=== PATIENT | male | born 1970 | race Caucasian/White ===

== ENCOUNTER 2023-04-22 08:27 | Observation (INO) | payer OTHER, SELFPAY ==
[2023-04-22] VITALS (27 sets, daily range): BP systolic 124–164; BP diastolic 82–115; PULSE 92–126; RESP 15–34; TEMP 36.6–37; O2SAT 90–118; BMI 27.4; BMI 28.0
--- NOTE | 2023-04-22 08:41 | XR_ITS ---
The [address] [address] Patient Name: ROBERTA DYSON MRN: [id number] date: 1970 Sex: M Assigned Patient Location: ER Current Patient Location: ED.MAIN Accession/Order Number: [id number] Exam Date: 04/22/2023 08:47 Report Date: 04/22/2023 09:13 At the request of: SHAHANA VITALE Procedure: XR chest 1V EXAMINATION: XR chest 1V HISTORY: shortness of breath , vomiting COMPARISON: No relevant comparison available. FINDINGS: LUNGS: No significant pulmonary parenchymal abnormalities. VASCULATURE: No increased pulmonary vasculature. PLEURA: No pneumothorax, effusion, or pleural thickening. CARDIAC: No cardiomegaly or cardiac silhouette abnormality. MEDIASTINUM: No visible mass or adenopathy. BONES: No fracture or visible bone lesion. OTHER: Negative. IMPRESSION: 1. Clear lungs. No acute cardiopulmonary process. Electronically authenticated by: KAMILAH RAO Date: 04/22/2023 09:13
--- NOTE | 2023-04-22 08:41 | ECG_ITS ---
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
[2023-04-22 08:45] LABS: Glucometer 208 mg/dL (74-106)
--- NOTE | 2023-04-22 08:59 | ED.GENADUL1 ---
HPI - General Adult General Chief complaint: Shortness of Breath/Dyspnea Stated complaint: SHORTNESS OF BREATH/VOMITTING Time Seen by Provider: 04/22/23 08:34 Source: patient Source information: pt up n/v all night, chills, sob. Mode of arrival: Wheelchair Limitations: no limitations History of Present Illness HPI narrative: 52-year-old male presents for shortness of breath and nausea and vomiting. He states he was fine up until about midnight when he started feeling anxious and became nauseous and vomited and now his shortness of breath as well. No chest pain or fever or hematemesis. He is not coughing up any phlegm. Symptoms have been continuous. He took his blood pressure medication this morning but vomited it back up and the water that he drank he also vomited as well. He is not complaining of abdominal pain or chest pain. Related Data Home Medications Medication Instructions Recorded Confirmed amlodipine 5 mg tablet mg 04/22/23 atenolol 100 mg tablet mg 04/22/23 gabapentin 300 mg capsule mg 04/22/23 insulin NPH-regular 70-30 U-100 subcut 04/22/23 insulin 100 unit/mL subcutaneous pen (Humulin 70/30 U-100 KwikPen) pen needle, diabetic 32 gauge x 04/22/23 04/22/23 5/32 (BD Ultra-Fine Marlyn Pen Needle) potassium chloride 20 mEq meq PO 04/22/23 tablet,extended release(part/cryst) (Klor-Con M) Allergies Allergy/AdvReac Type Severity Reaction Status Date / Time morphine Allergy Severe Hives Verified 04/22/23 08:53 nitroglycerin AdvReac Intermediate Vomiting Verified 04/22/23 08:53 ibuprofen AdvReac Unknown Verified 04/22/23 08:53 Review of Systems ROS Narrative A ten point review of systems is negative except as noted above. [facility] Medical History (Updated 04/22/23 @ 11:18 by Aleksandr Issa MD) Surgical History (Updated 04/22/23 @ 08:57 by Lamont Felder) Social History Smoking status: Never smoker Exam Narrative Exam Narrative: Nurses note and vital signs reviewed and patient is not hypoxic. General: The patient appears In no apparent respiratory distress.. Patient is Quite tremorous. Skin: Warm, dry, no pallor noted. There is no rash noted. Head: Normocephalic, atraumatic Eye: Normal conjunctiva, no drainage Ears, Nose, Mouth, and Throat: oral mucosa is Slightly dry. Nares patent. Mouth without vesicles. Cardiovascular: Regular Rate and Rhythm, Tachycardic Respiratory: Patient is in no distress, no accessory muscle use, lungs are clear to auscultation, no wheezing, rales or rhonchi Back: non-tender, no CVA tenderness bilaterally to percussion. GI: no tenderness to palpation, no masses appreciated. No rebound, guarding, or rigidity noted. Musculoskeletal: The patient has no evidence of calf tenderness, no pitting edema, symmetrical pulses noted bilaterally Neurological: A&O x4, normal speech; Quite tremorous Psychiatric: Cooperative Constitutional Vital Signs - 24 hr 04/22/23 08:30 04/22/23 08:53 04/22/23 08:38 Temperature 98.6 F Pulse Rate 119 H Pulse Rate [Monitor] 126 H Respiratory Rate 24 24 Blood Pressure 162/115 H Blood Pressure [Right Arm] 162/115 H Pulse Oximetry 100 100 99 Oxygen Delivery Method Room Air Room Air 04/22/23 08:38 04/22/23 09:14 04/22/23 09:14 Temperature Pulse Rate 122 H 113 H 119 H Pulse Rate [Monitor] Respiratory Rate 21 16 16 Blood Pressure 154/105 H 154/105 H Blood Pressure [Right Arm] Pulse Oximetry 97 98 Oxygen Delivery Method 04/22/23 09:30 04/22/23 09:44 04/22/23 09:45 Temperature Pulse Rate 116 H 109 H 104 H Pulse Rate [Monitor] Respiratory Rate 18 19 34 H Blood Pressure 164/110 H 138/90 H 124/92 H Blood Pressure [Right Arm] Pulse Oximetry 98 97 93 L Oxygen Delivery Method 04/22/23 10:00 04/22/23 10:00 04/22/23 10:15 Temperature Pulse Rate 106 H 107 H 108 H Pulse Rate [Monitor] Respiratory Rate 15 18 16 Blood Pressure 129/92 H 129/92 H 133/101 H Blood Pressure [Right Arm] Pulse Oximetry 95 94 L 94 L Oxygen Delivery Method 04/22/23 10:30 04/22/23 10:45 Temperature Pulse Rate 111 H 110 H Pulse Rate [Monitor] Respiratory Rate 16 18 Blood Pressure 137/104 H 133/108 H Blood Pressure [Right Arm] Pulse Oximetry 93 L 96 Oxygen Delivery Method Course Vital Signs Vital signs: Vital Signs Temperature 98.6 F 04/22/23 08:30 Pulse Rate 126 H 04/22/23 08:30 Respiratory Rate 24 04/22/23 08:30 Blood Pressure 162/115 H 04/22/23 08:30 Pulse Oximetry 100 04/22/23 08:30 Oxygen Delivery Method Room Air 04/22/23 08:30 Temperature 98.6 F 04/22/23 08:30 Pulse Rate 110 H 04/22/23 10:45 Respiratory Rate 18 04/22/23 10:45 Blood Pressure 133/108 H 04/22/23 10:45 Pulse Oximetry 96 04/22/23 10:45 Oxygen Delivery Method Room Air 04/22/23 08:53 Medical Decision Making MDM Narrative Medical decision making narrative: The patient presented with tremorous and nausea and vomiting. He was hypertensive and tachycardic. He was given IV labetalol and two doses of IV Ativan. She is feeling improved and his blood pressure and heart rate are coming down. He is being admitted for continued care. Findings are discussed thoroughly with the patient and his sister. Differential Diagnosis Differential Diagnosis: Anxiety, alcohol withdrawal, dehydration, much like imbalance Lab Data Lab results reviewed: Yes I reviewed the patient's lab results Labs: Lab Results 04/22/23 04/22/23 Range/Units 08:30 08:33 WBC 7.7 (4.0-11.0) 10^3/uL RBC 5.47 (4.70-6.10) 10^6/uL Hgb 17.3 (14.0-18.0) g/dL Hct 49.3 (42.0-54.0) % MCV 90.1 (80.0-94.0) fL MCH 31.6 (25.9-34.0) pg MCHC 35.1 (29.9-35.2) g/dL RDW 11.9 (11.0-15.0) % Plt Count 120 L (150-450) 10^3/uL MPV 11.2 (9.5-13.5) fL Neut % (Auto) 67.8 (43.0-75.0) % Lymph % (Auto) 22.0 (20.5-60.0) % [place] % (Auto) 9.3 (1.7-12.0) % Eos % (Auto) 0.1 L (0.9-7.0) % Baso % (Auto) 0.5 (0.2-2.0) % Neut # (Auto) 5.2 (1.4-6.5) 10^3/uL Lymph # (Auto) 1.7 (1.2-3.8) 10^3/uL [place] # (Auto) 0.7 (0.3-0.8) 10^3/uL Eos # (Auto) 0.0 (0.0-0.7) 10^3/uL Baso # (Auto) 0.0 (0.0-0.1) 10^3/uL Abs Immat Gran (auto) 0.02 (0.00-0.03) 10^3/uL Imm/Tot Granulo (auto) 0.3 (0.0-0.5) % Sodium 137 (136-145) mmol/L Potassium 3.2 L (3.5-5.1) mmol/L Chloride 94 L (98-107) mmol/L Carbon Dioxide 22.0 (21.0-32.0) mmol/L Anion Gap 24.2 BUN 9.0 (7.0-18.0) mg/dL Creatinine 1.06 (0.70-1.30) mg/dL Est GFR ( Amer) >60 (>=60) Est GFR (Non-Af Amer) >60 (>=60) BUN/Creatinine Ratio 8.5 Glucose 214 H (74-106) mg/dL Calcium 9.7 (8.5-10.1) mg/dL Total Bilirubin 1.0 (0.2-1.0) mg/dL AST 40 H (15-37) U/L ALT 43 (16-63) U/L Alkaline Phosphatase 106 (46-116) U/L Troponin I High Sens 15.6 (4.0-76.1) pg/mL Total Protein 8.5 H (6.4-8.2) g/dL Albumin 4.2 (3.4-5.0) g/dL Globulin 4.3 g/dL Albumin/Globulin Ratio 1.0 POC Glucose 208 H (74-106) mg/dL ECG Data Attestation: I personally reviewed and interpreted this ECG as follows: (EKG on my interpretation shows sinus tachycardia with no acute change) Critical Care Time Critical Care Time Critical Care Time: Yes Total Critical Care Time: 35 Attestation: IV labetalol was administered for tachycardia and hypertension. Discharge Plan Discharge Chief Complaint: Shortness of Breath/Dyspnea Clinical Impression: Nausea & vomiting, Hypertension Patient Disposition: Admitted As Inpatient Time of Disposition Decision: 11:18 Condition: Fair
[2023-04-22 09:01] LABS: Basophils Percent Auto 0.5 % (0.2-2.0); Eosinophils Percent Auto 0.1 % (0.9-7.0); Hematocrit 49.3 % (42.0-54.0); Hemoglobin 17.3 g/dL (14.0-18.0); Immature Granulocytes Abs Auto 0.02 10^3/uL (0.00-0.03); Immature Granulocytes Pct Auto 0.3 % (0.0-0.5); Lymphocytes Absolute Auto 1.7 10^3/uL (1.2-3.8); Mean Corpuscular HGB Conc 35.1 g/dL (29.9-35.2); Mean Corpuscular Hemoglobin 31.6 pg (25.9-34.0); Mean Corpuscular Volume 90.1 fL (80.0-94.0); Mean Platelet Volume 11.2 fL (9.5-13.5); Monocytes Absolute Auto 0.7 10^3/uL (0.3-0.8); Monocytes Percent Auto 9.3 % (1.7-12.0); Neutrophils Absolute Auto 5.2 10^3/uL (1.4-6.5); Neutrophils Percent Auto 67.8 % (43.0-75.0); Platelet Count 120 10^3/uL (150-450); Red Blood Count 5.47 10^6/uL (4.70-6.10); Red Cell Distribution Width 11.9 % (11.0-15.0); White Blood Count 7.7 10^3/uL (4.0-11.0)
[2023-04-22] MEDS: LORAZEPAM 2 MG/ML 1 ML VIAL 0.5 MG IV ×2 (09:13→09:41)
[2023-04-22 09:31] LABS: Alanine Aminotransferase 43 U/L (16-63); Albumin Level 4.2 g/dL (3.4-5.0); Alkaline Phosphatase 106 U/L (46-116); Anion Gap 24.2; Aspartate Amino Transferase 40 U/L (15-37); BUN Creatinine Ratio 8.5; Calcium 9.7 mg/dL (8.5-10.1); Chloride 94 mmol/L (98-107); Estimated GFR (African America >60 (>=60); Estimated GFR (Non-African Ame >60 (>=60); Globulin 4.3 g/dL; Glucose 214 mg/dL (74-106); Potassium 3.2 mmol/L (3.5-5.1); Sodium 137 mmol/L (136-145); Total Protein 8.5 g/dL (6.4-8.2); Troponin I High Sensitivity 15.6 pg/mL (4.0-76.1)
[2023-04-22] MEDS: LABETALOL HCL 20 MG/4 ML SYRINGE 10 MG IVP (09:41)
[2023-04-22 11:44] LABS: Ethanol <3 mg/dL
[2023-04-22] MEDS: PANTOPRAZOLE SODIUM 40 MG VIAL IV (13:31)
[2023-04-22] MEDS: POTASSIUM CHLORIDE 10 MEQ ER TABLET 20 MEQ PO ×2 (13:32→21:26)
[2023-04-22] MEDS: ENOXAPARIN SODIUM 40 MG/0.4 ML SYRINGE SUBQ (13:36)
--- NOTE | 2023-04-22 13:42 | P.HP_ITS ---
H&P: HPI History of Present Illness Chief complaint: SHORTNESS OF BREATH/VOMITTING Narrative: patient is a 52-year-old male with past medical history of insulin- dependent type 2 diabetes with noncompliance, hypertension, hyperlipidemia, diabetic neuropathy. he reports that last night he drank about three beers and woke up in the middle of the night with a dry cough, some shortness of breath, sweats and an episode of vomiting. He denies any sick contacts denies any fevers or recent illnesses. patient usually consumes about 5-6 beers a day but never had any issues with delirium tremens or seizures in the past. He has been compliant with his medications this time and has been taking his blood pressure and insulin. He denies any chest pain does admit to some shortness of breath specifically with a cough but no current nausea vomiting or diarrhea. Review of Systems ROS Narrative ROS: a complete review of systems were reviewed with patient and are positive as below or listed in History of Chief Complaint. General: no fever, chills, night sweats Head: no headache, trauma, visual changes, nausea or vomiting Skin: no reported rashes, itching or sores Eyes: no blurriness of vision Ears: no reported hearing loss, vertigo, earache, or tinnitus Throat: no sore throat, hoarseness, swelling of neck, or tongue pain Heart: no chest pain Lungs: no shortness of breath or cough GI: no diarrhea or vomiting/nausea Urinary: no urinary urgency, frequency or pain Neuro: no numbness or tingling HEM: no bleeding issues or bruising ENDO: no thyroid problems Psych: no anxiety or depression PFSH PFS Medical History (Updated 04/22/23 @ 13:50 by Annie Madden DO) Surgical History Social History Smoking status: Never smoker Gender Identity: male Meds Home Medications and Allergies Home Medications Medication Instructions Recorded Confirmed Type amlodipine 5 mg tablet 5 mg PO DAILY 04/22/23 04/22/23 History atenolol 100 mg tablet 100 mg PO DAILY 04/22/23 04/22/23 History gabapentin 300 mg capsule See Rx Instructions .Route .COMPLEX 04/22/23 04/22/23 History insulin NPH-regular 70-30 U-100 See Rx Instructions subcut .COMPLEX 04/22/23 04/22/23 History insulin 100 unit/mL subcutaneous pen (Humulin 70/30 U-100 KwikPen) pen needle, diabetic 32 gauge x 04/22/23 04/22/23 History /32 (BD Ultra-Fine Marlyn Pen Needle) potassium chloride 20 mEq 20 meq PO TID 04/22/23 04/22/23 History tablet,extended release(part/cryst) (Klor-Con M) Allergies Allergy/AdvReac Type Severity Reaction Status Date / Time morphine Allergy Severe Hives Verified 04/22/23 08:53 nitroglycerin AdvReac Intermediate Vomiting Verified 04/22/23 08:53 ibuprofen AdvReac Unknown Verified 04/22/23 08:53 Exam Narrative Exam Narrative: General: Patient is alert, and oriented to person, place and time with normal affect, proper hygiene, resting tremors bilaterally Skin: no visible rashes, or ulcers Head: atraumatic, acephalic Eyes: PERRLA, no nystagmus present, conjunctiva clear, no scleral icterus Ears: normal gross auditory acuity Nose: symmetric, no discharge, no maxillary or frontal sinus tenderness Mouth/Throat: no erythema, exudate, or tonsillar enlargement, normal dentition Neck: no masses palpated, normal thyroid, no JVD or audible carotid bruits Heart: Normal rate and rhythm, no murmurs/rubs/gallops Lungs: no audible wheezes, crackles and normal breath sounds all lung gonzalez Abdomen: Normal audible bowel sounds, no distension, No palpable masses, no organomegaly, no rebound/guarding/ or rigidity Musculoskeletal: no swelling bilateral lower extremities Vascular: Normal carotid, radial, femoral, posterior tibial, and dorsalis pedis pulses Lymph: no supraclavicular, axillary, or anterior/posterior cervical adenopathy Neuro: CN II-X grossly intact Constitutional Vital Signs - 24 hr 04/22/23 08:30 04/22/23 08:53 04/22/23 08:38 Temperature 98.6 F Pulse Rate 119 H Pulse Rate [Monitor] 126 H Respiratory Rate 24 24 Blood Pressure 162/115 H Blood Pressure [Right Arm] 162/115 H Pulse Oximetry 100 100 99 Oxygen Delivery Method Room Air Room Air 04/22/23 08:38 04/22/23 09:14 04/22/23 09:14 Temperature Pulse Rate 122 H 113 H 119 H Pulse Rate [Monitor] Respiratory Rate 21 16 16 Blood Pressure 154/105 H 154/105 H Blood Pressure [Right Arm] Pulse Oximetry 97 98 Oxygen Delivery Method 04/22/23 09:30 04/22/23 09:44 04/22/23 09:45 Temperature Pulse Rate 116 H 109 H 104 H Pulse Rate [Monitor] Respiratory Rate 18 19 34 H Blood Pressure 164/110 H 138/90 H 124/92 H Blood Pressure [Right Arm] Pulse Oximetry 98 97 93 L Oxygen Delivery Method 04/22/23 10:00 04/22/23 10:00 04/22/23 10:15 Temperature Pulse Rate 106 H 107 H 108 H Pulse Rate [Monitor] Respiratory Rate 15 18 16 Blood Pressure 129/92 H 129/92 H 133/101 H Blood Pressure [Right Arm] Pulse Oximetry 95 94 L 94 L Oxygen Delivery Method 04/22/23 10:30 04/22/23 10:45 04/22/23 11:00 Temperature Pulse Rate 111 H 110 H 119 H Pulse Rate [Monitor] Respiratory Rate 16 18 30 H Blood Pressure 137/104 H 133/108 H 139/103 H Blood Pressure [Right Arm] Pulse Oximetry 93 L 96 Oxygen Delivery Method 04/22/23 11:20 04/22/23 11:23 04/22/23 11:25 Temperature Pulse Rate 111 H 109 H 118 H Pulse Rate [Monitor] Respiratory Rate 17 15 19 Blood Pressure 137/95 H Blood Pressure [Right Arm] Pulse Oximetry 98 Oxygen Delivery Method 04/22/23 11:25 04/22/23 11:40 Temperature 98.0 F Pulse Rate 126 H 116 H Pulse Rate [Monitor] Respiratory Rate 23 18 Blood Pressure 137/95 H Blood Pressure [Right Arm] 160/95 H Pulse Oximetry 94 L 91 L Oxygen Delivery Method Room Air Results Labs Labs: Short CBC 04/22/23 Range/Units 08:30 WBC 7.7 (4.0-11.0) 10^3/uL Hgb 17.3 (14.0-18.0) g/dL Hct 49.3 (42.0-54.0) % Plt Count 120 L (150-450) 10^3/uL BMP 04/22/23 08:30 Sodium 137 Potassium 3.2 L Chloride 94 L Carbon Dioxide 22.0 BUN 9.0 Creatinine 1.06 Glucose 214 H Calcium 9.7 Liver Function 04/22/23 Range/Units 08:30 Total Bilirubin 1.0 (0.2-1.0) mg/dL AST 40 H (15-37) U/L ALT 43 (16-63) U/L Alkaline Phosphatase 106 (46-116) U/L Albumin 4.2 (3.4-5.0) g/dL Assessment and Plan Assessment and Plan (1) Hypertensive urgency: Assessment and Plan: patient was given a dose of labetalol 10 mg once in the emergency department which seemed to improve patient's elevated blood pressure. Will place back on home amlodipine and Toprol and will provide when necessary hydralazine if needed. He denies having a headache at this time (2) Nausea & vomiting: Assessment and Plan: no active issues slight wheeze low potassium but was 3.2 continue antiemetics as needed (3) Uncontrolled type 2 diabetes mellitus: Assessment and Plan: hemoglobin A1c at the end of last month was greater than ten, will continue home dose of 70/30 (4) Dry cough: Assessment and Plan: normal chest x-ray will check viral culture (5) Shaking: Assessment and Plan: Ativan seemed to improve symptoms, withdrawal scores per nursing staff (6) Hyperlipidemia: Assessment and Plan: not currently taking statin (7) Diabetic neuropathy: Assessment and Plan: resume gabapentin Plan full code lovenox for DVT prophylaxis patient is admitted under observation status and is not expected to stay more than 2 midnights
[2023-04-22 15:24] LABS: Adenovirus NOT DETECTED (NOT DETECTE); Bordetella parapertussis NOT DETECTED (NOT DETECTE); Coronavirus 229E NOT DETECTED (NOT DETECTE); Coronavirus HKU1 NOT DETECTED (NOT DETECTE); Coronavirus NL63 NOT DETECTED (NOT DETECTE); Coronavirus OC43 NOT DETECTED (NOT DETECTE); Human Metapneumovirus NOT DETECTED (NOT DETECTE); Human Rhinovirus/Enterovirus NOT DETECTED (NOT DETECTE); Influenza A NOT DETECTED (NOT DETECTE); Influenza B NOT DETECTED (NOT DETECTE); Mycoplasma pneumoniae NOT DETECTED (NOT DETECTE); Parainfluenza Virus 1 NOT DETECTED (NOT DETECTE); Parainfluenza Virus 2 NOT DETECTED (NOT DETECTE); Parainfluenza Virus 3 NOT DETECTED (NOT DETECTE); Parainfluenza Virus 4 NOT DETECTED (NOT DETECTE); Respiratory Syncytial Virus NOT DETECTED (NOT DETECTE); SARS-CoV-2 NOT DETECTED (NOT DETECTE)
[2023-04-22] MEDS: LORAZEPAM 2 MG/ML 1 ML VIAL 1 MG IV (15:29)
[2023-04-22 16:07] LABS: Glucometer 143 mg/dL (74-106)
[2023-04-22 19:46] LABS: Glucometer 155 mg/dL (74-106)
[2023-04-22] MEDS: GABAPENTIN 300 MG CAPSULE PO (21:26)
[2023-04-23] VITALS (10 sets, daily range): BP systolic 138; BP diastolic 91; PULSE 81–103; RESP 18; TEMP 36.6; O2SAT 95–97; BMI 28.0
[2023-04-23 04:58] LABS: Basophils Absolute Auto 0.1 10^3/uL (0.0-0.1); Basophils Percent Auto 0.9 % (0.2-2.0); Eosinophils Absolute Auto 0.1 10^3/uL (0.0-0.7); Eosinophils Percent Auto 1.6 % (0.9-7.0); Hematocrit 46.4 % (42.0-54.0); Hemoglobin 15.8 g/dL (14.0-18.0); Immature Granulocytes Abs Auto 0.01 10^3/uL (0.00-0.03); Immature Granulocytes Pct Auto 0.2 % (0.0-0.5); Lymphocytes Absolute Auto 2.1 10^3/uL (1.2-3.8); Lymphocytes Percent Auto 38.2 % (20.5-60.0); Mean Corpuscular HGB Conc 34.1 g/dL (29.9-35.2); Mean Corpuscular Hemoglobin 31.7 pg (25.9-34.0); Mean Corpuscular Volume 93.2 fL (80.0-94.0); Monocytes Absolute Auto 0.7 10^3/uL (0.3-0.8); Monocytes Percent Auto 12.9 % (1.7-12.0); Neutrophils Absolute Auto 2.5 10^3/uL (1.4-6.5); Neutrophils Percent Auto 46.2 % (43.0-75.0); Platelet Count 97 10^3/uL (150-450); Red Blood Count 4.98 10^6/uL (4.70-6.10); Red Cell Distribution Width 12.2 % (11.0-15.0); White Blood Count 5.5 10^3/uL (4.0-11.0)
[2023-04-23] MEDS: POTASSIUM CHLORIDE 10 MEQ ER TABLET 20 MEQ PO (05:05)
[2023-04-23 05:13] LABS: Estimated Average Glucose 260 mg/dL; Glycohemoglobin A1C 10.7 % (4.5-6.2)
[2023-04-23 05:35] LABS: Alanine Aminotransferase 33 U/L (16-63); Albumin Globulin Ratio 0.9; Albumin Level 3.1 g/dL (3.4-5.0); Alkaline Phosphatase 76 U/L (46-116); Anion Gap 14.9; Aspartate Amino Transferase 30 U/L (15-37); BUN Creatinine Ratio 11.5; Bilirubin Total 0.9 mg/dL (0.2-1.0); Calcium 8.6 mg/dL (8.5-10.1); Carbon Dioxide 26.4 mmol/L (21.0-32.0); Chloride 98 mmol/L (98-107); Estimated GFR (African America >60 (>=60); Estimated GFR (Non-African Ame >60 (>=60); Globulin 3.6 g/dL; Glucose 177 mg/dL (74-106); Magnesium 1.3 mg/dL (1.8-2.4); Potassium 3.3 mmol/L (3.5-5.1); Sodium 136 mmol/L (136-145); Total Protein 6.7 g/dL (6.4-8.2)
[2023-04-23] MEDS: PANTOPRAZOLE SODIUM 40 MG VIAL IV (09:18)
[2023-04-23] MEDS: GABAPENTIN 300 MG CAPSULE 600 MG PO (09:18)
[2023-04-23] MEDS: ATENOLOL 50 MG TABLET 100 MG PO (09:18)
[2023-04-23] MEDS: ENOXAPARIN SODIUM 40 MG/0.4 ML SYRINGE SUBQ (09:18)
[2023-04-23] MEDS: AMLODIPINE BESYLATE 5 MG TABLET PO (09:18)
[2023-04-23] MEDS: INSULIN ASPART PROT/INSULN ASP 70/30 300 UNIT/3 ML INSULN.PEN 25 UNIT SUBQ (09:19)
--- NOTE | 2023-04-23 10:47 | SWNOTE1 ---
SW met with pt to discuss any dc needs. Pt lives at home and he is independent at home. 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 Pt has not been to any AA meetings or any kind of alcohol rehab (inpt or outpt). At this time pt refuses resources for AA and inpt/outpt rehab. SW to follow as needed.
--- NOTE | 2023-04-23 11:12 | ECG_ITS ---
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
[2023-04-23 11:25] LABS: Glucometer 187 mg/dL (74-106)
--- NOTE | 2023-04-23 11:49 | CM.NOTE ---
Rounds made with chato Gutierres for discharge to home today.
--- NOTE | 2023-04-23 12:02 | PM.DS1 ---
DS: Providers Provider Date of admission: 04/22/23 11:34 Primary care physician: Elvin Lei DO Admitting clinician: Annie Madden Consults: 04/22/23 Consult to Chief Power Dispatcher Routine Attending physician on discharge: Annie Madden DS: Diagnosis Discharge Diagnosis (1) Hypertensive urgency: Assessment and plan: patient was given a dose of labetalol 10 mg once in the emergency department which seemed to improve patient's elevated blood pressure. Will place back on home amlodipine and Toprol and will provide when necessary hydralazine if needed. He denies having a headache at this time. Pressures have remained stable, EKG obtained due to tachycardia on telemetry, unchanged from prior EKGS and looked up in older system and compared several to 2021, and 2020 admissions. No changes. He is having some resting tremors which is affecting the leads on tele, no chest pain and trop was negative, also mag was slightly low today which can explain PVC's seen. Not symptomatic but also replaced his mag with 2 grams IV x 1. resume home bp medications. (2) Nausea & vomiting: Assessment and plan: resolved (3) Uncontrolled type 2 diabetes mellitus: Assessment and plan: recheck ha1c was 10.7, resume Novolin 70/30 dosages from home (4) Dry cough: Assessment and plan: negative viral work up, normal chest x-ray, most likely viral cause. (5) Shaking: Assessment and plan: alcohol withdrawal, ativan helped while inpatient, patient has no desire to quit so the risks of poor outcome with benzo prescription and drinking are high, respiratory depression or ; provided patient with PRN Vistaril. Most likely he will go home and drink. (6) Hyperlipidemia: Assessment and plan: continue statin at discharge (7) Diabetic neuropathy: Assessment and plan: continue gabapentin DS: Summary Time Spent with Patient Time attestation: Total time spent providing and/or coordinating discharge services: Exam Narrative Exam Narrative: General: Patient is alert, and oriented to person, place and time with normal affect, proper hygiene, resting tremors bilaterally Skin: no visible rashes, or ulcers Head: atraumatic, acephalic Eyes: PERRLA, no nystagmus present, conjunctiva clear, no scleral icterus Neck: no masses palpated, normal thyroid, no JVD or audible carotid bruits Heart: Normal rate and rhythm, no murmurs/rubs/gallops Lungs: no audible wheezes, crackles and normal breath sounds all lung gonzalez Abdomen: Normal audible bowel sounds, no distension, No palpable masses, no organomegaly, no rebound/guarding/ or rigidity Musculoskeletal:? no swelling bilateral lower extremities Vascular: Normal carotid, radial, femoral, posterior tibial, and dorsalis pedis pulses Lymph: no supraclavicular, axillary, or anterior/posterior cervical adenopathy Neuro: CN II-X grossly intact Constitutional Vital Signs - 24 hr 04/22/23 14:04 04/22/23 14:04 04/22/23 14:22 Temperature 98.1 F Pulse Rate 118 H 111 H Respiratory Rate 20 Blood Pressure 146/93 H Blood Pressure [Right Arm] 146/93 H Pulse Oximetry 90 L Oxygen Delivery Method Room Air 04/22/23 16:30 04/22/23 17:14 04/22/23 19:25 Temperature Pulse Rate 105 H Respiratory Rate 20 Blood Pressure Blood Pressure [Right Arm] Pulse Oximetry 95 Oxygen Delivery Method Room Air 04/22/23 19:51 04/22/23 19:48 04/22/23 21:29 Temperature 97.9 F Pulse Rate 101 H 112 H Respiratory Rate 18 Blood Pressure Blood Pressure [Right Arm] 124/82 H Pulse Oximetry 95 95 Oxygen Delivery Method Room Air Room Air 04/22/23 21:47 04/22/23 23:48 04/23/23 01:00 Temperature Pulse Rate 107 H 92 H 96 H Respiratory Rate Blood Pressure Blood Pressure [Right Arm] Pulse Oximetry Oxygen Delivery Method 04/23/23 04:00 04/23/23 04:30 04/23/23 05:06 Temperature 97.8 F Pulse Rate 103 H 100 H Respiratory Rate 18 Blood Pressure Blood Pressure [Right Arm] 138/91 H Pulse Oximetry 97 95 Oxygen Delivery Method Room Air Room Air 04/23/23 06:00 04/23/23 08:29 04/23/23 10:35 Temperature Pulse Rate 91 H 86 89 Respiratory Rate Blood Pressure Blood Pressure [Right Arm] Pulse Oximetry Oxygen Delivery Method 04/23/23 10:41 04/23/23 11:20 Temperature Pulse Rate 83 Respiratory Rate Blood Pressure Blood Pressure [Right Arm] Pulse Oximetry 96 Oxygen Delivery Method Room Air DS: Data Data Completed and Pending Labs on day of discharge: Labs from last 24 hours 04/23/23 04/23/23 04/22/23 11:24 04:30 19:45 WBC 5.5 RBC 4.98 Hgb 15.8 Hct 46.4 MCV 93.2 MCH 31.7 MCHC 34.1 RDW 12.2 Plt Count 97 L MPV 11.0 Neut % (Auto) 46.2 Lymph % (Auto) 38.2 [place] % (Auto) 12.9 H Eos % (Auto) 1.6 Baso % (Auto) 0.9 Neut # (Auto) 2.5 Lymph # (Auto) 2.1 [place] # (Auto) 0.7 Eos # (Auto) 0.1 Baso # (Auto) 0.1 Abs Immat Gran (auto) 0.01 Imm/Tot Granulo (auto) 0.2 Sodium 136 Potassium 3.3 L Chloride 98 Carbon Dioxide 26.4 Anion Gap 14.9 BUN 11.0 Creatinine 0.96 Est GFR ( Amer) >60 Est GFR (Non-Af Amer) >60 BUN/Creatinine Ratio 11.5 Glucose 177 H Estimat Average Glucose 260 Hemoglobin A1c 10.7 H Calcium 8.6 Magnesium 1.3 L Total Bilirubin 0.9 AST 30 ALT 33 Alkaline Phosphatase 76 Total Protein 6.7 Albumin 3.1 L Globulin 3.6 Albumin/Globulin Ratio 0.9 TSH 1.260 Adenovirus (PCR) C. pneumoniae DNA (PCR) Coronavirus Type OC43 Coronavirus Type HKU1 Coronavirus Type 229E Coronavirus Type NL63 Human Metapneumovir PCR M. pneumoniae (PCR) Parainfluenza PCR Parainfluenza 2 (PCR) Parainfluenza 3 (PCR) Parainfluenza 4 (PCR) RSV (RT-PCR) Entero/Rhino (PCR) SARS-CoV-2 (PCR) Bordetella pertussis (PCR) B parapertussis DNA PCR Influenza Type A (PCR) Influenza Type B (PCR) POC Glucose 187 H 155 H 04/22/23 04/22/23 16:03 15:20 WBC RBC Hgb Hct MCV MCH MCHC RDW Plt Count MPV Neut % (Auto) Lymph % (Auto) [place] % (Auto) Eos % (Auto) Baso % (Auto) Neut # (Auto) Lymph # (Auto) [place] # (Auto) Eos # (Auto) Baso # (Auto) Abs Immat Gran (auto) Imm/Tot Granulo (auto) Sodium Potassium Chloride Carbon Dioxide Anion Gap BUN Creatinine Est GFR ( Amer) Est GFR (Non-Af Amer) BUN/Creatinine Ratio Glucose Estimat Average Glucose Hemoglobin A1c Calcium Magnesium Total Bilirubin AST ALT Alkaline Phosphatase Total Protein Albumin Globulin Albumin/Globulin Ratio TSH Adenovirus (PCR) Not detected C. pneumoniae DNA (PCR) Not detected Coronavirus Type OC43 Not detected Coronavirus Type HKU1 Not detected Coronavirus Type 229E Not detected Coronavirus Type NL63 Not detected Human Metapneumovir PCR Not detected M. pneumoniae (PCR) Not detected Parainfluenza PCR Not detected Parainfluenza 2 (PCR) Not detected Parainfluenza 3 (PCR) Not detected Parainfluenza 4 (PCR) Not detected RSV (RT-PCR) Not detected Entero/Rhino (PCR) Not detected SARS-CoV-2 (PCR) Not detected Bordetella pertussis (PCR) Not detected B parapertussis DNA PCR Not detected Influenza Type A (PCR) Not detected Influenza Type B (PCR) Not detected POC Glucose 143 H Discharge Plan Discharge Disposition: Home, Self-Care Condition: Fair Discharge Medications: New hydroxyzine pamoate [Vistaril] 25 mg capsule 25 mg PO Q8H PRN (Reason: anxiety) Qty: 21 0RF Continued atenolol 100 mg tablet 100 mg PO DAILY amlodipine 5 mg tablet 5 mg PO DAILY potassium chloride [Klor-Con M20] 20 mEq tablet,ER particles/crystals 20 meq PO TID gabapentin 300 mg capsule See Rx Instructions .ROUTE .COMPLEX Rx Instructions: TAKE [id number] BY MOUTH EVERY MORNING AND 1 CAPSULE IN THE EVENING; Humulin 70/30 U-100 KwikPen 100 unit/mL (70-30) insulin pen See Rx Instructions SUBCUT .COMPLEX Rx Instructions: INJECT 50 UNITS SUB-Q BEFORE BREAKFAST AND 25 UNITS SUB-Q PRIOR TO THE EVENING MEAL subcutaneously; (DME) pen needle, diabetic [BD Ultra-Fine Marlyn Pen Needle] 32 gauge x 5/32 needle MISCELLANEOUS Activity: increase activity as tolerated and resume usual activities as tolerated Diet: advance to your usual diet Patient Instructions: Acute Nausea and Vomiting (DC), Chronic Hypertension (DC) Forms: Portal Instructions Follow Up Appointments: Follow up with Dr. Lei Saturday 04/28 at 9:45
--- NOTE | 2023-04-26 15:17 | CM.DCFOLLOWU ---
Person spoke with: Ruben How are you feeling? Much better How is your pain? No pain Did you understand your discharge instructions? yes Do you have any questions about your discharge instructions? No Were you given any prescriptions at discharge? Yes, plan on picking up today after work Were you able to get your prescriptions filled? picking up today Do you understand how to take your medications as ordered? yes Do you have any questions about your follow up appointment and do you plan to keep your follow up appointment? yes its on Wed Is there anything else that you would like to discuss? No Questions/Comments/Concerns/Other:
== END 2023-04-23 13:17 | disposition home or self-care (01) ==
LOC: ER 11:18 → MS 17:06
PROVIDERS: Admitting Provider Family Medicine; Emergency Provider Emergency Medicine; PCP Internal Medicine; Visit Provider Family Medicine
DX: I16.0 Hypertensive urgency (principal); R11.2 Nausea with vomiting, unspecified; E11.65 Type 2 diabetes mellitus with hyperglycemia; R05.8 Other specified cough; E11.40 Type 2 diabetes mellitus with diabetic neuropathy, unspecified; F10.239 Alcohol dependence with withdrawal, unspecified; Z79.899 Other long term (current) drug therapy; E78.5 Hyperlipidemia, unspecified; Z79.4 Long term (current) use of insulin; Z91.199 Patient's noncompliance with other medical treatment and regimen due to unspecified reason; Z20.822 Contact with and (suspected) exposure to COVID-19
CPT/HCPCS: 0202U; 36415; 71045; 80053; 80320; 83036; 83735; 84443; 84484; 85025; 93005; 94761; 96372; 96374; 96375; 96376; 99285; G0378

== ENCOUNTER 2023-07-09 10:40 | Emergency (ER) | payer OTHER, SELFPAY ==
[2023-07-09] VITALS (32 sets, daily range): BP systolic 119–200; BP diastolic 82–132; PULSE 91–143; RESP 13–48; TEMP 37.1; O2SAT 92–98; BMI 27.4
--- NOTE | 2023-07-09 10:46 | ECG_ITS ---
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
--- NOTE | 2023-07-09 10:52 | ECG_ITS ---
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
[2023-07-09 10:55] LABS: Glucometer 235 mg/dL (74-106)
--- NOTE | 2023-07-09 10:57 | XR_ITS ---
The [address] [address] Patient Name: ROBERTA DYSON MRN: [id number] date: 1970 Sex: M Assigned Patient Location: ER Current Patient Location: ED.MAIN Accession/Order Number: [id number] Exam Date: 07/09/2023 11:10 Report Date: 07/09/2023 11:39 At the request of: OLGA BRIAN Procedure: XR chest 1V EXAMINATION: XR chest 1V HISTORY: chest pain , shortness breath COMPARISON: XR chest 04/22/2023 FINDINGS: LUNGS: No acute infiltrates, mass, or suspicious findings. VASCULATURE: No increased pulmonary vasculature. PLEURA: No pneumothorax, effusion, or pleural thickening. CARDIAC: No cardiomegaly or cardiac silhouette abnormality. MEDIASTINUM: No visible mass or adenopathy. BONES: No fracture or visible bone lesion. OTHER: Negative. XR/XR chest 1V IMPRESSION: 1. No acute cardiopulmonary process. Stable chest. Electronically authenticated by: KAMILAH RAO Date: 07/09/2023 11:39
--- NOTE | 2023-07-09 11:02 | ED_ITS ---
HPI - Chest Pain General Chief Complaint: Chest Pain Stated Complaint: Chest Pain Time Seen by Provider: 07/09/23 11:02 Mode of arrival: Wheelchair History of Present Illness HPI narrative: Patient presents to emergency department complaining of chest pain and pal pitations. Patient states he had been vomiting the entire night. He states anytime he tried to drink any water he continuously started to vomit. From the vomiting he has developed chest pain. He denies any hematemesis. He states he has not had a bowel movement today. He denies any abdominal pain. Patient is shaky. Patient has a history of alcohol dependency. He tells me that he only drinks 6 beers every night after work. He has not had anything to drink this morning. The patient states he took his medications but he vomited itself is not sure that this started in his system. He denies any fevers she states she has chills. He denies any trauma. Related Data Home Medications Medication Instructions Recorded Confirmed amlodipine 5 mg tablet 5 mg PO DAILY 04/22/23 04/22/23 atenolol 100 mg tablet 100 mg PO DAILY 04/22/23 04/22/23 gabapentin 300 mg capsule See Rx Instructions .Route .COMPLEX 04/22/23 04/22/23 insulin NPH-regular 70-30 U-100 See Rx Instructions subcut .COMPLEX 04/22/23 04/22/23 insulin 100 unit/mL subcutaneous pen (Humulin 70/30 U-100 KwikPen) pen needle, diabetic 32 gauge x 04/22/23 04/22/23 5/32 (BD Ultra-Fine Marlyn Pen Needle) potassium chloride 20 mEq 20 meq PO TID 04/22/23 04/22/23 tablet,extended release(part/cryst) (Klor-Con M) Previous Rx's Medication Instructions Recorded hydroxyzine pamoate 25 mg capsule 25 mg PO Q8H PRN anxiety #21 caps 04/23/23 (Vistaril) Allergies Allergy/AdvReac Type Severity Reaction Status Date / Time morphine Allergy Severe Hives Verified 07/09/23 10:48 nitroglycerin AdvReac Intermediate Vomiting Verified 07/09/23 10:48 ibuprofen AdvReac Unknown Verified 07/09/23 10:48 Review of Systems ROS Status of ROS 10 or more systems reviewed and unremarkable except as noted in history and below [facility] Medical History (Updated 07/09/23 @ 14:31 by Niecy Anaya MD) Surgical History Social History Smoking status: Never smoker Gender Identity: male Exam Narrative Exam Narrative: Nurses notes and vital signs reviewed and patient is not hypoxic. General: Nontoxic, Anxious, tremors and in no apparent distress. Skin: Warm, dry, no pallor noted. No Rash Head: Normocephalic, atraumatic. Neck: Supple, non-tender. Eye: Pupils are equal, round and EOMI. No scleral icterus. Ears, Nose, Mouth, and Throat: TM clear, no posterior oropharynx erythema or nasal mucosal hypertrophy, uvula is mid-line Oral mucosa is dry Cardiovascular: Tachycardic, without murmur, gallop or rub. Respiratory: No accessory muscle use or respiratory distress. Lungs are clear to auscultation, no wheezing, rales or rhonchi Chest Wall: no tenderness Back: No midline thoracic or lumbar vertebral tenderness. No CVA tenderness Musculoskeletal: normal ROM, no calf or popliteal tenderness, no lower extremity edema/swelling GI: Abdomen is soft, non-distended. Normal bowel sounds. No masses appreciated. No tenderness to palpation. No rebound, guarding, or rigidity noted. Neurological: A&O x4. No cranial nerve dysfunction observed. No truncal ataxia. Moves all extremities. Bilateral arm tremors, Psychiatric: Cooperative and interactive. Normal mood and affect. Constitutional Vital Signs, click to edit/add: Last Vital Signs Temp 98.7 F 07/09/23 10:42 Pulse 103 H 07/09/23 11:40 Resp 23 07/09/23 11:30 BP 145/105 H 07/09/23 11:39 Pulse Ox 95 07/09/23 11:40 O2 Del Method Room Air 07/09/23 10:42 Course Vital Signs Vital signs: Vital Signs Temperature 98.7 F 07/09/23 10:42 Pulse Rate 136 H 07/09/23 10:42 Respiratory Rate 24 07/09/23 10:42 Blood Pressure 200/115 H 07/09/23 10:42 Pulse Oximetry 97 07/09/23 10:42 Oxygen Delivery Method Room Air 07/09/23 10:42 Temperature 98.7 F 07/09/23 10:42 Pulse Rate 103 H 07/09/23 11:40 Respiratory Rate 23 07/09/23 11:30 Blood Pressure 145/105 H 07/09/23 11:39 Pulse Oximetry 95 07/09/23 11:40 Oxygen Delivery Method Room Air 07/09/23 10:42 MDM - Chest Pain MDM Narrative Medical decision making narrative: EKG shows sinus tachycardia without any acute ischemic changes. Patient was given 4 mg of Zofran and an IV fluids. Patient was given 2 mg of Ativan IV which brought the patient's tremors to minimal his heart rate is 96 and his blood pressure is 142/94. Patient was given 5 mg of Lopressor. Labs studies are unremarkable. 2nd troponin is . If. Patient states he has not had anything to drink because he has been working a lot. He states he is feeling much better however he is starting to have a slight tremor again. I discussed with the patient will withdraw all. I advised patient to continue a prescription for Ativan if he wants to stop drinking. Patient was given phenobarbital 130 mg IV. Patient states he just wants to go home and he does not want to stop drinking and therefore I will not continue to give him Ativan at this time. We will give a prescription or Zofran in case he has nausea. Patient does not have any pain at this time. He is stable for outpatient follow-up and treatment. At this time the patient is without objective evidence of an acute process requiring hospitalization or inpatient management. The patient has remained hemodynamically stable. No additional indication for emergent studies at this time. I answered all questions. Discussed discharge instructions including standard anticipatory guidance and what should prompt a return to the emergency department, including if they get worse are not getting better or develops any new or concerning symptoms. I've given them specific time frame in which to follow-up, and who to follow-up with. The patient demonstrates understanding. Patient is nontoxic and stable for discharge with outpatient follow-up. This note was created with the assistance of a speech recognition program. Although the intention is to generate documents that actually reflects the content of the visit, no guarantees can be provided that every mistake has been identified and corrected by editing. Differential Diagnosis Differential diagnosis: Likely chest pain Medical Records Data Attestation: I reviewed the patient's medical records. Lab Data Attestation: I reviewed the patient's lab results. Labs: Lab Results 07/09/23 07/09/23 07/09/23 Range/Units 10:45 10:52 10:53 WBC 7.6 (4.0-11.0) 10^3/uL RBC 5.38 (4.70-6.10) 10^6/uL Hgb 17.7 (14.0-18.0) g/dL Hct 51.1 (42.0-54.0) % MCV 95.0 H (80.0-94.0) fL MCH 32.9 (25.9-34.0) pg MCHC 34.6 (29.9-35.2) g/dL RDW 12.7 (11.0-15.0) % Plt Count 78 L (150-450) 10^3/uL MPV 12.6 (9.5-13.5) fL Neut % (Auto) 67.3 (43.0-75.0) % Lymph % (Auto) 24.0 (20.5-60.0) % [place] % (Auto) 7.5 (1.7-12.0) % Eos % (Auto) 0.1 L (0.9-7.0) % Baso % (Auto) 0.8 (0.2-2.0) % Neut # (Auto) 5.1 (1.4-6.5) 10^3/uL Lymph # (Auto) 1.8 (1.2-3.8) 10^3/uL [place] # (Auto) 0.6 (0.3-0.8) 10^3/uL Eos # (Auto) 0.0 (0.0-0.7) 10^3/uL Baso # (Auto) 0.1 (0.0-0.1) 10^3/uL Abs Immat Gran (auto) 0.02 (0.00-0.03) 10^3/uL Imm/Tot Granulo (auto) 0.3 (0.0-0.5) % Sodium 133 L (136-145) mmol/L Potassium 4.3 (3.5-5.1) mmol/L Chloride 92 L (98-107) mmol/L Carbon Dioxide 12.0 L (21.0-32.0) mmol/L Anion Gap 33.3 BUN 17.0 (7.0-18.0) mg/dL Creatinine 1.30 (0.70-1.30) mg/dL Est GFR ( Amer) >60 (>=60) Est GFR (Non-Af Amer) 58 L (>=60) BUN/Creatinine Ratio 13.1 Glucose 271 H (74-106) mg/dL Calcium 9.5 (8.5-10.1) mg/dL Total Bilirubin 2.6 H (0.2-1.0) mg/dL AST 55 H (15-37) U/L ALT 53 (16-63) U/L Alkaline Phosphatase 83 (46-116) U/L Troponin I High Sens 20.2 (4.0-76.1) pg/mL Total Protein 8.6 H (6.4-8.2) g/dL Albumin 4.3 (3.4-5.0) g/dL Globulin 4.3 g/dL Albumin/Globulin Ratio 1.0 Urine Color (YELLOW) Urine Clarity (CLEAR) Urine pH (5.0-9.0) Ur Specific [place] (1.005-1.025) Urine Protein (NEG/TRACE) mg/dL Urine Glucose (UA) (NEGATIVE) mg/dL Urine Ketones (NEGATIVE) mg/dL Urine Occult Blood (NEGATIVE) Urine Nitrite (NEGATIVE) Urine Bilirubin (NEGATIVE) Urine Urobilinogen (0.2-1.0) EU/dL Ur Leukocyte Esterase (NEGATIVE) Urine RBC (0-2) #/HPF Urine WBC (NONE SEEN) #/HPF Ur Squamous Epith Cells (NONE/RARE) #/LPF Urine Crystals (None Seen) #/HPF Urine Bacteria (NONE SEEN) #/HPF Urine Casts (NONE SEEN) #/LPF Urine Mucus (NONE SEEN) Ur Culture Indicated? Urine Opiates Screen (NEGATIVE) Ur Buprenorphine Scrn (NEGATIVE) Ur Oxycodone Screen (NEGATIVE) Urine Methadone Screen (NEGATIVE) Ur Propoxyphene Screen (NEGATIVE) Ur Barbiturates Screen (NEGATIVE) U Tricyclic Antidepress (NEGATIVE) Ur Phencyclidine Scrn (NEGATIVE) Ur Amphetamines Screen (NEGATIVE) U Methamphetamines Scrn (NEGATIVE) U Benzodiazepines Scrn (NEGATIVE) Urine Cocaine Screen (NEGATIVE) U Cannabinoids Screen (NEGATIVE) Ethanol Quant <3 mg/dL POC Glucose 235 H (74-106) mg/dL 07/09/23 07/09/23 Range/Units 12:40 13:33 WBC (4.0-11.0) 10^3/uL RBC (4.70-6.10) 10^6/uL Hgb (14.0-18.0) g/dL Hct (42.0-54.0) % MCV (80.0-94.0) fL MCH (25.9-34.0) pg MCHC (29.9-35.2) g/dL RDW (11.0-15.0) % Plt Count (150-450) 10^3/uL MPV (9.5-13.5) fL Neut % (Auto) (43.0-75.0) % Lymph % (Auto) (20.5-60.0) % [place] % (Auto) (1.7-12.0) % Eos % (Auto) (0.9-7.0) % Baso % (Auto) (0.2-2.0) % Neut # (Auto) (1.4-6.5) 10^3/uL Lymph # (Auto) (1.2-3.8) 10^3/uL [place] # (Auto) (0.3-0.8) 10^3/uL Eos # (Auto) (0.0-0.7) 10^3/uL Baso # (Auto) (0.0-0.1) 10^3/uL Abs Immat Gran (auto) (0.00-0.03) 10^3/uL Imm/Tot Granulo (auto) (0.0-0.5) % Sodium (136-145) mmol/L Potassium (3.5-5.1) mmol/L Chloride (98-107) mmol/L Carbon Dioxide (21.0-32.0) mmol/L Anion Gap BUN (7.0-18.0) mg/dL Creatinine (0.70-1.30) mg/dL Est GFR ( Amer) (>=60) Est GFR (Non-Af Amer) (>=60) BUN/Creatinine Ratio Glucose (74-106) mg/dL Calcium (8.5-10.1) mg/dL Total Bilirubin (0.2-1.0) mg/dL AST (15-37) U/L ALT (16-63) U/L Alkaline Phosphatase (46-116) U/L Troponin I High Sens 19.0 (4.0-76.1) pg/mL Total Protein (6.4-8.2) g/dL Albumin (3.4-5.0) g/dL Globulin g/dL Albumin/Globulin Ratio Urine Color Lt. yellow (YELLOW) Urine Clarity Clear (CLEAR) Urine pH 6.0 (5.0-9.0) Ur Specific [place] >=1.030 A (1.005-1.025) Urine Protein 30 A (NEG/TRACE) mg/dL Urine Glucose (UA) Negative (NEGATIVE) mg/dL Urine Ketones >=80 A (NEGATIVE) mg/dL Urine Occult Blood Trace-i (NEGATIVE) Urine Nitrite Negative (NEGATIVE) Urine Bilirubin Small A (NEGATIVE) Urine Urobilinogen 1.0 (0.2-1.0) EU/dL Ur Leukocyte Esterase Negative (NEGATIVE) Urine RBC 0-2 (0-2) #/HPF Urine WBC None seen (NONE SEEN) #/HPF Ur Squamous Epith Cells None seen (NONE/RARE) #/LPF Urine Crystals None seen (None Seen) #/HPF Urine Bacteria None seen (NONE SEEN) #/HPF Urine Casts None seen (NONE SEEN) #/LPF Urine Mucus None seen (NONE SEEN) Ur Culture Indicated? No Urine Opiates Screen Negative (NEGATIVE) Ur Buprenorphine Scrn Negative (NEGATIVE) Ur Oxycodone Screen Negative (NEGATIVE) Urine Methadone Screen Negative (NEGATIVE) Ur Propoxyphene Screen Negative (NEGATIVE) Ur Barbiturates Screen Negative (NEGATIVE) U Tricyclic Antidepress Negative (NEGATIVE) Ur Phencyclidine Scrn Negative (NEGATIVE) Ur Amphetamines Screen Negative (NEGATIVE) U Methamphetamines Scrn Negative (NEGATIVE) U Benzodiazepines Scrn Negative (NEGATIVE) Urine Cocaine Screen Negative (NEGATIVE) U Cannabinoids Screen Negative (NEGATIVE) Ethanol Quant mg/dL POC Glucose (74-106) mg/dL ECG Data Attestation: I personally reviewed and interpreted this ECG as follows: Heart Score History: Slightly/Non-Suspicious ECG: Normal Age: <45 years Risk Factors: 1 or 2 Risk Factors Troponin: <Normal Limit Total Heart Score Recommendations & Risks:: 1 Discharge Plan Discharge Chief Complaint: Chest Pain Clinical Impression: Nausea and vomiting, Chest pain, Alcohol withdrawal Patient Disposition: Home, Self-Care Time of Disposition Decision: 14:31 Condition: Good Mode of Transportation: Private Vehicle Prescriptions / Home Meds: No Action atenolol 100 mg tablet 100 mg PO DAILY amlodipine 5 mg tablet 5 mg PO DAILY potassium chloride [Klor-Con M20] 20 mEq tablet,ER particles/crystals 20 meq PO TID gabapentin 300 mg capsule See Rx Instructions .ROUTE .COMPLEX Rx Instructions: TAKE [id number] BY MOUTH EVERY MORNING AND 1 CAPSULE IN THE EVENING; Humulin 70/30 U-100 KwikPen 100 unit/mL (70-30) insulin pen See Rx Instructions SUBCUT .COMPLEX Rx Instructions: INJECT 50 UNITS SUB-Q BEFORE BREAKFAST AND 25 UNITS SUB-Q PRIOR TO THE EVENING MEAL subcutaneously; (DME) pen needle, diabetic [BD Ultra-Fine Marlyn Pen Needle] 32 gauge x 5/32 needle MISCELLANEOUS hydroxyzine pamoate [Vistaril] 25 mg capsule 25 mg PO Q8H PRN (Reason: anxiety) Qty: 21 0RF Instructions: Chest Pain (ED), Acute Nausea and Vomiting (ED), Alcohol Withdrawal (ED) Stand Alone Forms: Portal Instructions Referrals: Elvin Lei DO [Primary Care Provider] - 1 week
[2023-07-09 11:12] LABS: Basophils Absolute Auto 0.1 10^3/uL (0.0-0.1); Basophils Percent Auto 0.8 % (0.2-2.0); Eosinophils Percent Auto 0.1 % (0.9-7.0); Hematocrit 51.1 % (42.0-54.0); Hemoglobin 17.7 g/dL (14.0-18.0); Immature Granulocytes Abs Auto 0.02 10^3/uL (0.00-0.03); Immature Granulocytes Pct Auto 0.3 % (0.0-0.5); Lymphocytes Absolute Auto 1.8 10^3/uL (1.2-3.8); Mean Corpuscular HGB Conc 34.6 g/dL (29.9-35.2); Mean Corpuscular Hemoglobin 32.9 pg (25.9-34.0); Mean Platelet Volume 12.6 fL (9.5-13.5); Monocytes Absolute Auto 0.6 10^3/uL (0.3-0.8); Monocytes Percent Auto 7.5 % (1.7-12.0); Neutrophils Absolute Auto 5.1 10^3/uL (1.4-6.5); Neutrophils Percent Auto 67.3 % (43.0-75.0); Platelet Count 78 10^3/uL (150-450); Red Blood Count 5.38 10^6/uL (4.70-6.10); Red Cell Distribution Width 12.7 % (11.0-15.0); White Blood Count 7.6 10^3/uL (4.0-11.0)
[2023-07-09] MEDS: ONDANSETRON PF 4 MG/2 ML VIAL IV (11:30)
[2023-07-09] MEDS: METOPROLOL TARTRATE 5 MG/5 ML VIAL IVP (11:30)
[2023-07-09] MEDS: ASPIRIN 325 MG TABLET PO (11:30)
[2023-07-09] MEDS: LORAZEPAM 2 MG/ML 1 ML VIAL IV (11:30)
[2023-07-09] MEDS: 0.9 % SODIUM CHLORIDE 1,000 ML 1000 ML IV (11:30)
[2023-07-09 11:32] LABS: Alanine Aminotransferase 53 U/L (16-63); Albumin Level 4.3 g/dL (3.4-5.0); Alkaline Phosphatase 83 U/L (46-116); Anion Gap 33.3; Aspartate Amino Transferase 55 U/L (15-37); BUN Creatinine Ratio 13.1; Bilirubin Total 2.6 mg/dL (0.2-1.0); Calcium 9.5 mg/dL (8.5-10.1); Chloride 92 mmol/L (98-107); Estimated GFR (African America >60 (>=60); Estimated GFR (Non-African Ame 58 (>=60); Globulin 4.3 g/dL; Glucose 271 mg/dL (74-106); Potassium 4.3 mmol/L (3.5-5.1); Sodium 133 mmol/L (136-145); Total Protein 8.6 g/dL (6.4-8.2); Troponin I High Sensitivity 20.2 pg/mL (4.0-76.1)
[2023-07-09 11:51] LABS: Ethanol <3 mg/dL
[2023-07-09 12:50] LABS: Bilirubin Urine SMALL (NEGATIVE); Blood Urine TRACE-I (NEGATIVE); Clarity Urine CLEAR (CLEAR); Color Urine LT. YELLOW (YELLOW); Glucose Urine UA NEGATIVE (NEGATIVE); Ketones Urine >=80 mg/dL (NEGATIVE); Leukocyte Esterase Urine NEGATIVE (NEGATIVE); Nitrite Urine NEGATIVE (NEGATIVE); Protein Urine 30 mg/dL (NEG/TRACE); Specific Gravity Urine >=1.030 (1.005-1.025)
[2023-07-09 12:51] LABS: Urine Microscopic Indicated YES
[2023-07-09 13:10] LABS: Amphetamine Screen Urine NEGATIVE (NEGATIVE); Barbiturates Screen Urine NEGATIVE (NEGATIVE); Benzodiazepines Screen Urine NEGATIVE (NEGATIVE); Buprenorphine Screen Urine NEGATIVE (NEGATIVE); Cannabinoid Screen Urine NEGATIVE (NEGATIVE); Cocaine Screen Urine NEGATIVE (NEGATIVE); Methadone Screen Urine NEGATIVE (NEGATIVE); Methamphetamines Screen Urine NEGATIVE (NEGATIVE); Opiate Screen Urine NEGATIVE (NEGATIVE); Oxycodone Screen Urine NEGATIVE (NEGATIVE); Phencyclidine Screen Urine NEGATIVE (NEGATIVE); Tricyclic Antidepressant Urine NEGATIVE (NEGATIVE)
[2023-07-09 13:27] LABS: Bacteria Urine NONE SEEN #/HPF (NONE SEEN); Cast Seen? NONE SEEN #/LPF (NONE SEEN); Crystals Seen? None Seen #/HPF (None Seen); Mucus Urine NONE SEEN (NONE SEEN); RBC Urine 0-2 #/HPF (0-2); Squamous Epithelial Cell Urine NONE SEEN #/LPF (NONE/RARE); WBC Urine NONE SEEN #/HPF (NONE SEEN)
[2023-07-09 13:28] LABS: Urine Culture Indicated NO
[2023-07-09] MEDS: PHENOBARBITAL SODIUM 130 MG/ML VIAL IVP (14:26)
[2023-07-09] MEDS: PHENOBARBITAL SODIUM 130 MG/ML VIAL 150 MG IVP (15:02)
== END 2023-07-09 15:40 | disposition home or self-care (01) ==
PROVIDERS: Emergency Provider Emergency Medicine; PCP Internal Medicine
DX: R07.9 Chest pain, unspecified (principal); F10.239 Alcohol dependence with withdrawal, unspecified; R11.2 Nausea with vomiting, unspecified; Z79.899 Other long term (current) drug therapy; Z79.4 Long term (current) use of insulin
CPT/HCPCS: 36415; 71045; 80053; 80307; 80320; 81001; 84484; 85025; 93005; 96361; 96374; 96375; 96376; 99285

== ENCOUNTER 2024-03-06 09:31 | Outpatient (OUT) | payer OTHER, SELFPAY ==
[2024-03-06 10:41] LABS: Basophils Percent Auto 0.5 % (0.2-2.0); Eosinophils Absolute Auto 0.1 10^3/uL (0.0-0.7); Eosinophils Percent Auto 1.6 % (0.9-7.0); Hematocrit 49.1 % (42.0-54.0); Hemoglobin 16.5 g/dL (14.0-18.0); Immature Granulocytes Abs Auto 0.02 10^3/uL (0.00-0.03); Immature Granulocytes Pct Auto 0.3 % (0.0-0.5); Lymphocytes Absolute Auto 2.3 10^3/uL (1.2-3.8); Lymphocytes Percent Auto 31.2 % (20.5-60.0); Mean Corpuscular HGB Conc 33.6 g/dL (29.9-35.2); Mean Corpuscular Volume 95.2 fL (80.0-94.0); Mean Platelet Volume 11.6 fL (9.5-13.5); Monocytes Absolute Auto 0.9 10^3/uL (0.3-0.8); Neutrophils Percent Auto 54.4 % (43.0-75.0); Platelet Count 104 10^3/uL (150-450); Red Blood Count 5.16 10^6/uL (4.70-6.10); Red Cell Distribution Width 11.8 % (11.0-15.0); White Blood Count 7.3 10^3/uL (4.0-11.0)
[2024-03-06 11:08] LABS: Estimated Average Glucose 249 mg/dL; Glycohemoglobin A1C 10.3 % (4.5-6.2)
[2024-03-06 11:20] LABS: Microalbumin Urine Random 21.5 mg/dL (<=30.0)
[2024-03-06 11:27] LABS: Prostate Specific Antigen Scrn 0.79 ng/mL (<=4.00)
[2024-03-06 11:43] LABS: Alanine Aminotransferase 50 U/L (16-63); Albumin Globulin Ratio 0.9; Albumin Level 3.3 g/dL (3.4-5.0); Alkaline Phosphatase 139 U/L (46-116); Anion Gap 12.8; Aspartate Amino Transferase 32 U/L (15-37); BUN Creatinine Ratio 12.8; Bilirubin Total 0.6 mg/dL (0.2-1.0); Calcium 9.2 mg/dL (8.5-10.1); Chloride 101 mmol/L (98-107); Chol HDL Ratio 3.7; Cholesterol 222 mg/dL (<=200); Estimated GFR (African America >60 (>=60); Estimated GFR (Non-African Ame >60 (>=60); Globulin 3.8 g/dL; Glucose 244 mg/dL (74-106); HDL Cholesterol 60 mg/dL (40-60); Potassium 3.8 mmol/L (3.5-5.1); Sodium 138 mmol/L (136-145); Total Protein 7.1 g/dL (6.4-8.2); Triglycerides 100 mg/dL (<=150)
== END 2024-03-06 09:32 | disposition home or self-care (01) ==
LOC: LAB 09:33
PROVIDERS: PCP Internal Medicine; Visit Provider Internal Medicine
DX: Z00.00 Encounter for general adult medical examination without abnormal findings (principal)
CPT/HCPCS: 36415; 80053; 80061; 82043; 83036; 85025; G0103

== ENCOUNTER 2024-07-01 08:48 | Outpatient (OUT) | payer OTHER, SELFPAY ==
--- OUTSIDE RECORDS SUMMARY | 2024-07-01 08:53 | XMS_ITS | CCD ---
Author Organization [facility] Care Team Providers Care [employer] Light[employer] Lecturer Name Role Phone Elvin Dang DO Primary Care Provider [phone] RADHA VESELIN Referring Unavailable ALTON, ELVIN Lira Primary Care Unavailable LOUKACHERYLILIA Attending Unavailable LOUKAILIA Admitting Unavailable HUSEINI, HANEY Consulting Unavailable SALLY YASSINE Admitting Unavailable SALLY YASSINE Attending Unavailable BALL, ELVIN Lira Primary Care Unavailable BALL, ELVIN Lira Referring Unavailable BALL, ELVIN Lira Primary Care Unavailable BALL, ELVIN Lira Referring Unavailable BALL, ELVIN Lira Primary Care Unavailable RADHA, FERNANDO Attending Unavailable ALTON, ELVIN Lira Primary Care Unavailable CAROLE GERMAN Admitting Unavailable Alton, Elvin Unavailable CHIDI ., DR MARIA Attending Unavailable HOY ., DR MARIA Consulting Unavailable HOY ., DR MARIA Admitting Unavailable BALL, DR BLAKELY Primary Care Unavailable ZIEBER, DR KAMILAH Montenegro Consulting Unavailable NADERER, DR MICHELLE Pak Consulting Unavailable GRECHNY ., DAVID FRANCIS Consulting UnavailCAROLE Turcios Consulting Unavailable LAGOS, KALLI Consulting Unavailable PAY ., DR SAN Consulting Unavailable BALL, DR BLAKELY Primary Care Unavailable BALDO ., BOAZ Attending Unavailable BALDO ., BOAZ Admitting Unavailable CHOI ., MR DYSON Consulting Unavailable AHDOOT, RIP Consulting Unavailable LAGOS, ELIE Consulting Unavailable LAGOS, KALLI Consulting Unavailable BALDO ., BOAZ Consulting Unavailable BALL, DR BLAKELY Primary Care Unavailable BALL, DR BLAKELY Admitting Unavailable BALL, DR BLAKELY Attending Unavailable BALL, DR BLAKELY Consulting Unavailable BALL, DR BLAKELY Primary Care Unavailable BALL, DR BLAKELY Admitting Unavailable BALL, DR BLAKELY Referring Unavailable BALL, DR BLAKELY Attending Unavailable BALL, DR BLAKELY Consulting Unavailable BALL, DR BLAKELY Primary Care Unavailable BALL, DR BLAKELY Admitting Unavailable BALL, DR BLAKELY Attending Unavailable BALL, DR BLAKELY Consulting Unavailable Allergies Allergy Classification Reported Allergen(s) Allergy Type Date of Onset Reaction(s) Facility (4 sources) Ibuprofen Drug Allergy 12-01-19 22 Nausea And Vomiting, Other (See Comments) [facility] (5 sources) Nitroglycerin Drug Allergy 12-01-19 22 Nausea And Vomiting [facility] Work Phone: (9 sources) Lisinopril Drug Allergy 03-03-20 24 COUGH [facility] (10 sources) metFORMIN Drug Allergy 03-03-20 24 diarrhea, Unknown, Unknown Reaction [facility] (1 source) Aminolevulinic Acid Drug Allergy 12-27-19 18 [facility] (1 source) Ibuprofen Drug Allergy 11-10-19 22 [facility] (1 source) Morphine Drug Allergy 12-27-19 18 [facility] (1 source) patient allergy list reviewed by nurse or physicia Propensity to adverse reactions 05-16-20 19 Comment:Done Trulia Other Medications Current Medications Medication Drug Class(es) Dates Sig (Normalized) Sig (Original) acetaminophen 325 mg oral tablet (1 source) Start: 12-02-2021 acetaminophen (TYLENOL) tablet 650 mg amLODIPine 5 mg oral tablet (13 sources) Dihydropyridine Calcium Channel Mg Start: 02-29-2024 take 5 mg by mouth once daily Amlodipine Active 5 MG PO Daily February 29, 2024 12:00am Start: 12-02-2021 take 5 mg by mouth once daily 5 mg, Oral, DAILY, First dose on Wed12/02/21 at 1200 amoxicillin 875 mg oral tablet (6 sources) Penicillin-class Antibacterial Start: 11-13-2022 take 1 tablet by mouth every twelve hours Amoxicillin 875 MG 1 tablet Orally Twice a day for 5 day(s) Nov, Active atenolol 100 mg oral tablet (16 sources) beta-Adrenergic Mg Start: 02-29-2024 take 100 mg by mouth once daily Atenolol Active 100 MG PO Daily February 29, 2024 12:00am Start: 12-02-2021 take 100 mg by mouth once mj y 100 mg, Oral, DAILY, First dose on Wed12/02/21 at 1200 Start: 12-27-2019 End: 02-29-2024 take 50 mg by mouth once daily Atenolol Discontinued 5 0 MG PO Daily December 27, 2019 1:00am February 29, 2024 12:30pm take 1 tablet by lonnie th once daily Atenolol 100 MG TAKE 1 TABLET BY MOUTH EVERY DAY Active atorvastatin 40 mg oral tablet (9 sources) HMG-CoA Reductase Inhibitor Start: 02-29-2024 take 40 mg by mouth once daily Atorvastatin Active 40 MG PO Daily February 29, 2024 12:00am take 1 tablet by lonnie th every twenty-four hours Atorvastatin Calcium 40 MG 1 tablet Oral ly Once a day Active BD Ultra-Fine Micro Pen Needle (8 sources) BD Ultra-Fine Mi crown pouncer Pen Needle Active 0.4 ml enoxaparin sodium 100 mg/ml prefilled syringe (1 source) Low Molecular Weight Heparin Start: 12-01-2021 enoxaparin (LOVENOX) injection 40 mg gabapentin 300 mg oral capsule (11 sources) Anti-epileptic Agent Start: 02-22-2024 End: 02-29-2024 take 2 capsules by mouth twice daily in the morning, then take 1 capsule by mouth twice daily in the evening Gabapentin Active 0 PO Twice daily February 29, 2024 12:31pm 2 capsules in AM and 1 capsule in PM orally twice daily Gabapentin 300 M G 2 capsules each morning and 1 capsule in the evening Orally twice daily for 30 days Active glucagon (rdna) 1 mg injection (1 source) Antihypoglycemic Agent Start: 12-02-2021 glucago n (rDNA) injection 1 mg 150 ml glucose 50 mg/ml injection (5 sources) Start: 12-02-2021 glucose (GLUTO SE) 40 % oral gel 15 g Start: 12-02-2021 dextrose 5 % s olution Start: 12-01-2021 dextrose 50 % IV solution 250 ml glucose 50 mg/ml / sodium chloride 4.5 mg/ml injection (2 sources) Start: 12-01-2021 dextrose 5 % a nd 0.45 % sodium chloride infusion 3 ml insulin detemir 100 unt/ml pen injector (2 sources) Insulin Analog Start: 12-03-2021 End: 01-02-2022 insulin detemir (LEVEMIR FLEXTOUCH) 100 UNIT/ML injection pen Inject 20 Units into the skin nightly 5 pen 1 12/03/2021 01/02/2022 Active insulin glargine 100 unt/ml injectable solution (1 source) Insulin Analog Start: 12-02-2021 insulin glargi ne (LANTUS) injection vial 20 Units Insulin Nph And Regular Human (11 sources) Insulin Start: 03-03-2024 Insulin Nph An d Regular Human (Humulin 70/30 U-100 Kwikpen) 100 unit/mL (70-30) insulin pen Active 0 SUBCUT Twice daily March 03, 2024 2:49pm INJECT 50 UNITS SUBCUTANEOUSLY BEFORE BREAKFAST AND 25 UNITS PRIOR TO EVENING MEAL Start: 02-22-2024 End: 03-03-2024 Insulin Nph And Regular Brie n (Humulin 70/30 U-100 Kwikpen) 100 unit/mL (70-30) insulin pen Discontinued 0 SUBCUT Twice daily February 22, 2024 12:33pm March 03, 2024 2:49pm INJECT 50 UNITS SUBCUTANEOUSLY BEFORE BREAKFAST AND 25 UNITS PRIOR TO EVENING MEAL Start: 02-22-2024 End: 02-22-2024 Insulin Nph And Regular Brie n (Humulin 70/30 U-100 Kwikpen) 100 unit/mL (70-30) insulin pen Discontinued 50 UNIT SUBCUT February 22, 2024 12:00am February 22, 2024 12:37pm INJECT 50 UNITS SUBCUTANEOUSLY BEFORE BREAKFAST AND 25 UNITS PRIOR TO EVENING MEAL Subcutaneous twice daily before eating inject 50 [IU] by ivan bcutaneous injection before breakfast, then inject 25 [IU] by subcutaneous injection twice daily HumuLIN 70/30 KwikPen (70-30) 100 UNIT/ML INJECT 50 UNITS SUBCUTANEOUSLY BEFORE BREAKFAST AND 25 UNITS PRIOR TO EVENING MEAL Subcutaneous twice daily before eating Active insulin lispro 100 unt/ml injectable solution (1 source) Insulin Analog Start: 12-02-2021 insulin lispro (HUMALOG) injection vial 0-12 Units 24 hr metFORMIN hydrochloride 1000 mg / SITagliptin 100 mg extended release oral tablet (2 sources) Biguanide, Dipeptidyl Peptidase 4 Inhibitor Start: 12-03-2021 take 1 tablet by mouth once daily SITagliptin-metFO RMIN HCl ER (JANUMET XR) 100-1000 MG TB24 Take 1 tablet by mouth daily 30 tablet 5 12/03/2021 Active olmesartan medoxomil 20 mg oral tablet (4 sources) Angiotensin 2 Receptor Mg Start: 02-29-2024 End: 03-03-2024 take 20 mg by mouth once daily Olmesartan Active 20 MG PO Daily 90 90 March 03, 2024 2:52pm Start: 05-19-2023 take 1 tablet by lonnie th every twenty-four hours Olmesartan Medoxomil 20 MG 1 tablet Orally Once a day for 30 days May, Active pantoprazole 40 mg delayed release oral tablet (2 sources) Proton Pump Inhibitor Start: 12-03-2021 take 40 mg by mouth once daily before breakfast 40 mg, Oral, DAILY BEFORE BREAKFAST, First dose on Wed12/03/21 at 0700 Do not crush or break. Substituted for Omeprazole (PRILOSEC). Start: 05-01-2021 End: 05-02-2021 take 40 mg by mouth once daily Pantoprazole Discontinu ed 40 MG PO Daily May 01, 2021 12:00am May 02, 2021 3:50pm polyethylene glycol 3350 76327 mg powder for oral solution (1 source) Osmotic Laxative Start: 12-01-2021 polyethylene glycol (GLYCOLAX) packet 17 g microencapsulated potassium chloride 20 meq extended release oral tablet (5 sources) Start: 12-03-2021 End: 12-06-2021 potassium chloride (KLOR-CON M) extended release tablet 40 mEq Start: 12-02-2021 End: 12-02-2021 potassium chloride (KLOR-CON M) extended release tablet 40 mEq Start: 12-01-2021 End: 12-02-2021 potassium chloride 10 mEq/10 0 mL IVPB (Peripheral Line) 1000 ml potassium chloride 0 .02 meq/ml / sodium chloride 9 mg/ml injection (2 sources) Start: 11-30-2021 0.9% NaCl with KCl 20 mEq infusion 5 ml sodium chloride 9 mg/ml injection (5 sources) Start: 12-02-2021 sodium chlorid e flush 0.9 % injection 13 mL Start: 11-30-2021 0.9 % sodium c hloride infusion Start: 11-30-2021 End: 11-30-2021 0.9 % sodium chloride bolus True Metrix Blood Glucose Te st - (8 sources) True Metrix Bloo d Glucose Test - as directed In Vitro Active Completed/Discontinued Medications Medication Drug Class(es) Dates Sig (Normalized) Sig (Original) docusate sodium 100 mg oral capsule (1 source) Start: 05-02-2021 End: 02-29-2024 take 1 capsule by mouth once daily as needed for constipation Docusate Sodium (Colace) 100 mg capsule Discontinued 100 MG PO Daily May 02, 2021 12:00am February 29, 2024 12:33pm take for constipation as needed escitalopram 10 mg oral tablet (9 sources) Serotonin Reuptake Inhibitor Start: 02-29-2024 End: 03-03-2024 take 10 mg by mouth once daily in the evening Escitalopram Oxalate Discontinued 10 MG PO Every evening February 29, 2024 12:00am March 03, 2024 2:51pm take 1 tablet by lonnie th once daily in the evening Escitalopram Oxalate 10 MG TAKE 1 TABLET BY MOUTH EVERY DAY IN THE EVENING for 90 Active ferrous sulfate 325 mg oral tablet (1 source) Start: 05-02-2021 End: 02-29-2024 take 325 mg by mouth every other day at mealtime Ferrous Sulfate Discontinued 325 MG PO Q2D May 02, 2021 3:30pm February 29, 2024 12:33pm take every other day with food gadoteridol (PROHANCE) injection 13 mL (1 source) Start: 12-02-2021 End: 12-02-2021 gadoteridol (PROHANCE) injection 13 mL glimepiride 4 mg oral tablet (1 source) Sulfonylurea Start: 05-01-2021 End: 02-29-2024 take 4 mg by mouth once daily Glimepiride Discontinued 4 MG PO Daily May 01, 2021 12:00am February 29, 2024 12:33pm insulin regular (HUMULIN R;NOVOLIN R) 100 Units in sodium chloride 0.9 % 100 mL infusion (4 sources) Start: 12-01-2021 End: 12-02-2021 insulin regular (HUMULIN R;NOVOLIN R) 100 Units in sodium chloride 0.9 % 100 mL infusion Start: 12-01-2021 insulin regula r (HUMULIN R;NOVOLIN R) 100 Units in sodium chloride 0.9 % 100 mL infusion Start: 12-01-2021 insulin regula r (HUMULIN R;NOVOLIN R) 100 Units in sodium chloride 0.9 % 100 mL infusion Start: 11-30-2021 End: 11-30-2021 insulin regular (HUMULIN R;N OVOLIN R) 100 Units in sodium chloride 0.9 % 100 mL infusion insulin, regular, human 100 unt/ml injectable solution (7 sources) Insulin Start: 12-01-2021 End: 12-01-2021 insulin regular (HUMULIN R;NOVOLIN R) injection 7 Units Start: 12-01-2021 End: 12-01-2021 insulin regular (HUMULIN R;N OVOLIN R) injection 7 Units Start: 11-30-2021 End: 11-30-2021 insulin regular (HUMULIN R;N OVOLIN R) injection 5 Units Start: 11-30-2021 End: 11-30-2021 insulin regular (HUMULIN R;N OVOLIN R) injection 10 Units insulin regular (HUMULIN R;NOVOLIN R) 100 UNIT/ML injection Inject 15 Units into the skin 2 times daily (before meals) 0 Active insulin regular (HUMULIN R;NOVOLIN R) 100 UNIT/ML injection Inject 15 Units into the skin See Admin Instructions 0 Active iopamidol (ISOVUE-370) 76 % injection 100 mL (1 source) Start: 12-01-2021 End: 12-01-2021 iopamidol (ISOVUE-370) 76 % injection 100 mL lisinopril 40 mg oral tablet (1 source) Angiotensin Converting Enzyme Inhibitor Start: 12-27-2019 End: 05-01-2021 take 40 mg by mouth once daily Lisinopril Discontinued 40 MG PO Daily December 27, 2019 1:00am May 01, 2021 7:09am losartan potassium 25 mg oral tablet (1 source) Angiotensin 2 Receptor Mg Start: 05-01-2021 End: 02-29-2024 take 25 mg by mouth once daily Losartan Discontinued 25 MG PO Daily May 01, 2021 12:00am February 29, 2024 12:33pm 50 ml magnesium sulfate 40 mg/ml injection (2 sources) Start: 12-02-2021 End: 12-02-2021 magnesium sulfate 2000 mg in 50 mL IVPB premix Start: 12-01-2021 magnesium sulf ate 1000 mg in dextrose 5% 100 mL IVPB 24 hr metFORMIN hydrochloride 500 mg extended release oral tablet (1 source) Biguanide Start: 12-03-2021 End: 12-03-2021 take 1 tablet by mouth once daily at breakfast metFORMIN (GLUCOPHAGE-XR) 500 MG extended release tablet Take 1 tablet by mouth daily (with breakfast) 30 tablet 0 12/03/2021 12/03/2021 Discontinued (Stop Taking at Discharge) omeprazole 40 mg delayed release oral capsule (12 sources) Proton Pump Inhibitor Start: 05-02-2021 End: 03-03-2024 Omeprazole Discontinued 40 MG PO Twice daily 168 84 May 02, 2021 12:00am March 03, 2024 2:51pm take one capsule 30 minutes before each meal twice a day for 12 weeks take 1 capsule by mo [facility] once daily at breakfast Omeprazole 40 MG TAKE 1 CAPSULE BY MOUTH ONCE DAILY ON AN EMPTY STOMACH FOLLOWED BY BREAKFAST IN 30 MIN Active take 2 capsules by mouth once da amelia omeprazole (PRILOSEC) 20 MG delayed release capsule Take 40 mg by mouth daily 0 Active 2 ml ondansetron 2 mg/ml injection (2 sources) Serotonin-3 Receptor Antagonist Start: 12-01-2021 End: 12-01-2021 ondansetron (ZOFRAN) injection 4 mg Start: 12-01-2021 End: 12-01-2021 ondansetron (ZOFRAN) 4 MG/2M L injection pioglitazone 45 mg oral tablet (2 sources) Peroxisome Proliferator Receptor alpha Agonist, Peroxisome Proliferator Receptor gamma Agonist, Thiazolidinedione End: 12-02-2021 take 1 tablet by mouth once daily pioglitazone (ACTOS) 45 MG tablet Take 45 mg by mouth daily 0 12/02/2021 Discontinued (LIST CLEANUP) 10 ml sodium bicarbonate 84 mg/ml injection (1 source) Start: 12-01-2021 End: 12-01-2021 sodium bicarbonate 8.4 % injection 50 mEq Start: 12-01-2021 End: 12-01-2021 sodium bicarbonate 8.4 % inj ection 50 mEq sodium phosphate 10 mmol in dextrose 5 % 250 mL IVPB (2 sources) Start: 12-03-2021 End: 12-03-2021 sodium phosphate 10 mmol in dextrose 5 % 250 mL IVPB Start: 12-01-2021 sodium phospha te 10 mmol in dextrose 5 % 250 mL IVPB sucralfate 1000 mg oral tablet (1 source) Aluminum Complex Start: 05-01-2021 End: 05-02-2021 take 1 g by mouth four times daily Sucralfate Discontinued 1 GM PO Four times daily May 01, 2021 12:00am May 02, 2021 3:50pm Problems Active Problems Problem Classification Problem Date Documented Da te Episodic/Chronic Acute and unspecified renal failure (1 source) Acute kidney failure, unspecified; 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: [ACUTE KIDNEY FAILURE UNSPECIFIED] Onset: 3 Episodic Acute bronchitis (1 source) Acute bronchitis due to other specified organisms Episodic Alcohol-related disorders (12 sources) History of alcohol abuse; 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: [Alcohol abuse, in remission] Onset: 3 Resolved: 0 Chronic Anxiety disorders (14 sources) Generalized anxiety disorder; 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: [Generalized anxiety disorder] Onset: 5 Chronic Coagulation and hemorrhagic disorders (10 sources) Thrombocytopenic disorder; 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: [Thrombocytopenia, unspecified] Chronic Deficiency and other anemia (4 sources) Anemia due to chronic blood loss; 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: [Iron deficiency anemia secondary to blood loss (chronic)] Chronic Deficiency and other anemia (1 source) Anemia; 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: [Anemia, unspecified] 10-13-2023 Episodic Diabetes mellitus with complications (20 sources) Diabetic ketoacidosis without coma; 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: [Diabetes mellitus due to underlying condition with ketoacidosis without coma] Onset: 2 Chronic Diabetes mellitus without complication (1 source) Diabetes mellitus; 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: [Type 2 diabetes mellitus without complications] 03-02-2024 Chronic Disorders of lipid metabolism (20 sources) Pure hypercholesterolemia; 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: [Pure hypercholesterolemia, unspecified] Onset: 8 Chronic Esophageal disorders (2 sources) Esophageal reflux finding; 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: [Esophageal reflux] Onset: 5 03-02-2024 Chronic Esophageal disorders (12 sources) Esophageal disorders; 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: [Gastroesophageal reflux disease with esophagitis without hemorrhage] Essential hypertension (16 sources) Essential hypertension; 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: [Essential (primary) hypertension] Onset: 5 Chronic Gastrointestinal hemorrhage (3 sources) Gastrointestinal hemorrhage; 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: [Gastrointestinal hemorrhage, unspecified] 10-13-2023 Episodic Gout and other crystal arthropathies (4 sources) Primary gout; 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: [Idiopathic gout, left ankle and foot] Chronic Hemorrhoids (2 sources) Hemorrhoids; 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: [Unspecified hemorrhoids] 10-13-2023 Episodic Malaise and fatigue (6 sources) Asthenia; 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: [Weakness] Onset: 2 Episodic Nutritional deficiencies (5 sources) Nutritional marasmus; 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: [Unspecified severe protein-calorie malnutrition] Onset: 2 Chronic Nutritional deficiencies (1 source) Iron deficiency; 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: [Iron deficiency] 10-13-2023 Episodic Other aftercare (16 sources) Long-term current use of insulin; 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: [alf (current) use of insulin] Episodic Other aftercare (4 sources) 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; 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: [PENITENTIARY CURRENT USE OF INSULIN] Onset: 3 Episodic Other aftercare (1 source) Other alf (current) drug therapy; 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: [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] Onset: 3 Episodic Other circulatory disease (1 source) Low blood pressure; 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: [Hypotension, unspecified] 10-13-2023 Episodic Other connective tissue disease (1 source) Rhabdomyolysis; 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: [RHABDOMYOLYSIS] Onset: 3 Episodic Other gastrointestinal disorders (8 sources) History of pancreatitis; 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: [Personal history of other diseases of the digestive system] Episodic Other gastrointestinal disorders (1 source) H/O: gastrointestinal disease; 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: [Personal history of other diseases of the digestive system] Episodic Other gastrointestinal disorders (1 source) Occult blood in stools; 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: [Other fecal abnormalities] 10-13-2023 Episodic Other liver diseases (8 sources) Portal hypertension; 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: [Portal hypertension] Chronic Other liver diseases (5 sources) Enzyme level - finding; 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: [Transaminitis] Episodic Other lower respiratory disease (9 sources) Solitary nodule of lung; 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: [Solitary pulmonary nodule] Onset: 2 Episodic Other lower respiratory disease (3 sources) Solitary pulmonary nodule Episodic Other nutritional; endocrine; and metabolic disorders (8 sources) Hypophosphatemia; 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: [Other disorders of phosphorus metabolism] Chronic Other nutritional; endocrine; and metabolic disorders (3 sources) Hypomagnesemia; 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: [Hypomagnesemia] Chronic Other nutritional; endocrine; and metabolic disorders (1 source) Disorder of phosphorus metabolism; 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: [Other disorders of phosphorus metabolism] Chronic Other nutritional; endocrine; and metabolic disorders (1 source) Obesity; 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: [Obesity, unspecified] Onset: 5 Chronic Other nutritional; endocrine; and metabolic disorders (9 sources) Overweight; 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: [Overweight] Onset: 1 Episodic Other nutritional; endocrine; and metabolic disorders (2 sources) Overweight Episodic Other screening for suspected conditions (not mental disorders or infectious disease) (4 sources) Other abnormal findings in specimens from other organs, systems and tissues; 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: [Encounter for screening for malignant neoplasm of prostate] Onset: 2 03-02-2024 Episodic Pancreatic disorders (not diabetes) (20 sources) Acute pancreatitis; 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: [Acute pancreatitis without necrosis or infection, unspecified] Onset: 2 Resolved: 2 Episodic Substance-related disorders (1 source) Nicotine dependence, chewing tobacco, uncomplicated; 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: [NICOTINE DEPEND CHEW TOBACCO UNCOMP] Onset: 2 Chronic Thyroid disorders (1 source) Thyrotoxicosis; 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: [Thyrotoxicosis, unspecified without thyrotoxic crisis or storm] Onset: 5 Chronic Unclassified (1 source) CONTACT W/AND (SUSP) EXPOS COVID-19; 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: [CONTACT W/AND (SUSP) EXPOS COVID-19] Onset: 2 Viral infection (1 source) Disease caused by 2019-nCoV; 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: [COVID-19] Past or Other Problems Problem Classification Problem Date Documented Date Episodic/Chronic Cardiac dysrhythmias (1 source) Tachycardia; 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: [Tachycardia, unspecified] Onset: 12-10-2017 Episodic Fluid and electrolyte disorders (8 sources) Hypokalemia; 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: [Hypokalemia] Onset: 07-31-2022 Episodic Intestinal infection (1 source) Viral enteritis; 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: [Intestinal infection due to other organism, NEC] Onset: 08-06-2016 Episodic Nausea and vomiting (1 source) Nausea with vomiting, unspecified; 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: [NAUSEA WITH VOMITING UNSPECIFIED] Onset: 07-31-2022 Episodic Noninfectious gastroenteritis (1 source) Non-infective enteritis and colitis; 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: [Noninfective gastroenteritis and colitis, unspecified] Onset: 02-24-2016 Episodic Nonspecific chest pain (3 sources) Chest pain, unspecified; 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: [Chest pain] Onset: 12-04-2015 Episodic Other nervous system disorders (1 source) Tremor; 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: [Tremor, unspecified] Onset: 08-30-2015 Episodic Other nutritional; endocrine; and metabolic disorders (5 sources) Hyperbilirubinemia; 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: [Other disorders of bilirubin metabolism] Resolved: 12-03-2021 Chronic Other nutritional; endocrine; and metabolic disorders (1 source) Abnormal weight loss; 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: [Abnormal weight loss] Onset: 09-11-2015 Episodic Other nutritional; endocrine; and metabolic disorders (3 sources) Body mass index 25-29 - overweight; 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: [Body mass index 28.0-28.9, adult] Onset: 01-30-2016 Episodic Other upper respiratory infections (1 source) Acute pharyngitis; 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: [Acute pharyngitis, unspecified] Onset: 05-28-2015 Episodic Pneumonia (except that caused by tuberculosis or sexually transmitted disease) (1 source) Infective pneumonia; 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: [Pneumonia due to other specified infectious organisms] Onset: 05-14-2017 Episodic Residual codes; unclassified (1 source) C/O - a back symptom; 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: [Other symptoms referable to back] Onset: 01-30-2016 Episodic Spondylosis; intervertebral disc disorders; other back problems (1 source) Pain in thoracic spine; 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: [Pain in thoracic spine] Onset: 01-30-2016 Episodic Superficial injury; contusion (1 source) Contusion of right thigh; 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: [Contusion of right thigh, initial encounter] Resolved: 12-13-2021 Episodic Results Test Name Value Interpretation Reference Range Facility CBC AUTO DIFFon 03-31-2023 BASO # 0.0 103/ul Normal 0.0-0.1 [facility] Comment on above: Performed By: #### B MP #### [facility] [address] [address] [address] Rayray Stewart Basophils/100 WBC (Bld) 0.3 % Normal 0.2-2.0 [facility] Comment on above: Performed By: #### B MP #### [facility] [address] [place] [address] Dr. Rayray Stewart EO # 0.0 103/ul Normal 0.0-0.7 [facility] Comment on above: Performed By: #### B MP #### [facility] [address] [place] [address] Dr. Rayray Stewart Eosinophils/100 WBC (Bld) 0.4 % Critically low 0.9-7.0 [facility] Comment on above: Performed By: #### B MP #### [facility] [address] [place] [address] Dr. Rayray Stewart Erythrocyte distribution width (RBC) [Ratio] 11.2 % Normal 11.0-15.0 [facility] Comment on above: Performed By: #### B MP #### [facility] [address] [place] [address] Dr. Rayray Stewart Hematocrit (Bld) [Volume fraction] 45.0 % Normal 42.0-54.0 [facility] Comment on above: Performed By: #### B MP #### [facility] [address] [place] [address] Dr. Rayray Stewart Hemoglobin (Bld) [Mass/Vol] 15.8 g/dL Normal 14.0-18.0 [facility] Comment on above: Performed By: #### B MP #### [facility] [address] [place] [address] Dr. Rayray Stewart IG # 0.02 10e3/ul Normal 0.00-0.03 [facility] Comment on above: Performed By: #### B MP #### [facility] [address] [place] [address] Dr. Rayray Stewart IG % 0.3 % Normal 0.0-0.5 [facility] Comment on above: Performed By: #### B MP #### [facility] [address] [place] [address] Dr. Rayray Stewart LYMPH # 2.6 103/ul Normal 1.2-3.8 [facility] Comment on above: Performed By: #### B MP #### [facility] [address] [place] [address] Dr. Rayray Stewart Lymphocytes/100 WBC (Bld) 36.6 % Normal 20.5-60.0 [facility] Comment on above: Performed By: #### B MP #### [facility] [address] [place] [address] Dr. Rayray Stewart MANUAL DIFF REQ NO Normal [facility] Comment on above: Performed By: #### B MP #### [facility] [address] [place] [address] Dr. Rayray Stewart MCH (RBC) [Entitic mass] 32.4 pg Normal 25.9-34.0 [facility] Comment on above: Performed By: #### B MP #### [facility] [address] [place] [address] Dr. Rayray Stewart MCHC (RBC) [Mass/Vol] 35.1 g/dL Normal 29.9-35.2 [facility] Comment on above: Performed By: #### B MP #### [facility] [address] [place] [address] Dr. Rayray Stewart MCV (RBC) [Entitic vol] 92.2 fL Normal 80.0-94.0 [facility] Comment on above: Performed By: #### B MP #### [facility] [address] [place] [address] Dr. Rayray Stewatr MONO # 0.7 103/ul Normal 0.3-0.8 [facility] Comment on above: Performed By: #### B MP #### [facility] [address] [place] [address] Dr. Rayray Stewart Monocytes/100 WBC (Bld) 10.0 % Normal 1.7-12.0 [facility] Comment on above: Performed By: #### B MP #### [facility] [address] [place] [address] Dr. Rayray Stewart NEUT # 3.7 103/ul Normal 1.4-6.5 [facility] Comment on above: Performed By: #### B MP #### [facility] [address] [place] [address] Dr. Rayray Stewart Neutrophils/100 WBC (Bld) 52.4 % Normal 43.0-75.0 [facility] Comment on above: Performed By: #### B MP #### [facility] [address] [place], [place] [id number] Dr. Rayray Stewart Platelet mean volume (Bld) [Entitic vol] 13.0 fL Normal 9.5-13.5 [facility] Comment on above: Performed By: #### B MP #### [facility] [address] [place] [address] Dr. Rayray Stewart PLT 42 103/ul Critically low 150-450 [facility] Comment on above: Performed By: #### B MP #### [facility] [address] [place] [address] Dr. Rayray Stewart RBC 4.88 106/ul Normal 4.70-6.10 [facility] Comment on above: Performed By: #### B MP #### [facility] [address] [place] [address] Dr. Rayray Stewart WBC 7.1 103/ul Normal 4.0-11.0 [facility] Comment on above: Performed By: #### B MP #### [facility] [address] [place] [address] Dr. Rayray Stewart CPKon 03-31-2023 CK [Catalytic activity/Vol] 189 U/L Normal 39-308 [facility] Comment on above: Performed By: #### B MP, MG, CK #### [facility] [address] [place] [address] Dr. Rayray Stewart MAGNESIUMon 03-31-2023 Magnesium [Mass/Vol] 1.8 mg/dL Normal 1.8-2.4 [facility] Comment on above: Performed By: #### B MP, MG, CK #### [facility] [address] [place] [address] Dr. Rayray Stewart POINT OF CARE GLUCOSEon 03-03 Glucose [Mass/Vol] 142 mg/dL Critically high 74-106 [facility] Comment on above: Performed By: #### B MP, MG, CK #### [facility] [address] [place] [address] Dr. Rayray Stewart Glucose [Mass/Vol] 176 mg/dL Critically high 74-106 [facility] Comment on above: Performed By: #### M G #### [facility] [address] [place] [address] Dr. Rayray Stewart PROF CHEM 8 (BAS METB)on Anion gap [Moles/Vol] 12.5 mmol/L Normal [facility] Comment on above: Performed By: #### B MP, MG, CK #### [facility] [address] [place] [address] Dr. Rayray Stewart Calcium [Mass/Vol] 8.6 mg/dL Normal 8.5-10.1 [facility] Comment on above: Performed By: #### B MP, MG, CK #### [facility] [address] [place] [address] Dr. Rayray Stewart Chloride [Moles/Vol] 101 mmol/L Normal 98-107 [facility] Comment on above: Performed By: #### B MP, MG, CK #### [facility] [address] [place] [address] Dr. Rayray Stewart CO2 [Moles/Vol] 30.5 mmol/L Normal 21.0-32.0 [facility] Comment on above: Performed By: #### B MP, MG, CK #### [facility] [address] [place] [address] Dr. Rayray Stewart Creatinine [Mass/Vol] 0.76 mg/dL Normal 0.70-1.30 [facility] Comment on above: Performed By: #### B MP, MG, CK #### [facility] [address] [place] [address] Dr. Rayray Stewart EGFR-AF AUSTRALIAN >60 Normal >=60 [facility] Comment on above: Performed By: #### B MP, MG, CK #### [facility] [address] [place] [address] Dr. Rayray Stewart EGFR-NON AF AUSTRALIAN >60 Normal >=60 [facility] Comment on above: Performed By: #### B MP, MG, CK #### [facility] [address] [place] [address] Dr. Rayray Stewart Glucose [Mass/Vol] 155 mg/dL Critically high 74-106 [facility] Comment on above: Performed By: #### B MP, MG, CK #### [facility] [address] [place] [address] Dr. Rayray Stewart Potassium [Moles/Vol] 2.9 mmol/L Critically low 3.5-5.1 [facility] Comment on above: Performed By: #### B MP, MG, CK #### [facility] [address] [place] [address] Dr. Rayray Stewart Sodium [Moles/Vol] 140 mmol/L Normal 136-145 [facility] Comment on above: Performed By: #### B MP, MG, CK #### [facility] [address] [place] [address] Dr. Rayray Stewart Urea nitrogen [Mass/Vol] 11.0 mg/dL Normal 7.0-18.0 [facility] Comment on above: Performed By: #### B MP, MG, CK #### [facility] [address] [place] [address] Dr. Rayray Stewart Urea nitrogen/Creatinine [Mass ratio] 14.5 mg/mg Normal [facility] Comment on above: Performed By: #### B MP, MG, CK #### [facility] [address] [place] [address] Dr. Rayray Stewart CBC AUTO DIFFon 03-30-2023 BASO # 0.0 103/ul Normal 0.0-0.1 [facility] Comment on above: Performed By: #### B MP, MG, CK #### [facility] [address] [place] [address] Dr. Rayray Stewart Basophils/100 WBC (Bld) 0.2 % Normal 0.2-2.0 [facility] Comment on above: Performed By: #### B MP, MG, CK #### [facility] [address] [place] [address] Dr. Rayray Stewart EO # 0.0 103/ul Normal 0.0-0.7 [facility] Comment on above: Performed By: #### B MP, MG, CK #### [facility] [address] [place] [address] Dr. Rayray Stewart Eosinophils/100 WBC (Bld) 0.1 % Critically low 0.9-7.0 [facility] Comment on above: Performed By: #### B MP, MG, CK #### [facility] [address] [place] [address] Dr. Rayray Stewart Erythrocyte distribution width (RBC) [Ratio] 11.2 % Normal 11.0-15.0 [facility] Comment on above: Performed By: #### B MP, MG, CK #### [facility] [address] [place] [address] Dr. Rayray Stewart Hematocrit (Bld) [Volume fraction] 42.9 % Normal 42.0-54.0 [facility] Comment on above: Performed By: #### B MP, MG, CK #### [facility] [address] [place] [address] Dr. Rayray Stewart Hemoglobin (Bld) [Mass/Vol] 15.2 g/dL Normal 14.0-18.0 [facility] Comment on above: Performed By: #### B MP, MG, CK #### [facility] [address] [place] [address] Dr. Rayray Stewart IG # 0.02 10e3/ul Normal 0.00-0.03 [facility] Comment on above: Performed By: #### B MP, MG, CK #### [facility] [address] [place] [address] Dr. Rayray Stewart IG % 0.2 % Normal 0.0-0.5 [facility] Comment on above: Performed By: #### B MP, MG, CK #### [facility] [address] [place] [address] Dr. Rayray Stewart LYMPH # 2.4 103/ul Normal 1.2-3.8 [facility] Comment on above: Performed By: #### B MP, MG, CK #### [facility] [address] [place] [address] Dr. Rayray Stewart Lymphocytes/100 WBC (Bld) 27.4 % Normal 20.5-60.0 [facility] Comment on above: Performed By: #### B MP, MG, CK #### [facility] [address] [place] [address] Dr. Rayray Stewart MANUAL DIFF REQ NO Normal [facility] Comment on above: Performed By: #### B MP, MG, CK #### [facility] [address] [place] [address] Dr. Rayray Stewart MCH (RBC) [Entitic mass] 32.4 pg Normal 25.9-34.0 [facility] Comment on above: Performed By: #### B MP, MG, CK #### [facility] [address] [place] [address] Dr. Rayray Stewart MCHC (RBC) [Mass/Vol] 35.4 g/dL Critically high 29.9-35.2 [facility] Comment on above: Performed By: #### B MP, MG, CK #### [facility] [address] [place] [address] Dr. Rayray Stewart MCV (RBC) [Entitic vol] 91.5 fL Normal 80.0-94.0 [facility] Comment on above: Performed By: #### B MP, MG, CK #### [facility] [address] [place] [address] Dr. Rayray Stewart MONO # 0.8 103/ul Normal 0.3-0.8 [facility] Comment on above: Performed By: #### B MP, MG, CK #### [facility] [address] [place] [address] Dr. Rayray Stewart Monocytes/100 WBC (Bld) 9.7 % Normal 1.7-12.0 [facility] Comment on above: Performed By: #### B MP, MG, CK #### [facility] [address] [place] [address] Dr. Rayray Stewart NEUT # 5.4 103/ul Normal 1.4-6.5 [facility] Comment on above: Performed By: #### B MP, MG, CK #### [facility] [address] [place] [address] Dr. Rayray Stewart Neutrophils/100 WBC (Bld) 62.4 % Normal 43.0-75.0 [facility] Comment on above: Performed By: #### B MP, MG, CK #### [facility] [address] [place] [address] Dr. Rayray Stewart Platelet mean volume (Bld) [Entitic vol] 10.5 fL Normal 9.5-13.5 [facility] Comment on above: Performed By: #### B MP, MG, CK #### [facility] [address] [place] [address] Dr. Rayray Stewart PLT 76 103/ul Critically low 150-450 [facility] Comment on above: Performed By: #### B MP, MG, CK #### [facility] [address] [place] [address] Dr. Rayray Stewart RBC 4.69 106/ul Critically low 4.70-6.10 [facility] Comment on above: Performed By: #### B MP, MG, CK #### [facility] [address] [place] [address] Dr. Rayray Stewart WBC 8.6 103/ul Normal 4.0-11.0 [facility] Comment on above: Performed By: #### B MP, MG, CK #### [facility] [address] [place] [address] Dr. Rayray Stewart MAGNESIUMon 03-30-2023 Magnesium [Mass/Vol] 1.7 mg/dL Critically low 1.8-2.4 [facility] Comment on above: Performed By: #### M G #### [facility] [address] [place] [address] Dr. Rayray Stewart POINT OF CARE GLUCOSEon 03-03 Glucose [Mass/Vol] 259 mg/dL Critically high 74-106 [facility] Comment on above: Performed By: #### P HOS, BMP #### [facility] [address] [place] [address] Dr. Rayray Stewart Glucose [Mass/Vol] 229 mg/dL Critically high 74-106 [facility] Comment on above: Performed By: #### P HOS, BMP #### [facility] [address] [address] [address] Rayray Stewart Glucose [Mass/Vol] 110 mg/dL Critically high 74-106 [facility] Comment on above: Performed By: #### P HOS, BMP #### [facility] [address] [address] [address] Rayray Stewart Glucose [Mass/Vol] 82 mg/dL Normal 74-106 [facility] Comment on above: Performed By: #### B MP, MG, CK #### [facility] [address] [address] [address] Rayray Stewart PROF 14(COMP METB)on 023 Albumin [Mass/Vol] 3.0 g/dL Critically low 3.4-5.0 [facility] Comment on above: Performed By: #### P HOS, BMP #### [facility] [address] [place] [address] Dr. Rayray Stewart Albumin/Globulin [Mass ratio] 0.9 {ratio} [facility] Comment on above: Performed By: #### P HOS, BMP #### [facility] [address] [address] [address] Rayray Stewart ALP [Catalytic activity/Vol] 68 U/L Normal 46-116 [facility] Comment on above: Performed By: #### P HOS, BMP #### [facility] [address] [address] [address] Rayray Stewart ALT [Catalytic activity/Vol] 45 U/L Normal 16-63 [facility] Comment on above: Performed By: #### P HOS, BMP #### [facility] [address] [place] [address] Dr. Rayray Stewart Anion gap [Moles/Vol] 11.3 mmol/L Normal [facility] Comment on above: Performed By: #### P HOS, BMP #### [facility] [address] [address] [address] Rayray Stewart AST [Catalytic activity/Vol] 40 U/L Critically high 15-37 [facility] Comment on above: Performed By: #### P HOS, BMP #### [facility] [address] [place] [address] Dr. Rayray Stewart Bilirubin [Mass/Vol] 0.9 mg/dL Normal 0.2-1.0 [facility] Comment on above: Performed By: #### P HOS, BMP #### [facility] [address] [place] [address] Dr. Rayray Stewart Calcium [Mass/Vol] 7.8 mg/dL Critically low 8.5-10.1 [facility] Comment on above: Performed By: #### P HOS, BMP #### [facility] [address] [place] [address] Dr. Rayray Stewart Chloride [Moles/Vol] 101 mmol/L Normal 98-107 [facility] Comment on above: Performed By: #### P HOS, BMP #### [facility] [address] [place] [address] Dr. Rayray Stewart CO2 [Moles/Vol] 28.6 mmol/L Normal 21.0-32.0 [facility] Comment on above: Performed By: #### P HOS, BMP #### [facility] [address] [place] [address] Dr. Rayray Stewart Creatinine [Mass/Vol] 0.91 mg/dL Normal 0.70-1.30 [facility] Comment on above: Performed By: #### P HOS, BMP #### [facility] [address] [place] [address] Dr. Rayray Stewart EGFR-AF AUSTRALIAN >60 Normal >=60 [facility] Comment on above: Performed By: #### P HOS, BMP #### [facility] [address] [place] [address] Dr. Rayray Stewart EGFR-NON AF AUSTRALIAN >60 Normal >=60 [facility] Comment on above: Performed By: #### P HOS, BMP #### [facility] [address] [place] [address] Dr. Rayray Stewart Globulin (S) [Mass/Vol] 3.3 g/dL Normal [facility] Comment on above: Performed By: #### P HOS, BMP #### [facility] [address] [address] [address] Rayray Stewart Glucose [Mass/Vol] 92 mg/dL Normal 74-106 [facility] Comment on above: Performed By: #### P HOS, BMP #### [facility] [address] [address] [address] Rayray Stewart Potassium [Moles/Vol] 2.8 mmol/L Critically low 3.5-5.1 [facility] Comment on above: Performed By: #### P HOS, BMP #### [facility] [address] [address] [address] Rayray Stewart Protein [Mass/Vol] 6.3 g/dL Critically low 6.4-8.2 [facility] Comment on above: Performed By: #### P HOS, BMP #### [facility] [address] [place] [address] Dr. Rayray Stewart Sodium [Moles/Vol] 137 mmol/L Normal 136-145 [facility] Comment on above: Performed By: #### P HOS, BMP #### [facility] [address] [place] [address] Dr. Rayray Stewart Urea nitrogen [Mass/Vol] 9.0 mg/dL Normal 7.0-18.0 [facility] Comment on above: Performed By: #### P HOS, BMP #### [facility] [address] [place] [address] Dr. Rayray Stewart Urea nitrogen/Creatinine [Mass ratio] 9.9 mg/mg Normal [facility] Comment on above: Performed By: #### P HOS, BMP #### [facility] [address] [place] [address] Dr. Rayray Stewart Albumin [Mass/Vol] 2.9 g/dL Critically low 3.4-5.0 [facility] Comment on above: Performed By: #### B MP, MG, CK #### [facility] [address] [place] [address] Dr. Rayray Stewart Albumin/Globulin [Mass ratio] 0.9 {ratio} Normal [facility] Comment on above: Performed By: #### B MP, MG, CK #### [facility] [address] [address] [address] Rayray Stewart ALP [Catalytic activity/Vol] 66 U/L Normal 46-116 [facility] Comment on above: Performed By: #### B MP, MG, CK #### [facility] [address] [address] [address] Rayray Stewart ALT [Catalytic activity/Vol] 40 U/L Normal 16-63 [facility] Comment on above: Performed By: #### B MP, MG, CK #### [facility] [address] [address] [address] Rayray Stewart Anion gap [Moles/Vol] 11.6 mmol/L Normal [facility] Comment on above: Performed By: #### B MP, MG, CK #### [facility] [address] [address] [address] Rayray Stewart AST [Catalytic activity/Vol] 33 U/L Normal 15-37 [facility] Comment on above: Performed By: #### B MP, MG, CK #### [facility] [address] [address] [address] Rayray Stewart Bilirubin [Mass/Vol] 0.9 mg/dL Normal 0.2-1.0 [facility] Comment on above: Performed By: #### B MP, MG, CK #### [facility] [address] [address] [address] Rayray Stewart Calcium [Mass/Vol] 7.6 mg/dL Critically low 8.5-10.1 [facility] Comment on above: Performed By: #### B MP, MG, CK #### [facility] [address] [address] [address] Rayray Stewart Chloride [Moles/Vol] 101 mmol/L Normal 98-107 [facility] Comment on above: Performed By: #### B MP, MG, CK #### [facility] [address] [address] [address] Rayray Stewart CO2 [Moles/Vol] 26.3 mmol/L Normal 21.0-32.0 [facility] Comment on above: Performed By: #### B MP, MG, CK #### [facility] [address] [address] [address] Rayray Stewart Creatinine [Mass/Vol] 1.05 mg/dL Normal 0.70-1.30 [facility] Comment on above: Performed By: #### B MP, MG, CK #### [facility] [address] [address] [address] Rayray Stewart EGFR-AF AUSTRALIAN >60 Normal >=60 [facility] Comment on above: Performed By: #### B MP, MG, CK #### [facility] [address] [address] [address] Rayray Stewart EGFR-NON AF AUSTRALIAN >60 Normal >=60 [facility] Comment on above: Performed By: #### B MP, MG, CK #### [facility] [address] [place] [address] Dr. Rayray Stewart Globulin (S) [Mass/Vol] 3.1 g/dL Normal [facility] Comment on above: Performed By: #### B MP, MG, CK #### [facility] [address] [address] [address] Rayray Stewart Glucose [Mass/Vol] 141 mg/dL Critically high 74-106 [facility] Comment on above: Performed By: #### B MP, MG, CK #### [facility] [address] [address] [address] Rayray Stewart Potassium [Moles/Vol] 2.8 mmol/L Critically low 3.5-5.1 [facility] Comment on above: Performed By: #### B MP, MG, CK #### [facility] [address] [address] [address] Rayray Stewart Protein [Mass/Vol] 6.0 g/dL Critically low 6.4-8.2 [facility] Comment on above: Performed By: #### B MP, MG, CK #### [facility] [address] [place] [address] Dr. Rayray Stewart Sodium [Moles/Vol] 135 mmol/L Critically low 136-145 [facility] Comment on above: Performed By: #### B MP, MG, CK #### [facility] [address] [place] [address] Dr. Rayray Stewart Urea nitrogen [Mass/Vol] 10.0 mg/dL Normal 7.0-18.0 [facility] Comment on above: Performed By: #### B MP, MG, CK #### [facility] [address] [place] [address] Dr. Rayray Stewart Urea nitrogen/Creatinine [Mass ratio] 9.5 mg/mg Normal [facility] Comment on above: Performed By: #### B MP, MG, CK #### [facility] [address] [place] [address] Dr. Rayray Stewart CBC AUTO DIFFon 03-29-2023 BASO # 0.0 103/ul Normal 0.0-0.1 [facility] Comment on above: Performed By: #### B MP #### [facility] [address] [place] [address] Dr. Rayray Stewart Basophils/100 WBC (Bld) 0.3 % Normal 0.2-2.0 [facility] Comment on above: Performed By: #### B MP #### [facility] [address] [place] [address] Dr. Rayray Stewart EO # 0.0 103/ul Normal 0.0-0.7 [facility] Comment on above: Performed By: #### B MP #### [facility] [address] [place] [address] Dr. Rayray Stewart Eosinophils/100 WBC (Bld) 0.0 % Critically low 0.9-7.0 [facility] Comment on above: Performed By: #### B MP #### [facility] [address] [place] [address] Dr. Rayray Stewart Erythrocyte distribution width (RBC) [Ratio] 11.5 % Normal 11.0-15.0 [facility] Comment on above: Performed By: #### B MP #### [facility] [address] [place], [place] [id number] Dr. Rayray Stewart Hematocrit (Bld) [Volume fraction] 43.7 % Normal 42.0-54.0 [facility] Comment on above: Performed By: #### B MP #### [facility] [address] [place] [address] Dr. Rayray Stewart Hemoglobin (Bld) [Mass/Vol] 15.0 g/dL Normal 14.0-18.0 [facility] Comment on above: Performed By: #### B MP #### [facility] [address] [place] [address] Dr. Rayray Stewart IG # 0.03 10e3/ul Normal 0.00-0.03 [facility] Comment on above: Performed By: #### B MP #### [facility] [address] [place] [address] Dr. Rayray Stewart IG % 0.3 % Normal 0.0-0.5 [facility] Comment on above: Performed By: #### B MP #### [facility] [address] [place] [address] Dr. Rayray Stewart LYMPH # 1.4 103/ul Normal 1.2-3.8 [facility] Comment on above: Performed By: #### B MP #### [facility] [address] [place] [address] Dr. Rayray Stewart Lymphocytes/100 WBC (Bld) 14.5 % Critically low 20.5-60.0 [facility] Comment on above: Performed By: #### B MP #### [facility] [address] [place] [address] Dr. Rayray Stewart MANUAL DIFF REQ NO Normal [facility] Comment on above: Performed By: #### B MP #### [facility] [address] [place] [address] Dr. Rayray Stewart MCH (RBC) [Entitic mass] 32.5 pg Normal 25.9-34.0 [facility] Comment on above: Performed By: #### B MP #### [facility] [address] [place] [address] Dr. Rayray Stewart MCHC (RBC) [Mass/Vol] 34.3 g/dL Normal 29.9-35.2 [facility] Comment on above: Performed By: #### B MP #### [facility] [address] [address] [address] Rayray Stewart MCV (RBC) [Entitic vol] 94.8 fL Critically high 80.0-94.0 [facility] Comment on above: Performed By: #### B MP #### [facility] [address] [address] [address] Rayray Stewart MONO # 0.8 103/ul Normal 0.3-0.8 [facility] Comment on above: Performed By: #### B MP #### [facility] [address] [address] [address] Rayray Stewart Monocytes/100 WBC (Bld) 8.6 % Normal 1.7-12.0 [facility] Comment on above: Performed By: #### B MP #### [facility] [address] [address] [address] Rayray Stewart NEUT # 7.1 103/ul Critically high 1.4-6.5 [facility] Comment on above: Performed By: #### B MP #### [facility] [address] [address] [address] Rayray Stewart Neutrophils/100 WBC (Bld) 76.3 % Critically high 43.0-75.0 [facility] Comment on above: Performed By: #### B MP #### [facility] [address] [address] [address] Rayray Stewart Platelet mean volume (Bld) [Entitic vol] 12.2 fL Normal 9.5-13.5 [facility] Comment on above: Performed By: #### B MP #### [facility] [address] [address] [address] Rayray Stewart PLT 71 103/ul Critically low 150-450 [facility] Comment on above: Result Comment: plat elet clumps present Performed By: #### B MP #### [facility] [address] [place] [address] Dr. Rayray Stewart RBC 4.61 106/ul Critically low 4.70-6.10 [facility] Comment on above: Performed By: #### B MP #### [facility] [address] [place] [address] Dr. Rayray Stewart WBC 9.3 103/ul Normal 4.0-11.0 [facility] Comment on above: Performed By: #### B MP #### [facility] [address] [place] [address] Dr. Rayray Stewart CPKon 03-29-2023 CK [Catalytic activity/Vol] 710 U/L Critically high 39-308 [facility] Comment on above: Performed By: #### M G #### [facility] [address] [place] [address] Dr. Rayray Stewart PHOSPHORUSon 03-29-2023 Phosphate [Mass/Vol] 1.3 mg/dL Critically low 2.6-4.7 [facility] Comment on above: Performed By: #### B MP, MG, CK #### [facility] [address] [place] [address] Dr. Rayray Stewart Phosphate [Mass/Vol] 1.2 mg/dL Critically low 2.6-4.7 [facility] Comment on above: Performed By: #### P HOS, BMP #### [facility] [address] [place] [address] Dr. Rayray Stewart Phosphate [Mass/Vol] 1.4 mg/dL Critically low 2.6-4.7 [facility] Comment on above: Performed By: #### P HOS, BMP #### [facility] [address] [place] [address] Dr. Rayray Stewart Phosphate [Mass/Vol] 1.6 mg/dL Critically low 2.6-4.7 [facility] Comment on above: Performed By: #### P HOS, BMP #### [facility] [address] [place] [address] Dr. Rayray Stewart Phosphate [Mass/Vol] 1.8 mg/dL Critically low 2.6-4.7 [facility] Comment on above: Performed By: #### B MP, MG, CK #### [facility] [address] [place] [address] Dr. Rayray Stewart Phosphate [Mass/Vol] 2.1 mg/dL Critically low 2.6-4.7 [facility] Comment on above: Performed By: #### P HOS, BMP #### [facility] [address] [place] [address] Dr. Rayray Stewart Phosphate [Mass/Vol] 1.9 mg/dL Critically low 2.6-4.7 [facility] Comment on above: Performed By: #### P HOS, BMP #### [facility] [address] [place] [address] Dr. Rayray Stewart POINT OF CARE GLUCOSEon 03-02 Glucose [Mass/Vol] 261 mg/dL Critically high 74-106 [facility] Comment on above: Performed By: #### P HOS, BMP #### [facility] [address] [place] [address] Dr. Rayray Stewart PROF 14(COMP METB)on 023 Albumin [Mass/Vol] 3.0 g/dL Critically low 3.4-5.0 [facility] Comment on above: Performed By: #### B MP #### [facility] [address] [place] [address] Dr. Rayray Stewart Albumin/Globulin [Mass ratio] 0.9 {ratio} Normal [facility] Comment on above: Performed By: #### B MP #### [facility] [address] [place] [address] Dr. Rayray Stewart ALP [Catalytic activity/Vol] 72 U/L Normal 46-116 [facility] Comment on above: Performed By: #### B MP #### [facility] [address] [place] [address] Dr. Rayray Stewart ALT [Catalytic activity/Vol] 43 U/L Normal 16-63 [facility] Comment on above: Performed By: #### B MP #### [facility] [address] [place] [address] Dr. Rayray Stewart Anion gap [Moles/Vol] 14.9 mmol/L Normal [facility] Comment on above: Performed By: #### B MP #### [facility] [address] [address] [address] Rayray Stewart AST [Catalytic activity/Vol] 36 U/L Normal 15-37 [facility] Comment on above: Performed By: #### B MP #### [facility] [address] [address] [address] Rayray Stewart Bilirubin [Mass/Vol] 1.0 mg/dL Normal 0.2-1.0 [facility] Comment on above: Performed By: #### B MP #### [facility] [address] [address] [address] Rayray Stewart Calcium [Mass/Vol] 7.3 mg/dL Critically low 8.5-10.1 [facility] Comment on above: Performed By: #### B MP #### [facility] [address] [address] [address] Rayray Stewart Chloride [Moles/Vol] 99 mmol/L Normal 98-107 [facility] Comment on above: Performed By: #### B MP #### [facility] [address] [address] [address] Rayray Stewart CO2 [Moles/Vol] 21.5 mmol/L Normal 21.0-32.0 [facility] Comment on above: Performed By: #### B MP #### [facility] [address] [address] [address] Rayray Stewart Creatinine [Mass/Vol] 1.08 mg/dL Normal 0.70-1.30 [facility] Comment on above: Performed By: #### B MP #### [facility] [address] [address] [address] Rayray Stewart Globulin (S) [Mass/Vol] 3.2 g/dL Normal [facility] Comment on above: Performed By: #### B MP #### [facility] [address] [address] [address] Rayray Stewart Glucose [Mass/Vol] 279 mg/dL Critically high 74-106 [facility] Comment on above: Performed By: #### B MP #### [facility] [address] [address] [address] Rayray Stewart Protein [Mass/Vol] 6.2 g/dL Critically low 6.4-8.2 [facility] Comment on above: Performed By: #### B MP #### [facility] [address] [address] [address] Rayray Stewart Urea nitrogen [Mass/Vol] 13.0 mg/dL Normal 7.0-18.0 [facility] Comment on above: Performed By: #### B MP #### [facility] [address] [address] [address] Rayray Stewart Urea nitrogen/Creatinine [Mass ratio] 12.0 mg/mg Normal [facility] Comment on above: Performed By: #### B MP #### [facility] [address] [place] [address] Dr. Rayray Stewart EGFR-AF AUSTRALIAN >60 Normal >=60 [facility] Comment on above: Performed By: #### B MP #### [facility] [address] [address] [address] Rayray Stewart Performed By: #### B MP, MG, CK #### [facility] [address] [place] [address] Dr. Rayray Stewart Performed By: #### P HOS, BMP #### [facility] [address] [place] [address] Dr. Rayray Stewart EGFR-NON AF AUSTRALIAN >60 Normal >=60 [facility] Comment on above: Performed By: #### B MP #### [facility] [address] [address] [address] Rayray Stewart Performed By: #### B MP, MG, CK #### [facility] [address] [place] [address] Dr. Rayray Stewart Performed By: #### P HOS, BMP #### [facility] [address] [place] [address] Dr. Rayray Stewart Potassium [Moles/Vol] 3.4 mmol/L Critically low 3.5-5.1 [facility] Comment on above: Performed By: #### B MP #### [facility] [address] [place] [address] Dr. Rayray Stewart Performed By: #### P HOS, BMP #### [facility] [address] [place] [address] Dr. Rayray Stewart Sodium [Moles/Vol] 132 mmol/L Critically low 136-145 [facility] Comment on above: Performed By: #### B MP #### [facility] [address] [place] [address] Dr. Rayray Stewart Performed By: #### P HOS, BMP #### [facility] [address] [place] [address] Dr. Rayray Stewart PROF CHEM 8 (BAS METB)on Anion gap [Moles/Vol] 13.3 mmol/L Normal [facility] Comment on above: Performed By: #### B MP, MG, CK #### [facility] [address] [place] [address] Dr. Rayray Stewart Calcium [Mass/Vol] 6.9 mg/dL Critically low 8.5-10.1 [facility] Comment on above: Performed By: #### B MP, MG, CK #### [facility] [address] [place] [address] Dr. Rayray Stewart Chloride [Moles/Vol] 103 mmol/L Normal 98-107 [facility] Comment on above: Performed By: #### B MP, MG, CK #### [facility] [address] [place] [address] Dr. Rayray Stewart CO2 [Moles/Vol] 22.0 mmol/L Normal 21.0-32.0 [facility] Comment on above: Performed By: #### B MP, MG, CK #### [facility] [address] [place] [address] Dr. Rayray Stewart Creatinine [Mass/Vol] 1.06 mg/dL Normal 0.70-1.30 [facility] Comment on above: Performed By: #### B MP, MG, CK #### [facility] [address] [address] [address] Rayray Stewart Glucose [Mass/Vol] 238 mg/dL Critically high 74-106 [facility] Comment on above: Performed By: #### B MP, MG, CK #### [facility] [address] [address] [address] Rayray Stewart Potassium [Moles/Vol] 3.3 mmol/L Critically low 3.5-5.1 [facility] Comment on above: Performed By: #### B MP, MG, CK #### [facility] [address] [address] [address] Rayray Stewart Sodium [Moles/Vol] 135 mmol/L Critically low 136-145 [facility] Comment on above: Performed By: #### B MP, MG, CK #### [facility] [address] [place] [address] Dr. Rayray Stewart Urea nitrogen [Mass/Vol] 14.0 mg/dL Normal 7.0-18.0 [facility] Comment on above: Performed By: #### B MP, MG, CK #### [facility] [address] [place] [address] Dr. Rayray Stewart Urea nitrogen/Creatinine [Mass ratio] 13.2 mg/mg Normal [facility] Comment on above: Performed By: #### B MP, MG, CK #### [facility] [address] [address] [address] Rayray Stewart Anion gap [Moles/Vol] 15.2 mmol/L Normal [facility] Comment on above: Performed By: #### P HOS, BMP #### [facility] [address] [place] [address] Dr. Rayray Stewart Calcium [Mass/Vol] 7.0 mg/dL Critically low 8.5-10.1 [facility] Comment on above: Performed By: #### P HOS, BMP #### [facility] [address] [address] [address] Rayray Stewart Chloride [Moles/Vol] 105 mmol/L Normal 98-107 [facility] Comment on above: Performed By: #### P HOS, BMP #### [facility] [address] [address] [address] Rayray Stewart CO2 [Moles/Vol] 20.2 mmol/L Critically low 21.0-32.0 [facility] Comment on above: Performed By: #### P HOS, BMP #### [facility] [address] [address] [address] Rayray Stewart Creatinine [Mass/Vol] 1.12 mg/dL Normal 0.70-1.30 [facility] Comment on above: Performed By: #### P HOS, BMP #### [facility] [address] [address] [address] Rayray Stewart Glucose [Mass/Vol] 202 mg/dL Critically high 74-106 [facility] Comment on above: Performed By: #### P HOS, BMP #### [facility] [address] [place] [address] Dr. Rayray Stewart Sodium [Moles/Vol] 137 mmol/L Normal 136-145 [facility] Comment on above: Performed By: #### P HOS, BMP #### [facility] [address] [address] [address] Rayray Stewart Urea nitrogen [Mass/Vol] 16.0 mg/dL Normal 7.0-18.0 [facility] Comment on above: Performed By: #### P HOS, BMP #### [facility] [address] [address] [address] Rayray Stewart Urea nitrogen/Creatinine [Mass ratio] 14.3 mg/mg Normal [facility] Comment on above: Performed By: #### P HOS, BMP #### [facility] [address] [address] [address] Rayray Stewart Anion gap [Moles/Vol] 15.5 mmol/L Normal [facility] Comment on above: Performed By: #### P HOS, BMP #### [facility] [address] [address] [address] Rayray Stewart Calcium [Mass/Vol] 7.0 mg/dL Critically low 8.5-10.1 [facility] Comment on above: Performed By: #### P HOS, BMP #### [facility] [address] [address] [address] Rayray Stewart Chloride [Moles/Vol] 105 mmol/L Normal 98-107 [facility] Comment on above: Performed By: #### P HOS, BMP #### [facility] [address] [address] [address] Rayray Stewart CO2 [Moles/Vol] 19.0 mmol/L Critically low 21.0-32.0 [facility] Comment on above: Performed By: #### P HOS, BMP #### [facility] [address] [address] [address] Rayray Stewart Creatinine [Mass/Vol] 1.15 mg/dL Normal 0.70-1.30 [facility] Comment on above: Performed By: #### P HOS, BMP #### [facility] [address] [address] [address] Rayray Stewart Glucose [Mass/Vol] 163 mg/dL Critically high 74-106 [facility] Comment on above: Performed By: #### P HOS, BMP #### [facility] [address] [address] [address] Rayray Stewart Potassium [Moles/Vol] 3.5 mmol/L Normal 3.5-5.1 [facility] Comment on above: Performed By: #### P HOS, BMP #### [facility] [address] [address] [address] Rayray Stewart Sodium [Moles/Vol] 136 mmol/L Normal 136-145 [facility] Comment on above: Performed By: #### P HOS, BMP #### [facility] [address] [address] [address] Rayray Stewart Urea nitrogen [Mass/Vol] 17.0 mg/dL Normal 7.0-18.0 [facility] Comment on above: Performed By: #### P HOS, BMP #### [facility] [address] [address] [address] Rayray Stewart Urea nitrogen/Creatinine [Mass ratio] 14.8 mg/mg Normal [facility] Comment on above: Performed By: #### P HOS, BMP #### [facility] [address] [address] [address] Rayray Stewart Anion gap [Moles/Vol] 18.1 mmol/L Normal [facility] Comment on above: Performed By: #### P HOS, BMP #### [facility] [address] [place] [address] Dr. Rayray Stewart Calcium [Mass/Vol] 7.1 mg/dL Critically low 8.5-10.1 [facility] Comment on above: Performed By: #### P HOS, BMP #### [facility] [address] [place] [address] Dr. Rayray Stewart Chloride [Moles/Vol] 104 mmol/L Normal 98-107 [facility] Comment on above: Performed By: #### P HOS, BMP #### [facility] [address] [place] [address] Dr. Rayray Stewart CO2 [Moles/Vol] 17.4 mmol/L Critically low 21.0-32.0 [facility] Comment on above: Performed By: #### P HOS, BMP #### [facility] [address] [place] [address] Dr. Rayray Stewart Creatinine [Mass/Vol] 1.21 mg/dL Normal 0.70-1.30 [facility] Comment on above: Performed By: #### P HOS, BMP #### [facility] [address] [place] [address] Dr. Rayray Stewart Glucose [Mass/Vol] 212 mg/dL Critically high 74-106 [facility] Comment on above: Performed By: #### P HOS, BMP #### [facility] [address] [place] [address] Dr. Rayray Stewart Potassium [Moles/Vol] 3.5 mmol/L Normal 3.5-5.1 [facility] Comment on above: Performed By: #### P HOS, BMP #### [facility] [address] [place] [address] Dr. Rayray Stewart Sodium [Moles/Vol] 136 mmol/L Normal 136-145 [facility] Comment on above: Performed By: #### P HOS, BMP #### [facility] [address] [place] [address] Dr. Rayray Stewart Urea nitrogen [Mass/Vol] 19.0 mg/dL Critically high 7.0-18.0 [facility] Comment on above: Performed By: #### P HOS, BMP #### [facility] [address] [place] [address] Dr. Rayray Stewart Urea nitrogen/Creatinine [Mass ratio] 15.7 mg/mg Normal [facility] Comment on above: Performed By: #### P HOS, BMP #### [facility] [address] [place] [address] Dr. Rayray Stewart Anion gap [Moles/Vol] 18.6 mmol/L Normal [facility] Comment on above: Performed By: #### B MP, MG, CK #### [facility] [address] [place] [address] Dr. Rayray Stewart Calcium [Mass/Vol] 7.2 mg/dL Critically low 8.5-10.1 [facility] Comment on above: Performed By: #### B MP, MG, CK #### [facility] [address] [place] [address] Dr. Rayray Stewart Chloride [Moles/Vol] 102 mmol/L Normal 98-107 [facility] Comment on above: Performed By: #### B MP, MG, CK #### [facility] [address] [place] [address] Dr. Rayray Stewart CO2 [Moles/Vol] 17.3 mmol/L Critically low 21.0-32.0 [facility] Comment on above: Performed By: #### B MP, MG, CK #### [facility] [address] [place] [address] Dr. Rayray Stewart Creatinine [Mass/Vol] 1.18 mg/dL Normal 0.70-1.30 [facility] Comment on above: Performed By: #### B MP, MG, CK #### [facility] [address] [place] [address] Dr. Rayray Stewart Glucose [Mass/Vol] 251 mg/dL Critically high 74-106 [facility] Comment on above: Performed By: #### B MP, MG, CK #### [facility] [address] [address] [address] Rayray Stewart Potassium [Moles/Vol] 3.9 mmol/L Normal 3.5-5.1 [facility] Comment on above: Performed By: #### B MP, MG, CK #### [facility] [address] [place] [address] Dr. Rayray Stewart Sodium [Moles/Vol] 134 mmol/L Critically low 136-145 [facility] Comment on above: Performed By: #### B MP, MG, CK #### [facility] [address] [place] [address] Dr. Rayray Stewart Urea nitrogen [Mass/Vol] 21.0 mg/dL Critically high 7.0-18.0 [facility] Comment on above: Performed By: #### B MP, MG, CK #### [facility] [address] [place] [address] Dr. Rayray Stewart Urea nitrogen/Creatinine [Mass ratio] 17.8 mg/mg Normal [facility] Comment on above: Performed By: #### B MP, MG, CK #### [facility] [address] [place] [address] Dr. Rayray Stewart Anion gap [Moles/Vol] 20.0 mmol/L Normal [facility] Comment on above: Performed By: #### P HOS, BMP #### [facility] [address] [place] [address] Dr. Rayray Stewart Calcium [Mass/Vol] 7.1 mg/dL Critically low 8.5-10.1 [facility] Comment on above: Performed By: #### P HOS, BMP #### [facility] [address] [place] [address] Dr. Rayray Stewart Chloride [Moles/Vol] 101 mmol/L Normal 98-107 [facility] Comment on above: Performed By: #### P HOS, BMP #### [facility] [address] [address] [address] Rayray Stewart CO2 [Moles/Vol] 15.1 mmol/L Critically low 21.0-32.0 [facility] Comment on above: Performed By: #### P HOS, BMP #### [facility] [address] [address] [address] Rayray Stewart Creatinine [Mass/Vol] 1.28 mg/dL Normal 0.70-1.30 [facility] Comment on above: Performed By: #### P HOS, BMP #### [facility] [address] [address] [address] Rayray Stewart EGFR-NON AF AUSTRALIAN 59 mL/min/1.73m2 Critically low >=60 [facility] Comment on above: Performed By: #### P HOS, BMP #### [facility] [address] [place] [address] Dr. Rayray Stewart Glucose [Mass/Vol] 217 mg/dL Critically high 74-106 [facility] Comment on above: Performed By: #### P HOS, BMP #### [facility] [address] [address] [address] Rayray Stewart Potassium [Moles/Vol] 4.1 mmol/L Normal 3.5-5.1 [facility] Comment on above: Performed By: #### P HOS, BMP #### [facility] [address] [place] [address] Dr. Rayray Stewart Urea nitrogen [Mass/Vol] 24.0 mg/dL Critically high 7.0-18.0 [facility] Comment on above: Performed By: #### P HOS, BMP #### [facility] [address] [place] [address] Dr. Rayray Stewart Urea nitrogen/Creatinine [Mass ratio] 18.8 mg/mg Normal [facility] Comment on above: Performed By: #### P HOS, BMP #### [facility] [address] [place] [address] Dr. Rayray Stewart Anion gap [Moles/Vol] 21.3 mmol/L Normal [facility] Comment on above: Performed By: #### P HOS, BMP #### [facility] [address] [address] [address] Rayray Stewart Calcium [Mass/Vol] 7.2 mg/dL Critically low 8.5-10.1 [facility] Comment on above: Performed By: #### P HOS, BMP #### [facility] [address] [address] [address] Rayray Stewart Chloride [Moles/Vol] 101 mmol/L Normal 98-107 [facility] Comment on above: Performed By: #### P HOS, BMP #### [facility] [address] [address] [address] Rayray Stewart CO2 [Moles/Vol] 13.8 mmol/L Critically low 21.0-32.0 [facility] Comment on above: Performed By: #### P HOS, BMP #### [facility] [address] [place] [address] Dr. Rayray Stewart Creatinine [Mass/Vol] 1.33 mg/dL Critically high 0.70-1.30 [facility] Comment on above: Performed By: #### P HOS, BMP #### [facility] [address] [place] [address] Dr. Rayray Stewart EGFR-AF AUSTRALIAN >60 Normal >=60 [facility] Comment on above: Performed By: #### P HOS, BMP #### [facility] [address] [place] [address] Dr. Rayray Stewart EGFR-NON AF AUSTRALIAN 56 mL/min/1.73m2 Critically low >=60 [facility] Comment on above: Performed By: #### P HOS, BMP #### [facility] [address] [place] [address] Dr. Rayray Stewart Glucose [Mass/Vol] 202 mg/dL Critically high 74-106 [facility] Comment on above: Performed By: #### P HOS, BMP #### [facility] [address] [place] [address] Dr. Rayray Stewart Potassium [Moles/Vol] 4.1 mmol/L Normal 3.5-5.1 [facility] Comment on above: Performed By: #### P HOS, BMP #### [facility] [address] [address] [address] Rayray Stewart Sodium [Moles/Vol] 132 mmol/L Critically low 136-145 [facility] Comment on above: Performed By: #### P HOS, BMP #### [facility] [address] [address] [address] Rayray Stewart Urea nitrogen [Mass/Vol] 26.0 mg/dL Critically high 7.0-18.0 [facility] Comment on above: Performed By: #### P HOS, BMP #### [facility] [address] [address] [address] Rayray Stewart Urea nitrogen/Creatinine [Mass ratio] 19.5 mg/mg Normal [facility] Comment on above: Performed By: #### P HOS, BMP #### [facility] [address] [address] [address] Rayray Stewart ACETONE SERUMon 03-28-2023 ACETONE MODERATE Abnormal NEGATIVE [facility] Comment on above: Performed By: #### A CETON #### [facility] [address] [address] [address] Rayray Stewart CARDIAC DIVYA ADMITon 023 CK [Catalytic activity/Vol] 1099 U/L Critically high 39-308 [facility] Comment on above: Performed By: #### P HOS, BMP #### [facility] [address] [address] [address] Rayray Stewart CK.MB [Mass/Vol] 5.92 ng/mL Critically high <=3.60 [facility] Comment on above: Performed By: #### P HOS, BMP #### [facility] [address] [address] [address] Rayray Stewart HSTROP 29.6 pg/mL Normal 4.0-76.1 [facility] Comment on above: Result Comment: CUT- OFF POINTS HAVE BEEN ESTABLISHED BASED ON THE FOURTH UNIVERSAL DEFINITIONS OF MYOCARDIAL INFARCTION. THE UPPER REFERENCE LIMIT (URL) OF TROPONIN, DEFINED THE 99TH PERCENTILE OF cTnI DISTRIBUTION IN A REFERENCE POPULATION, HAS BEEN CONFIRMED THE DECISION THRESHOLD FOR ID DIAGNOSIS. Performed By: #### P HOS, BMP #### [facility] [address] [address] [address] Rayray Stewart OSMAN 233 ng/mL Critically high 16-96 [facility] Comment on above: Performed By: #### P HOS, BMP #### [facility] [address] [address] [address] Rayray Stewart CBC AUTO DIFFon 03-28-2023 BASO # 0.0 103/ul Normal 0.0-0.1 [facility] Comment on above: Performed By: #### P HOS, BMP #### [facility] [address] [address] [address] Rayray Stewart Basophils/100 WBC (Bld) 0.2 % Normal 0.2-2.0 [facility] Comment on above: Performed By: #### P HOS, BMP #### [facility] [address] [place] [address] Dr. Rayray Stewart EO # 0.0 103/ul Normal 0.0-0.7 [facility] Comment on above: Performed By: #### P HOS, BMP #### [facility] [address] [place] [address] Dr. Rayray Stewart Eosinophils/100 WBC (Bld) 0.1 % Critically low 0.9-7.0 [facility] Comment on above: Performed By: #### P HOS, BMP #### [facility] [address] [place] [address] Dr. Rayray Stewart Erythrocyte distribution width (RBC) [Ratio] 11.5 % Normal 11.0-15.0 [facility] Comment on above: Performed By: #### P HOS, BMP #### [facility] [address] [place] [address] Dr. Rayray Stewart Hematocrit (Bld) [Volume fraction] 51.7 % Normal 42.0-54.0 [facility] Comment on above: Performed By: #### P HOS, BMP #### [facility] [address] [place] [address] Dr. Rayray Stewart Hemoglobin (Bld) [Mass/Vol] 17.4 g/dL Normal 14.0-18.0 [facility] Comment on above: Performed By: #### P HOS, BMP #### [facility] [address] [place] [address] Dr. Rayray Stewart IG # 0.03 10e3/ul Normal 0.00-0.03 [facility] Comment on above: Performed By: #### P HOS, BMP #### [facility] [address] [place] [address] Dr. Rayray Stewart IG % 0.3 % Normal 0.0-0.5 [facility] Comment on above: Performed By: #### P HOS, BMP #### [facility] [address] [place] [address] Dr. Rayray Stewart LYMPH # 0.5 103/ul Critically low 1.2-3.8 [facility] Comment on above: Performed By: #### P HOS, BMP #### [facility] [address] [place] [address] Dr. Rayray Stewart Lymphocytes/100 WBC (Bld) 5.2 % Critically low 20.5-60.0 [facility] Comment on above: Performed By: #### P HOS, BMP #### [facility] [address] [place] [address] Dr. Rayray Stewart MANUAL DIFF REQ NO Normal [facility] Comment on above: Performed By: #### P HOS, BMP #### [facility] [address] [place] [address] Dr. Rayray Stewart MCH (RBC) [Entitic mass] 32.5 pg Normal 25.9-34.0 [facility] Comment on above: Performed By: #### P HOS, BMP #### [facility] [address] [place] [address] Dr. Rayray Stewart MCHC (RBC) [Mass/Vol] 33.7 g/dL Normal 29.9-35.2 [facility] Comment on above: Performed By: #### P HOS, BMP #### [facility] [address] [place] [address] Dr. Rayray Stewart MCV (RBC) [Entitic vol] 96.5 fL Critically high 80.0-94.0 [facility] Comment on above: Performed By: #### P HOS, BMP #### [facility] [address] [place] [address] Dr. Rayray Stewart MONO # 0.8 103/ul Normal 0.3-0.8 [facility] Comment on above: Performed By: #### P HOS, BMP #### [facility] [address] [place] [address] Dr. Rayray Stewart Monocytes/100 WBC (Bld) 7.5 % Normal 1.7-12.0 [facility] Comment on above: Performed By: #### P HOS, BMP #### [facility] [address] [place] [address] Dr. Rayray Stewart NEUT # 8.7 103/ul Critically high 1.4-6.5 [facility] Comment on above: Performed By: #### P HOS, BMP #### [facility] [address] [place] [address] Dr. Rayray Stewart Neutrophils/100 WBC (Bld) 86.7 % Critically high 43.0-75.0 [facility] Comment on above: Performed By: #### P HOS, BMP #### [facility] [address] [place] [address] Dr. Rayray Stewart Platelet mean volume (Bld) [Entitic vol] 12.1 fL Normal 9.5-13.5 [facility] Comment on above: Performed By: #### P HOS, BMP #### [facility] [address] [place] [address] Dr. Rayray Stewart PLT 107 103/ul Critically low 150-450 [facility] Comment on above: Performed By: #### P HOS, BMP #### [facility] [address] [place] [address] Dr. Rayray Stewart RBC 5.36 106/ul Normal 4.70-6.10 [facility] Comment on above: Performed By: #### P HOS, BMP #### [facility] [address] [place] [address] Dr. Rayray Stewart WBC 10.0 103/ul Normal 4.0-11.0 [facility] Comment on above: Performed By: #### P HOS, BMP #### [facility] [address] [place] [address] Dr. Rayray Stewart ER URINE PROFILEon 3 Bilirubin Ql (U) Negative Normal NEGATIVE [facility] Comment on above: Performed By: #### M G #### [facility] [address] [place] [address] Dr. Rayray Stewart Clarity (U) CLEAR Normal CLEAR [facility] Comment on above: Performed By: #### M G #### [facility] [address] [place] [address] Dr. Rayray Stewart Color (U) LT. YELLOW Normal YELLOW [facility] Comment on above: Performed By: #### M G #### [facility] [address] [place] [address] Dr. Rayray SILVA A micrscopic examination will be performed if indicated. Normal [facility] Comment on above: Performed By: #### M G #### [facility] [address] [place] [address] Dr. Rayray Stewart Glucose Ql (U) >1000 Abnormal NEGATIVE [facility] Comment on above: Performed By: #### M G #### [facility] [address] [place] [address] Dr. Rayray Stewart Hemoglobin Ql (U) MODERATE Abnormal NEGATIVE [facility] Comment on above: Performed By: #### M G #### [facility] [address] [place] [address] Dr. Rayray Stewart Ketones Ql (U) >=80 Abnormal NEGATIVE [facility] Comment on above: Performed By: #### M G #### [facility] [address] [place] [address] Dr. Rayray Stewart LEUKOCYTES Negative Normal NEGATIVE [facility] Comment on above: Performed By: #### M G #### [facility] [address] [place] [address] Dr. Rayray Stewart Nitrite Ql (U) Negative Normal NEGATIVE [facility] Comment on above: Performed By: #### M G #### [facility] [address] [address] [address] Rayray Stewart pH (U) 5.5 [pH] Normal 5-9 [facility] Comment on above: Performed By: #### M G #### [facility] [address] [place] [address] Dr. Rayray Stewart SPEC GRAVITY 1.020 Normal 1.005-<=1.025 [facility] Comment on above: Performed By: #### M G #### [facility] [address] [place] [address] Dr. Rayray Stewart UA PROTEIN TRACE Normal NEGATIVE/ TRACE [facility] Comment on above: Performed By: #### M G #### [facility] [address] [place] [address] Dr. Rayray Stewart UR MICRO IND INDICATED Normal [facility] Comment on above: Performed By: #### M G #### [facility] [address] [place] [address] Dr. Rayray Stewart Urobilinogen Qn (U) 0.2 {Shanell'U}/dL Normal 0.2 - 1. 0 [facility] Comment on above: Performed By: #### M G #### [facility] [address] [place] [address] Dr. Rayray Stewart ETHANOL (BLD ALC)on 03-28-20 23 ALC NOTE NOTE: 80 mg/dl is the legal limit for a blood alcohol level Normal [facility] Comment on above: Performed By: #### P HOS, BMP #### [facility] [address] [place] [address] Dr. Rayray Stewart Ethanol [Mass/Vol] mg/dL Normal [facility] Comment on above: Performed By: #### P HOS, BMP #### [facility] [address] [place] [address] Dr. Rayray Stewart GLYCOHEMOGLOBIN A1Con 2022 ADA RECOMMENDATION SEE BELOW Normal [facility] Comment on above: Result Comment: ADA RECOMMENDED LIMIT 4.0 - 6.0 ADA THERAPEUTIC TARGET < 7.0 ACTION SUGGESTED > 7.0 Performed By: #### B MP, MG, CK #### [facility] [address] [place] [address] Dr. Rayray Stewart Glucose [Mass/Vol] 246 mg/dL Normal [facility] Comment on above: Performed By: #### B MP, MG, CK #### [facility] [address] [place] [address] Dr. Rayray Stewart HbA1c (Bld) [Mass fraction] 10.2 % Critically high 4.5-6.2 [facility] Comment on above: Performed By: #### B MP, MG, CK #### [facility] [address] [place] [address] Dr. Rayray Stewart LACTATE/LACTIC ACIDon 2022 Lactate [Moles/Vol] 1.5 mmol/L Normal 0.4-2.0 [facility] Comment on above: Performed By: #### P HOS, BMP #### [facility] [address] [place] [address] Dr. Rayray Stewart Lactate [Moles/Vol] 3.0 mmol/L Critically high 0.4-2.0 [facility] Comment on above: Performed By: #### A CETON #### [facility] [address] [place] [address] Dr. Rayray Stewart LIPASEon 03-28-2023 Lipase [Catalytic activity/Vol] 96.0 U/L Normal 73.0-393.0 [facility] Comment on above: Performed By: #### P HOS, BMP #### [facility] [address] [place] [address] Dr. Rayray Stewart PH VENOUS BLOODon 03-28-2023 PCO2 VENOUS 19.1 mmHg Critically low 40.0-52.0 [facility] Comment on above: Performed By: #### B MP #### [facility] [address] [place] [address] Dr. Rayray Stewart pH VENOUS 7.206 Critically low 7.330-7.430 [facility] Comment on above: Performed By: #### B MP #### [facility] [address] [place] [address] Dr. Rayray Stewart PHOSPHORUSon 03-28-2023 Phosphate [Mass/Vol] 3.2 mg/dL Normal 2.6-4.7 [facility] Comment on above: Performed By: #### P HOS, BMP #### [facility] [address] [place] [address] Dr. Rayray Stewart POINT OF CARE GLUCOSEon 03-02 Glucose [Mass/Vol] 498 mg/dL Critically high 74-106 [facility] Comment on above: Performed By: #### B MP, MG, CK #### [facility] [address] [place] [address] Dr. Rayray Stewart Glucose [Mass/Vol] 559 mg/dL Critically high -106 [facility] Comment on above: Result Comment: Lab Draw Ordered Performed By: #### B MP, MG, CK #### [facility] [address] [place] [address] Dr. Rayray Stewart PROF 14(COMP METB)on 023 Albumin [Mass/Vol] 4.2 g/dL Normal 3.4-5.0 [facility] Comment on above: Performed By: #### P HOS, BMP #### [facility] [address] [place] [address] Dr. Rayray Stewart Albumin/Globulin [Mass ratio] 0.9 {ratio} Normal [facility] Comment on above: Performed By: #### P HOS, BMP #### [facility] [address] [place] [address] Dr. Rayray Stewart ALP [Catalytic activity/Vol] 110 U/L Normal 46-116 [facility] Comment on above: Performed By: #### P HOS, BMP #### [facility] [address] [place] [address] Dr. Rayray Stewart ALT [Catalytic activity/Vol] 54 U/L Normal 16-63 [facility] Comment on above: Performed By: #### P HOS, BMP #### [facility] [address] [place] [address] Dr. Rayray Stewart Anion gap [Moles/Vol] 36.2 mmol/L Normal [facility] Comment on above: Performed By: #### P HOS, BMP #### [facility] [address] [place] [address] Dr. Rayray Stewart AST [Catalytic activity/Vol] 48 U/L Critically high 15-37 [facility] Comment on above: Performed By: #### P HOS, BMP #### [facility] [address] [place] [address] Dr. Rayray Stewart Bilirubin [Mass/Vol] 1.4 mg/dL Critically high 0.2-1.0 [facility] Comment on above: Performed By: #### P HOS, BMP #### [facility] [address] [place] [address] Dr. Rayray Stewart Calcium [Mass/Vol] 8.8 mg/dL Normal 8.5-10.1 [facility] Comment on above: Performed By: #### P HOS, BMP #### [facility] [address] [place] [address] Dr. Rayray Stewart Chloride [Moles/Vol] 83 mmol/L Critically low 98-107 [facility] Comment on above: Performed By: #### P HOS, BMP #### [facility] [address] [place] [address] Dr. Rayray Stewart CO2 [Moles/Vol] 10.1 mmol/L Critically low 21.0-32.0 [facility] Comment on above: Performed By: #### P HOS, BMP #### [facility] [address] [place] [address] Dr. Rayray Stewart Creatinine [Mass/Vol] 1.93 mg/dL Critically high 0.70-1.30 [facility] Comment on above: Performed By: #### P HOS, BMP #### [facility] [address] [place] [address] Dr. Rayray Stewart EGFR-AF AUSTRALIAN 45 mL/min/1.73m2 Critically low >=60 [facility] Comment on above: Performed By: #### P HOS, BMP #### [facility] [address] [address] [address] Rayray Stewart EGFR-NON AF AUSTRALIAN 37 mL/min/1.73m2 Critically low >=60 [facility] Comment on above: Performed By: #### P HOS, BMP #### [facility] [address] [place] [address] Dr. Rayray Stewart Globulin (S) [Mass/Vol] 4.6 g/dL Normal [facility] Comment on above: Performed By: #### P HOS, BMP #### [facility] [address] [place] [address] Dr. Rayray Stewart Glucose [Mass/Vol] 560 mg/dL Critically high 74-106 [facility] Comment on above: Performed By: #### P HOS, BMP #### [facility] [address] [place] [address] Dr. Rayray Stewart Potassium [Moles/Vol] 5.3 mmol/L Critically high 3.5-5.1 [facility] Comment on above: Performed By: #### P HOS, BMP #### [facility] [address] [place] [address] Dr. Rayray Stewart Protein [Mass/Vol] 8.8 g/dL Critically high 6.4-8.2 [facility] Comment on above: Performed By: #### P HOS, BMP #### [facility] [address] [place] [address] Dr. Rayray Stewart Sodium [Moles/Vol] 124 mmol/L Critically low 136-145 [facility] Comment on above: Performed By: #### P HOS, BMP #### [facility] [address] [place] [address] Dr. Rayray Stewart Urea nitrogen [Mass/Vol] 38.0 mg/dL Critically high 7.0-18.0 [facility] Comment on above: Performed By: #### P HOS, BMP #### [facility] [address] [place] [address] Dr. Rayray Stewart Urea nitrogen/Creatinine [Mass ratio] 19.7 mg/mg Normal [facility] Comment on above: Performed By: #### P HOS, BMP #### [facility] [address] [address] [address] Rayray Stewart PROF CHEM 8 (BAS METB)on Anion gap [Moles/Vol] 29.5 mmol/L Normal [facility] Comment on above: Performed By: #### P HOS, BMP #### [facility] [address] [place] [address] Dr. Rayray Stewart Chloride [Moles/Vol] 95 mmol/L Critically low 98-107 [facility] Comment on above: Performed By: #### P HOS, BMP #### [facility] [address] [place] [address] Dr. Rayray Stewart CO2 [Moles/Vol] 9.2 mmol/L Critically low 21.0-32.0 [facility] Comment on above: Performed By: #### P HOS, BMP #### [facility] [address] [place] [address] Dr. Rayray Stewart Creatinine [Mass/Vol] 1.53 mg/dL Critically high 0.70-1.30 [facility] Comment on above: Performed By: #### P HOS, BMP #### [facility] [address] [place] [address] Dr. Rayray Stewart EGFR-AF AUSTRALIAN 58 mL/min/1.73m2 Critically low >=60 [facility] Comment on above: Performed By: #### P HOS, BMP #### [facility] [address] [place] [address] Dr. Rayray Stewart EGFR-NON AF AUSTRALIAN 48 mL/min/1.73m2 Critically low >=60 [facility] Comment on above: Performed By: #### P HOS, BMP #### [facility] [address] [address] [address] Rayray Stewart Glucose [Mass/Vol] 384 mg/dL Critically high 74-106 [facility] Comment on above: Performed By: #### P HOS, BMP #### [facility] [address] [place] [address] Dr. Rayray Stewart Potassium [Moles/Vol] 4.7 mmol/L Normal 3.5-5.1 [facility] Comment on above: Performed By: #### P HOS, BMP #### [facility] [address] [place] [address] Dr. Rayray Stewart Sodium [Moles/Vol] 129 mmol/L Critically low 136-145 [facility] Comment on above: Performed By: #### P HOS, BMP #### [facility] [address] [place] [address] Dr. Rayray Stewart Urea nitrogen [Mass/Vol] 33.0 mg/dL Critically high 7.0-18.0 [facility] Comment on above: Performed By: #### P HOS, BMP #### [facility] [address] [place] [address] Dr. Rayray Stewart Urea nitrogen/Creatinine [Mass ratio] 21.6 mg/mg Normal [facility] Comment on above: Performed By: #### P HOS, BMP #### [facility] [address] [place] [address] Dr. Rayray Stewart URINE MICROSCOPIC ONLYon BACTERIA NONE SEEN Normal NONE SEEN [facility] Comment on above: Performed By: #### M G #### [facility] [address] [place] [address] Dr. Rayray Stewart Bacteria identified Cx Nom (U) NOT INDICATED Normal [facility] Comment on above: Performed By: #### M G #### [facility] [address] [place] [address] Dr. Rayray Stewart CAST NONE SEEN Normal NONE SEEN [facility] Comment on above: Performed By: #### M G #### [facility] [address] [place] [address] Dr. Rayray Stewart Crystals LM Nom (Urine sed) NONE SEEN Normal NONE SEEN [facility] Comment on above: Performed By: #### M G #### [facility] [address] [place] [address] Dr. Rayray Stewart Epithelial cells LM Ql (Urine sed) RARE Normal NONE SEEN /RARE [facility] Comment on above: Performed By: #### M G #### [facility] [address] [place] [address] Dr. Rayray Stewart MUCOUS NONE SEEN Normal NONE SEEN [facility] Comment on above: Performed By: #### M G #### [facility] [address] [place] [address] Dr. Rayray Stewart RBC 2-5 Abnormal 0-2 [facility] Comment on above: Performed By: #### M G #### [facility] [address] [place] [address] Dr. Rayray Stewart WBC NONE SEEN Normal NONE SEEN [facility] Comment on above: Performed By: #### M G #### [facility] [address] [place] [address] Dr. Rayray Stewart XR CHEST 1 Von 03-28-2023 XR CHEST 1 V EXAMINATION: XR CHEST 1 V, , 03/28/2023 4:56 PM EDT INDICATION: SHORTNESS OF BREATH HISTORY: Ordering Provider Reason for Exam: Technologist Note: Additional: COMPARISON: Chest x-ray dated 07/09/2022. TECHNIQUE: Chest x-ray: One view. FINDINGS: No pneumothorax, pleural effusion or focal airspace consolidation. Heart is normal in size. Bony thorax is unremarkable. IMPRESSION: No acute cardiopulmonary process. Electronically authenticated by: RIP SAMANO Date: 2023-03-28 17:21 Normal [facility] GLYCOHEMOGLOBIN A1Con 2022 ADA RECOMMENDATION SEE BELOW Normal [facility] Comment on above: Result Comment: ADA RECOMMENDED LIMIT 4.0 - 6.0 ADA THERAPEUTIC TARGET < 7.0 ACTION SUGGESTED > 7.0 Performed By: #### M G #### [facility] [address] [place] [address] Dr. Rayray Stewart Glucose [Mass/Vol] 278 mg/dL Normal [facility] Comment on above: Performed By: #### M G #### [facility] [address] [place] [address] Dr. Rayray Stewart HbA1c (Bld) [Mass fraction] 11.3 % Critically high 4.5-6.2 [facility] Comment on above: Performed By: #### M G #### [facility] [address] [place] [address] Dr. Rayray Stewart DIRECT LDLon 09-27-2022 Cholesterol in LDL [Mass/Vol] 71 mg/dL Normal [facility] Comment on above: Performed By: #### M G #### [facility] [address] [place] [address] Dr. Rayray Stewart DLDL NORMAL SEE BELOW Normal [facility] Comment on above: Result Comment: <100 mg/dl OPTIMAL 100 - 129 mg/dl NEAR OR ABOVE OPTIMAL 130 - 159 mg/dl BORDERLINE HIGH 160 - 189 mg/dl HIGH >190 mg/dl VERY HIGH Performed By: #### M G #### [facility] [address] [place] [address] Dr. Rayray Stewart GLYCOHEMOGLOBIN A1Con 2021 ADA RECOMMENDATION SEE BELOW Normal [facility] Comment on above: Result Comment: ADA RECOMMENDED LIMIT 4.0 - 6.0 ADA THERAPEUTIC TARGET < 7.0 ACTION SUGGESTED > 7.0 Performed By: #### B MP, MG, CK #### [facility] [address] [place] [address] Dr. Rayray Stewart Glucose [Mass/Vol] 255 mg/dL Normal [facility] Comment on above: Performed By: #### B MP, MG, CK #### [facility] [address] [place] [address] Dr. Rayray Stewart HbA1c (Bld) [Mass fraction] 10.5 % Critically high 4.5-6.2 [facility] Comment on above: Performed By: #### B MP, MG, CK #### [facility] [address] [place] [address] Dr. Rayray Stewart AMYLASEon 07-12-2022 Amylase [Catalytic activity/Vol] 58 U/L Normal 25-115 [facility] Comment on above: Performed By: #### P HOS, BMP #### [facility] [address] [place] [address] Dr. Rayray Stewart CBC AUTO DIFFon 07-12-2022 BASO # 0.0 103/ul Normal 0.0-0.1 [facility] Comment on above: Performed By: #### P HOS, BMP #### [facility] [address] [place] [address] Dr. Rayray Stewart Basophils/100 WBC (Bld) 0.3 % Normal 0.2-2.0 [facility] Comment on above: Performed By: #### P HOS, BMP #### [facility] [address] [place] [address] Dr. Rayray Stewart EO # 0.0 103/ul Normal 0.0-0.7 [facility] Comment on above: Performed By: #### P HOS, BMP #### [facility] [address] [place] [address] Dr. Rayray Stewart Eosinophils/100 WBC (Bld) 0.6 % Critically low 0.9-7.0 [facility] Comment on above: Performed By: #### P HOS, BMP #### [facility] [address] [place] [address] Dr. Rayray Stewart Erythrocyte distribution width (RBC) [Ratio] 11.6 % Normal 11.0-15.0 [facility] Comment on above: Performed By: #### P HOS, BMP #### [facility] [address] [place] [address] Dr. Rayray Stewart Hematocrit (Bld) [Volume fraction] 41.1 % Critically low 42.0-54.0 [facility] Comment on above: Performed By: #### P HOS, BMP #### [facility] [address] [place] [address] Dr. Rayray Stewart Hemoglobin (Bld) [Mass/Vol] 14.3 g/dL Normal 14.0-18.0 [facility] Comment on above: Performed By: #### P HOS, BMP #### [facility] [address] [place] [address] Dr. Rayray Stewart IG # 0.02 10e3/ul Normal 0.00-0.03 [facility] Comment on above: Performed By: #### P HOS, BMP #### [facility] [address] [place] [address] Dr. Rayray Stewart IG % 0.3 % Normal 0.0-0.5 [facility] Comment on above: Performed By: #### P HOS, BMP #### [facility] [address] [address] [address] Rayray Stewart LYMPH # 1.9 103/ul Normal 1.2-3.8 [facility] Comment on above: Performed By: #### P HOS, BMP #### [facility] [address] [address] [address] Rayray Stewart Lymphocytes/100 WBC (Bld) 29.8 % Normal 20.5-60.0 [facility] Comment on above: Performed By: #### P HOS, BMP #### [facility] [address] [place] [address] Dr. Rayray Stewart MANUAL DIFF REQ NO Normal [facility] Comment on above: Performed By: #### P HOS, BMP #### [facility] [address] [place] [address] Dr. Rayray Stewart MCH (RBC) [Entitic mass] 32.1 pg Normal 25.9-34.0 [facility] Comment on above: Performed By: #### P HOS, BMP #### [facility] [address] [place] [address] Dr. Rayray Stewart MCHC (RBC) [Mass/Vol] 34.8 g/dL Normal 29.9-35.2 [facility] Comment on above: Performed By: #### P HOS, BMP #### [facility] [address] [place] [address] Dr. Rayray Stewart MCV (RBC) [Entitic vol] 92.4 fL Normal 80.0-94.0 [facility] Comment on above: Performed By: #### P HOS, BMP #### [facility] [address] [place] [address] Dr. Rayray Stewart MONO # 0.7 103/ul Normal 0.3-0.8 [facility] Comment on above: Performed By: #### P HOS, BMP #### [facility] [address] [place] [address] Dr. Rayray Stewart Monocytes/100 WBC (Bld) 10.7 % Normal 1.7-12.0 [facility] Comment on above: Performed By: #### P HOS, BMP #### [facility] [address] [address] [address] Rayray Stewart NEUT # 3.7 103/ul Normal 1.4-6.5 [facility] Comment on above: Performed By: #### P HOS, BMP #### [facility] [address] [address] [address] Rayray Stewart Neutrophils/100 WBC (Bld) 58.3 % Normal 43.0-75.0 [facility] Comment on above: Performed By: #### P HOS, BMP #### [facility] [address] [address] [address] Rayray Stewart Platelet mean volume (Bld) [Entitic vol] 11.2 fL Normal 9.5-13.5 [facility] Comment on above: Performed By: #### P HOS, BMP #### [facility] [address] [place] [address] Dr. Rayray Stewart PLT 57 103/ul Critically low 150-450 [facility] Comment on above: Performed By: #### P HOS, BMP #### [facility] [address] [place] [address] Dr. Rayray Stewart RBC 4.45 106/ul Critically low 4.70-6.10 [facility] Comment on above: Performed By: #### P HOS, BMP #### [facility] [address] [place] [address] Dr. Rayray Stewart WBC 6.4 103/ul Normal 4.0-11.0 [facility] Comment on above: Performed By: #### P HOS, BMP #### [facility] [address] [place] [address] Dr. Rayray Stewart LIPASEon 07-12-2022 Lipase [Catalytic activity/Vol] 496.0 U/L Critically high 73.0-393.0 [facility] Comment on above: Performed By: #### B MP, MG, CK #### [facility] [address] [place] [address] Dr. Rayray Stewart MAGNESIUMon 07-12-2022 Magnesium [Mass/Vol] 1.6 mg/dL Critically low 1.8-2.4 [facility] Comment on above: Performed By: #### P HOS, BMP #### [facility] [address] [place] [address] Dr. Rayray Stewart PHOSPHORUSon 07-12-2022 Phosphate [Mass/Vol] 2.2 mg/dL Critically low 2.6-4.7 [facility] Comment on above: Performed By: #### P HOS, BMP #### [facility] [address] [place] [address] Dr. Rayray Stewart POINT OF CARE GLUCOSEon 07-02 Glucose [Mass/Vol] 301 mg/dL Critically high 74-106 [facility] Comment on above: Performed By: #### B MP #### [facility] [address] [place] [address] Dr. Raryay Stewart PROF 14(COMP METB)on 022 Albumin [Mass/Vol] 2.9 g/dL Critically low 3.4-5.0 [facility] Comment on above: Performed By: #### P HOS, BMP #### [facility] [address] [place] [address] Dr. Rayray Stewart Albumin/Globulin [Mass ratio] 1.0 {ratio} [facility] Comment on above: Performed By: #### P HOS, BMP #### [facility] [address] [place] [address] Dr. Rayray Stewart ALP [Catalytic activity/Vol] 71 U/L Normal 46-116 [facility] Comment on above: Performed By: #### P HOS, BMP #### [facility] [address] [place] [address] Dr. Rayray Stewart ALT [Catalytic activity/Vol] 38 U/L Normal 16-63 [facility] Comment on above: Performed By: #### P HOS, BMP #### [facility] [address] [place] [address] Dr. Rayray Stewart Anion gap [Moles/Vol] 18.2 mmol/L Normal [facility] Comment on above: Performed By: #### P HOS, BMP #### [facility] [address] [address] [address] Rayray Stewart AST [Catalytic activity/Vol] 36 U/L Normal 15-37 [facility] Comment on above: Performed By: #### P HOS, BMP #### [facility] [address] [address] [address] Rayray Stewart Bilirubin [Mass/Vol] 1.0 mg/dL Normal 0.2-1.0 [facility] Comment on above: Performed By: #### P HOS, BMP #### [facility] [address] [address] [address] Rayray Stewart Calcium [Mass/Vol] 7.9 mg/dL Critically low 8.5-10.1 [facility] Comment on above: Performed By: #### P HOS, BMP #### [facility] [address] [place] [address] Dr. Rayray Stewart Chloride [Moles/Vol] 102 mmol/L Normal 98-107 [facility] Comment on above: Performed By: #### P HOS, BMP #### [facility] [address] [place] [address] Dr. Rayray Stewart CO2 [Moles/Vol] 22.8 mmol/L Normal 21.0-32.0 [facility] Comment on above: Performed By: #### P HOS, BMP #### [facility] [address] [place] [address] Dr. Rayray Stewart Creatinine [Mass/Vol] 0.84 mg/dL Normal 0.70-1.30 [facility] Comment on above: Performed By: #### P HOS, BMP #### [facility] [address] [place] [address] Dr. Rayray Stewart EGFR-AF AUSTRALIAN >60 Normal >=60 [facility] Comment on above: Performed By: #### P HOS, BMP #### [facility] [address] [place] [address] Dr. Rayray Stewart EGFR-NON AF AUSTRALIAN >60 Normal >=60 [facility] Comment on above: Performed By: #### P HOS, BMP #### [facility] [address] [address] [address] Rayray Stewart Globulin (S) [Mass/Vol] 3.0 g/dL Normal [facility] Comment on above: Performed By: #### P HOS, BMP #### [facility] [address] [place] [address] Dr. Rayray Stewart Glucose [Mass/Vol] 230 mg/dL Critically high 74-106 [facility] Comment on above: Performed By: #### P HOS, BMP #### [facility] [address] [place] [address] Dr. Rayray Stewart Potassium [Moles/Vol] 3.0 mmol/L Critically low 3.5-5.1 [facility] Comment on above: Performed By: #### P HOS, BMP #### [facility] [address] [place] [address] Dr. Rayray Stewart Protein [Mass/Vol] 5.9 g/dL Critically low 6.4-8.2 [facility] Comment on above: Performed By: #### P HOS, BMP #### [facility] [address] [place] [address] Dr. Rayray Steawrt Sodium [Moles/Vol] 140 mmol/L Normal 136-145 [facility] Comment on above: Performed By: #### P HOS, BMP #### [facility] [address] [place] [address] Dr. Rayray Stewart Urea nitrogen [Mass/Vol] 7.0 mg/dL Normal 7.0-18.0 [facility] Comment on above: Performed By: #### P HOS, BMP #### [facility] [address] [place] [address] Dr. Rayray Stewart Urea nitrogen/Creatinine [Mass ratio] 8.3 mg/mg Normal [facility] Comment on above: Performed By: #### P HOS, BMP #### [facility] [address] [place] [address] Dr. Rayray Stewart CBC AUTO DIFFon 07-11-2022 BASO # 0.0 103/ul Normal 0.0-0.1 [facility] Comment on above: Performed By: #### P HOS, BMP #### [facility] [address] [place] [address] Dr. Rayray Stewart Basophils/100 WBC (Bld) 0.3 % Normal 0.2-2.0 [facility] Comment on above: Performed By: #### P HOS, BMP #### [facility] [address] [place] [address] Dr. Rayray Stewart EO # 0.0 103/ul Normal 0.0-0.7 [facility] Comment on above: Performed By: #### P HOS, BMP #### [facility] [address] [place] [address] Dr. Rayray Stewart Eosinophils/100 WBC (Bld) 0.1 % Critically low 0.9-7.0 [facility] Comment on above: Performed By: #### P HOS, BMP #### [facility] [address] [place] [address] Dr. Rayray Stewart Erythrocyte distribution width (RBC) [Ratio] 11.7 % Normal 11.0-15.0 [facility] Comment on above: Performed By: #### P HOS, BMP #### [facility] [address] [place] [address] Dr. Rayray Stewart Hematocrit (Bld) [Volume fraction] 42.0 % Normal 42.0-54.0 [facility] Comment on above: Performed By: #### P HOS, BMP #### [facility] [address] [place] [address] Dr. Rayray Stewart Hemoglobin (Bld) [Mass/Vol] 14.5 g/dL Normal 14.0-18.0 [facility] Comment on above: Performed By: #### P HOS, BMP #### [facility] [address] [place] [address] Dr. Rayray Stewart IG # 0.03 10e3/ul Normal 0.00-0.03 [facility] Comment on above: Performed By: #### P HOS, BMP #### [facility] [address] [place] [address] Dr. Rayray Stewart IG % 0.4 % Normal 0.0-0.5 [facility] Comment on above: Performed By: #### P HOS, BMP #### [facility] [address] [address] [address] Rayray Stewart LYMPH # 1.5 103/ul Normal 1.2-3.8 [facility] Comment on above: Performed By: #### P HOS, BMP #### [facility] [address] [address] [address] Rayray Stewart Lymphocytes/100 WBC (Bld) 18.9 % Critically low 20.5-60.0 [facility] Comment on above: Performed By: #### P HOS, BMP #### [facility] [address] [address] [address] Rayray Stewart MANUAL DIFF REQ NO Normal [facility] Comment on above: Performed By: #### P HOS, BMP #### [facility] [address] [address] [address] Rayray Stewart MCH (RBC) [Entitic mass] 32.1 pg Normal 25.9-34.0 [facility] Comment on above: Performed By: #### P HOS, BMP #### [facility] [address] [address] [address] Rayray Stewart MCHC (RBC) [Mass/Vol] 34.5 g/dL Normal 29.9-35.2 [facility] Comment on above: Performed By: #### P HOS, BMP #### [facility] [address] [address] [address] Rayray Stewart MCV (RBC) [Entitic vol] 92.9 fL Normal 80.0-94.0 [facility] Comment on above: Performed By: #### P HOS, BMP #### [facility] [address] [address] [address] Rayray Stewart MONO # 0.7 103/ul Normal 0.3-0.8 [facility] Comment on above: Performed By: #### P HOS, BMP #### [facility] [address] [address] [address] Rayray Stewart Monocytes/100 WBC (Bld) 8.4 % Normal 1.7-12.0 [facility] Comment on above: Performed By: #### P HOS, BMP #### [facility] [address] [place] [address] Dr. Rayray Stewart NEUT # 5.8 103/ul Normal 1.4-6.5 [facility] Comment on above: Performed By: #### P HOS, BMP #### [facility] [address] [place] [address] Dr. Rayray Stewart Neutrophils/100 WBC (Bld) 71.9 % Normal 43.0-75.0 [facility] Comment on above: Performed By: #### P HOS, BMP #### [facility] [address] [place] [address] Dr. Rayray Stewart Platelet mean volume (Bld) [Entitic vol] 12.0 fL Normal 9.5-13.5 [facility] Comment on above: Performed By: #### P HOS, BMP #### [facility] [address] [place] [address] Dr. Rayray Stewart PLT 60 103/ul Critically low 150-450 [facility] Comment on above: Performed By: #### P HOS, BMP #### [facility] [address] [place] [address] Dr. Rayray Stewart RBC 4.52 106/ul Critically low 4.70-6.10 [facility] Comment on above: Performed By: #### P HOS, BMP #### [facility] [address] [place] [address] Dr. Rayray Stewart WBC 8.0 103/ul Normal 4.0-11.0 [facility] Comment on above: Performed By: #### P HOS, BMP #### [facility] [address] [place] [address] Dr. Rayray Stewart LIPASEon 07-11-2022 Lipase [Catalytic activity/Vol] 1321.0 U/L Critically high 73.0-393.0 [facility] Comment on above: Performed By: #### B MP, MG, CK #### [facility] [address] [place] [address] Dr. Rayray Stewart MAGNESIUMon 07-11-2022 Magnesium [Mass/Vol] 1.7 mg/dL Critically low 1.8-2.4 [facility] Comment on above: Performed By: #### B MP, MG, CK #### [facility] [address] [address] [address] Rayray Stewart PHOSPHORUSon 07-11-2022 Phosphate [Mass/Vol] 2.0 mg/dL Critically low 2.6-4.7 [facility] Comment on above: Performed By: #### B MP, MG, CK #### [facility] [address] [place] [address] Dr. Rayray Stewart POINT OF CARE GLUCOSEon 07-02 Glucose [Mass/Vol] 168 mg/dL Critically high -106 [facility] Comment on above: Performed By: #### B MP #### [facility] [address] [place] [address] Dr. Rayray Stewart Glucose [Mass/Vol] 145 mg/dL Critically high -106 [facility] Comment on above: Performed By: #### P HOS, BMP #### [facility] [address] [place] [address] Dr. Rayray Stewart Glucose [Mass/Vol] 153 mg/dL Critically high [facility]106 [facility] Comment on above: Performed By: #### P HOS, BMP #### [facility] [address] [place] [address] Dr. Rayray Stewart PROF 14(COMP METB)on 022 Albumin [Mass/Vol] 3.1 g/dL Critically low 3.4-5.0 [facility] Comment on above: Performed By: #### B MP, MG, CK #### [facility] [address] [place] [address] Dr. Rayray Stewart Albumin/Globulin [Mass ratio] 1.0 {ratio} Normal [facility] Comment on above: Performed By: #### B MP, MG, CK #### [facility] [address] [place] [address] Dr. Rayray Stewart ALP [Catalytic activity/Vol] 81 U/L Normal 46-116 [facility] Comment on above: Performed By: #### B MP, MG, CK #### [facility] [address] [place] [address] Dr. Rayray Stewart ALT [Catalytic activity/Vol] 38 U/L Normal 16-63 [facility] Comment on above: Performed By: #### B MP, MG, CK #### [facility] [address] [place] [address] Dr. Rayray Stewart Anion gap [Moles/Vol] 16.3 mmol/L Normal [facility] Comment on above: Performed By: #### B MP, MG, CK #### [facility] [address] [place] [address] Dr. Rayray Stewart AST [Catalytic activity/Vol] 42 U/L Critically high 15-37 [facility] Comment on above: Performed By: #### B MP, MG, CK #### [facility] [address] [place] [address] Dr. Rayray Stewart Bilirubin [Mass/Vol] 1.1 mg/dL Critically high 0.2-1.0 [facility] Comment on above: Performed By: #### B MP, MG, CK #### [facility] [address] [place] [address] Dr. Rayray Stewart Calcium [Mass/Vol] 7.6 mg/dL Critically low 8.5-10.1 [facility] Comment on above: Performed By: #### B MP, MG, CK #### [facility] [address] [place] [address] Dr. Rayray Stewart Chloride [Moles/Vol] 100 mmol/L Normal 98-107 [facility] Comment on above: Performed By: #### B MP, MG, CK #### [facility] [address] [place] [address] Dr. Rayray Stewart CO2 [Moles/Vol] 21.0 mmol/L Normal 21.0-32.0 [facility] Comment on above: Performed By: #### B MP, MG, CK #### [facility] [address] [place] [address] Dr. Rayray Stewart Creatinine [Mass/Vol] 1.05 mg/dL Normal 0.70-1.30 [facility] Comment on above: Performed By: #### B MP, MG, CK #### [facility] [address] [address] [address] Rayray Stewart EGFR-AF AUSTRALIAN >60 Normal >=60 [facility] Comment on above: Performed By: #### B MP, MG, CK #### [facility] [address] [address] [address] Rayray Stewart EGFR-NON AF AUSTRALIAN >60 Normal >=60 [facility] Comment on above: Performed By: #### B MP, MG, CK #### [facility] [address] [address] [address] Rayray Stewart Globulin (S) [Mass/Vol] 3.0 g/dL Normal [facility] Comment on above: Performed By: #### B MP, MG, CK #### [facility] [address] [address] [address] Rayray Stewart Glucose [Mass/Vol] 298 mg/dL Critically high 74-106 [facility] Comment on above: Performed By: #### B MP, MG, CK #### [facility] [address] [address] [address] Rayray Stewart Potassium [Moles/Vol] 3.3 mmol/L Critically low 3.5-5.1 [facility] Comment on above: Performed By: #### B MP, MG, CK #### [facility] [address] [place] [address] Dr. Rayray Stewart Protein [Mass/Vol] 6.1 g/dL Critically low 6.4-8.2 [facility] Comment on above: Performed By: #### B MP, MG, CK #### [facility] [address] [place] [address] Dr. Rayray Stewart Sodium [Moles/Vol] 134 mmol/L Critically low 136-145 [facility] Comment on above: Performed By: #### B MP, MG, CK #### [facility] [id number] Rayray Stewart Urea nitrogen [Mass/Vol] 8.0 mg/dL Normal 7.0-18.0 [facility] Comment on above: Performed By: #### B MP, MG, CK #### [facility] [address] [place], [place] [address] Dr. Rayray Stewart Urea nitrogen/Creatinine [Mass ratio] 7.6 mg/mg Normal [facility] Comment on above: Performed By: #### B MP, MG, CK #### [facility] [id number] Rayray Stewart US SINGLE QUAD RT UPPERon US SINGLE QUAD RT UPPER EXAMINATION: US SINGLE QUAD RT UPPER HISTORY: Acute pancreatitis COMPARISON: Ultrasound right upper quadrant 11/21/2021 TECHNIQUE: Transabdominal evaluation of the right upper quadrant. FINDINGS: LIVER: Fatty infiltration. Color Doppler demonstrates patent hepatic veins. PORTAL VEIN: Duplex Doppler demonstrates normal hepatopetal flow pattern with flow velocity averaging 22 cm/s. GALLBLADDER: No stones, wall thickening, or free fluid. Negative sonographic Guthrie's sign. BILIARY: Minimally dilated common bile duct, 7 mm. PANCREASE: No visible mass, abnormal atrophy, or duct dilation. KIDNEY: No hydronephrosis. No visible mass or stones. Size: 13.0 x 5.5 x 5.6 cm IMPRESSION: 1. Slightly limited evaluation of the pancreas due to overlying bowel gas. No appreciable abnormality. 2. Fatty infiltration of liver. 3. Minimally dilated common bile duct without visible stones or mass. Consider follow-up CT abdomen and pelvis with IV contrast for further evaluation if clinically indicated. Electronically authenticated by: KAMILAH RAO Date: 2022-07-11 11:10 Normal [facility] CBC AUTO DIFFon 07-10-2022 BASO # 0.0 103/ul Normal 0.0-0.1 [facility] Comment on above: Performed By: #### B MP #### [facility] [id number] Rayray Stewart Basophils/100 WBC (Bld) 0.3 % Normal 0.2-2.0 [facility] Comment on above: Performed By: #### B MP #### [facility] [address] [place] [address] Dr. Rayray Stewart EO # 0.0 103/ul Normal 0.0-0.7 [facility] Comment on above: Performed By: #### B MP #### [facility] [address] [place] [address] Dr. Rayray Stewart Eosinophils/100 WBC (Bld) 0.0 % Critically low 0.9-7.0 [facility] Comment on above: Performed By: #### B MP #### [facility] [address] [place] [address] Dr. Rayray Stewart Erythrocyte distribution width (RBC) [Ratio] 11.8 % Normal 11.0-15.0 [facility] Comment on above: Performed By: #### B MP #### [facility] [address] [place] [address] Dr. Rayray Stewart Hematocrit (Bld) [Volume fraction] 45.5 % Normal 42.0-54.0 [facility] Comment on above: Performed By: #### B MP #### [facility] [address] [place] [address] Dr. Rayray Stewart Hemoglobin (Bld) [Mass/Vol] 15.3 g/dL Normal 14.0-18.0 [facility] Comment on above: Performed By: #### B MP #### [facility] [address] [place] [address] Dr. Rayray Stewart IG # 0.03 10e3/ul Normal 0.00-0.03 [facility] Comment on above: Performed By: #### B MP #### [facility] [address] [place] [address] Dr. Rayray Stewart IG % 0.3 % Normal 0.0-0.5 [facility] Comment on above: Performed By: #### B MP #### [facility] [address] [place] [address] Dr. Rayray Stewart LYMPH # 1.9 103/ul Normal 1.2-3.8 [facility] Comment on above: Performed By: #### B MP #### [facility] [address] [address] [address] Rayray Stewart Lymphocytes/100 WBC (Bld) 21.5 % Normal 20.5-60.0 [facility] Comment on above: Performed By: #### B MP #### [facility] [address] [address] [address] Rayray Stewart MANUAL DIFF REQ NO Normal [facility] Comment on above: Performed By: #### B MP #### [facility] [address] [address] [address] Rayray Stewart MCH (RBC) [Entitic mass] 31.7 pg Normal 25.9-34.0 [facility] Comment on above: Performed By: #### B MP #### [facility] [address] [place] [address] Dr. Rayray Stewart MCHC (RBC) [Mass/Vol] 33.6 g/dL Normal 29.9-35.2 [facility] Comment on above: Performed By: #### B MP #### [facility] [address] [place] [address] Dr. Rayray Stewart MCV (RBC) [Entitic vol] 94.2 fL Critically high 80.0-94.0 [facility] Comment on above: Performed By: #### B MP #### [facility] [address] [place] [address] Dr. Rayray Stewart MONO # 1.3 103/ul Critically high 0.3-0.8 [facility] Comment on above: Performed By: #### B MP #### [facility] [address] [place] [address] Dr. Rayray Stewart Monocytes/100 WBC (Bld) 13.9 % Critically high 1.7-12.0 [facility] Comment on above: Performed By: #### B MP #### [facility] [address] [place] [address] Dr. Rayray Stewart NEUT # 5.7 103/ul Normal 1.4-6.5 [facility] Comment on above: Performed By: #### B MP #### [facility] [address] [address] [address] Rayray Stewart Neutrophils/100 WBC (Bld) 64.0 % Normal 43.0-75.0 [facility] Comment on above: Performed By: #### B MP #### [facility] [address] [place] [address] Dr. Rayray Stewart Platelet mean volume (Bld) [Entitic vol] 11.4 fL Normal 9.5-13.5 [facility] Comment on above: Performed By: #### B MP #### [facility] [address] [place] [address] Dr. Rayray Stewart PLT 82 103/ul Critically low 150-450 [facility] Comment on above: Performed By: #### B MP #### [facility] [address] [place] [address] Dr. Rayray Stewart RBC 4.83 106/ul Normal 4.70-6.10 [facility] Comment on above: Performed By: #### B MP #### [facility] [address] [place] [address] Dr. Rayray Stewart WBC 9.0 103/ul Normal 4.0-11.0 [facility] Comment on above: Performed By: #### B MP #### [facility] [address] [place] [address] Dr. Rayray Stewart LACTATE/LACTIC ACIDon 2021 Lactate [Moles/Vol] 2.1 mmol/L Critically high 0.4-1.9 [facility] Comment on above: Performed By: #### B MP, MG, CK #### [facility] [address] [place] [address] Dr. Rayray Stewart MAGNESIUMon 07-10-2022 Magnesium [Mass/Vol] 2.2 mg/dL Normal 1.8-2.4 [facility] Comment on above: Performed By: #### P HOS, BMP #### [facility] [address] [place] [address] Dr. Rayray Stewart PHOSPHORUSon 07-10-2022 Phosphate [Mass/Vol] 2.3 mg/dL Critically low 2.6-4.7 [facility] Comment on above: Performed By: #### P HOS, BMP #### [facility] [address] [address] [address] Rayray Stewart POINT OF CARE GLUCOSEon Glucose [Mass/Vol] 115 mg/dL Critically high [address] [place] [address] Comment on above: Performed By: #### P HOS, BMP #### [facility] [address] [place] [address] Dr. Rayray Stewart Glucose [Mass/Vol] 219 mg/dL Critically high [address] [place] [address] Comment on above: Performed By: #### B MP, MG, CK #### [facility] [address] [place] [address] Dr. Rayray Stewart Glucose [Mass/Vol] 214 mg/dL Critically high [address] [place] [address] Comment on above: Performed By: #### B MP #### [facility] [address] [place] [address] Dr. Rayray Stewart Glucose [Mass/Vol] 180 mg/dL Critically high [address] [place] [address] Comment on above: Performed By: #### B MP, MG, CK #### [facility] [address] [place] [address] Dr. Rayray Stewart Glucose [Mass/Vol] 199 mg/dL Critically high [address] [place] [address] Comment on above: Performed By: #### P HOS, BMP #### [facility] [address] [address] [address] Rayray Stewart Glucose [Mass/Vol] 220 mg/dL Critically high [address] [place] [address] Comment on above: Performed By: #### M G #### [facility] [address] [place] [address] Dr. Rayray Stewart Glucose [Mass/Vol] 206 mg/dL Critically high [address] [place] [address] Comment on above: Performed By: #### A CETON #### [facility] [address] [place] [address] Dr. Rayray Stewart Glucose [Mass/Vol] 167 mg/dL Critically high [address] [place] [address] Comment on above: Performed By: #### P HOS, BMP #### [facility] [address] [address] [address] Rayray Stewart Glucose [Mass/Vol] 152 mg/dL Critically high [address] [place] [address] Comment on above: Performed By: #### B MP, MG, CK #### [facility] [address] [address] [address] Rayray Stewart Glucose [Mass/Vol] 232 mg/dL Critically high [address] [place] [address] Comment on above: Performed By: #### P HOS, BMP #### [facility] [address] [address] [address] Rayray Stewart Glucose [Mass/Vol] 272 mg/dL Critically high [address] [place] [address] Comment on above: Performed By: #### B MP, MG, CK #### [facility] [address] [address] [address] Rayray Stewart Glucose [Mass/Vol] 298 mg/dL Critically high [address] [place] [address] Comment on above: Performed By: #### P HOS, BMP #### [facility] [address] [address] [address] Rayray Stewart Glucose [Mass/Vol] 360 mg/dL Critically high [address] [place] [address] Comment on above: Performed By: #### B MP, MG, CK #### [facility] [address] [address] [address] Rayray Stewart PROF 14(COMP METB)on 022 Albumin [Mass/Vol] 3.8 g/dL Normal 3.4-5.0 [facility] Comment on above: Performed By: #### P HOS, BMP #### [facility] [address] [place] [address] Dr. Rayray Stewart Albumin/Globulin [Mass ratio] 1.1 {ratio} Normal [facility] Comment on above: Performed By: #### P HOS, BMP #### [facility] [address] [address] [address] Rayray Stewart ALP [Catalytic activity/Vol] 91 U/L Normal 46-116 [facility] Comment on above: Performed By: #### P HOS, BMP #### [facility] [address] [address] [address] Rayray Stewart ALT [Catalytic activity/Vol] 42 U/L Normal 16-63 [facility] Comment on above: Performed By: #### P HOS, BMP #### [facility] [address] [address] [address] Rayray Stewart Anion gap [Moles/Vol] 20.1 mmol/L Normal [facility] Comment on above: Performed By: #### P HOS, BMP #### [facility] [address] [address] [address] Rayray Stewart AST [Catalytic activity/Vol] 29 U/L Normal 15-37 [facility] Comment on above: Performed By: #### P HOS, BMP #### [facility] [address] [address] [address] Rayray Stewart Bilirubin [Mass/Vol] 1.3 mg/dL Critically high 0.2-1.0 [facility] Comment on above: Performed By: #### P HOS, BMP #### [facility] [address] [address] [address] Rayray Stewart Calcium [Mass/Vol] 7.7 mg/dL Critically low 8.5-10.1 [facility] Comment on above: Performed By: #### P HOS, BMP #### [facility] [address] [address] [address] Rayray Stewart Chloride [Moles/Vol] 99 mmol/L Normal 98-107 [facility] Comment on above: Performed By: #### P HOS, BMP #### [facility] [address] [address] [address] Rayray Stewart CO2 [Moles/Vol] 18.3 mmol/L Critically low 21.0-32.0 [facility] Comment on above: Performed By: #### P HOS, BMP #### [facility] [address] [address] [address] Rayray Stewart Creatinine [Mass/Vol] 1.47 mg/dL Critically high 0.70-1.30 [facility] Comment on above: Performed By: #### P HOS, BMP #### [facility] [address] [place] [address] Dr. Rayray Stewart EGFR-AF AUSTRALIAN >60 Normal >=60 [facility] Comment on above: Performed By: #### P HOS, BMP #### [facility] [address] [address] [address] Rayray Stewart EGFR-NON AF AUSTRALIAN 51 mL/min/1.73m2 Critically low >=60 [facility] Comment on above: Performed By: #### P HOS, BMP #### [facility] [address] [place] [address] Dr. Rayray Stewart Globulin (S) [Mass/Vol] 3.4 g/dL Normal [facility] Comment on above: Performed By: #### P HOS, BMP #### [facility] [address] [place] [address] Dr. Rayray Stewart Glucose [Mass/Vol] 219 mg/dL Critically high 74-106 [facility] Comment on above: Performed By: #### P HOS, BMP #### [facility] [address] [place] [address] Dr. Rayray Stewart Potassium [Moles/Vol] 3.4 mmol/L Critically low 3.5-5.1 [facility] Comment on above: Performed By: #### P HOS, BMP #### [facility] [address] [place] [address] Dr. Rayray Stewart Protein [Mass/Vol] 7.2 g/dL Normal 6.4-8.2 [facility] Comment on above: Performed By: #### P HOS, BMP #### [facility] [address] [place] [address] Dr. Rayray Stewart Sodium [Moles/Vol] 134 mmol/L Critically low 136-145 [facility] Comment on above: Performed By: #### P HOS, BMP #### [facility] [address] [place] [address] Dr. Rayray Stewart Urea nitrogen [Mass/Vol] 25.0 mg/dL Critically high 7.0-18.0 [facility] Comment on above: Performed By: #### P HOS, BMP #### [facility] [address] [place] [address] Dr. Rayray Stewart Urea nitrogen/Creatinine [Mass ratio] 17.0 mg/mg Normal [facility] Comment on above: Performed By: #### P HOS, BMP #### [facility] [address] [place] [address] Dr. Rayray Stewart PROF CHEM 8 (BAS METB)on Anion gap [Moles/Vol] 14.3 mmol/L Normal [facility] Comment on above: Performed By: #### M G #### [facility] [address] [place] [address] Dr. Rayray Stewart Calcium [Mass/Vol] 7.4 mg/dL Critically low 8.5-10.1 [facility] Comment on above: Performed By: #### M G #### [facility] [address] [place] [address] Dr. Rayray Stewart Chloride [Moles/Vol] 102 mmol/L Normal 98-107 [facility] Comment on above: Performed By: #### M G #### [facility] [address] [place] [address] Dr. Rayray Stewart CO2 [Moles/Vol] 21.2 mmol/L Normal 21.0-32.0 [facility] Comment on above: Performed By: #### M G #### [facility] [address] [place] [address] Dr. Rayray Stewart Creatinine [Mass/Vol] 1.30 mg/dL Normal 0.70-1.30 [facility] Comment on above: Performed By: #### M G #### [facility] [address] [place] [address] Dr. Rayray Setwart EGFR-AF AUSTRALIAN >60 Normal >=60 [facility] Comment on above: Performed By: #### M G #### [facility] [address] [place] [address] Dr. Rayray Stewart EGFR-NON AF AUSTRALIAN 58 mL/min/1.73m2 Critically low >=60 [facility] Comment on above: Performed By: #### M G #### [facility] [address] [address] [address] Rayray Stewart Glucose [Mass/Vol] 249 mg/dL Critically high 74-106 [facility] Comment on above: Performed By: #### M G #### [facility] [address] [address] [address] Rayray Stewart Potassium [Moles/Vol] 3.5 mmol/L Normal 3.5-5.1 [facility] Comment on above: Performed By: #### M G #### [facility] [address] [place] [address] Dr. Rayray Stewart Sodium [Moles/Vol] 134 mmol/L Critically low 136-145 [facility] Comment on above: Performed By: #### M G #### [facility] [address] [place] [address] Dr. Rayray Stewart Urea nitrogen [Mass/Vol] 16.0 mg/dL Normal 7.0-18.0 [facility] Comment on above: Performed By: #### M G #### [facility] [address] [place] [address] Dr. Rayray Stewart Urea nitrogen/Creatinine [Mass ratio] 12.3 mg/mg Normal [facility] Comment on above: Performed By: #### M G #### [facility] [address] [place] [address] Dr. Rayray Stewart Anion gap [Moles/Vol] 21.0 mmol/L Normal [facility] Comment on above: Performed By: #### B MP #### [facility] [address] [address] [address] Rayray Stewart Calcium [Mass/Vol] 7.7 mg/dL Critically low 8.5-10.1 [facility] Comment on above: Performed By: #### B MP #### [facility] [address] [address] [address] Rayray Stewart Chloride [Moles/Vol] 99 mmol/L Normal 98-107 [facility] Comment on above: Performed By: #### B MP #### [facility] [address] [address] [address] Rayray Stewart CO2 [Moles/Vol] 19.8 mmol/L Critically low 21.0-32.0 [facility] Comment on above: Performed By: #### B MP #### [facility] [address] [address] [address] Rayray Stewart Creatinine [Mass/Vol] 1.40 mg/dL Critically high 0.70-1.30 [facility] Comment on above: Performed By: #### B MP #### [facility] [address] [address] [address] Rayray Stewart EGFR-AF AUSTRALIAN >60 Normal >=60 [facility] Comment on above: Performed By: #### B MP #### [facility] [address] [address] [address] Rayray Stewart EGFR-NON AF AUSTRALIAN 53 mL/min/1.73m2 Critically low >=60 [facility] Comment on above: Performed By: #### B MP #### [facility] [address] [address] [address] Rayray Stewart Glucose [Mass/Vol] 214 mg/dL Critically high 74-106 [facility] Comment on above: Performed By: #### B MP #### [facility] [address] [address] [address] Rayray Stewart Potassium [Moles/Vol] 3.8 mmol/L Normal 3.5-5.1 [facility] Comment on above: Performed By: #### B MP #### [facility] [address] [address] [address] Rayray Stewart Sodium [Moles/Vol] 136 mmol/L Normal 136-145 [facility] Comment on above: Performed By: #### B MP #### [facility] [address] [address] [address] Rayray Stewart Urea nitrogen [Mass/Vol] 23.0 mg/dL Critically high 7.0-18.0 [facility] Comment on above: Performed By: #### B MP #### [facility] [address] [address] [address] Rayray Stewart Urea nitrogen/Creatinine [Mass ratio] 16.4 mg/mg Normal [facility] Comment on above: Performed By: #### B MP #### [facility] [address] [address] [address] Rayray Stewart Anion gap [Moles/Vol] 21.9 mmol/L Normal [facility] Comment on above: Performed By: #### P HOS, BMP #### [facility] [address] [address] [address] Rayray Stewart Calcium [Mass/Vol] 7.5 mg/dL Critically low 8.5-10.1 [facility] Comment on above: Performed By: #### P HOS, BMP #### [facility] [address] [place] [address] Dr. Rayray Stewart Chloride [Moles/Vol] 99 mmol/L Normal 98-107 [facility] Comment on above: Performed By: #### P HOS, BMP #### [facility] [address] [address] [address] Rayray Stewart CO2 [Moles/Vol] 14.7 mmol/L Critically low 21.0-32.0 [facility] Comment on above: Performed By: #### P HOS, BMP #### [facility] [address] [place] [address] Dr. Rayray Stewart Creatinine [Mass/Vol] 1.42 mg/dL Critically high 0.70-1.30 [facility] Comment on above: Performed By: #### P HOS, BMP #### [facility] [address] [address] [address] Rayray Stewart EGFR-AF AUSTRALIAN >60 Normal >=60 [facility] Comment on above: Performed By: #### P HOS, BMP #### [facility] [address] [address] [address] Rayray Stewart EGFR-NON AF AUSTRALIAN 53 mL/min/1.73m2 Critically low >=60 [facility] Comment on above: Performed By: #### P HOS, BMP #### [facility] [address] [address] [address] Rayray Stewart Glucose [Mass/Vol] 165 mg/dL Critically high 74-106 [facility] Comment on above: Performed By: #### P HOS, BMP #### [facility] [address] [address] [address] Rayray Stewart Potassium [Moles/Vol] 3.6 mmol/L Normal 3.5-5.1 [facility] Comment on above: Performed By: #### P HOS, BMP #### [facility] [address] [address] [address] Rayray Stewart Sodium [Moles/Vol] 132 mmol/L Critically low 136-145 [facility] Comment on above: Performed By: #### P HOS, BMP #### [facility] [address] [place] [address] Dr. Rayray Stewart Urea nitrogen [Mass/Vol] 26.0 mg/dL Critically high 7.0-18.0 [facility] Comment on above: Performed By: #### P HOS, BMP #### [facility] [address] [place] [address] Dr. Rayray Stewart Urea nitrogen/Creatinine [Mass ratio] 18.3 mg/mg Normal [facility] Comment on above: Performed By: #### P HOS, BMP #### [facility] [address] [place] [address] Dr. Rayray Stewart Anion gap [Moles/Vol] 24.7 mmol/L Normal [facility] Comment on above: Performed By: #### P HOS, BMP #### [facility] [address] [place] [address] Dr. Rayray Stewart Calcium [Mass/Vol] 7.6 mg/dL Critically low 8.5-10.1 [facility] Comment on above: Performed By: #### P HOS, BMP #### [facility] [address] [place] [address] Dr. Rayray Stewart Chloride [Moles/Vol] 96 mmol/L Critically low 98-107 [facility] Comment on above: Performed By: #### P HOS, BMP #### [facility] [address] [address] [address] Rayray Stewart CO2 [Moles/Vol] 13.6 mmol/L Critically low 21.0-32.0 [facility] Comment on above: Performed By: #### P HOS, BMP #### [facility] [address] [address] [address] Rayray Stewart Creatinine [Mass/Vol] 1.55 mg/dL Critically high 0.70-1.30 [facility] Comment on above: Performed By: #### P HOS, BMP #### [facility] [address] [address] [address] Rayray Stewart EGFR-AF AUSTRALIAN 58 mL/min/1.73m2 Critically low >=60 [facility] Comment on above: Performed By: #### P HOS, BMP #### [facility] [address] [address] [address] Rayray Stewart EGFR-NON AF AUSTRALIAN 48 mL/min/1.73m2 Critically low >=60 [facility] Comment on above: Performed By: #### P HOS, BMP #### [facility] [address] [address] [address] Rayray Stewart Glucose [Mass/Vol] 229 mg/dL Critically high 74-106 [facility] Comment on above: Performed By: #### P HOS, BMP #### [facility] [address] [address] [address] Rayray Stewart Potassium [Moles/Vol] 4.3 mmol/L Normal 3.5-5.1 [facility] Comment on above: Performed By: #### P HOS, BMP #### [facility] [address] [address] [address] Rayray Stewart Sodium [Moles/Vol] 130 mmol/L Critically low 136-145 [facility] Comment on above: Performed By: #### P HOS, BMP #### [facility] [address] [address] [address] Rayray Stewart Urea nitrogen [Mass/Vol] 30.0 mg/dL Critically high 7.0-18.0 [facility] Comment on above: Performed By: #### P HOS, BMP #### [facility] [address] [place] [address] Dr. Rayray Stewart Urea nitrogen/Creatinine [Mass ratio] 19.4 mg/mg Normal [facility] Comment on above: Performed By: #### P HOS, BMP #### [facility] [address] [place] [address] Dr. Rayray Stewart ACETONE SERUMon 07-09-2022 ACETONE MODERATE Abnormal NEGATIVE [facility] Comment on above: Performed By: #### P HOS, BMP #### [facility] [address] [place] [address] Dr. Rayray Stewart BNPon 07-09-2022 Natriuretic peptide B (Bld) [Mass/Vol] 69.0 pg/mL Normal <=900.0 [facility] Comment on above: Performed By: #### A CETON #### [facility] [address] [place] [address] Dr. Rayray Stewart CBC AUTO DIFFon 07-09-2022 BASO # 0.0 103/ul Normal 0.0-0.1 [facility] Comment on above: Performed By: #### P HOS, BMP #### [facility] [address] [place] [address] Dr. Rayray Stewart Basophils/100 WBC (Bld) 0.2 % Normal 0.2-2.0 [facility] Comment on above: Performed By: #### P HOS, BMP #### [facility] [address] [place] [address] Dr. Rayray Stewart EO # 0.0 103/ul Normal 0.0-0.7 [facility] Comment on above: Performed By: #### P HOS, BMP #### [facility] [address] [place] [address] Dr. Rayray Stewart Eosinophils/100 WBC (Bld) 0.0 % Critically low 0.9-7.0 [facility] Comment on above: Performed By: #### P HOS, BMP #### [facility] [address] [place] [address] Dr. Rayray Stewart Erythrocyte distribution width (RBC) [Ratio] 11.8 % Normal 11.0-15.0 [facility] Comment on above: Performed By: #### P HOS, BMP #### [facility] [address] [place] [address] Dr. Rayray Stewart Hematocrit (Bld) [Volume fraction] 50.5 % Normal 42.0-54.0 [facility] Comment on above: Performed By: #### P HOS, BMP #### [facility] [address] [place] [address] Dr. Rayray Stewart Hemoglobin (Bld) [Mass/Vol] 17.1 g/dL Normal 14.0-18.0 [facility] Comment on above: Performed By: #### P HOS, BMP #### [facility] [address] [place] [address] Dr. Rayray Stewart IG # 0.03 10e3/ul Normal 0.00-0.03 [facility] Comment on above: Performed By: #### P HOS, BMP #### [facility] [address] [place] [address] Dr. Rayray Stewart IG % 0.3 % Normal 0.0-0.5 [facility] Comment on above: Performed By: #### P HOS, BMP #### [facility] [address] [place] [address] Dr. Rayray Stewart LYMPH # 0.7 103/ul Critically low 1.2-3.8 [facility] Comment on above: Performed By: #### P HOS, BMP #### [facility] [address] [place] [address] Dr. Rayray Stewart Lymphocytes/100 WBC (Bld) 7.0 % Critically low 20.5-60.0 [facility] Comment on above: Performed By: #### P HOS, BMP #### [facility] [address] [place] [address] Dr. Rayray Stewart MANUAL DIFF REQ NO Normal [facility] Comment on above: Performed By: #### P HOS, BMP #### [facility] [address] [address] [address] Rayray Stewart MCH (RBC) [Entitic mass] 32.0 pg Normal 25.9-34.0 [facility] Comment on above: Performed By: #### P HOS, BMP #### [facility] [address] [place] [address] Dr. Rayray Stewart MCHC (RBC) [Mass/Vol] 33.9 g/dL Normal 29.9-35.2 [facility] Comment on above: Performed By: #### P HOS, BMP #### [facility] [address] [place] [address] Dr. Rayray Stewart MCV (RBC) [Entitic vol] 94.4 fL Critically high 80.0-94.0 [facility] Comment on above: Performed By: #### P HOS, BMP #### [facility] [address] [place] [address] Dr. Rayray Stewart MONO # 0.8 103/ul Normal 0.3-0.8 [facility] Comment on above: Performed By: #### P HOS, BMP #### [facility] [address] [place] [address] Dr. Rayray Stewart Monocytes/100 WBC (Bld) 8.0 % Normal 1.7-12.0 [facility] Comment on above: Performed By: #### P HOS, BMP #### [facility] [address] [place] [address] Dr. Rayray Stewart NEUT # 8.2 103/ul Critically high 1.4-6.5 [facility] Comment on above: Performed By: #### P HOS, BMP #### [facility] [address] [place] [address] Dr. Rayray Stewart Neutrophils/100 WBC (Bld) 84.5 % Critically high 43.0-75.0 [facility] Comment on above: Performed By: #### P HOS, BMP #### [facility] [address] [place] [address] Dr. Rayray Stewart Platelet mean volume (Bld) [Entitic vol] 11.2 fL Normal 9.5-13.5 [facility] Comment on above: Performed By: #### P HOS, BMP #### [facility] [address] [address] [address] Rayray Stewart PLT 131 103/ul Critically low 150-450 [facility] Comment on above: Performed By: #### P HOS, BMP #### [facility] [address] [address] [address] Rayray Stewart RBC 5.35 106/ul Normal 4.70-6.10 [facility] Comment on above: Performed By: #### P HOS, BMP #### [facility] [address] [address] [address] Rayray Stewart WBC 9.7 103/ul Normal 4.0-11.0 [facility] Comment on above: Performed By: #### P HOS, BMP #### [facility] [address] [place] [address] Dr. Rayray Stewart [facility]on SARS-CoV-2 (COVID-19) RNA DORON+probe Ql (Unsp spec) Not detected Normal NOT DETECTED [facility] Comment on above: Result Comment: When diagnostic testing is negative, the possibility of a false negative should be considered in the context of a patient's recent exposures and the presence of clinical signs and symptoms consistent with SARS-CoV-2. This test is not yet approved or cleared by the [place] FDA. When there are no FDA-approved or cleared tests available, and other criteria are met, FDA can make tests available under an emergency access mechanism called an Emergency Use Authorization (EUA). The EUA for this test is supported by the [employer] of Health and Human Service's declaration that circumstances exist to justify the emergency use of in vitro diagnostics for the detection and/or diagnosis of the virus that causes COVID-19. This EUA will remain in effect for the duration of the COVID-19 declaration justifying emergency of IVDs, unless it is terminated or revoked by the FDA (after which the test may no longer be used). Performed By: #### B MP #### [facility] [address] [place] [address] Dr. Rayray Wise-DIMERon 07-09-2022 D-DIMER 1.98 mg/L FEU Critically high <=0.59 [facility] Comment on above: Performed By: #### B MP, MG, CK #### [facility] [address] [place] [address] Dr. Rayray Stewart D-DIMER COMMENTS SEE BELOW Normal [facility] Comment on above: Result Comment: Incr eases in D-Dimer concentration observed with thromboembolic events can be variable due to localization, size, and age of the thrombus. Therefore, a thromboembolic event cannot be diagnosed with certainty on the basis of the reference range. D-Dimers may also be elevated for a variety of disorders including: advanced age, , coronary disease, cancer, liver disease, infection, inflammation, hematoma, DIC, trauma, post-surgery, diabetes, thrombolytic or anticoagulant therapy, stress, and generalized hospitalization. Performed By: #### B MP, MG, CK #### [facility] [address] [place] [address] Dr. Rayray Stewart ER URINE PROFILEon 2 Bilirubin Ql (U) SMALL Abnormal NEGATIVE [facility] Comment on above: Performed By: #### P HOS, BMP #### [facility] [address] [place] [address] Dr. Rayray Stewart Clarity (U) CLEAR Normal CLEAR [facility] Comment on above: Performed By: #### P HOS, BMP #### [facility] [address] [place] [address] Dr. Rayray Stewart Color (U) LT. YELLOW Normal YELLOW [facility] Comment on above: Performed By: #### P HOS, BMP #### [facility] [address] [place] [address] Dr. Rayray Stewart ERUAHD A micrscopic examination will be performed if indicated. Normal [facility] Comment on above: Performed By: #### P HOS, BMP #### [facility] [address] [place] [address] Dr. Rayray Stewart Glucose Ql (U) >1000 Abnormal NEGATIVE [facility] Comment on above: Performed By: #### P HOS, BMP #### [facility] [address] [address] [address] Rayray Stewart Hemoglobin Ql (U) SMALL Abnormal NEGATIVE [facility] Comment on above: Performed By: #### P HOS, BMP #### [facility] [address] [place] [address] Dr. Rayray Stewart Ketones Ql (U) >=80 Abnormal NEGATIVE [facility] Comment on above: Performed By: #### P HOS, BMP #### [facility] [address] [place] [address] Dr. Rayray Stewart LEUKOCYTES Negative Normal NEGATIVE [facility] Comment on above: Performed By: #### P HOS, BMP #### [facility] [address] [place] [address] Dr. Rayray Stewart Nitrite Ql (U) Negative Normal NEGATIVE [facility] Comment on above: Performed By: #### P HOS, BMP #### [facility] [address] [place] [address] Dr. Rayray Stewart pH (U) 5.5 [pH] Normal 5-9 [facility] Comment on above: Performed By: #### P HOS, BMP #### [facility] [address] [place] [address] Dr. Rayray Stewart Protein (U) [Mass/Vol] 30 mg/dL Abnormal NEGATIVE/ TRACE [facility] Comment on above: Performed By: #### P HOS, BMP #### [facility] [address] [place] [address] Dr. Rayray Stewart SPEC GRAVITY 1.020 Normal 1.005-<=1.025 [facility] Comment on above: Performed By: #### P HOS, BMP #### [facility] [address] [place] [address] Dr. Rayray Stewart UR MICRO IND INDICATED Normal [facility] Comment on above: Performed By: #### P HOS, BMP #### [facility] [address] [place] [address] Dr. Rayray Stewart Urobilinogen Qn (U) 0.2 {Shanell'U}/dL Normal 0.2 - 1. 0 [facility] Comment on above: Performed By: #### P HOS, BMP #### [facility] [address] [place] [address] Dr. Rayray Stewart ETHANOL (BLD ALC)on 07-09-20 ALC NOTE NOTE: 80 mg/dl is the legal limit for a blood alcohol level Normal [facility] Comment on above: Performed By: #### P HOS, BMP #### [facility] [address] [place] [address] Dr. Rayray Stewart Ethanol [Mass/Vol] mg/dL Normal [facility] Comment on above: Performed By: #### P HOS, BMP #### [facility] [address] [place] [address] Dr. Rayray Stewart GLYCOHEMOGLOBIN A1Con 2021 ADA RECOMMENDATION SEE BELOW Normal [facility] Comment on above: Result Comment: ADA RECOMMENDED LIMIT 4.0 - 6.0 ADA THERAPEUTIC TARGET < 7.0 ACTION SUGGESTED > 7.0 Performed By: #### M G #### [facility] [address] [place] [address] Dr. Rayray Stewart Glucose [Mass/Vol] 246 mg/dL Normal [facility] Comment on above: Performed By: #### M G #### [facility] [address] [place] [address] Dr. Rayray Stewart HbA1c (Bld) [Mass fraction] 10.2 % Critically high 4.5-6.2 [facility] Comment on above: Performed By: #### M G #### [facility] [address] [place] [address] Dr. Rayray Stewart LACTATE/LACTIC ACIDon 2021 Lactate [Moles/Vol] 2.2 mmol/L Critically high 0.4-1.9 [facility] Comment on above: Performed By: #### P HOS, BMP #### [facility] [address] [place] [address] Dr. Rayray Stewart LIPASEon 07-09-2022 Lipase [Catalytic activity/Vol] 484.0 U/L Critically high 73.0-393.0 [facility] Comment on above: Performed By: #### A CETON #### [facility] [address] [place] [address] Dr. Rayray Stewart PH VENOUS BLOODon 07-09-2022 PCO2 VENOUS 21.3 mmHg Critically low 40.0-52.0 [facility] Comment on above: Performed By: #### B MP, MG, CK #### [facility] [address] [place] [address] Dr. Rayray Stewart pH VENOUS 7.138 Critically low 7.330-7.430 [facility] Comment on above: Performed By: #### B MP, MG, CK #### [facility] [address] [place] [address] Dr. Rayray Stewart POINT OF CARE GLUCOSEon Glucose [Mass/Vol] 378 mg/dL Critically high 74-106 [facility] Comment on above: Performed By: #### P HOS, BMP #### [facility] [address] [place] [address] Dr. Rayray Stewart Glucose [Mass/Vol] 493 mg/dL Critically high 74-106 [facility] Comment on above: Performed By: #### P HOS, BMP #### [facility] [address] [place] [address] Dr. Rayray Stewart PROF 14(COMP METB)on 022 Albumin [Mass/Vol] 4.6 g/dL Normal 3.4-5.0 [facility] Comment on above: Performed By: #### A CETON #### [facility] [address] [place] [address] Dr. Rayray Stewart Albumin/Globulin [Mass ratio] 1.1 {ratio} Normal [facility] Comment on above: Performed By: #### A CETON #### [facility] [address] [place] [address] Dr. Rayray Stewart ALP [Catalytic activity/Vol] 125 U/L Critically high 46-116 [facility] Comment on above: Performed By: #### A CETON #### [facility] [address] [place] [address] Dr. Rayray Stewart ALT [Catalytic activity/Vol] 54 U/L Normal 16-63 [facility] Comment on above: Performed By: #### A CETON #### [facility] [address] [address] [address] Rayray Stewart Anion gap [Moles/Vol] 37.5 mmol/L Normal [facility] Comment on above: Performed By: #### A CETON #### [facility] [address] [address] [address] Rayray Stewart AST [Catalytic activity/Vol] 37 U/L Normal 15-37 [facility] Comment on above: Performed By: #### A CETON #### [facility] [address] [address] [address] Rayray Stewart Bilirubin [Mass/Vol] 1.8 mg/dL Critically high 0.2-1.0 [facility] Comment on above: Performed By: #### A CETON #### [facility] [address] [address] [address] Rayray Stewart Calcium [Mass/Vol] 8.5 mg/dL Normal 8.5-10.1 [facility] Comment on above: Performed By: #### A CETON #### [facility] [address] [address] [address] Rayray Stewart Chloride [Moles/Vol] 81 mmol/L Critically low 98-107 [facility] Comment on above: Performed By: #### A CETON #### [facility] [address] [address] [address] Rayray Stewart CO2 [Moles/Vol] 9.2 mmol/L Critically low 21.0-32.0 [facility] Comment on above: Performed By: #### A CETON #### [facility] [address] [address] [address] Rayray Stewart Creatinine [Mass/Vol] 2.08 mg/dL Critically high 0.70-1.30 [facility] Comment on above: Performed By: #### A CETON #### [facility] [address] [address] [address] Rayray Stewart EGFR-AF AUSTRALIAN 41 mL/min/1.73m2 Critically low >=60 [facility] Comment on above: Performed By: #### A CETON #### [facility] [address] [address] [address] Rayray Stewart EGFR-NON AF AUSTRALIAN 34 mL/min/1.73m2 Critically low >=60 [facility] Comment on above: Performed By: #### A CETON #### [facility] [address] [address] [address] Rayray Stewart Globulin (S) [Mass/Vol] 4.2 g/dL Normal [facility] Comment on above: Performed By: #### A CETON #### [facility] [address] [address] [address] Rayray Stewart Glucose [Mass/Vol] 616 mg/dL Critically high 74-106 [facility] Comment on above: Performed By: #### A CETON #### [facility] [address] [address] [address] Rayray Stewart Potassium [Moles/Vol] 4.7 mmol/L Normal 3.5-5.1 [facility] Comment on above: Performed By: #### A CETON #### [facility] [address] [place] [address] Dr. Rayray Stewart Protein [Mass/Vol] 8.8 g/dL Critically high 6.4-8.2 [facility] Comment on above: Performed By: #### A CETON #### [facility] [address] [address] [address] Rayray Stewart Sodium [Moles/Vol] 123 mmol/L Critically low 136-145 [facility] Comment on above: Performed By: #### A CETON #### [facility] [address] [address] [address] Rayray Stewart Urea nitrogen [Mass/Vol] 36.0 mg/dL Critically high 7.0-18.0 [facility] Comment on above: Performed By: #### A CETON #### [facility] [address] [address] [address] Rayray Stewart Urea nitrogen/Creatinine [Mass ratio] 17.3 mg/mg Normal [facility] Comment on above: Performed By: #### A CETON #### [facility] [address] [place] [address] Dr. Rayray Stewart PROTIMEon 07-09-2022 INR Coag (PPP) [Relative time] 1.00 {INR} Normal [facility] Comment on above: Performed By: #### B MP, MG, CK #### [facility] [address] [place] [address] Dr. Rayray Stewart INR GUIDELINES SEE BELOW Normal [facility] Comment on above: Result Comment: YUN RED INR: 2.0 - 3.0 CONDITIONS NOT LISTED BELOW 2.5 - 3.5 FOR PROSTHETIC HEART VALVE REPLACEMENT 2.5 - 3.5 RECURRENT THROMBOSIS Performed By: #### B MP, MG, CK #### [facility] [address] [place] [address] Dr. Rayray Stewart PT Coag (PPP) [Time] 10.8 s Normal 9.0-11.6 [facility] Comment on above: Performed By: #### B MP, MG, CK #### [facility] [address] [place] [address] Dr. Rayray Stewart PTTon 07-09-2022 aPTT Coag (Bld) [Time] 28.5 s Normal 22.3-36.2 [facility] Comment on above: Performed By: #### B MP, MG, CK #### [facility] [address] [place] [address] Dr. Rayray Stewart TROPONIN, HIGH SENSITIVITYon 07-09-2022 HSTROP 17.5 pg/mL Normal 4.0-76.1 [facility] Comment on above: Result Comment: CUT- OFF POINTS HAVE BEEN ESTABLISHED BASED ON THE FOURTH UNIVERSAL DEFINITIONS OF MYOCARDIAL INFARCTION. THE UPPER REFERENCE LIMIT (URL) OF TROPONIN, DEFINED THE 99TH PERCENTILE OF cTnI DISTRIBUTION IN A REFERENCE POPULATION, HAS BEEN CONFIRMED THE DECISION THRESHOLD FOR ID DIAGNOSIS. Performed By: #### B MP, MG, CK #### [facility] [address] [place] [address] Dr. Rayray Stewart HSTROP 16.1 pg/mL Normal 4.0-76.1 [facility] Comment on above: Result Comment: CUT- OFF POINTS HAVE BEEN ESTABLISHED BASED ON THE FOURTH UNIVERSAL DEFINITIONS OF MYOCARDIAL INFARCTION. THE UPPER REFERENCE LIMIT (URL) OF TROPONIN, DEFINED THE 99TH PERCENTILE OF cTnI DISTRIBUTION IN A REFERENCE POPULATION, HAS BEEN CONFIRMED THE DECISION THRESHOLD FOR ID DIAGNOSIS. Performed By: #### A CETON #### [facility] [address] [place] [address] Dr. Rayray Stewart URINE MICROSCOPIC ONLYon BACTERIA TRACE Abnormal NONE SEEN [facility] Comment on above: Performed By: #### P HOS, BMP #### [facility] [address] [place] [address] Dr. Rayray Stewart Bacteria identified Cx Nom (U) NOT INDICATED Normal [facility] Comment on above: Performed By: #### P HOS, BMP #### [facility] [address] [place] [address] Dr. Rayray Stewart CAST NONE SEEN Normal NONE SEEN [facility] Comment on above: Performed By: #### P HOS, BMP #### [facility] [address] [place] [address] Dr. Rayray Stewart Crystals LM Nom (Urine sed) NONE SEEN Normal NONE SEEN [facility] Comment on above: Performed By: #### P HOS, BMP #### [facility] [address] [place] [address] Dr. Rayray Stewart Epithelial cells LM Ql (Urine sed) NONE SEEN Normal NONE SEEN /RARE [facility] Comment on above: Performed By: #### P HOS, BMP #### [facility] [address] [place] [address] Dr. Rayray Stewart MUCOUS NONE SEEN Normal NONE SEEN [facility] Comment on above: Performed By: #### P HOS, BMP #### [facility] [address] [place] [address] Dr. Rayray Stewart RBC 0-2 Normal 0-2 [facility] Comment on above: Performed By: #### P HOS, BMP #### [facility] [address] [place] [address] Dr. Rayray Stewart WBC NONE SEEN Normal NONE SEEN [facility] Comment on above: Performed By: #### P HOS, BMP #### [facility] [address] [place] [address] Dr. Rayray Stewart XR CHEST 1 Von 07-09-2022 XR CHEST 1 V EXAMINATION: XR CHEST 1 V HISTORY: Chest pain and shortness of breath COMPARISON: Chest x-ray 11/10/2021. Chest CT 02/27/2022 TECHNIQUE: Portable chest FINDINGS: The lung parenchyma is free of consolidation or infiltrate. No pneumothorax or pleural effusion. The cardiac, mediastinal and hilar contours are normal. The visualized osseous structures exhibit no gross abnormality. IMPRESSION: No acute cardiopulmonary abnormality. Electronically authenticated by: CAROLE MORA Date: 2022-07-09 19:07 Normal [facility] METHYLMALONIC ACID (MMA)on 0 04-25-2022 Methylmalonic Acid, Serum 233 nmol/L Normal 0-378 [facility] Comment on above: Performed By: #### B MP, MG, CK #### [facility] [address] [place] [address] Dr. Rayray Stewart CBC AUTO DIFFon 04-21-2022 BASO # 0.1 103/ul Normal 0.0-0.1 [facility] Comment on above: Performed By: #### M G #### [facility] [address] [place] [address] Dr. Rayray Stewart Basophils/100 WBC (Bld) 1.0 % Normal 0.2-2.0 [facility] Comment on above: Performed By: #### M G #### [facility] [address] [place] [address] Dr. Rayray Stewart EO # 0.1 103/ul Normal 0.0-0.7 [facility] Comment on above: Performed By: #### M G #### [facility] [address] [place] [address] Dr. Rayray Stewart Eosinophils/100 WBC (Bld) 1.5 % Normal 0.9-7.0 [facility] Comment on above: Performed By: #### M G #### [facility] [address] [place] [address] Dr. Rayray Stewart Erythrocyte distribution width (RBC) [Ratio] 12.6 % Normal 11.0-15.0 [facility] Comment on above: Performed By: #### M G #### [facility] [address] [place] [address] Dr. Rayray Stewart Hematocrit (Bld) [Volume fraction] 47.4 % Normal 42.0-54.0 [facility] Comment on above: Performed By: #### M G #### [facility] [address] [place] [address] Dr. Rayray Stewart Hemoglobin (Bld) [Mass/Vol] 16.3 g/dL Normal 14.0-18.0 [facility] Comment on above: Performed By: #### M G #### [facility] [address] [place] [address] Dr. Rayray Stewart IG # 0.02 10e3/ul Normal 0.00-0.03 [facility] Comment on above: Performed By: #### M G #### [facility] [address] [place] [address] Dr. Rayray Stewart IG % 0.3 % Normal 0.0-0.5 [facility] Comment on above: Performed By: #### M G #### [facility] [address] [place] [address] Dr. Rayray Stewart LYMPH # 2.4 103/ul Normal 1.2-3.8 [facility] Comment on above: Performed By: #### M G #### [facility] [address] [place] [address] Dr. Rayray Stewart Lymphocytes/100 WBC (Bld) 35.8 % Normal 20.5-60.0 [facility] Comment on above: Performed By: #### M G #### [facility] [address] [place] [address] Dr. Rayray Stewart MANUAL DIFF REQ NO Normal [facility] Comment on above: Performed By: #### M G #### [facility] [address] [place] [address] Dr. Rayray Stewart MCH (RBC) [Entitic mass] 31.4 pg Normal 25.9-34.0 [facility] Comment on above: Performed By: #### M G #### [facility] [address] [place] [address] Dr. Rayray Stewart MCHC (RBC) [Mass/Vol] 34.4 g/dL Normal 29.9-35.2 [facility] Comment on above: Performed By: #### M G #### [facility] [address] [place] [address] Dr. Rayray Stewart MCV (RBC) [Entitic vol] 91.3 fL Normal 80.0-94.0 [facility] Comment on above: Performed By: #### M G #### [facility] [address] [place] [address] Dr. Rayray Stewart MONO # 0.8 103/ul Normal 0.3-0.8 [facility] Comment on above: Performed By: #### M G #### [facility] [address] [place] [address] Dr. Rayray Stewart Monocytes/100 WBC (Bld) 11.4 % Normal 1.7-12.0 [facility] Comment on above: Performed By: #### M G #### [facility] [address] [place] [address] Dr. Rayray Stewart NEUT # 3.4 103/ul Normal 1.4-6.5 [facility] Comment on above: Performed By: #### M G #### [facility] [address] [place] [address] Dr. Rayray Stewart Neutrophils/100 WBC (Bld) 50.0 % Normal 43.0-75.0 [facility] Comment on above: Performed By: #### M G #### [facility] [address] [place] [address] Dr. Rayray Stewart Platelet mean volume (Bld) [Entitic vol] 10.5 fL Normal 9.5-13.5 [facility] Comment on above: Performed By: #### M G #### [facility] [address] [place] [address] Dr. Rayray Stewart PLT 176 103/ul Normal 150-450 [facility] Comment on above: Performed By: #### M G #### [facility] [address] [address] [address] Rayray Stewart RBC 5.19 106/ul Normal 4.70-6.10 [facility] Comment on above: Performed By: #### M G #### [facility] [address] [address] [address] Rayray Stewart WBC 6.8 103/ul Normal 4.0-11.0 [facility] Comment on above: Performed By: #### M G #### [facility] [address] [address] [address] Rayray Stewart DIRECT LDLon 04-21-2022 Cholesterol in LDL [Mass/Vol] 143 mg/dL Normal [facility] Comment on above: Performed By: #### P HOS, BMP #### [facility] [address] [place] [address] Dr. Rayray Stewart DLDL NORMAL SEE BELOW Normal [facility] Comment on above: Result Comment: <100 mg/dl OPTIMAL 100 - 129 mg/dl NEAR OR ABOVE OPTIMAL 130 - 159 mg/dl BORDERLINE HIGH 160 - 189 mg/dl HIGH >190 mg/dl VERY HIGH Performed By: #### P HOS, BMP #### [facility] [address] [place] [address] Dr. Rayray Stewart FERRITINon 04-21-2022 Ferritin [Mass/Vol] 132.0 ng/mL Normal 26.0-388.0 [facility] Comment on above: Performed By: #### A CETON #### [facility] [address] [place] [address] Dr. Rayray Stewart GLYCOHEMOGLOBIN A1Con 2021 ADA RECOMMENDATION SEE BELOW Normal [facility] Comment on above: Result Comment: ADA RECOMMENDED LIMIT 4.0 - 6.0 ADA THERAPEUTIC TARGET < 7.0 ACTION SUGGESTED > 7.0 Performed By: #### B MP #### [facility] [address] [place] [address] Dr. Rayray Stewart Glucose [Mass/Vol] 275 mg/dL Normal [facility] Comment on above: Performed By: #### B MP #### [facility] [address] [address] [address] Rayray Stewart HbA1c (Bld) [Mass fraction] 11.2 % Critically high 4.5-6.2 [facility] Comment on above: Performed By: #### B MP #### [facility] [address] [place] [address] Dr. Rayray Stewart IRON AND TIBCon 04-21-2022 % SATURATION 32.4 % Normal [facility] Comment on above: Performed By: #### A CETON #### [facility] [address] [place] [address] Dr. Rayray Stewart Iron [Mass/Vol] 114.0 ug/dL Normal 65.0-175.0 [facility] Comment on above: Performed By: #### A CETON #### [facility] [address] [place] [address] Dr. Rayray Stewart TIBC DIRECT 352.0 ug/dL Normal 250.0-450.0 [facility] Comment on above: Performed By: #### A CETON #### [facility] [address] [place] [address] Dr. Rayray Stewart MICROALBUMIN, RAND URon 04-02 mALB 4.5 mg/L Normal <=30.0 [facility] Comment on above: Performed By: #### B MP, MG, CK #### [facility] [address] [place] [address] Dr. Rayray Stewart PROF 14(COMP METB)on 022 Albumin [Mass/Vol] 3.8 g/dL Normal 3.4-5.[address] [facility] Comment on above: Performed By: #### P HOS, BMP #### [facility] [address] [place] [address] Dr. Rayray Stewart Albumin/Globulin [Mass ratio] 1.0 {ratio} Normal [facility] Comment on above: Performed By: #### P HOS, BMP #### [facility] [address] [place] [address] Dr. Rayray Stewart ALP [Catalytic activity/Vol] 123 U/L Critically high 46-116 [facility] Comment on above: Performed By: #### P HOS, BMP #### [facility] [address] [place] [address] Dr. Rayray Stewart ALT [Catalytic activity/Vol] 52 U/L Normal 16-63 [facility] Comment on above: Performed By: #### P HOS, BMP #### [facility] [address] [address] [address] Rayray Stewart Anion gap [Moles/Vol] 14.4 mmol/L Normal [facility] Comment on above: Performed By: #### P HOS, BMP #### [facility] [address] [place] [address] Dr. Rayray Stewart AST [Catalytic activity/Vol] 34 U/L Normal 15-37 [facility] Comment on above: Performed By: #### P HOS, BMP #### [facility] [address] [place] [address] Dr. Rayray Stewart Bilirubin [Mass/Vol] 0.6 mg/dL Normal 0.2-1.0 [facility] Comment on above: Performed By: #### P HOS, BMP #### [facility] [address] [place] [address] Dr. Rayray Stewart Calcium [Mass/Vol] 9.3 mg/dL Normal 8.5-10.1 [facility] Comment on above: Performed By: #### P HOS, BMP #### [facility] [address] [address] [address] Rayray Stewart Chloride [Moles/Vol] 99 mmol/L Normal 98-107 [facility] Comment on above: Performed By: #### P HOS, BMP #### [facility] [address] [place] [address] Dr. Rayray Stewart CO2 [Moles/Vol] 26.4 mmol/L Normal 21.0-32.0 [facility] Comment on above: Performed By: #### P HOS, BMP #### [facility] [address] [place] [address] Dr. Rayray Stewart Creatinine [Mass/Vol] 0.91 mg/dL Normal 0.70-1.30 [facility] Comment on above: Performed By: #### P HOS, BMP #### [facility] [address] [place] [address] Dr. Rayray Stewart EGFR-AF AUSTRALIAN >60 Normal >=60 [facility] Comment on above: Performed By: #### P HOS, BMP #### [facility] [address] [place] [address] Dr. Rayray Stewart EGFR-NON AF AUSTRALIAN >60 Normal >=60 [facility] Comment on above: Performed By: #### P HOS, BMP #### [facility] [address] [place] [address] Dr. Rayray Stewart Globulin (S) [Mass/Vol] 3.9 g/dL Normal [facility] Comment on above: Performed By: #### P HOS, BMP #### [facility] [address] [place] [address] Dr. Rayray Stewart Glucose [Mass/Vol] 330 mg/dL Critically high 74-106 [facility] Comment on above: Performed By: #### P HOS, BMP #### [facility] [address] [place] [address] Dr. Rayray Stewart Potassium [Moles/Vol] 3.8 mmol/L Normal 3.5-5.1 [facility] Comment on above: Performed By: #### P HOS, BMP #### [facility] [address] [place] [address] Dr. Rayray Stewart Protein [Mass/Vol] 7.7 g/dL Normal 6.4-8.[address] [facility] Comment on above: Performed By: #### P HOS, BMP #### [facility] [address] [place] [address] Dr. Rayray Stewart Sodium [Moles/Vol] 136 mmol/L Normal 136-145 [facility] Comment on above: Performed By: #### P HOS, BMP #### [facility] [address] [place] [address] Dr. Rayray Stewart Urea nitrogen [Mass/Vol] 15.0 mg/dL Normal 7.0-18.0 [facility] Comment on above: Performed By: #### P HOS, BMP #### [facility] [address] [place] [address] Dr. Rayray Stewart Urea nitrogen/Creatinine [Mass ratio] 16.5 mg/mg Normal [facility] Comment on above: Performed By: #### P HOS, BMP #### [facility] [address] [place], [place] [id number] Dr. Rayray Stewart TSHon 04-21-2022 TSH 3.285 uIU/mL Normal 0.358-3.740 [facility] Comment on above: Performed By: #### P HOS, BMP #### [facility] [address] [place] [address] Dr. Rayray Stewart VITAMIN B12on 04-21-2022 Cobalamin (Vitamin B12) [Mass/Vol] 438.0 pg/mL Normal 193.0-986.0 [facility] Comment on above: Performed By: #### A CETON #### [facility] [address] [place] [address] Dr. Rayray Stewart US GI ENDOSCOPIC S AND Ion 0 12-24-2021 US GI ENDOSCOPIC S AND I Radiology exam is complete. No Radiologist dictation. Please follow up with ordering provider. Final result Normal [facility] Anti-Mitochondrial Abon 02-0 Anti-Mitochondrial Ab <0.5 Normal 0.0-4.0 [facility] Comment on above: Result Comment: Reference Range: <4.0 Negative 4.0-6.0 Equivocal >6.0 Positive When results are Equivocal, it is recommended to retest after 8-12 weeks. Performed By: #### B H, MG, BMP, ANUJ #### [facility] [address] [place] [address] Customer Assistance Associate: Dale Padilla MD Basic Metab w/rfx MGon 12-03 (cont.) Normal [facility] Comment on above: Result Comment: Aver age GFR for 50-59 years old: 93 mL/min/1.73sq m Chronic Kidney Disease: <60 mL/min/1.73sq m Kidney failure: <15 mL/min/1.73sq m eGFR calculated using average adult body mass. Additional eGFR calculator available at: http://www.Celoxica.Unicotrip/multiple_crcl_2012.htm Performed By: #### M Candace BMP, ANUJ #### [facility] [address] [place] [phone] Customer Assistance Associate: Dale Padilla MD Anion gap [Moles/Vol] 11 mmol/L Normal 9-17 [facility] Comment on above: Performed By: #### GABY Pro, ANUJ #### [facility] [address] [place] [phone] Customer Assistance Associate: Dale Padilla MD Calcium [Mass/Vol] 7.8 mg/dL Low 8.6-10.4 [facility] Comment on above: Performed By: #### GABY Pro, ANUJ #### [facility] [address] [place] [phone] Customer Assistance Associate: Dale Padilla MD Chloride [Moles/Vol] 106 mmol/L Normal 98-107 [facility] Comment on above: Performed By: #### GABY Pro, ANUJ #### [facility] [address] [place] [phone] Customer Assistance Associate: Dale Padilla MD CO2 [Moles/Vol] 21 mmol/L Normal 20-31 [facility] Comment on above: Performed By: #### Ester Maria BMP, ANUJ #### [facility] [address] [place] [phone] Customer Assistance Associate: Dale Padilla MD Creatinine [Mass/Vol] 0.69 mg/dL Low 0.70-1.20 [facility] Comment on above: Performed By: #### Ester Maria BMP, ANUJ #### [facility] [address] [place] [phone] Customer Assistance Associate: Dale Padilla MD GFR, Amer >60 Normal >60 [facility] Comment on above: Performed By: #### GABY Pro, ANUJ #### [facility] [address] [place] [phone] Customer Assistance Associate: Dale Padilla MD GFR,non Amer >60 Normal >60 [facility] Comment on above: Performed By: #### GABY Pro, ANUJ #### [facility] [address] [place] [phone] Customer Assistance Associate: Dale Padilla MD Glucose [Mass/Vol] 305 mg/dL High 70-99 [facility] Comment on above: Performed By: #### GABY Pro, ANUJ #### [address] [address] Customer Assistance Associate: Dale Padilla MD Potassium [Moles/Vol] 3.8 mmol/L Normal 3.7-5.3 [facility] Comment on above: Performed By: #### GABY Pro, ANUJ #### [address] [phone] Customer Assistance Associate: Dale Padilla MD Sodium [Moles/Vol] 138 mmol/L Normal 135-144 [facility] Comment on above: Performed By: #### GABY Pro, ANUJ #### [facility] [address] [place] [phone] Customer Assistance Associate: Dale Padilla MD Urea nitrogen [Mass/Vol] 6 mg/dL Normal 6-20 [facility] Comment on above: Performed By: #### GABY Pro, ANUJ #### [facility] [address] [place] [phone] Customer Assistance Associate: Dale Padilla MD BUN/CRE Ratio NOT REPORTED Normal 9-20 [facility] Comment on above: Performed By: #### GABY Pro, ANUJ #### [facility] [address] [place] [address] Customer Assistance Associate: Dale Padilla MD Staging: NOT REPORTED Normal [facility] Comment on above: Performed By: #### M Candace, GABY, ANUJ #### [facility] [address] [place] [address] Customer Assistance Associate: Dale Padilla MD Basic Metabolic Panelon Anion gap [Moles/Vol] 12 mmol/L 9 - 17 mmol/L [facility] Calcium [Mass/Vol] 7.9 mg/dL Low 8.6 - 10. 4 mg/dL [facility] Chloride [Moles/Vol] 107 mmol/L 98 - 10 7 mmol/L [facility] CO2 [Moles/Vol] 22 mmol/L 20 - 31 mmol/L [facility] Creatinine [Mass/Vol] 0.38 mg/dL Low 0.70 - 1.20 mg/dL [facility] GFR >60 >60 mL/min [facility] GFR Non- >60 >60 mL/min [facility] GFR/1.73 sq M.predicted MDRD (S/P/Bld) [Vol rate/Area] [facility] Comment on above: Average GFR for 50-5 9 years old: 93 mL/min/1.73sq m Chronic Kidney Disease: <60 mL/min/1.73sq m Kidney failure: <15 mL/min/1.73sq m eGFR calculated using average adult body mass. Additional eGFR calculator available at: http://www.Celoxica.Unicotrip/multiple_crcl_2012.htm GFR/1.73 sq M.predicted MDRD (S/P/Bld) [Vol rate/Area] NOT REPORTED [facility] Glucose [Mass/Vol] 210 mg/dL High 70 - 99 mg/dL [facility] Potassium [Moles/Vol] 3.5 mmol/L Low 3.7 - 5.3 mmol/L [facility] Sodium [Moles/Vol] 141 mmol/L 135 - 144 mmol/L [facility] Urea nitrogen (BldV) [Mass/Vol] 5 mg/dL Low 6 - 20 mg/dL [facility] Urea nitrogen/Creatinine (Bld) [Mass ratio] NOT REPORTED [facility] [employer] Anion gap [Moles/Vol] 14 mmol/L 9 - 17 mmol/L [facility] Calcium [Mass/Vol] 7.5 mg/dL Low 8.6 - 10. 4 mg/dL [facility] Chloride [Moles/Vol] 107 mmol/L 98 - 10 7 mmol/L [facility] CO2 [Moles/Vol] 20 mmol/L 20 - 31 mmol/L [facility] Creatinine [Mass/Vol] 0.44 mg/dL Low 0.70 - 1.20 mg/dL [facility] GFR >60 >60 mL/min [facility] GFR Non- >60 >60 mL/min [facility] [employer] GFR/1.73 sq M.predicted MDRD (S/P/Bld) [Vol rate/Area] [facility] Comment on above: Average GFR for 50-5 9 years old: 93 mL/min/1.73sq m Chronic Kidney Disease: <60 mL/min/1.73sq m Kidney failure: <15 mL/min/1.73sq m eGFR calculated using average adult body mass. Additional eGFR calculator available at: http://www.Everwise/multiple_crcl_2012.htm GFR/1.73 sq M.predicted MDRD (S/P/Bld) [Vol rate/Area] NOT REPORTED [facility] [employer] Glucose [Mass/Vol] 264 mg/dL High 70 - 99 mg/dL [facility] [employer] Potassium [Moles/Vol] 3.4 mmol/L Low 3.7 - 5.3 mmol/L [facility] Sodium [Moles/Vol] 141 mmol/L 135 - 144 mmol/L [facility] [employer] Urea nitrogen (BldV) [Mass/Vol] 5 mg/dL Low 6 - 20 mg/dL [facility] [employer] Urea nitrogen/Creatinine (Bld) [Mass ratio] NOT REPORTED [facility] [employer] Anion gap [Moles/Vol] 12 mmol/L 9 - 17 mmol/L [facility] Calcium [Mass/Vol] 7.8 mg/dL Low 8.6 - 10. 4 mg/dL [facility] [employer] Chloride [Moles/Vol] 107 mmol/L 98 - 10 7 mmol/L [facility] CO2 [Moles/Vol] 21 mmol/L 20 - 31 mmol/L [facility] [employer] Creatinine [Mass/Vol] 0.46 mg/dL Low 0.70 - 1.20 mg/dL [facility] GFR >60 >60 mL/min [facility] GFR Non- >60 >60 mL/min [facility] GFR/1.73 sq M.predicted MDRD (S/P/Bld) [Vol rate/Area] [facility] Comment on above: Average GFR for 50-5 9 years old: 93 mL/min/1.73sq m Chronic Kidney Disease: <60 mL/min/1.73sq m Kidney failure: <15 mL/min/1.73sq m eGFR calculated using average adult body mass. Additional eGFR calculator available at: http://www.Everwise/multiple_crcl_2012.htm GFR/1.73 sq M.predicted MDRD (S/P/Bld) [Vol rate/Area] NOT REPORTED [facility] Glucose [Mass/Vol] 230 mg/dL High 70 - 99 mg/dL [facility] [employer] Potassium [Moles/Vol] 3.1 mmol/L Low 3.7 - 5.3 mmol/L [facility] Sodium [Moles/Vol] 140 mmol/L 135 - 144 mmol/L [facility] Urea nitrogen (BldV) [Mass/Vol] 6 mg/dL 6 - 20 mg/dL [facility] Urea nitrogen/Creatinine (Bld) [Mass ratio] NOT REPORTED [facility] Basic [facility] Panel w/ Ref cecilio to MGon 12-03-2021 Anion gap [Moles/Vol] 11 mmol/L 9 - 17 mmol/L [facility] Calcium [Mass/Vol] 7.8 mg/dL Low 8.6 - 10. 4 mg/dL [facility] Chloride [Moles/Vol] 106 mmol/L 98 - 10 7 mmol/L [facility] CO2 [Moles/Vol] 21 mmol/L 20 - 31 mmol/L [facility] Creatinine [Mass/Vol] 0.69 mg/dL Low 0.70 - 1.20 mg/dL [facility] GFR >60 >60 mL/min [facility] GFR Non- >60 >60 mL/min [facility] GFR/1.73 sq M.predicted MDRD (S/P/Bld) [Vol rate/Area] [facility] Comment on above: Average GFR for 50-5 9 years old: 93 mL/min/1.73sq m Chronic Kidney Disease: <60 mL/min/1.73sq m Kidney failure: <15 mL/min/1.73sq m eGFR calculated using average adult body mass. Additional eGFR calculator available at: http://www.Everwise/multiple_crcl_2012.htm GFR/1.73 sq M.predicted MDRD (S/P/Bld) [Vol rate/Area] NOT REPORTED [facility] [employer] Glucose [Mass/Vol] 305 mg/dL High 70 - 99 mg/dL [facility] Interpretation and review of laboratory results Abnormal [facility] [employer] Potassium [Moles/Vol] 3.8 mmol/L 3.7 - 5.3 mmol/L [facility] [employer] Sodium [Moles/Vol] 138 mmol/L 135 - 144 mmol/L [facility] [employer] Urea nitrogen (BldV) [Mass/Vol] 6 mg/dL 6 - 20 mg/dL [facility] [employer] Urea nitrogen/Creatinine (Bld) [Mass ratio] NOT REPORTED [facility] [employer] Basic Metabolic Profon 12-03 (cont.) Normal [facility] Comment on above: Result Comment: Aver age GFR for 50-59 years old: 93 mL/min/1.73sq m Chronic Kidney Disease: <60 mL/min/1.73sq m Kidney failure: <15 mL/min/1.73sq m eGFR calculated using average adult body mass. Additional eGFR calculator available at: http://www.Everwise/multiple_crcl_2011.htm Performed By: #### GABY Pro, ANUJ #### [facility] [address] [place] [address] Customer Assistance Associate: Dale Padilla MD Anion gap [Moles/Vol] 12 mmol/L Normal - [facility] Comment on above: Performed By: #### GABY Pro, ANUJ #### [facility] [address] [place] [address] Customer Assistance Associate: Dale Padilla MD Calcium [Mass/Vol] 7.9 mg/dL Low 8.6-10.4 [facility] Comment on above: Performed By: #### M G, BMP, ANUJ #### [facility] [address] [place] [phone] Customer Assistance Associate: Dale Padilla MD Chloride [Moles/Vol] 107 mmol/L Normal 98-107 [facility] Comment on above: Performed By: #### M G, BMP, ANUJ #### [facility] [address] [place] [phone] Customer Assistance Associate: Dale Padilla MD CO2 [Moles/Vol] 22 mmol/L Normal 20-31 [facility] Comment on above: Performed By: #### M G, BMP, ANUJ #### [facility] [address] [place] [phone] Customer Assistance Associate: Dale Padilla MD Creatinine [Mass/Vol] 0.38 mg/dL Low 0.70-1.20 [facility] Comment on above: Performed By: #### M G, BMP, ANUJ #### [facility] [address] [place] [phone] Customer Assistance Associate: Dale Padilla MD GFR, Amer >60 Normal >60 [facility] Comment on above: Performed By: #### M G, BMP, ANUJ #### [facility] [address] [place] [phone] Customer Assistance Associate: Dale Padilla MD GFR,non Amer >60 Normal >60 [facility] Comment on above: Performed By: #### M G, BMP, ANUJ #### [facility] [address] [place] [phone] Customer Assistance Associate: Dale Padilla MD Glucose [Mass/Vol] 210 mg/dL High 70-99 [facility] Comment on above: Performed By: #### M G, BMP, ANUJ #### [facility] [address] [place] [phone] Customer Assistance Associate: Dale Padilla MD Potassium [Moles/Vol] 3.5 mmol/L Low 3.7-5.3 [facility] Comment on above: Performed By: #### GABY Pro, ANUJ #### [facility] [place] [address] Customer Assistance Associate: Dale Padilla MD Sodium [Moles/Vol] 141 mmol/L Normal 135-144 [facility] Comment on above: Performed By: #### Ester Maria BMP, ANUJ #### [facility] [address] [place] [phone] Customer Assistance Associate: Dale Padilla MD Urea nitrogen [Mass/Vol] 5 mg/dL Low 6-20 [facility] Comment on above: Performed By: #### GABY Pro, ANUJ #### [address] [phone] Customer Assistance Associate: Dale Padilla MD BUN/CRE Ratio NOT REPORTED Normal -20 [facility] Comment on above: Performed By: #### GABY Pro, ANUJ #### [address] [phone] Customer Assistance Associate: Dale Padilla MD Staging: NOT REPORTED Normal [facility] Comment on above: Performed By: #### GABY Pro, ANUJ #### [address] [phone] Customer Assistance Associate: Dale Padilla MD (cont.) Normal [facility] Comment on above: Result Comment: Aver age GFR for 50-59 years old: 93 mL/min/1.73sq m Chronic Kidney Disease: <60 mL/min/1.73sq m Kidney failure: <15 mL/min/1.73sq m eGFR calculated using average adult body mass. Additional eGFR calculator available at: http://www.Celoxica.Unicotrip/multiple_crcl_2012.htm Performed By: #### B H, MG, BMP, ANUJ #### [facility] [address] [place] [phone] Customer Assistance Associate: Dale Padilla MD Anion gap [Moles/Vol] 14 mmol/L Normal 9-17 [facility] Comment on above: Performed By: #### B H, MG, BMP, ANUJ #### [facility] [address] [place] [phone] Customer Assistance Associate: Dale Padilla MD Calcium [Mass/Vol] 7.5 mg/dL Low 8.6-10.4 [facility] Comment on above: Performed By: #### B H, MG, BMP, ANUJ #### [facility] [address] [place] [phone] Customer Assistance Associate: Dale Padilla MD Chloride [Moles/Vol] 107 mmol/L Normal 98-107 [facility] Comment on above: Performed By: #### B H, MG, BMP, ANUJ #### [facility] [address] [place] [phone] Customer Assistance Associate: Dale Padilla MD CO2 [Moles/Vol] 20 mmol/L Normal 20-31 [facility] Comment on above: Performed By: #### B H, MG, BMP, ANUJ #### [facility] [address] [place] [phone] Customer Assistance Associate: Dale Padilla MD Creatinine [Mass/Vol] 0.44 mg/dL Low 0.70-1.20 [facility] Comment on above: Performed By: #### B H, MG, BMP, ANUJ #### [facility] [address] [place] [phone] Customer Assistance Associate: Dale Padilla MD GFR, Amer >60 Normal >60 [facility] Comment on above: Performed By: #### B H, MG, BMP, ANUJ #### [facility] [address] [place] [phone] Customer Assistance Associate: Dale Padilla MD GFR,non Amer >60 Normal >60 [facility] Comment on above: Performed By: #### B H, MG, BMP, ANUJ #### [facility] [address] [place] [phone] Customer Assistance Associate: Dale Padilla MD Glucose [Mass/Vol] 264 mg/dL High 70-99 [facility] Comment on above: Performed By: #### B H, MG, BMP, ANUJ #### [facility] [address] [place] [phone] Customer Assistance Associate: Dale Padilla MD Potassium [Moles/Vol] 3.4 mmol/L Low 3.7-5.3 [facility] Comment on above: Performed By: #### B H, MG, BMP, ANUJ #### [address] [phone] Customer Assistance Associate: Dale Padilla MD Sodium [Moles/Vol] 141 mmol/L Normal 135-144 [facility] Comment on above: Performed By: #### B H, MG, BMP, ANUJ #### [address] [phone] Customer Assistance Associate: Dale Padilla MD Urea nitrogen [Mass/Vol] 5 mg/dL Low 6-20 [facility] Comment on above: Performed By: #### B H, MG, BMP, ANUJ #### [facility] [address] [place] [phone] Customer Assistance Associate: Dale Padilla MD BUN/CRE Ratio NOT REPORTED Normal 9-20 [facility] Comment on above: Performed By: #### B H, MG, BMP, ANUJ #### [facility] [address] [place] [phone] Customer Assistance Associate: Dale Padilla MD Staging: NOT REPORTED Normal [facility] Comment on above: Performed By: #### B H, MG, BMP, ANUJ #### [facility] [address] [place] [phone] Customer Assistance Associate: Dale Padilla MD (cont.) [facility] Comment on above: Result Comment: Aver age GFR for 50-59 years old: 93 mL/min/1.73sq m Chronic Kidney Disease: <60 mL/min/1.73sq m Kidney failure: <15 mL/min/1.73sq m eGFR calculated using average adult body mass. Additional eGFR calculator available at: http://www.Everwise/multiple_crcl_2012.htm Performed By: #### B H, MG, BMP, ANUJ #### [facility] [address] [place] [phone] Customer Assistance Associate: Dale Padilla MD Anion gap [Moles/Vol] 12 mmol/L Normal 9-17 [facility] Comment on above: Performed By: #### B H, MG, BMP, ANUJ #### [facility] [address] [place] [phone] Customer Assistance Associate: Dale Padilla MD Calcium [Mass/Vol] 7.8 mg/dL Low 8.6-10.4 [facility] Comment on above: Performed By: #### B H, MG, BMP, ANUJ #### [facility] [address] [place] [phone] Customer Assistance Associate: Dale Padilla MD Chloride [Moles/Vol] 107 mmol/L Normal 98-107 [facility] Comment on above: Performed By: #### B H, MG, BMP, ANUJ #### [facility] [address] [place] [phone] Customer Assistance Associate: Dale Padilla MD CO2 [Moles/Vol] 21 mmol/L Normal 20-31 [facility] Comment on above: Performed By: #### B H, MG, BMP, ANUJ #### [facility] [address] [place] [phone] Customer Assistance Associate: Dale Padilla MD Creatinine [Mass/Vol] 0.46 mg/dL Low 0.70-1.20 [facility] Comment on above: Performed By: #### B H, MG, BMP, ANUJ #### [facility] [address] [place] [phone] Customer Assistance Associate: Dale Padilla MD GFR, Amer >60 Normal >60 [facility] Comment on above: Performed By: #### B H, MG, BMP, ANUJ #### [facility] [address] [place] [phone] Customer Assistance Associate: Dale Padilla MD GFR,non Amer >60 Normal >60 [facility] Comment on above: Performed By: #### B H, MG, BMP, ANUJ #### [facility] [address] [place] [phone] Customer Assistance Associate: Dale Padilla MD Glucose [Mass/Vol] 230 mg/dL High 70-99 [facility] Comment on above: Performed By: #### B H, MG, BMP, ANUJ #### [facility] [address] [place] [phone] Customer Assistance Associate: Dale Padilla MD Potassium [Moles/Vol] 3.1 mmol/L Low 3.7-5.3 [facility] Comment on above: Performed By: #### B H, MG, BMP, ANUJ #### [facility] [address] [place] [phone] Customer Assistance Associate: Dale Padilla MD Sodium [Moles/Vol] 140 mmol/L Normal 135-144 [facility] Comment on above: Performed By: #### B H, MG, BMP, ANUJ #### [facility] [address] [place] [phone] Customer Assistance Associate: Dale Padilla MD Urea nitrogen [Mass/Vol] 6 mg/dL Normal 6-20 [facility] Comment on above: Performed By: #### B H, MG, BMP, ANUJ #### [facility] [address] [place], [place] [phone] Customer Assistance Associate: Dale Padilla MD BUN/CRE Ratio NOT REPORTED Normal 9-20 [facility] Comment on above: Performed By: #### B H, MG, BMP, ANUJ #### [facility] [address] [place], [place] [phone] Customer Assistance Associate: Dale Padilla MD Staging: NOT REPORTED Normal [facility] Comment on above: Performed By: #### B H, MG, BMP, ANUJ #### [facility] [address] [place], [place] [phone] Customer Assistance Associate: Dale Padilla MD Hepatic Function Panelon Albumin [Mass/Vol] 3 g/dL Low 3.5 - 5.2 g/dL [facility] Albumin/Globulin [Mass ratio] 1.3 {ratio} [facility] ALP (Bld) [Catalytic activity/Vol] 215 U/L High 40 - 129 U/L [facility] ALT [Catalytic activity/Vol] 64 U/L High 5 - 41 U/L [facility] AST [Catalytic activity/Vol] 74 U/L High <40 [facility] Bilirubin [Mass/Vol] 1.00 mg/dL 0.3 - 1 .2 mg/dL [facility] Bilirubin, Indirect 0.47 mg/dL 0.00 - 1 .00 mg/dL [facility] Bilirubin.indirect [Mass/Vol] 0.53 mg/dL High <0.31 [facility] Free PSA/Total PSA [Mass fraction] 5.3 g/dL Low 6.4 - 8.3 g/dL [facility] [employer] Globulin NOT REPORTED 1.5 - 3.8 g/dL [facility] Liver Profileon 12-03-2021 Albumin [Mass/Vol] 3.0 g/dL Low 3.5-5.2 [facility] Comment on above: Performed By: #### B H, MG, BMP, ANUJ #### [facility] [address] [place] [phone] Customer Assistance Associate: Dale Padilla MD Albumin/Glob Ratio 1.3 Normal 1.0-2.5 [facility] Comment on above: Performed By: #### B H, MG, BMP, ANUJ #### [facility] [address] [place] [phone] Customer Assistance Associate: Dale Padilla MD Alkaline Phos 215 U/L High 40-129 [facility] Comment on above: Performed By: #### B H, MG, BMP, ANUJ #### [address] [phone] Customer Assistance Associate: Dale Padilla MD ALT [Catalytic activity/Vol] 64 U/L High 5-41 [facility] Comment on above: Performed By: #### B H, MG, BMP, ANUJ #### [facility] [address] [place] [phone] Customer Assistance Associate: Dale Padilla MD AST [Catalytic activity/Vol] 74 U/L High <40 [facility] Comment on above: Performed By: #### B H, MG, BMP, ANUJ #### [facility] [address] [place] [phone] Customer Assistance Associate: Dale Padilla MD Bilirubin [Mass/Vol] 1.00 mg/dL Normal 0.3-1.2 [facility] Comment on above: Performed By: #### B H, MG, BMP, ANUJ #### [facility] [address] [place] [phone] Customer Assistance Associate: Dale Padilla MD Bilirubin, Indirect 0.47 mg/dL Normal 0.00-1.00 [facility] Comment on above: Performed By: #### B H, MG, BMP, ANUJ #### [facility] [address] [place] [phone] Customer Assistance Associate: Dale Padilla MD Bilirubin.indirect [Mass/Vol] 0.53 mg/dL High <0.31 [facility] Comment on above: Performed By: #### B H, MG, BMP, ANUJ #### [facility] [address] [place] [address] Customer Assistance Associate: Dale Padilla MD Protein [Mass/Vol] 5.3 g/dL Low 6.4-8.3 [facility] Comment on above: Performed By: #### B H, MG, BMP, ANUJ #### [facility] [address] [place] [phone] Customer Assistance Associate: Dale Padilla MD Globulin Fraction NOT REPORTED Normal 1.5-3.8 [facility] Comment on above: Performed By: #### B H, MG, BMP, ANUJ #### [facility] [address] [place], [place] [phone] Customer Assistance Associate: Dale Padilla MD MRI ABDOMEN W WO CONTRAST MR CPon 12-03-2021 MRI ABDOMEN W WO CONTRAST MRCP EXAMINATION: MRI OF THE ABDOMEN WITH AND WITHOUT CONTRAST AND MRCP 12/02/2021 4:06 pm TECHNIQUE: Multiplanar multisequence MRI of the abdomen was performed with and without the administration of intravenous contrast. After initial T2 axial and coronal images, thick slab, thin slab and 3D coronal MRCP sequences were obtained without the administration of intravenous contrast. MIP images are provided for review. COMPARISON: 11/30/2021, CT abdomen and pelvis. 12/01/2021, CTA chest. HISTORY: ORDERING SYSTEM PROVIDED HISTORY: further characterization of pancreatic mass, recurrent pancreatitis TECHNOLOGIST PROVIDED HISTORY: further characterization of pancreatic mass, recurrent pancreatitis FINDINGS: MRI ABDOMEN: There is a complex multi-septated cystic mass in the tail of the pancreas measuring 5.9 x 3.6 x 4 cm in size. There are thick enhancing septations with complex cystic areas. There is serpiginous in appearance. There is no evidence of pancreatic ductal obstruction or pancreatic atrophy. The head and body of the pancreas are unremarkable otherwise. The liver enhances normally. No focal hepatic lesion or biliary ductal dilatation. Portal vein is patent. No splenomegaly or focal splenic lesion. No focal adrenal nodule. Kidneys enhance symmetrically. No evidence of hydronephrosis. No ascites. No lymphadenopathy. Aorta is normal in caliber. Osseous structures demonstrate no acute abnormality. MRCP: Gallbladder: Gallbladder is unremarkable in appearance. No wall thickening or pericholecystic fluid. No evidence of cholelithiasis. Bile Ducts: No evidence of intrahepatic or extrahepatic biliary ductal dilatation. Pancreatic Duct: No evidence of pancreatic ductal dilatation or obstruction. No evidence of pancreatic ductal obstruction by the complex cystic lesion in the tail of the pancreas. No pancreatic tail atrophy. IMPRESSION: Complex multi-septated cystic mass in the tail of the pancreas measuring 5.9 x 3.6 x 4 cm. 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 Surgical consultation as well as ERCP with brushings should be considered. No pancreatic or biliary ductal abnormality. Unremarkable appearance of the gallbladder. The findings were sent to the Radiology Results Communication [facility] at 11:11 pm, on 12/02/2021,to be communicated to a licensed caregiver. Interpreted by: Chago Ashford MD Signed by: Chago Ashford MD 12/03/21 Final result Normal [facility] Complex multi-septated cystic mass in the tail of the pancreas measuring 5.9 x 3.6 x 4 cm. 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 Surgical consultation as well as ERCP with brushings should be considered. No pancreatic or biliary ductal abnormality. Unremarkable appearance of the gallbladder. The findings were sent to the Radiology Results Communication Center at 11:11 pm, on 12/02/2021,to be communicated to a licensed caregiver. [facility] CONSOLIDATED EXAMINATION: MRI OF THE ABDOMEN WITH AND WITHOUT CONTRAST AND MRCP 12/02/2021 4:06 pm TECHNIQUE: Multiplanar multisequence MRI of the abdomen was performed with and without the administration of intravenous contrast. After initial T2 axial and coronal images, thick slab, thin slab and 3D coronal MRCP sequences were obtained without the administration of intravenous contrast. MIP images are provided for review. COMPARISON: 11/30/2021, CT abdomen and pelvis. 12/01/2021, CTA chest. HISTORY: ORDERING SYSTEM PROVIDED HISTORY: further characterization of pancreatic mass, recurrent pancreatitis TECHNOLOGIST PROVIDED HISTORY: further characterization of pancreatic mass, recurrent pancreatitis FINDINGS: MRI ABDOMEN: There is a complex multi-septated cystic mass in the tail of the pancreas measuring 5.9 x 3.6 x 4 cm in size. There are thick enhancing septations with complex cystic areas. There is serpiginous in appearance. There is no evidence of pancreatic ductal obstruction or pancreatic atrophy. The head and body of the pancreas are unremarkable otherwise. The liver enhances normally. No focal hepatic lesion or biliary ductal dilatation. Portal vein is patent. No splenomegaly or focal splenic lesion. No focal adrenal nodule. Kidneys enhance symmetrically. No evidence of hydronephrosis. No ascites. No lymphadenopathy. Aorta is normal in caliber. Osseous structures demonstrate no acute abnormality. MRCP: Gallbladder: Gallbladder is unremarkable in appearance. No wall thickening or pericholecystic fluid. No evidence of cholelithiasis. Bile Ducts: No evidence of intrahepatic or extrahepatic biliary ductal dilatation. Pancreatic Duct: No evidence of pancreatic ductal dilatation or obstruction. No evidence of pancreatic ductal obstruction by the complex cystic lesion in the tail of the pancreas. No pancreatic tail atrophy. [facility] Chago Boo MD - 12/03/2021 EXAMINATION: MRI OF THE ABDOMEN WITH AND WITHOUT CONTRAST AND MRCP 12/02/2021 4:06 pm TECHNIQUE: Multiplanar multisequence MRI of the abdomen was performed with and without the administration of intravenous contrast. After initial T2 axial and coronal images, thick slab, thin slab and 3D coronal MRCP sequences were obtained without the administration of intravenous contrast. MIP images are provided for review. COMPARISON: 11/30/2021, CT abdomen and pelvis. 12/01/2021, CTA chest. HISTORY: ORDERING SYSTEM PROVIDED HISTORY: further characterization of pancreatic mass, recurrent pancreatitis TECHNOLOGIST PROVIDED HISTORY: further characterization of pancreatic mass, recurrent pancreatitis FINDINGS: MRI ABDOMEN: There is a complex multi-septated cystic mass in the tail of the pancreas measuring 5.9 x 3.6 x 4 cm in size. There are thick enhancing septations with complex cystic areas. There is serpiginous in appearance. There is no evidence of pancreatic ductal obstruction or pancreatic atrophy. The head and body of the pancreas are unremarkable otherwise. The liver enhances normally. No focal hepatic lesion or biliary ductal dilatation. Portal vein is patent. No splenomegaly or focal splenic lesion. No focal adrenal nodule. Kidneys enhance symmetrically. No evidence of hydronephrosis. No ascites. No lymphadenopathy. Aorta is normal in caliber. Osseous structures demonstrate no acute abnormality. MRCP: Gallbladder: Gallbladder is unremarkable in appearance. No wall thickening or pericholecystic fluid. No evidence of cholelithiasis. Bile Ducts: No evidence of intrahepatic or extrahepatic biliary ductal dilatation. Pancreatic Duct: No evidence of pancreatic ductal dilatation or obstruction. No evidence of pancreatic ductal obstruction by the complex cystic lesion in the tail of the pancreas. No pancreatic tail atrophy. IMPRESSION: Complex multi-septated cystic mass in the tail of the pancreas measuring 5.9 x 3.6 x 4 cm. 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 Surgical consultation as well as ERCP with brushings should be considered. No pancreatic or biliary ductal abnormality. Unremarkable appearance of the gallbladder. The findings were sent to the Radiology Results Communication Center at 11:11 pm, on 12/02/2021,to be communicated to a licensed caregiver. [employer] Phone: MRI ABDOMEN W WO CONTRAST MR CPOrdered By: Chago Ashford on 12-03-2021 [employer] Phone: Magnesiumon 12-03-2021 Magnesium [Mass/Vol] 1.8 mg/dL Normal 1.6-2.6 [facility] Comment on above: Performed By: #### GABY Pro, ANUJ #### [facility] [address] [place] [phone] Customer Assistance Associate: Dale Padilla MD Magnesium [Mass/Vol] 1.8 mg/dL 1.6 - 2 .6 mg/dL [facility] Magnesium [Mass/Vol] 1.8 mg/dL Normal 1.6-2.6 [facility] Comment on above: Performed By: #### MG Aziza BMP, ANUJ #### [facility] [address] [place], [place] [phone] Customer Assistance Associate: Dale Padilla MD Magnesium [Mass/Vol] 1.8 mg/dL 1.6 - 2 .6 mg/dL [facility] Magnesium [Mass/Vol] 1.7 mg/dL Normal 1.6-2.6 [facility] Comment on above: Performed By: #### B H, MG, BMP, ANUJ #### [facility] [address] [place], [place] [phone] Customer Assistance Associate: Dale Padilla MD Magnesium [Mass/Vol] 1.7 mg/dL 1.6 - 2 .6 mg/dL [facility] No Panel Informationon 12-03 Interpretation and review of laboratory results Abnormal [facility] Interpretation and review of laboratory results Abnormal [facility] Interpretation and review of laboratory results Abnormal [facility] POC Glucose Fingerstickon Glucose [Mass/Vol] 270 mg/dL High 75 - 110 mg/dL [facility] Interpretation and review of laboratory results Abnormal [facility] Glucose [Mass/Vol] 247 mg/dL High 75 - 110 mg/dL [facility] Interpretation and review of laboratory results Abnormal [facility] Glucose [Mass/Vol] 193 mg/dL High 75 - 110 mg/dL [facility] Interpretation and review of laboratory results Abnormal [facility] Glucose [Mass/Vol] 263 mg/dL High 75 - 110 mg/dL [facility] Interpretation and review of laboratory results Abnormal [facility] Phosphoruson 12-03-2021 Phosphate [Mass/Vol] 1.9 mg/dL Low 2.5 - 4 .5 mg/dL [facility] Phosphate [Mass/Vol] 2.1 mg/dL Low 2.5 - 4 .5 mg/dL [facility] Phosphate [Mass/Vol] 1.4 mg/dL Low 2.5 - 4 .5 mg/dL [facility] Phosphorus, Inorg.on 022 Phosphorus, Inorg. 1.9 mg/dL Low 2.5-4.5 [facility] Comment on above: Performed By: #### M G, BMP, ANUJ #### [facility] [address] [place], [place] [phone] Customer Assistance Associate: Dale Padilla MD Phosphorus, Inorg. 2.1 mg/dL Low 2.5-4.5 [facility] Comment on above: Performed By: #### B H, MG, BMP, ANUJ #### [facility] [address] [place] [address] Customer Assistance Associate: Dale Padilla MD Phosphorus, Inorg. 1.4 mg/dL Low 2.5-4.5 [facility] Comment on above: Performed By: #### B H, MG, BMP, ANUJ #### [facility] [address] [place], [place] [phone] Customer Assistance Associate: Dale Padilla MD Basic Metabolic Panelon - Anion gap [Moles/Vol] 11 mmol/L 9 - 17 mmol/L [facility] Calcium [Mass/Vol] 7.7 mg/dL Low 8.6 - 10. 4 mg/dL [facility] Chloride [Moles/Vol] 106 mmol/L 98 - 10 7 mmol/L [facility] CO2 [Moles/Vol] 22 mmol/L 20 - 31 mmol/L [facility] Creatinine [Mass/Vol] 0.66 mg/dL Low 0.70 - 1.20 mg/dL [facility] GFR >60 >60 mL/min [facility] GFR Non- >60 >60 mL/min [facility] GFR/1.73 sq M.predicted MDRD (S/P/Bld) [Vol rate/Area] [facility] Comment on above: Average GFR for 50-5 9 years old: 93 mL/min/1.73sq m Chronic Kidney Disease: <60 mL/min/1.73sq m Kidney failure: <15 mL/min/1.73sq m eGFR calculated using average adult body mass. Additional eGFR calculator available at: http://www.Celoxica.Unicotrip/multiple_crcl_2012.htm GFR/1.73 sq M.predicted MDRD (S/P/Bld) [Vol rate/Area] NOT REPORTED [facility] Glucose [Mass/Vol] 288 mg/dL High 70 - 99 mg/dL [employer] [employer] Potassium [Moles/Vol] 3.5 mmol/L Low 3.7 - 5.3 mmol/L [employer] Sodium [Moles/Vol] 139 mmol/L 135 - 144 mmol/L [facility] [employer] Urea nitrogen (BldV) [Mass/Vol] 6 mg/dL 6 - 20 mg/dL [facility] [employer] Urea nitrogen/Creatinine (Bld) [Mass ratio] NOT REPORTED [facility] [employer] Anion gap [Moles/Vol] 12 mmol/L 9 - 17 mmol/L [facility] [employer] Calcium [Mass/Vol] 8.2 mg/dL Low 8.6 - 10. 4 mg/dL [facility] [employer] Chloride [Moles/Vol] 103 mmol/L 98 - 10 7 mmol/L [facility] [employer] CO2 [Moles/Vol] 23 mmol/L 20 - 31 mmol/L [facility] [employer] Creatinine [Mass/Vol] 0.7 mg/dL 0.70 - 1.20 mg/dL [facility] [employer] GFR >60 >60 mL/min [facility] [employer] GFR Non- >60 >60 mL/min [facility] [employer] GFR/1.73 sq M.predicted MDRD (S/P/Bld) [Vol rate/Area] [facility] [employer] Comment on above: Average GFR for 50-5 9 years old: 93 mL/min/1.73sq m Chronic Kidney Disease: <60 mL/min/1.73sq m Kidney failure: <15 mL/min/1.73sq m eGFR calculated using average adult body mass. Additional eGFR calculator available at: http://www.Everwise/multiple_crcl_2012.htm GFR/1.73 sq M.predicted MDRD (S/P/Bld) [Vol rate/Area] NOT REPORTED [facility] [employer] Glucose [Mass/Vol] 221 mg/dL High 70 - 99 mg/dL [facility] Interpretation and review of laboratory results Abnormal [facility] [employer] Potassium [Moles/Vol] 2.9 mmol/L Critically low 3.7 - 5.3 mmol/L [facility] [employer] Sodium [Moles/Vol] 138 mmol/L 135 - 144 mmol/L [facility] [employer] Urea nitrogen (BldV) [Mass/Vol] 5 mg/dL Low 6 - 20 mg/dL [facility] [employer] Urea nitrogen/Creatinine (Bld) [Mass ratio] NOT REPORTED [facility] [employer] Anion gap [Moles/Vol] 17 mmol/L 9 - 17 mmol/L [facility] [employer] Calcium [Mass/Vol] 7.9 mg/dL Low 8.6 - 10. 4 mg/dL [facility] [employer] Chloride [Moles/Vol] 105 mmol/L 98 - 10 7 mmol/L [facility] CO2 [Moles/Vol] 19 mmol/L Low 20 - 31 mmol/L [facility] Creatinine [Mass/Vol] 0.54 mg/dL Low 0.70 - 1.20 mg/dL [facility] GFR >60 >60 mL/min [facility] GFR Non- >60 >60 mL/min [employer] GFR/1.73 sq M.predicted MDRD (S/P/Bld) [Vol rate/Area] [facility] [employer] Comment on above: Average GFR for 50-5 9 years old: 93 mL/min/1.73sq m Chronic Kidney Disease: <60 mL/min/1.73sq m Kidney failure: <15 mL/min/1.73sq m eGFR calculated using average adult body mass. Additional eGFR calculator available at: http://www.Everwise/multiple_crcl_2012.htm GFR/1.73 sq M.predicted MDRD (S/P/Bld) [Vol rate/Area] NOT REPORTED [facility] Glucose [Mass/Vol] 132 mg/dL High 70 - 99 mg/dL [facility] [employer] Potassium [Moles/Vol] 3.3 mmol/L Low 3.7 - 5.3 mmol/L [facility] [employer] Sodium [Moles/Vol] 141 mmol/L 135 - 144 mmol/L [facility] [employer] Urea nitrogen (BldV) [Mass/Vol] 5 mg/dL Low 6 - 20 mg/dL [facility] Urea nitrogen/Creatinine (Bld) [Mass ratio] NOT REPORTED [facility] [employer] Anion gap [Moles/Vol] 13 mmol/L 9 - 17 mmol/L [facility] Calcium [Mass/Vol] 7.8 mg/dL Low 8.6 - 10. 4 mg/dL [facility] Chloride [Moles/Vol] 109 mmol/L High 98 - 10 7 mmol/L [facility] CO2 [Moles/Vol] 18 mmol/L Low 20 - 31 mmol/L [facility] Creatinine [Mass/Vol] 0.53 mg/dL Low 0.70 - 1.20 mg/dL [facility] [employer] GFR >60 >60 mL/min [facility] GFR Non- >60 >60 mL/min [facility] GFR/1.73 sq M.predicted MDRD (S/P/Bld) [Vol rate/Area] [facility] Comment on above: Average GFR for 50-5 9 years old: 93 mL/min/1.73sq m Chronic Kidney Disease: <60 mL/min/1.73sq m Kidney failure: <15 mL/min/1.73sq m eGFR calculated using average adult body mass. Additional eGFR calculator available at: http://www.Everwise/multiple_crcl_2012.htm GFR/1.73 sq M.predicted MDRD (S/P/Bld) [Vol rate/Area] NOT REPORTED [facility] Glucose [Mass/Vol] 186 mg/dL High 70 - 99 mg/dL [facility] [employer] Interpretation and review of laboratory results Abnormal [facility] Potassium [Moles/Vol] 2.9 mmol/L Critically low 3.7 - 5.3 mmol/L [facility] Sodium [Moles/Vol] 140 mmol/L 135 - 144 mmol/L [facility] Urea nitrogen (BldV) [Mass/Vol] 6 mg/dL 6 - 20 mg/dL [facility] Urea nitrogen/Creatinine (Bld) [Mass ratio] NOT REPORTED [facility] Anion gap [Moles/Vol] 14 mmol/L 9 - 17 mmol/L [facility] Calcium [Mass/Vol] 7.7 mg/dL Low 8.6 - 10. 4 mg/dL [facility] Chloride [Moles/Vol] 110 mmol/L High 98 - 10 7 mmol/L [facility] CO2 [Moles/Vol] 18 mmol/L Low 20 - 31 mmol/L [facility] Creatinine [Mass/Vol] 0.62 mg/dL Low 0.70 - 1.20 mg/dL [facility] GFR >60 >60 mL/min [facility] GFR Non- >60 >60 mL/min [facility] GFR/1.73 sq M.predicted MDRD (S/P/Bld) [Vol rate/Area] [facility] Comment on above: Average GFR for 50-5 9 years old: 93 mL/min/1.73sq m Chronic Kidney Disease: <60 mL/min/1.73sq m Kidney failure: <15 mL/min/1.73sq m eGFR calculated using average adult body mass. Additional eGFR calculator available at: http://www.Everwise/multiple_crcl_2012.htm GFR/1.73 sq M.predicted MDRD (S/P/Bld) [Vol rate/Area] NOT REPORTED [facility] Glucose [Mass/Vol] 175 mg/dL High 70 - 99 mg/dL [facility] [employer] [place] Interpretation and review of laboratory results Abnormal [facility] Potassium [Moles/Vol] 2.9 mmol/L Critically low 3.7 - 5.3 mmol/L [facility] Sodium [Moles/Vol] 142 mmol/L 135 - 144 mmol/L [facility] Urea nitrogen (BldV) [Mass/Vol] 7 mg/dL 6 - 20 mg/dL [facility] Urea nitrogen/Creatinine (Bld) [Mass ratio] NOT REPORTED [facility] Anion gap [Moles/Vol] 15 mmol/L 9 - 17 mmol/L [facility] Calcium [Mass/Vol] 7.8 mg/dL Low 8.6 - 10. 4 mg/dL [facility] Chloride [Moles/Vol] 112 mmol/L High 98 - 10 7 mmol/L [facility] CO2 [Moles/Vol] 15 mmol/L Low 20 - 31 mmol/L [facility] Creatinine [Mass/Vol] 0.82 mg/dL 0.70 - 1.20 mg/dL [facility] GFR >60 >60 mL/min [facility] GFR Non- >60 >60 mL/min [facility] GFR/1.73 sq M.predicted MDRD (S/P/Bld) [Vol rate/Area] [facility] Comment on above: Average GFR for 50-5 9 years old: 93 mL/min/1.73sq m Chronic Kidney Disease: <60 mL/min/1.73sq m Kidney failure: <15 mL/min/1.73sq m eGFR calculated using average adult body mass. Additional eGFR calculator available at: http://www.Everwise/multiple_crcl_2012.htm GFR/1.73 sq M.predicted MDRD (S/P/Bld) [Vol rate/Area] NOT REPORTED [facility] Glucose [Mass/Vol] 211 mg/dL High 70 - 99 mg/dL [facility] [employer] [facility] [place] Potassium [Moles/Vol] 2.7 mmol/L Critically low 3.7 - 5.3 mmol/L [facility] Sodium [Moles/Vol] 142 mmol/L 135 - 144 mmol/L [facility] Urea nitrogen (BldV) [Mass/Vol] 10 mg/dL 6 - 20 mg/dL [facility] Urea nitrogen/Creatinine (Bld) [Mass ratio] NOT REPORTED [facility] Basic Metabolic Profon 12-02 (cont.) Normal [facility] Comment on above: Result Comment: Aver age GFR for 50-59 years old: 93 mL/min/1.73sq m Chronic Kidney Disease: <60 mL/min/1.73sq m Kidney failure: <15 mL/min/1.73sq m eGFR calculated using average adult body mass. Additional eGFR calculator available at: http://www.Everwise/multiple_crcl_2011.htm Performed By: #### B H, MG, BMP, ANUJ #### [facility] [address] [place] [address] [phone] Customer Assistance Associate: Dale Padilla MD Anion gap [Moles/Vol] 11 mmol/L Normal 9-17 [facility] Comment on above: Performed By: #### B H, MG, BMP, ANUJ #### [facility] [address] [place] [address] [phone] Customer Assistance Associate: Dale Padilla MD Calcium [Mass/Vol] 7.7 mg/dL Low 8.6-10.4 [facility] Comment on above: Performed By: #### B H, MG, BMP, ANUJ #### [facility] [address] [place] [address] [phone] Customer Assistance Associate: Dale Padilla MD Chloride [Moles/Vol] 106 mmol/L Normal 98-107 [facility] Comment on above: Performed By: #### B H, MG, BMP, ANUJ #### [facility] [address] [place] [address] [phone] Customer Assistance Associate: Dale Padilla MD CO2 [Moles/Vol] 22 mmol/L Normal 20-31 [facility] Comment on above: Performed By: #### B H, MG, BMP, ANUJ #### [facility] [address] [place] [address] [phone] Customer Assistance Associate: Dale Padilla MD Creatinine [Mass/Vol] 0.66 mg/dL Low 0.70-1.20 [facility] Comment on above: Performed By: #### B H, MG, BMP, ANUJ #### [facility] [address] [place] [address] [phone] Customer Assistance Associate: Dale Padilla MD GFR, Amer >60 Normal >60 [facility] Comment on above: Performed By: #### B H, MG, BMP, ANUJ #### [facility] [address] [place] [address] [phone] Customer Assistance Associate: Dale Padilla MD GFR,non Amer >60 Normal >60 [facility] Comment on above: Performed By: #### B H, MG, BMP, ANUJ #### [facility] [address] [place] [address] [phone] Customer Assistance Associate: Dale Padilla MD Glucose [Mass/Vol] 288 mg/dL High 70-99 [facility] Comment on above: Performed By: #### B H, MG, BMP, ANUJ #### [facility] [address] [place] [address] [phone] Customer Assistance Associate: Dale Padilla MD Potassium [Moles/Vol] 3.5 mmol/L Low 3.7-5.3 [facility] Comment on above: Performed By: #### B H, MG, BMP, ANUJ #### [facility] [address] [place] [address] [phone] Customer Assistance Associate: Dale Padilla MD Sodium [Moles/Vol] 139 mmol/L Normal 135-144 [facility] Comment on above: Performed By: #### B H, MG, BMP, ANUJ #### [address] [phone] Customer Assistance Associate: Dale Padilla MD Urea nitrogen [Mass/Vol] 6 mg/dL Normal - [facility] Comment on above: Performed By: #### B H, MG, BMP, ANUJ #### [facility] [address] [place] [phone] Customer Assistance Associate: Dale Padilla MD BUN/CRE Ratio NOT REPORTED Normal - [facility] Comment on above: Performed By: #### B H, MG, BMP, ANUJ #### [facility] [address] [place] [address] [phone] Customer Assistance Associate: Dale Padilla MD Staging: NOT REPORTED Normal [facility] Comment on above: Performed By: #### B H, MG, BMP, ANUJ #### [address] [phone] Customer Assistance Associate: Dale Padilla MD (cont.) Normal [facility] Comment on above: Result Comment: Aver age GFR for 50-59 years old: 93 mL/min/1.73sq m Chronic Kidney Disease: <60 mL/min/1.73sq m Kidney failure: <15 mL/min/1.73sq m eGFR calculated using average adult body mass. Additional eGFR calculator available at: http://www.[employer]el[employer].com/multiple_crcl_2011.htm Performed By: #### B H, MG, BMP, ANUJ #### [facility] [address] [place] [address] [phone] Customer Assistance Associate: Dale Padilla MD Anion gap [Moles/Vol] 12 mmol/L Normal - [facility] Comment on above: Performed By: #### B H, MG, BMP, ANUJ #### [facility] [address] [place] [phone] Customer Assistance Associate: Dale Padilla MD Calcium [Mass/Vol] 8.2 mg/dL Low 8.6-10.4 [facility] Comment on above: Performed By: #### B H, MG, BMP, ANUJ #### [facility] [employer] [address] [place] [address] [phone] Customer Assistance Associate: Dale Padilla MD Chloride [Moles/Vol] 103 mmol/L Normal 98-107 [facility] Comment on above: Performed By: #### B H, MG, BMP, ANUJ #### [facility] [address] [place] [address] [phone] Customer Assistance Associate: Dale Padilla MD CO2 [Moles/Vol] 23 mmol/L Normal 20-31 [facility] Comment on above: Performed By: #### B H, MG, BMP, ANUJ #### [facility] [address] [place] [address] [phone] Customer Assistance Associate: Dale Padilla MD Creatinine [Mass/Vol] 0.70 mg/dL Normal 0.70-1.20 [facility] Comment on above: Performed By: #### B H, MG, BMP, ANUJ #### [address] [phone] Customer Assistance Associate: Dale Padilla MD GFR, Amer >60 Normal >60 [facility] Comment on above: Performed By: #### B H, MG, BMP, ANUJ #### [facility] [address] [place] [address] [phone] Customer Assistance Associate: Dale Padilla MD GFR,non Amer >60 Normal >60 [facility] Comment on above: Performed By: #### B H, MG, BMP, ANUJ #### [facility] [address] [place] [address] [phone] Customer Assistance Associate: Dale Padilla MD Glucose [Mass/Vol] 221 mg/dL High 70-99 [facility] Comment on above: Performed By: #### B H, MG, BMP, ANUJ #### [facility] [address] [place] [phone] Customer Assistance Associate: Dale Padilla MD Potassium [Moles/Vol] 2.9 mmol/L Critically low 3.7-5.3 [facility] Comment on above: Performed By: #### B H, MG, BMP, ANUJ #### [address] [phone] Customer Assistance Associate: Dale Padilla MD Sodium [Moles/Vol] 138 mmol/L Normal 135-144 [facility] Comment on above: Performed By: #### B H, MG, BMP, ANUJ #### [facility] [employer] [address] [place] [address] [phone] Customer Assistance Associate: Dale Padilla MD Urea nitrogen [Mass/Vol] 5 mg/dL Low 6-20 [facility] Comment on above: Performed By: #### B H, MG, BMP, ANUJ #### [facility] [address] [place] [address] [phone] Customer Assistance Associate: Dale Padilla MD BUN/CRE Ratio NOT REPORTED Normal 9-20 [facility] Comment on above: Performed By: #### B H, MG, BMP, ANUJ #### [facility] [address] [place] [address] [phone] Customer Assistance Associate: Dale Padilla MD Staging: NOT REPORTED Normal [facility] Comment on above: Performed By: #### B H, MG, BMP, ANUJ #### [facility] [address] [place] [address] [phone] Customer Assistance Associate: Dale Padilla MD (cont.) Normal [facility] Comment on above: Result Comment: Aver age GFR for 50-59 years old: 93 mL/min/1.73sq m Chronic Kidney Disease: <60 mL/min/1.73sq m Kidney failure: <15 mL/min/1.73sq m eGFR calculated using average adult body mass. Additional eGFR calculator available at: http://www.globalrph.Unic[employer]rip/multiple_crcl_2012.htm Performed By: #### B H, MG, BMP, ANUJ #### [address] [phone] Customer Assistance Associate: Dale Padilla MD Anion gap [Moles/Vol] 17 mmol/L Normal 9-17 [facility] Comment on above: Performed By: #### B H, MG, BMP, ANUJ #### [address] [phone] Customer Assistance Associate: Dale Padilla MD Calcium [Mass/Vol] 7.9 mg/dL Low 8.6-10.4 [facility] Comment on above: Performed By: #### B H, MG, BMP, ANUJ #### [address] [phone] Customer Assistance Associate: Dale Padilla MD Chloride [Moles/Vol] 105 mmol/L Normal 98-107 [facility] Comment on above: Performed By: #### B H, MG, BMP, ANUJ #### [address] [phone] Customer Assistance Associate: Dale Padilla MD CO2 [Moles/Vol] 19 mmol/L Low 20-31 [facility] Comment on above: Performed By: #### B H, MG, BMP, ANUJ #### [address] [phone] Customer Assistance Associate: Dale Padilla MD Creatinine [Mass/Vol] 0.54 mg/dL Low 0.70-1.20 [facility] Comment on above: Performed By: #### B H, MG, BMP, ANUJ #### [facility] [address] [place] [address] [phone] Customer Assistance Associate: Dale Padilla MD GFR, Amer >60 Normal >60 [facility] Comment on above: Performed By: #### B H, MG, BMP, ANUJ #### [facility] [address] [place] [address] [phone] Customer Assistance Associate: Dale Padilla MD GFR,non Amer >60 Normal >60 [facility] Comment on above: Performed By: #### B H, MG, BMP, ANUJ #### [facility] [address] [place] [address] [phone] Customer Assistance Associate: Dale Padilla MD Glucose [Mass/Vol] 132 mg/dL High 70-99 [facility] Comment on above: Performed By: #### B H, MG, BMP, ANUJ #### [facility] [address] [place] [address] [phone] Customer Assistance Associate: Dale Padilla MD Potassium [Moles/Vol] 3.3 mmol/L Low 3.7-5.3 [facility] Comment on above: Performed By: #### B H, MG, BMP, ANUJ #### [facility] [address] [place] [address] [phone] Customer Assistance Associate: Dale Padilla MD Sodium [Moles/Vol] 141 mmol/L Normal 135-144 [facility] Comment on above: Performed By: #### B H, MG, BMP, ANUJ #### [facility] [address] [place] [address] [phone] Customer Assistance Associate: Dale Padilla MD Urea nitrogen [Mass/Vol] 5 mg/dL Low 6-20 [facility] Comment on above: Performed By: #### B H, MG, BMP, ANUJ #### [facility] [address] [place] [address] [phone] Customer Assistance Associate: Dale Padilla MD BUN/CRE Ratio NOT REPORTED Normal 9-20 [facility] Comment on above: Performed By: #### B H, MG, BMP, ANUJ #### [facility] [address] [place] [address] [phone] Customer Assistance Associate: Dale Padilla MD Staging: NOT REPORTED Normal [facility] Comment on above: Performed By: #### B H, MG, BMP, ANUJ #### [facility] [address] [place] [address] [phone] Customer Assistance Associate: Dale Padilla MD Potassium [Moles/Vol] 2.9 mmol/L Critically low 3.7-5.3 [facility] Comment on above: Performed By: #### B H, MG, BMP, ANUJ #### [facility] [address] [place] [address] [phone] Customer Assistance Associate: Dale Padilla MD (cont.) Normal [facility] Comment on above: Result Comment: Aver age GFR for 50-59 years old: 93 mL/min/1.73sq m Chronic Kidney Disease: <60 mL/min/1.73sq m Kidney failure: <15 mL/min/1.73sq m eGFR calculated using average adult body mass. Additional eGFR calculator available at: http://www.[employer].Unicotrip/multiple_crcl_2012.htm Performed By: #### B H, MG, BMP, ANUJ #### [facility] [address] [place] [address] [phone] Customer Assistance Associate: Dale Padilla MD Anion gap [Moles/Vol] 13 mmol/L Normal 9-17 [facility] Comment on above: Performed By: #### B H, MG, BMP, ANUJ #### [facility] [address] [place] [address] [phone] Customer Assistance Associate: Dale Padilla MD Calcium [Mass/Vol] 7.8 mg/dL Low 8.6-10.4 [facility] Comment on above: Performed By: #### B H, MG, BMP, ANUJ #### [facility] [place] [address] Customer Assistance Associate: Dale Padilla MD Chloride [Moles/Vol] 109 mmol/L High 98-107 [facility] Comment on above: Performed By: #### B H, MG, BMP, ANUJ #### [facility] [address] [place] [address] [phone] Customer Assistance Associate: Dale Padilla MD CO2 [Moles/Vol] 18 mmol/L Low 20-31 [facility] Comment on above: Performed By: #### B H, MG, BMP, ANUJ #### [facility] [address] [place] [address] [phone] Customer Assistance Associate: Dale Padilla MD Creatinine [Mass/Vol] 0.53 mg/dL Low 0.70-1.20 [facility] Comment on above: Performed By: #### B H, MG, BMP, ANUJ #### [facility] [address] [place] [address] [phone] Customer Assistance Associate: Dale Padilla MD GFR, Amer >60 Normal >60 [facility] Comment on above: Performed By: #### B H, MG, BMP, ANUJ #### [facility] [address] [place] [address] [phone] Customer Assistance Associate: Dale Padilla MD GFR,non Amer >60 Normal >60 [facility] Comment on above: Performed By: #### B H, MG, BMP, ANUJ #### [facility] [address] [place] [address] [phone] Customer Assistance Associate: Dale Padilla MD Glucose [Mass/Vol] 186 mg/dL High 70-99 [facility] Comment on above: Performed By: #### B H, MG, BMP, ANUJ #### [facility] [address] [place] [address] [phone] Customer Assistance Associate: Dale Padilla MD Sodium [Moles/Vol] 140 mmol/L Normal 135-144 [facility] Comment on above: Performed By: #### B H, MG, BMP, ANUJ #### [facility] [address] [place] [address] [phone] Customer Assistance Associate: Dale Padilla MD Urea nitrogen [Mass/Vol] 6 mg/dL Normal 6-20 [facility] Comment on above: Performed By: #### B H, MG, BMP, ANUJ #### [facility] [address] [place] [phone] Customer Assistance Associate: Dale Padilla MD BUN/CRE Ratio NOT REPORTED Normal 9-20 [facility] Comment on above: Performed By: #### B H, MG, BMP, ANUJ #### [facility] [address] [place] [address] Customer Assistance Associate: Dale Padilla MD Staging: NOT REPORTED Normal [facility] Comment on above: Performed By: #### B H, MG, BMP, ANUJ #### [facility] [address] [place] [address] [phone] Customer Assistance Associate: Dale Padilla MD Potassium [Moles/Vol] 2.9 mmol/L Critically low 3.7-5.3 [facility] Comment on above: Performed By: #### B H, MG, BMP, ANUJ #### [facility] [address] [place] [address] [phone] Customer Assistance Associate: Dale Padilla MD (cont.) Normal [facility] Comment on above: Result Comment: Aver age GFR for 50-59 years old: 93 mL/min/1.73sq m Chronic Kidney Disease: <60 mL/min/1.73sq m Kidney failure: <15 mL/min/1.73sq m eGFR calculated using average adult body mass. Additional eGFR calculator available at: http://www.Cel[employer].com/multiple_crcl_2012.htm Performed By: #### B H, MG, BMP, ANUJ #### [facility] [address] [place] [address] Customer Assistance Associate: Dale Padilla MD Anion gap [Moles/Vol] 14 mmol/L Normal 9-17 [facility] Comment on above: Performed By: #### B H, MG, BMP, ANUJ #### [facility] [address] [place] [address] [phone] Customer Assistance Associate: Dale Padilla MD Calcium [Mass/Vol] 7.7 mg/dL Low 8.6-10.4 [facility] Comment on above: Performed By: #### B H, MG, BMP, ANUJ #### [facility] [address] [place] [address] Customer Assistance Associate: Dale Padilla MD Chloride [Moles/Vol] 110 mmol/L High 98-107 [facility] Comment on above: Performed By: #### B H, MG, BMP, ANUJ #### [facility] [address] [place] [phone] Customer Assistance Associate: Dale Padilla MD CO2 [Moles/Vol] 18 mmol/L Low 20-31 [facility] Comment on above: Performed By: #### B H, MG, BMP, ANUJ #### [facility] [address] [place] [address] Customer Assistance Associate: Dale Padilla MD Creatinine [Mass/Vol] 0.62 mg/dL Low 0.70-1.20 [facility] Comment on above: Performed By: #### B H, MG, BMP, ANUJ #### [facility] [address] [place] [address] Customer Assistance Associate: Dale Padilla MD GFR, Amer >60 Normal >60 [facility] Comment on above: Performed By: #### B H, MG, BMP, ANUJ #### [facility] [address] [place] [phone] Customer Assistance Associate: Dale Padilla MD GFR,non Amer >60 Normal >60 [facility] Comment on above: Performed By: #### B H, MG, BMP, ANUJ #### [facility] [address] [place] [address] Customer Assistance Associate: Dale Padilla MD Glucose [Mass/Vol] 175 mg/dL High 70-99 [facility] Comment on above: Performed By: #### B H, MG, BMP, ANUJ #### [facility] [address] [place] [phone] Customer Assistance Associate: Dale Padilla MD Sodium [Moles/Vol] 142 mmol/L Normal 135-144 [facility] Comment on above: Performed By: #### B H, MG, BMP, ANUJ #### [facility] [address] [place] [phone] Customer Assistance Associate: Dale Padilla MD Urea nitrogen [Mass/Vol] 7 mg/dL Normal 6-20 [facility] Comment on above: Performed By: #### B H, MG, BMP, ANUJ #### [facility] [address] [place] [phone] Customer Assistance Associate: Dale Padilla MD BUN/CRE Ratio NOT REPORTED Normal 9-20 [facility] Comment on above: Performed By: #### B H, MG, BMP, ANUJ #### [facility] [address] [place] [address] [phone] Customer Assistance Associate: Dale Padilla MD Staging: NOT REPORTED Normal [facility] Comment on above: Performed By: #### B H, MG, BMP, ANUJ #### [facility] [address] [place] [phone] Customer Assistance Associate: Dale Padilla MD (cont.) Normal [facility] Comment on above: Result Comment: Aver age GFR for 50-59 years old: 93 mL/min/1.73sq m Chronic Kidney Disease: <60 mL/min/1.73sq m Kidney failure: <15 mL/min/1.73sq m eGFR calculated using average adult body mass. Additional eGFR calculator available at: http://www.[employer].com/multiple_crcl_2012.htm Performed By: #### M Candace BMP, ANUJ #### [facility] [address] [place] [phone] Customer Assistance Associate: Dale Padilla MD Anion gap [Moles/Vol] 15 mmol/L Normal 9-17 [facility] Comment on above: Performed By: #### M Candace BMP, ANUJ #### [facility] [address] [place] [address] [phone] Customer Assistance Associate: Dale Padilla MD Calcium [Mass/Vol] 7.8 mg/dL Low 8.6-10.4 [facility] Comment on above: Performed By: #### Ester Maria BMP, ANUJ #### [facility] [address] [place] [address] [phone] Customer Assistance Associate: Dale Padilla MD Chloride [Moles/Vol] 112 mmol/L High 98-107 [facility] Comment on above: Performed By: #### Ester Maria BMP, ANUJ #### [facility] [address] [place] [address] [phone] Customer Assistance Associate: Dale Padilla MD CO2 [Moles/Vol] 15 mmol/L Low 20-31 [facility] Comment on above: Performed By: #### Ester Maria BMP, ANUJ #### [facility] [address] [place] [address] [phone] Customer Assistance Associate: Dale Padilla MD Creatinine [Mass/Vol] 0.82 mg/dL Normal 0.70-1.20 [facility] Comment on above: Performed By: #### M Candace BMP, ANUJ #### [facility] [address] [place] [address] [phone] Customer Assistance Associate: Dale Padilla MD GFR, Amer >60 Normal >60 [facility] Comment on above: Performed By: #### M aCndace BMP, ANUJ #### [facility] [address] [place] [address] [phone] Customer Assistance Associate: Dale Padilla MD GFR,non Amer >60 Normal >60 [facility] Comment on above: Performed By: #### GABY Pro, ANUJ #### [facility] [address] [place] [address] Customer Assistance Associate: Dale Padilla MD Glucose [Mass/Vol] 211 mg/dL High 70-99 [facility] Comment on above: Performed By: #### GABY Pro, ANUJ #### [facility] [address] [place] [address] [phone] Customer Assistance Associate: Dale Padilla MD Potassium [Moles/Vol] 2.7 mmol/L Critically low 3.7-5.3 [facility] Comment on above: Performed By: #### GABY Pro, ANUJ #### [facility] [address] [place] [address] [phone] Customer Assistance Associate: Dale Padilla MD Sodium [Moles/Vol] 142 mmol/L Normal 135-144 [facility] Comment on above: Performed By: #### GABY Pro, ANUJ #### [address] [phone] Customer Assistance Associate: Dale Padilla MD Urea nitrogen [Mass/Vol] 10 mg/dL Normal 6-20 [facility] Comment on above: Performed By: #### GABY Pro, ANUJ #### [facility] [address] [place] [address] [phone] Customer Assistance Associate: Dale Padilla MD BUN/CRE Ratio NOT REPORTED Normal 9-20 [facility] Comment on above: Performed By: #### GABY Pro, ANUJ #### [facility] [address] [place] [address] [phone] Customer Assistance Associate: Dale Padilla MD Staging: NOT REPORTED Normal [facility] Comment on above: Performed By: #### GABY Pro, ANUJ #### [facility] [address] [place] [address] [phone] Customer Assistance Associate: Dale Padilla MD CA -on 12-02-2021 CA 19-9 393 U/mL High 0-35 [facility] Comment on above: Result Comment: The Jules ECLIA assay is used. Results obtained with different assay methods cannot be used interchangeably. Performed By: #### B H, MG, BMP, ANUJ #### [facility] [address] [place] [address] [phone] Customer Assistance Associate: Dale Padilla MD CANCER ANTIGEN 19-2021 CA 19-9 393 U/mL High 0 - 35 U/mL [facility] Comment on above: The Jules ECLIA as say is used. Results obtained with different assay methods cannot be used interchangeably. Interpretation and review of laboratory results Abnormal [facility] CBCon 12-02-2021 Erythrocyte distribution width (RBC) [Ratio] 16.3 % High 11.8-14.4 [facility] Comment on above: Performed By: #### C BC, IPF, MG, ANUJ, BMP, GLYHGB #### [facility] [address] [place] [address] [phone] Customer Assistance Associate: Dale Padilla MD Hematocrit (Bld) [Volume fraction] 31.9 % Low 40.7-50.3 [facility] Comment on above: Performed By: #### C BC, IPF, MG, ANUJ, BMP, GLYHGB #### [facility] [address] [place] [address] [phone] Customer Assistance Associate: Dlae Padilla MD Hemoglobin (Bld) [Mass/Vol] 10.6 g/dL Low 13.0-17.0 [facility] Comment on above: Performed By: #### C BC, IPF, MG, ANUJ, BMP, GLYHGB #### [facility] [address] [place] [address] [phone] Customer Assistance Associate: Dale Padilla MD MCH (RBC) [Entitic mass] 30.7 pg Normal 25.2-33.5 [facility] Comment on above: Performed By: #### C BC, IPF, MG, ANUJ, BMP, GLYHGB #### [facility] [address] [place] [address] [phone] Customer Assistance Associate: Dale Padilla MD MCHC (RBC) [Mass/Vol] 33.2 g/dL Normal 28.4-34.8 [facility] Comment on above: Performed By: #### C BC, IPF, MG, ANUJ, BMP, GLYHGB #### [address] [address] Customer Assistance Associate: Dale Padilla MD MCV (RBC) [Entitic vol] 92.5 fL Normal 82.6-102.9 [facility] Comment on above: Performed By: #### C BC, IPF, MG, ANUJ, BMP, GLYHGB #### [address] [phone] Customer Assistance Associate: Dale Padilla MD NRBC Automated 0.0 per 100 WBC Normal 0.0 [facility] Comment on above: Performed By: #### C BC, IPF, MG, ANUJ, BMP, GLYHGB #### [address] [address] Customer Assistance Associate: Dale Padilla MD Platelet Count See Reflexed IPF Result Normal 138-453 [facility] Comment on above: Performed By: #### C BC, IPF, MG, ANUJ, BMP, GLYHGB #### [address] [address] Customer Assistance Associate: Dale Padilla MD RBC (Bld) [#/Vol] 3.45 10*6/uL Low 4.21-5.77 [facility] Comment on above: Performed By: #### C BC, IPF, MG, ANUJ, BMP, GLYHGB #### [address] [place], [place] [phone] Customer Assistance Associate: Dale Padilla MD WBC (Bld) [#/Vol] 5.3 10*3/uL Normal 3.5-11.3 [facility] Comment on above: Performed By: #### C BC, IPF, MG, ANUJ, BMP, GLYHGB #### [facility] [address] [place], [place] [phone] Customer Assistance Associate: Dale Padilla MD MPV NOT REPORTED Normal 8.1-13.5 [facility] Comment on above: Performed By: #### C BC, IPF, MG, ANUJ, BMP, GLYHGB #### [facility] [address] [place], [place] [phone] Customer Assistance Associate: Dale Padilla MD Hematocrit (Bld) [Volume fraction] 31.9 % Low 40.7 - 50.3 % [facility] [employer] Hemoglobin.gastroint estinal spec 1 Ql (Stl) 10.6 g/dL Low 13.0 - 17.0 g/dL [facility] Interpretation and review of laboratory results Abnormal [facility] MCH (RBC) [Entitic mass] 30.7 pg 25.2 - 33.5 pg [facility] [employer] MCHC (RBC) [Mass/Vol] 33.2 g/dL 28.4 - 34.8 g/dL [facility] MCV (RBC) [Entitic vol] 92.5 fL 82.6 - 102.9 fL [facility] NRBC Automated 0.0 0.0 per 100 WBC [facility] Platelet distribution width (Bld) [Ratio] 16.3 % High 11.8 - 14.4 % [facility] Platelet mean volume (Bld) [Entitic vol] NOT REPORTED 8.1 - 13.5 fL [facility] Platelets (Bld) [#/Vol] See Reflexed IPF Result [facility] RBC (Bld) [#/Vol] 3.45 10*6/uL Low 4.21 - 5.7 7 m/uL [facility] [employer] WBC (Bld) [#/Vol] 5.3 10*3/uL [facility] [employer] GAMMA GTon 12-02-2021 Gamma glutamyl transferase [Catalytic activity/Vol] 3198 U/L High 8 - 61 U/L [facility] Interpretation and review of laboratory results Abnormal [facility] Gammaglutamyl Transon 2021 Amylase [Catalytic activity/Vol] 3198 U/L High 8-61 [facility] Comment on above: Performed By: #### B H, MG, BMP, ANUJ #### [facility] [address] [phone] Customer Assistance Associate: Dale Padilla MD HEPATIC FUNCTION PANELon Albumin [Mass/Vol] 3.2 g/dL Low 3.5 - 5.2 g/dL [facility] Albumin/Globulin [Mass ratio] 1.3 {ratio} [facility] ALP (Bld) [Catalytic activity/Vol] 191 U/L High 40 - 129 U/L [facility] ALT [Catalytic activity/Vol] 62 U/L High 5 - 41 U/L [facility] AST [Catalytic activity/Vol] 78 U/L High <40 [facility] Bilirubin [Mass/Vol] 1.38 mg/dL High 0.3 - 1 .2 mg/dL [facility] Bilirubin, Indirect 0.53 mg/dL 0.00 - 1 .00 mg/dL [facility] Bilirubin.indirect [Mass/Vol] 0.85 mg/dL High <0.31 [facility] Free PSA/Total PSA [Mass fraction] 5.7 g/dL Low 6.4 - 8.3 g/dL [facility] Globulin NOT REPORTED 1.5 - 3.8 g/dL [facility] HEPATITIS PANEL, ACUTEon HAV IgM IA Qn (S) Non-Reactive NONREACTIVE [facility] Hep B Core Ab, IgM Non-Reactive NONREACTIVE [facility] Hepatitis B Surface Ag Non-Reactive NONREACTIVE [facility] Hepatitis C Ab Non-Reactive NONREACTIVE [facility] Comment on above: The hepatitis C procedure used in our laboratory is a Chemiluminescent test specific for three recombinant HCV antigens. A negative anti-HCV result indicates that the antibodies to hepatitis C virus are not present at this time. Individuals with reactive anti-HCV should be considered infected and infectious until proven otherwise. Confirmation of all equivocal or reactive results is recommended by ordering HCV RNA by PCR. [facility] Hemoglobin A1Con 12-02-2021 Glucose [Mass/Vol] 292 mg/dL Normal [facility] Comment on above: Result Comment: The ADA and AACC recommend providing the estimated average glucose result to permit better patient understanding of their HBA1c result. Performed By: #### B H, MG, BMP, ANUJ #### [facility] [address] [place] [address] [phone] Customer Assistance Associate: Dale Padilla MD HbA1c (Bld) [Mass fraction] 11.8 % High 4.0-6.0 [facility] Comment on above: Performed By: #### B H, MG, BMP, ANUJ #### [facility] [address] [place] [address] [phone] Customer Assistance Associate: Dale Padilla MD Glucose [Mass/Vol] 292 mg/dL [facility] Comment on above: The ADA and AACC rec ommend providing the estimated average glucose result to permit better patient understanding of their HBA1c result. HbA1c (Bld) [Mass fraction] 11.8 % High 4.0 - 6.0 % [facility] Interpretation and review of laboratory results Abnormal [facility] Hepatitis Acute Zuleyka 12-02 Hep A Ab,IgM Non-Reactive Normal NR [facility] Comment on above: Performed By: #### B H, MG, BMP, ANUJ #### [facility] [address] [place] [address] [phone] Customer Assistance Associate: Dale Padilla MD Hep B Core Ab,IgM Non-Reactive Normal NR [facility] Comment on above: Performed By: #### B H, MG, BMP, ANUJ #### [facility] [address] [place] [address] [phone] Customer Assistance Associate: Dale Padilla MD Hep B Surf Ag Non-Reactive Normal NR [facility] Comment on above: Performed By: #### B H, MG, BMP, ANUJ #### [facility] [address] [place] [address] [phone] Customer Assistance Associate: Dale Padilla MD Hep C Ab Non-Reactive Normal NR [facility] Comment on above: Result Comment: The hepatitis C procedure used in our laboratory is a Chemiluminescent test specific for three recombinant HCV antigens. A negative anti-HCV result indicates that the antibodies to hepatitis C virus are not present at this time. Individuals with reactive anti-HCV should be considered infected and infectious until proven otherwise. Confirmation of all equivocal or reactive results is recommended by ordering HCV RNA by PCR. Performed By: #### MG Ervin BMP, ANUJ #### [facility] [address] [place], [place] [phone] Customer Assistance Associate: Dale Padilla MD Immature Platelet Fractionon 12-02-2021 Interpretation and review of laboratory results Abnormal [facility] Platelet, Fluorescence 132 Low [facility] Platelet, Immature Fraction 6.8 % 1.1 - 10.3 % [facility] Laboratory - Chemistry and C hemistry - challengeon 12-02-2021 Glucose [Mass/Vol] 196 mg/dL High 75 - 110 mg/dL [facility] Lipaseon 12-02-2021 Lipase [Catalytic activity/Vol] 100 U/L High 13-60 [facility] Comment on above: Performed By: #### MG Ervin BMP, ANUJ #### [facility] [address] [place], [place] [phone] Customer Assistance Associate: Dale Padilla MD Interpretation and review of laboratory results Abnormal [facility] Lipase [Catalytic activity/Vol] 100 U/L High 13 - 60 U/L [facility] Lipid Panelon 12-02-2021 Cholesterol [Mass/Vol] 331 mg/dL High <200 [facility] Comment on above: Cholesterol Guidelines: <200 Desirable 200-240 Borderline >240 Undesirable Cholesterol in HDL [Mass/Vol] 58 mg/dL >40 [facility] Comment on above: HDL Guidelines: <40 Undesirable 40-59 Borderline >59 Desirable Cholesterol in LDL [Mass/Vol] 211 mg/dL High 0 - 130 mg/dL [facility] Comment on above: LDL Guidelines: <100 Desirable 100-129 Near to/above Desirable 130-159 Borderline >159 Undesirable Direct (measured) LDL and calculated LDL are not interchangeable tests. Cholesterol in VLDL [Mass/Vol] NOT REPORTED High 1 - 30 mg/dL [facility] Cholesterol.total/Ch olesterol in HDL [Mass ratio] 5.7 {ratio} High <5 [facility] Triglyceride [Mass/Vol] 309 mg/dL High <150 [facility] Comment on above: Triglyceride Guidelines: <150 Desirable 150-199 Borderline 200-499 High >499 Very high Based on AHA Guidelines for fasting triglyceride, August 2012. Lipid Profileon 12-02-2021 Cholesterol [Mass/Vol] 331 mg/dL High <200 [facility] Comment on above: Result Comment: Cholesterol Guidelines: <200 Desirable 200-240 Borderline >240 Undesirable Performed By: #### B H, MG, BMP, ANUJ #### [facility] [address] [place] [phone] Customer Assistance Associate: Dale Padilla MD Cholesterol in HDL [Mass/Vol] 58 mg/dL Normal >40 [facility] Comment on above: Result Comment: HDL Guidelines: <40 Undesirable 40-59 Borderline >59 Desirable Performed By: #### B H, MG, BMP, ANUJ #### [facility] [address] [place] [address] [phone] Customer Assistance Associate: Dale Padilla MD Cholesterol in LDL [Mass/Vol] 211 mg/dL High 0-130 [facility] Comment on above: Result Comment: LDL Guidelines: <100 Desirable 100-129 Near to/above Desirable 130-159 Borderline >159 Undesirable Direct (measured) LDL and calculated LDL are not interchangeable tests. Performed By: #### B H, MG, BMP, ANUJ #### [facility] [address] [place] [address] [phone] Customer Assistance Associate: Dale Padilla MD Cholesterol.total/Ch olesterol in HDL [Mass ratio] 5.7 {ratio} High <5 [facility] Comment on above: Performed By: #### B H, MG, BMP, ANUJ #### [facility] [address] [place] [phone] Customer Assistance Associate: Dale Padilla MD Triglyceride [Mass/Vol] 309 mg/dL High <150 [facility] Comment on above: Result Comment: Triglyceride Guidelines: <150 Desirable 150-199 Borderline 200-499 High >499 Very high Based on AHA Guidelines for fasting triglyceride, August 2012. Performed By: #### B H, MG, BMP, ANUJ #### [facility] [address] [place] [address] [phone] Customer Assistance Associate: Dale Padilla MD Cholesterol,VLDL NOT REPORTED Normal -30 [facility] Comment on above: Performed By: #### B H, MG, BMP, ANUJ #### [facility] [address] [place] [address] [phone] Customer Assistance Associate: Dale Padilla MD Liver Profileon 12-02-2021 Albumin [Mass/Vol] 3.2 g/dL Low 3.5-5.2 [facility] Comment on above: Performed By: #### B H, MG, BMP, ANUJ #### [facility] [address] [place] [phone] Customer Assistance Associate: Dale Padilla MD Albumin/Glob Ratio 1.3 Normal 1.0-2.5 [facility] Comment on above: Performed By: #### B H, MG, BMP, ANUJ #### [facility] [address] [place] [phone] Customer Assistance Associate: Dale Padilla MD Alkaline Phos 191 U/L High 40-129 [facility] Comment on above: Performed By: #### B H, MG, BMP, ANUJ #### [facility] [address] [place] [address] [phone] Customer Assistance Associate: Dale Padilla MD ALT [Catalytic activity/Vol] 62 U/L High 5-41 [facility] Comment on above: Performed By: #### B H, MG, BMP, ANUJ #### [facility] [address] [place] [address] [phone] Customer Assistance Associate: Dale Padilla MD AST [Catalytic activity/Vol] 78 U/L High <40 [facility] Comment on above: Performed By: #### B H, MG, BMP, ANUJ #### [facility] [address] [place] [address] [phone] Customer Assistance Associate: Dale Padilla MD Bilirubin [Mass/Vol] 1.38 mg/dL High 0.3-1.2 [facility] Comment on above: Performed By: #### B H, MG, BMP, ANUJ #### [facility] [address] [place] [phone] Customer Assistance Associate: Dale Padilla MD Bilirubin, Indirect 0.53 mg/dL Normal 0.00-1.00 [facility] Comment on above: Performed By: #### B H, MG, BMP, ANUJ #### [facility] [address] [place] [phone] Customer Assistance Associate: Dale Padilla MD Bilirubin.indirect [Mass/Vol] 0.85 mg/dL High <0.31 [facility] Comment on above: Performed By: #### B H, MG, BMP, ANUJ #### [facility] [address] [place] [address] [phone] Customer Assistance Associate: Dale Padilla MD Protein [Mass/Vol] 5.7 g/dL Low 6.4-8.3 [facility] Comment on above: Performed By: #### B H, MG, BMP, ANUJ #### [facility] [address] [place] [phone] Customer Assistance Associate: Dale Padilla MD Globulin Fraction NOT REPORTED Normal 1.5-3.8 [facility] Comment on above: Performed By: #### B H, MG, BMP, ANUJ #### [facility] [address] [place] [phone] Customer Assistance Associate: Dale Padilla MD MRI ABDOMEN W WO CONTRAST MR CPon 12-02-2021 Radiology Study observation (narrative) [facility] Work Phone: Magnesiumon 12-02-2021 Magnesium [Mass/Vol] 1.8 mg/dL Normal 1.6-2.6 [facility] Comment on above: Performed By: #### B H, MG, BMP, ANUJ #### [facility] [address] [place] [address] [phone] Customer Assistance Associate: Dale Padilla MD Magnesium [Mass/Vol] 1.8 mg/dL 1.6 - 2 .6 mg/dL [facility] Magnesium [Mass/Vol] 2.1 mg/dL Normal 1.6-2.6 [facility] Comment on above: Performed By: #### B H, MG, BMP, ANUJ #### [facility] [address] [place] [address] [phone] Customer Assistance Associate: Dale Padilla MD Magnesium [Mass/Vol] 2.2 mg/dL Normal 1.6-2.6 [facility] Comment on above: Performed By: #### B H, MG, BMP, ANUJ #### [facility] [address] [place] [address] [phone] Customer Assistance Associate: Dale Padilla MD Magnesium [Mass/Vol] 2.1 mg/dL 1.6 - 2 .6 mg/dL [facility] Magnesium [Mass/Vol] 2.2 mg/dL 1.6 - 2 .6 mg/dL [facility] Magnesium [Mass/Vol] 1.7 mg/dL Normal 1.6-2.6 [facility] Comment on above: Performed By: #### B H, MG, BMP, ANUJ #### [facility] [address] [place] [address] [phone] Customer Assistance Associate: Dale Padilla MD Magnesium [Mass/Vol] 1.7 mg/dL 1.6 - 2 .6 mg/dL [facility] Magnesium [Mass/Vol] 1.7 mg/dL Normal 1.6-2.6 [facility] Comment on above: Performed By: #### C BC, IPF, MG, ANUJ, BMP, GLYHGB #### [facility] [place], [place] [phone] Customer Assistance Associate: Dale Padilla MD Magnesium [Mass/Vol] 1.7 mg/dL 1.6 - 2 .6 mg/dL [facility] Magnesium [Mass/Vol] 1.8 mg/dL Normal 1.6-2.6 [facility] Comment on above: Performed By: #### M G, BMP, ANUJ #### [facility] [address] [place] [address] [phone] Customer Assistance Associate: Dale Padilla MD Magnesium [Mass/Vol] 1.8 mg/dL 1.6 - 2 .6 mg/dL [facility] No Panel Informationon 12-02 Interpretation and review of laboratory results Abnormal [facility] Interpretation and review of laboratory results Abnormal [facility] Interpretation and review of laboratory results Abnormal [facility] Interpretation and review of laboratory results Abnormal [facility] Interpretation and review of laboratory results Abnormal [facility] PLT, Immature Fract.on 12-02 Platelet, Fluoresc. 132 k/uL Low 138-453 [facility] Comment on above: Performed By: #### C BC, IPF, MG, ANUJ, BMP, GLYHGB #### [facility] [employer] [address] [place] [address] [phone] Customer Assistance Associate: Dale Padilla MD PLT, Immature Fract. 6.8 % Normal 1.1-10.3 [facility] Comment on above: Performed By: #### C BC, IPF, MG, ANUJ, BMP, GLYHGB #### [facility] [employer] [address] [place] [address] [phone] Customer Assistance Associate: Dale Padilla MD POC Glucose Fingerstickon Glucose [Mass/Vol] 203 mg/dL High 75 - 110 mg/dL [facility] Interpretation and review of laboratory results Abnormal [facility] Glucose [Mass/Vol] 211 mg/dL High 75 - 110 mg/dL [facility] Interpretation and review of laboratory results Abnormal [facility] Glucose [Mass/Vol] 147 mg/dL High 75 - 110 mg/dL [facility] Interpretation and review of laboratory results Abnormal [facility] Glucose [Mass/Vol] 210 mg/dL High 75 - 110 mg/dL [facility] Interpretation and review of laboratory results Abnormal [facility] Glucose [Mass/Vol] 160 mg/dL High 75 - 110 mg/dL [facility] Glucose [Mass/Vol] 167 mg/dL High 75 - 110 mg/dL [facility] Glucose [Mass/Vol] 169 mg/dL High 75 - 110 mg/dL [facility] Glucose [Mass/Vol] 159 mg/dL High 75 - 110 mg/dL [facility] Glucose [Mass/Vol] 176 mg/dL High 75 - 110 mg/dL [facility] Glucose [Mass/Vol] 192 mg/dL High 75 - 110 mg/dL [facility] Glucose [Mass/Vol] 220 mg/dL High 75 - 110 mg/dL [facility] Interpretation and review of laboratory results Abnormal [facility] Glucose [Mass/Vol] 189 mg/dL High 75 - 110 mg/dL [facility] Interpretation and review of laboratory results Abnormal [facility] Phosphoruson 12-02-2021 Phosphate [Mass/Vol] 1.1 mg/dL Low 2.5 - 4 .5 mg/dL [facility] Phosphate [Mass/Vol] 1.4 mg/dL Low 2.5 - 4 .5 mg/dL [facility] Phosphate [Mass/Vol] 1.2 mg/dL Low 2.5 - 4 .5 mg/dL [facility] Interpretation and review of laboratory results Abnormal [facility] Phosphate [Mass/Vol] 1.1 mg/dL Low 2.5 - 4 .5 mg/dL [facility] Interpretation and review of laboratory results Abnormal [facility] Phosphate [Mass/Vol] 1.0 mg/dL Low 2.5 - 4 .5 mg/dL [facility] Phosphate [Mass/Vol] 0.9 mg/dL Critically low 2.5 - 4.5 mg/dL [facility] Phosphorus, Inorg.on 022 Phosphorus, Inorg. 1.1 mg/dL Low 2.5-4.5 [facility] Comment on above: Performed By: #### B H, MG, BMP, ANUJ #### [facility] [address] [place] [address] [phone] Customer Assistance Associate: Dale Padilla MD Phosphorus, Inorg. 1.4 mg/dL Low 2.5-4.5 [facility] Comment on above: Performed By: #### B H, MG, BMP, ANUJ #### [facility] [address] [place] [address] [phone] Customer Assistance Associate: Dale Padilla MD Phosphorus, Inorg. 1.2 mg/dL Low 2.5-4.5 [facility] Comment on above: Performed By: #### B H, MG, BMP, ANUJ #### [facility] [address] [place] [address] [phone] Customer Assistance Associate: Dale Padilla MD Phosphorus, Inorg. 1.1 mg/dL Low 2.5-4.5 [facility] Comment on above: Performed By: #### B H, MG, BMP, ANUJ #### [facility] [address] [place] [address] [phone] Customer Assistance Associate: Dale Padilla MD Phosphorus, Inorg. 1.0 mg/dL Low 2.5-4.5 [facility] Comment on above: Performed By: #### B H, MG, BMP, ANUJ #### [facility] [address] [place] [address] [phone] Customer Assistance Associate: Dale Padilla MD Phosphorus, Inorg. 0.9 mg/dL Critically low 2.5-4.5 [facility] Comment on above: Performed By: #### M G, BMP, ANUJ #### [facility] [address] [place] [address] [phone] Customer Assistance Associate: Dale Padilla MD Basic Metabolic Panelon -3 Anion gap [Moles/Vol] 21 mmol/L High 9 - 17 mmol/L [facility] Calcium [Mass/Vol] 8.0 mg/dL Low 8.6 - 10. 4 mg/dL [facility] [employer] Chloride [Moles/Vol] 110 mmol/L High 98 - 10 7 mmol/L [facility] [employer] CO2 [Moles/Vol] 9 mmol/L Critically low 20 - 31 mmol/L [facility] Creatinine [Mass/Vol] 0.99 mg/dL 0.70 - 1.20 mg/dL [facility] [employer] GFR >60 >60 mL/min [facility] [employer] GFR Non- >60 >60 mL/min [facility] [employer] GFR/1.73 sq M.predicted MDRD (S/P/Bld) [Vol rate/Area] [facility] Comment on above: Average GFR for 50-5 9 years old: 93 mL/min/1.73sq m Chronic Kidney Disease: <60 mL/min/1.73sq m Kidney failure: <15 mL/min/1.73sq m eGFR calculated using average adult body mass. Additional eGFR calculator available at: http://www.Everwise/multiple_crcl_2012.htm GFR/1.73 sq M.predicted MDRD (S/P/Bld) [Vol rate/Area] NOT REPORTED [facility] [employer] Glucose [Mass/Vol] 225 mg/dL High 70 - 99 mg/dL [facility] [employer] Potassium [Moles/Vol] 3.2 mmol/L Low 3.7 - 5.3 mmol/L [facility] [employer] Sodium [Moles/Vol] 140 mmol/L 135 - 144 mmol/L [facility] [employer] Urea nitrogen (BldV) [Mass/Vol] 15 mg/dL 6 - 20 mg/dL [facility] [employer] Urea nitrogen/Creatinine (Bld) [Mass ratio] NOT REPORTED [facility] [employer] Anion gap [Moles/Vol] 25 mmol/L High 9 - 17 mmol/L [facility] [employer] Calcium [Mass/Vol] 8.0 mg/dL Low 8.6 - 10. 4 mg/dL [facility] [employer] Chloride [Moles/Vol] 109 mmol/L High 98 - 10 7 mmol/L [facility] [employer] CO2 [Moles/Vol] 8 mmol/L Critically low 20 - 31 mmol/L [facility] [employer] Creatinine [Mass/Vol] 1.07 mg/dL 0.70 - 1.20 mg/dL [facility] [employer] GFR >60 >60 mL/min [facility] [employer] GFR Non- >60 >60 mL/min [facility] [employer] GFR/1.73 sq M.predicted MDRD (S/P/Bld) [Vol rate/Area] [facility] [employer] Comment on above: Average GFR for 50-5 9 years old: 93 mL/min/1.73sq m Chronic Kidney Disease: <60 mL/min/1.73sq m Kidney failure: <15 mL/min/1.73sq m eGFR calculated using average adult body mass. Additional eGFR calculator available at: http://www.Everwise/multiple_crcl_2012.htm GFR/1.73 sq M.predicted MDRD (S/P/Bld) [Vol rate/Area] NOT REPORTED [facility] [employer] Glucose [Mass/Vol] 163 mg/dL High 70 - 99 mg/dL [facility] [employer] Potassium [Moles/Vol] 3.4 mmol/L Low 3.7 - 5.3 mmol/L [facility] [employer] Sodium [Moles/Vol] 142 mmol/L 135 - 144 mmol/L [facility] [employer] Urea nitrogen (BldV) [Mass/Vol] 19 mg/dL 6 - 20 mg/dL [facility] [employer] Urea nitrogen/Creatinine (Bld) [Mass ratio] 18 [facility] [employer] Anion gap [Moles/Vol] Unable to calculate anion gap due to CO2 less than 6. 9 - 17 mmol/L [facility] [employer] Calcium [Mass/Vol] 8.5 mg/dL Low 8.6 - 10. 4 mg/dL [facility] [employer] Chloride [Moles/Vol] 105 mmol/L 98 - 10 7 mmol/L [facility] [employer] CO2 [Moles/Vol] mmol/L Critically low 20 - 31 mmol/L [facility] [employer] Creatinine [Mass/Vol] 1.18 mg/dL 0.70 - 1.20 mg/dL [facility] [employer] GFR >60 >60 mL/min [facility] [employer] GFR Non- >60 >60 mL/min [facility] [employer] GFR/1.73 sq M.predicted MDRD (S/P/Bld) [Vol rate/Area] [facility] [employer] Comment on above: Average GFR for 50-5 9 years old: 93 mL/min/1.73sq m Chronic Kidney Disease: <60 mL/min/1.73sq m Kidney failure: <15 mL/min/1.73sq m eGFR calculated using average adult body mass. Additional eGFR calculator available at: http://www.Everwise/Isentropic_crcl_2012.htm GFR/1.73 sq M.predicted MDRD (S/P/Bld) [Vol rate/Area] NOT REPORTED [facility] Glucose [Mass/Vol] 363 mg/dL Critically high 70 - 99 mg/d L [facility] Potassium [Moles/Vol] 4.1 mmol/L 3.7 - 5.3 [facility]/L [facility] Sodium [Moles/Vol] 140 mmol/L 135 - 144 mmol/L [facility] Urea nitrogen (BldV) [Mass/Vol] 22 mg/dL High 6 - 20 mg/dL [facility] Urea nitrogen/Creatinine (Bld) [Mass ratio] 19 [facility] Anion gap [Moles/Vol] 25 mmol/L High 9 - 17 mmol/L [facility] Calcium [Mass/Vol] 8.3 mg/dL Low 8.6 - 10. 4 mg/dL [facility] Chloride [Moles/Vol] 103 mmol/L 98 - 10 7 mmol/L [facility] CO2 [Moles/Vol] 8 mmol/L Critically low 20 - 31 mmol/[facility] Creatinine [Mass/Vol] 1.38 mg/dL High 0.70 - 1.20 mg/dL [facility] GFR >60 >60 mL/min [facility] GFR Non- 54 mL/min Low >60 [facility] GFR/1.73 sq M.predicted MDRD (S/P/Bld) [Vol rate/Area] [facility] Comment on above: Average GFR for 50-5 9 years old: 93 mL/min/1.73sq m Chronic Kidney Disease: <60 mL/min/1.73sq m Kidney failure: <15 mL/min/1.73sq m eGFR calculated using average adult body mass. Additional eGFR calculator available at: http://www.Everwise/multiple_crcl_2012.htm GFR/1.73 sq M.predicted MDRD (S/P/Bld) [Vol rate/Area] NOT REPORTED [facility] Glucose [Mass/Vol] 315 mg/dL High 70 - 99 mg/dL [facility] Interpretation and review of laboratory results Abnormal [facility] Potassium [Moles/Vol] 4.5 mmol/L 3.7 - 5.3 mmol/L [facility] Sodium [Moles/Vol] 136 mmol/L 135 - 144 mmol/L [facility] Urea nitrogen (BldV) [Mass/Vol] 26 mg/dL High 6 - 20 mg/dL [facility] Urea nitrogen/Creatinine (Bld) [Mass ratio] 19 [facility] Basic Metabolic Profon 12-01 (cont.) Normal [facility] Comment on above: Result Comment: Aver age GFR for 50-59 years old: 93 mL/min/1.73sq m Chronic Kidney Disease: <60 mL/min/1.73sq m Kidney failure: <15 mL/min/1.73sq m eGFR calculated using average adult body mass. Additional eGFR calculator available at: http://www.Everwise/multiple_crcl_2011.htm Performed By: #### B H, MG, BMP, ANUJ #### [facility] [address] [place] [address] [phone] Customer Assistance Associate: Dale Padilla MD Anion gap [Moles/Vol] 21 mmol/L High 9-17 [facility] Comment on above: Performed By: #### B H, MG, BMP, ANUJ #### [facility] [address] [place] [address] [phone] Customer Assistance Associate: Dale Padilla MD Calcium [Mass/Vol] 8.0 mg/dL Low 8.6-10.4 [facility] Comment on above: Performed By: #### B H, MG, BMP, ANUJ #### [facility] [address] [place] [address] [phone] Customer Assistance Associate: Dale Padilla MD Chloride [Moles/Vol] 110 mmol/L High 98-107 [facility] Comment on above: Performed By: #### B H, MG, BMP, ANUJ #### [facility] [address] [place] [address] [phone] Customer Assistance Associate: Dale Padilla MD CO2 [Moles/Vol] 9 mmol/L Critically low 20-31 [facility] Comment on above: Performed By: #### B H, MG, BMP, ANUJ #### [facility] [address] [place] [address] [phone] Customer Assistance Associate: Dale Padilla MD Creatinine [Mass/Vol] 0.99 mg/dL Normal 0.70-1.20 [facility] Comment on above: Performed By: #### B H, MG, BMP, ANUJ #### [facility] [address] [place] [address] [phone] Customer Assistance Associate: Dale Padilla MD GFR, Amer >60 Normal >60 [facility] Comment on above: Performed By: #### B H, MG, BMP, ANUJ #### [facility] [address] [place] [address] [phone] Customer Assistance Associate: Dale Padilla MD GFR,non Amer >60 Normal >60 [facility] Comment on above: Performed By: #### B H, MG, BMP, ANUJ #### [facility] [address] [place] [address] [phone] Customer Assistance Associate: Dale Padilla MD Glucose [Mass/Vol] 225 mg/dL High 70-99 [facility] Comment on above: Performed By: #### B H, MG, BMP, ANUJ #### [facility] [address] [place] [address] [phone] Customer Assistance Associate: Dale Padilla MD Potassium [Moles/Vol] 3.2 mmol/L Low 3.7-5.3 [facility] Comment on above: Performed By: #### B H, MG, BMP, ANUJ #### [facility] [address] [place] [address] [phone] Customer Assistance Associate: Dale Padilla MD Sodium [Moles/Vol] 140 mmol/L Normal 135-144 [facility] Comment on above: Performed By: #### B H, MG, BMP, ANUJ #### [facility] [address] [place] [address] Customer Assistance Associate: Dale Padilla MD Urea nitrogen [Mass/Vol] 15 mg/dL Normal 6-20 [facility] Comment on above: Performed By: #### B H, MG, BMP, ANUJ #### [address] [phone] Customer Assistance Associate: Dale Padilla MD BUN/CRE Ratio NOT REPORTED Normal - [facility] Comment on above: Performed By: #### B H, MG, BMP, ANUJ #### [address] [phone] Customer Assistance Associate: Dale Padilla MD Staging: NOT REPORTED Normal [facility] Comment on above: Performed By: #### B H, MG, BMP, ANUJ #### [address] [phone] Customer Assistance Associate: Dale Padilla MD (cont.) [facility] Comment on above: Result Comment: Aver age GFR for 50-59 years old: 93 mL/min/1.73sq m Chronic Kidney Disease: <60 mL/min/1.73sq m Kidney failure: <15 mL/min/1.73sq m eGFR calculated using average adult body mass. Additional eGFR calculator available at: http://www.Celoxica.com/multiple_crcl_2012.htm Performed By: #### B MP, MG, ANUJ ####[facility] [id number] [place] [address] Lab Director: Carole Holden MD Anion gap [Moles/Vol] 25 mmol/L High 9-17 [facility] Comment on above: Performed By: #### B MP, MG, ANUJ ####[facility] [id number] [place] [address] Lab Director: Carole Holden MD BUN/CRE Ratio 18 Normal 9-20 [facility] Comment on above: Performed By: #### B MP, MG, ANUJ ####[facility] [id number] [place] [address] Lab Director: Carole Holden MD Calcium [Mass/Vol] 8.0 mg/dL Low 8.6-10.4 [facility] Comment on above: Performed By: #### B MP, MG, ANUJ ####[facility] [id number] [facility] [place] [address] Lab Director: Carole Holden MD Chloride [Moles/Vol] 109 mmol/L High 98-107 [facility] Comment on above: Performed By: #### B MP, MG, ANUJ ####[facility] [id number] [facility] [place] [address] Lab Director: Carole Holden MD CO2 [Moles/Vol] 8 mmol/L Critically low 20-31 [facility] Comment on above: Performed By: #### B MP, MG, ANUJ ####[facility] [id number] [place] [address] Lab Director: Carole Holden MD Creatinine [Mass/Vol] 1.07 mg/dL Normal 0.70-1.20 [facility] Comment on above: Performed By: #### B MP, MG, ANUJ ####[facility] [id number] [place] [address] Lab Director: Carole Holden MD GFR, Amer >60 Normal >60 [facility] Comment on above: Performed By: #### B MP, MG, ANUJ ####[facility] [id number] [place] [address] Lab Director: Carole Holden MD GFR,non Amer >60 Normal >60 [facility] Comment on above: Performed By: #### B MP, MG, ANUJ ####[facility] [id number] [place] [address] Lab Director: Carole Holden MD Glucose [Mass/Vol] 163 mg/dL High 70-99 [facility] Comment on above: Performed By: #### B MP, MG, ANUJ ####[facility] [id number] [place] [address] lab Director: Carole Holden MD Potassium [Moles/Vol] 3.4 mmol/L Low 3.7-5.3 [facility] Comment on above: Performed By: #### B MP, MG, ANUJ ####[facility] [id number] [place] [address] Lab Director: Carole Holden MD Sodium [Moles/Vol] 142 mmol/L Normal 135-144 [facility] Comment on above: Performed By: #### B MP, MG, ANUJ ####[facility] [id number] [place] [address] Lab Director: Carole Holden MD Urea nitrogen [Mass/Vol] 19 mg/dL Normal 6-20 [facility] Comment on above: Performed By: #### B MP, MG, ANUJ ####[facility] [id number] [place] [address] Lab Director: Carole Holden MD Staging: NOT REPORTED Normal [facility] Comment on above: Performed By: #### B MP, MG, ANUJ ####[facility] [id number] [place] [address] Lab Director: Carole Holden MD (cont.) Normal [facility] Comment on above: Result Comment: Aver age GFR for 50-59 years old: 93 mL/min/1.73sq m Chronic Kidney Disease: <60 mL/min/1.73sq m Kidney failure: <15 mL/min/1.73sq m eGFR calculated using average adult body mass. Additional eGFR calculator available at: http://www.Celoxica.Unicotrip/multiple_crcl_2012.htm Performed By: #### L IP, BMP, CDP ####[facility] [id number] [place] [address] Lab Director: Carole Holden MD Anion Gap Unable to calculate anion gap due to CO2 less than 6. Normal 9-17 [facility] Comment on above: Performed By: #### L IP, BMP, CDP ####[facility] [id number] [place] [address] lab Director: Carole Holden MD BUN/CRE Ratio 19 Normal 9-20 [facility] Comment on above: Performed By: #### L KELLY, BMP, CDP ####[facility] [id number] [place] [address] Lab Director: Carole Holden MD Calcium [Mass/Vol] 8.5 mg/dL Low 8.6-10.4 [facility] Comment on above: Performed By: #### L KELLY, BMP, CDP ####[facility] [id number] [place] [address] Lab Director: Carole Holden MD Chloride [Moles/Vol] 105 mmol/L Normal 98-107 [facility] Comment on above: Performed By: #### L IP, BMP, CDP ####[facility] [id number] [place] [address] Lab Director: Carole Holden MD CO2 [Moles/Vol] mmol/L Critically low 20-31 [facility] Comment on above: Performed By: #### L IP, BMP, CDP ####[facility] [id number] [facility] [place] [place] [address] Lab Director: Carole Holden MD Creatinine [Mass/Vol] 1.18 mg/dL Normal 0.70-1.20 [facility] Comment on above: Performed By: #### L IP, BMP, CDP ####[facility] [id number] [place] [address] Lab Director: Carole Holden MD GFR, Amer >60 Normal >60 [facility] Comment on above: Performed By: #### L IP, BMP, CDP ####[facility] [id number] [place] [address] lab Director: Carole Holden MD GFR,non Amer >60 Normal >60 [facility] Comment on above: Performed By: #### L IP, BMP, CDP ####[facility] [id number] [place] [address] Lab Director: Carole Holden MD Glucose [Mass/Vol] 363 mg/dL Critically high 70-99 [facility] Comment on above: Performed By: #### L IP, BMP, CDP ####[facility] [id number] [facility] [place] [address] Lab Director: Carole Holden MD Potassium [Moles/Vol] 4.1 mmol/L Normal 3.7-5.3 [facility] Comment on above: Performed By: #### L IP, BMP, CDP ####[facility] [id number] [place] [address] Lab Director: Carole Holden MD Sodium [Moles/Vol] 140 mmol/L Normal 135-144 [facility] Comment on above: Performed By: #### L IP, BMP, CDP ####[facility] [id number] [place] [address] Lab Director: Carole Holden MD Urea nitrogen [Mass/Vol] 22 mg/dL High 6-20 [facility] Comment on above: Performed By: #### L IP, BMP, CDP ####[facility] [id number] [place] [address] Lab Director: Carole Holden MD Staging: NOT REPORTED Normal [facility] Comment on above: Performed By: #### L IP, BMP, CDP ####[facility] [id number] [place] [address] Lab Director: Carole Holden MD (cont.) Normal [facility] Comment on above: Result Comment: Aver age GFR for 50-59 years old: 93 mL/min/1.73sq m Chronic Kidney Disease: <60 mL/min/1.73sq m Kidney failure: <15 mL/min/1.73sq m eGFR calculated using average adult body mass. Additional eGFR calculator available at: http://www.Everwise/multiple_crcl_2011.htm Performed By: #### B MP ####[facility] [id number] [place] [address] Lab Director: Carole Holden MD Anion gap [Moles/Vol] 25 mmol/L High - [facility] Comment on above: Performed By: #### B MP ####[facility] [id number] [place] [address] Lab Director: Carole Holden MD BUN/CRE Ratio 19 Normal - [facility] Comment on above: Performed By: #### B MP ####[facility] [id number] [place] [address] Lab Director: Carole Holden MD Calcium [Mass/Vol] 8.3 mg/dL Low 8.6-10.4 [facility] Comment on above: Performed By: #### B MP ####[facility] [id number] [place] [address] Lab Director: Carole Holden MD Chloride [Moles/Vol] 103 mmol/L Normal 98-107 [facility] Comment on above: Performed By: #### B MP ####[facility] [id number] [place] [address] Lab Director: Carole Holden MD CO2 [Moles/Vol] 8 mmol/L Critically low 20-31 [facility] Comment on above: Performed By: #### B MP ####[facility] [id number] [place] [address] Lab Director: Carole Holden MD Creatinine [Mass/Vol] 1.38 mg/dL High 0.70-1.20 [facility] Comment on above: Performed By: #### B MP ####[facility] [id number] [place] [address] Lab Director: Carole Holden MD GFR, Amer >60 Normal >60 [facility] Comment on above: Performed By: #### B MP ####[facility] [id number] [place] [address] Lab Director: Carole Holden MD GFR,non Amer 54 mL/min Low >60 [facility] Comment on above: Performed By: #### B MP ####[facility] [id number] [place] [address] Lab Director: Carole Holden MD Glucose [Mass/Vol] 315 mg/dL High 70-99 [facility] Comment on above: Performed By: #### B MP ####[facility] [id number] [place] [address] Lab Director: Carole Holden MD Potassium [Moles/Vol] 4.5 mmol/L Normal 3.7-5.3 [facility] Comment on above: Performed By: #### B MP ####[facility] [id number] [place] [address] lab Director: Carole Holden MD Sodium [Moles/Vol] 136 mmol/L Normal 135-144 [facility] Comment on above: Performed By: #### B MP ####[facility] [id number] [place] [address] lab Director: Carole Holden MD Urea nitrogen [Mass/Vol] 26 mg/dL High 6-20 [facility] Comment on above: Performed By: #### B MP ####[facility] [id number] [place] [address] lab Director: Carole Holden MD Staging: NOT REPORTED Normal [facility] Comment on above: Performed By: #### B MP ####[facility] [id number] [place] [address] lab Director: Carole Holden MD Beta Hydroxybutyrateon 12-01 Beta Hydroxybutyrate 6.47 mmol/L High 0.02-0.27 [facility] Comment on above: Performed By: #### B H, MG, BMP, ANUJ #### [facility] [address] [place] [address] Customer Assistance Associate: Dale Padilla MD Beta Hydroxybutyrate 9.69 mmol/L High 0.02-0.27 [facility] Comment on above: Performed By: #### B H ####[facility] [id number] [place] [address] lab Director: Carole Holden MD Beta-Hydroxybutyrateon 12-01 Beta-Hydroxybutyrate 6.47 mmol/L High 0.02 - 0.27 mmol/L [facility] Interpretation and review of laboratory results Abnormal [facility] Beta-Hydroxybutyrate 9.69 mmol/L High 0.02 - 0.27 mmol/L [facility] Interpretation and review of laboratory results Abnormal [facility] CBC Auto Differentialon - Absolute Bands # 0.18 [facility] Absolute Eos # [facility] Absolute Immature Granulocyte NOT REPORTED [facility] Absolute Lymph # 1.07 [facility] alth Absolute Glacier # 0.53 [facility] Hea lth Bands 2 % 0 - 10 % [facility] Basophils (Bld) [#/Vol] 0 - 2 % [facility] Basophils Absolute [facility] Differential Type NOT REPORTED [facility] Eosinophils % 0 - 5 % [facility] h Hematocrit (Bld) [Volume fraction] 40.3 % Low 41 - 53 % [facility] Hemoglobin.gastroint estinal spec 1 Ql (Stl) 13.2 g/dL Low 13.5 - 17.5 g/dL [facility] Immature Granulocytes NOT REPORTED 0 % [facility] Interpretation and review of laboratory results Abnormal [facility] Lymphocytes/100 WBC (Bld) 12 % Low 13 - 44 % [facility] MCH (RBC) [Entitic mass] 31.1 pg 26 - 34 pg [facility] MCHC (RBC) [Mass/Vol] 32.8 g/dL 31 - 37 g/dL [facility] MCV (RBC) [Entitic vol] 95.1 fL 80 - 100 fL [facility] Monocytes/100 WBC (Bld) 6 % 5 - 9 % [facility] Morphology Elias (Bld) [Interp] Manual Differential Performed [facility] NRBC Automated NOT REPORTED per 100 WBC [facility] ealt Platelet distribution width (Bld) [Ratio] 17.5 % High 12.1 - 15.2 % [facility] Platelet Estimate NOT REPORTED [facility] Platelet mean volume (Bld) [Entitic vol] NOT REPORTED 6.0 - 12.0 fL [facility] Platelets (Bld) [#/Vol] 182 10*3/uL [facility] RBC (Bld) [#/Vol] 4.24 10*6/uL Low 4.5 - 5.9 m/uL [facility] RBC (Bld) [#/Vol] NOT REPORTED [facility] Segmented neutrophils/100 WBC (Bld) 80 % High 39 - 75 % [facility] Segs Absolute 7.12 High [facility] h WBC (Bld) [#/Vol] 8.9 10*3/uL [facility] WBC (Bld) [#/Vol] NOT REPORTED [facility] CBC with Diffon 12-01-2021 Abs. Bands 0.18 k/uL Normal 0.0-1.0 [facility] Comment on above: Performed By: #### L IP, BMP, CDP ####[facility] [id number] [place] [facility] [place] [address] Lab Director: Carole Holden MD Abs. Basophil Normal 0.0-0.2 [facility] Comment on above: Performed By: #### L IP, BMP, CDP ####[facility] [id number] [place] [address] lab Director: Carole Holden MD Abs. Eosinophil Normal 0.0-0.4 [facility] Comment on above: Performed By: #### L IP, BMP, CDP ####[facility] [id number] [place] [address] lab Director: Carole Holden MD Abs.Neutrophil (Seg) 7.12 k/uL High 2.1-6.5 [facility] Comment on above: Performed By: #### L IP, BMP, CDP ####[facility] [address] [place] [address] Lab Director: Carole Holden MD Bands 2 % Normal 0-10 [facility] Comment on above: Performed By: #### L IP, BMP, CDP ####[facility] [address] [place] [address] Lab Director: Carole Holden MD Basophil Normal 0-2 [facility] Comment on above: Performed By: #### L IP, BMP, CDP ####[facility] [id number] [place] [address] Lab Director: Carole Holden MD Eosinophil Normal 0-5 [facility] Comment on above: Performed By: #### L IP, BMP, CDP ####[facility] [id number] [place] [address] Lab Director: Carole Holden MD Lymphocytes (Bld) [#/Vol] 1.07 10*3/uL Normal 1.0-4.8 [facility] Comment on above: Performed By: #### L IP, BMP, CDP ####[facility] [id number] [place] [address] Lab Director: Carole Holden MD Lymphocytes/100 WBC (Bld) 12 % Low 13-44 [facility] Comment on above: Performed By: #### L IP, BMP, CDP ####[facility] [address] [place] [address] Lab Director: Carole Holden MD Monocytes (Bld) [#/Vol] 0.53 10*3/uL Normal 0.0-1.0 [facility] Comment on above: Performed By: #### L IP, BMP, CDP ####[facility] [address] [place] [address] Lab Director: Carole Holden MD Monocytes/100 WBC (Bld) 6 % Normal 5-9 [facility] Comment on above: Performed By: #### L IP, BMP, CDP ####[facility] [address] [place] [address] Lab Director: Carole Holden MD Morphology Elias (Bld) [Interp] Manual Differential Performed Normal [facility] Comment on above: Performed By: #### L IP, BMP, CDP ####[facility] [id number] [place] [address] Lab Director: Carole Holden MD Neutrophil (Seg) 80 % High 39-75 [facility] Comment on above: Performed By: #### L IP, BMP, CDP ####[facility] [address] [place] [address] Lab Director: Carole Holden MD Erythrocyte distribution width (RBC) [Ratio] 17.5 % High 12.1-15.2 [facility] Comment on above: Performed By: #### L IP, BMP, CDP ####[facility] [address] [place] [address] Lab Director: Carole Holden MD Hematocrit (Bld) [Volume fraction] 40.3 % Low 41-53 [facility] Comment on above: Performed By: #### L IP, BMP, CDP ####[facility] [id number] [place] [address] Lab Director: Carole Holden MD Hemoglobin (Bld) [Mass/Vol] 13.2 g/dL Low 13.5-17.5 [facility] Comment on above: Performed By: #### L IP, BMP, CDP ####[facility] [id number] [place], [place] [phone] Director: Carole Holden MD MCH (RBC) [Entitic mass] 31.1 pg Normal 26-34 [facility] Comment on above: Performed By: #### L IP, BMP, CDP ####[facility] [id number] [place], [place] [phone] Director: Carole Holden MD MCHC (RBC) [Mass/Vol] 32.8 g/dL Normal 31-37 [facility] Comment on above: Performed By: #### L IP, BMP, CDP ####[facility] [address] [place], [place] [phone] Director: Carole Holden MD MCV (RBC) [Entitic vol] 95.1 fL Normal 80-100 [facility] Comment on above: Performed By: #### L IP, BMP, CDP ####[facility] [id number] [place], [place] [phone] Director: Carole Holden MD Platelets (Bld) [#/Vol] 182 10*3/uL Normal 140-450 [facility] Comment on above: Performed By: #### L IP, BMP, CDP ####[facility] [address] [place] [address] Lab Director: Carole Holden MD RBC (Bld) [#/Vol] 4.24 10*6/uL Low 4.5-5.9 [facility] Comment on above: Performed By: #### L IP, BMP, CDP ####[facility] [address] [place] [address] Lab Director: Carole Holden MD WBC (Bld) [#/Vol] 8.9 10*3/uL Normal 3.5-11.0 [facility] Comment on above: Performed By: #### L IP, BMP, CDP ####[facility] [address] [place] [address] Lab Director: Carole Holden MD Abs.Imm.Granulocyte NOT REPORTED Normal 0.00-0.30 [facility] Comment on above: Performed By: #### L IP, BMP, CDP ####[facility] [id number] [place] [address] Lab Director: Carole Holden MD Auto Diff Performed NOT REPORTED Normal [facility] Comment on above: Performed By: #### L IP, BMP, CDP ####[facility] [address] [place] [address] Lab Director: Carole Holden MD Immature Granulocyte NOT REPORTED Normal 0 [facility] Comment on above: Performed By: #### L IP, BMP, CDP ####[facility] [address] [place] [address] Lab Director: Carole Holden MD MPV NOT REPORTED Normal 6.0-12.0 [facility] Comment on above: Performed By: #### L IP, BMP, CDP ####[facility] [address] [facility] [place] [phone] Director: Carole Holden MD NRBC Automated NOT REPORTED Normal [facility] Comment on above: Performed By: #### L IP, BMP, CDP ####[facility] [address] [facility], [place] [phone] Director: Carole Holden MD Platelet Comment NOT REPORTED Normal [facility] Comment on above: Performed By: #### L IP, BMP, CDP ####[facility] [id number] [place] [phone] Director: Carole Holden MD RBC morphology finding Nom (Bld) NOT REPORTED Normal [facility] Comment on above: Performed By: #### L IP, BMP, CDP ####[facility] [id number] [facility], [place] [phone] Director: Carole Holden MD WBC Morphology NOT REPORTED Normal [facility] Comment on above: Performed By: #### L IP, BMP, CDP ####[facility] [address] [facility], [place] [phone] Director: Carole Holden MD COVID-19, Rapidon 12-01-2021 SARS-CoV-2 (COVID-19) RNA DORON+probe Ql (Unsp spec) Not detected Not Detected [facility] Comment on above: Rapid NAAT: The specimen is NEGATIVE for SARS-CoV-2, the novel coronavirus associated with COVID-19. The ID NOW COVID-19 assay is designed to detect the virus that causes COVID-19 in patients with signs and symptoms of infection who are suspected of COVID-19. An individual without symptoms of COVID-19 and who is not shedding SARS-CoV-2 virus would expect to have a negative (not detected) result in this assay. Negative results should be treated as presumptive and, if inconsistent with clinical signs and symptoms or necessary for patient management, should be tested with an alternative molecular assay. Negative results do not preclude SARS-CoV-2 infection and should not be used as the sole basis for patient management decisions. Fact sheet for Healthcare Providers: https://www.fda.gov/media/596204/download Fact sheet for Patients: https://www.fda.gov/media/039459/download Methodology: Isothermal Nucleic Acid Amplification Specimen Description .NASOPHARYNGEAL SWAB [facility] CTA CHEST W CONTRASTon 12-01 CTA CHEST W CONTRAST EXAMINATION: CTA CHEST W CONTRAST HISTORY: Reason for exam:->SOB, 51-year-old male. COMPARISON: CT chest, [place], 01/23/2021. TECHNIQUE: CT angiography of the pulmonary arteries following the administration of intravenous contrast. Coronal and sagittal MIP (maximum intensity projection) images were performed. Dose reduction techniques were achieved by using automated exposure control and/or adjustment of mA and/or kV according to patient size and/or use of iterative reconstruction technique. FINDINGS: PERTINENT POSITIVES: None. PERTINENT NEGATIVES: Negative for pulmonary embolus or pneumonia. No pleural effusion. COINCIDENTAL FINDINGS: 1.2 cm pleural-based nodule periphery right lower lobe image 53/series 3. This contrast-enhanced study shows evidence of pancreatitis in the distal body of the pancreas, better seen than on 11/30/2021, due to the contrast enhancement. Diffuse hepatic steatosis. Coronary artery calcifications. ROUTINE EXAMINATION: No mediastinal or hilar mass. Bone windows negative. IMPRESSION: 1. Negative for pulmonary embolus. 2. New 1.2 cm pleural-based nodule periphery of the right lower lobe for which 3 month follow-up CT, PET/CT, or tissue sampling is recommended. This is new from 01/23/2021 CT of [place]. 3. Evidence of pancreatitis again seen which has been previously noted. Interpreted by: Kevin Gotti Jr., MD Signed by: Kevin Gotti Jr., MD 12/01/21 Final result Normal [facility] 1. Negative for pulmonary embolus. 2. New 1.2 cm pleural-based nodule periphery of the right lower lobe for which 3 month follow-up CT, PET/CT, or tissue sampling is recommended. This is new from 01/23/2021 CT of [place]. 3. Evidence of pancreatitis again seen which has been previously noted. [facility] RIS CONSOLIDATED EXAMINATION: CTA CHEST W CONTRAST HISTORY: Reason for exam:->SOB, 51-year-old male. COMPARISON: CT chest, [place], 01/23/2021. TECHNIQUE: CT angiography of the pulmonary arteries following the administration of intravenous contrast. Coronal and sagittal MIP (maximum intensity projection) images were performed. Dose reduction techniques were achieved by using automated exposure control and/or adjustment of mA and/or kV according to patient size and/or use of iterative reconstruction technique. FINDINGS: PERTINENT POSITIVES: None. PERTINENT NEGATIVES: Negative for pulmonary embolus or pneumonia. No pleural effusion. COINCIDENTAL FINDINGS: 1.2 cm pleural-based nodule periphery right lower lobe image 53/series 3. This contrast-enhanced study shows evidence of pancreatitis in the distal body of the pancreas, better seen than on 11/30/2021, due to the contrast enhancement. Diffuse hepatic steatosis. Coronary artery calcifications. ROUTINE EXAMINATION: No mediastinal or hilar mass. Bone windows negative. [facility] CONSOL[facility] Kevin Gotti Jr., MD - 12/01/2021 EXAMINATION: CTA CHEST W CONTRAST HISTORY: Reason for exam:->SOB, 51-year-old male. COMPARISON: CT chest, [place], 01/23/2021. TECHNIQUE: CT angiography of the pulmonary arteries following the administration of intravenous contrast. Coronal and sagittal MIP (maximum intensity projection) images were performed. Dose reduction techniques were achieved by using automated exposure control and/or adjustment of mA and/or kV according to patient size and/or use of iterative reconstruction technique. FINDINGS: PERTINENT POSITIVES: None. PERTINENT NEGATIVES: Negative for pulmonary embolus or pneumonia. No pleural effusion. COINCIDENTAL FINDINGS: 1.2 cm pleural-based nodule periphery right lower lobe image 53/series 3. This contrast-enhanced study shows evidence of pancreatitis in the distal body of the pancreas, better seen than on 11/30/2021, due to the contrast enhancement. Diffuse hepatic steatosis. Coronary artery calcifications. ROUTINE EXAMINATION: No mediastinal or hilar mass. Bone windows negative. IMPRESSION: 1. Negative for pulmonary embolus. 2. New 1.2 cm pleural-based nodule periphery of the right lower lobe for which 3 month follow-up CT, PET/CT, or tissue sampling is recommended. This is new from 01/23/2021 CT of [place]. 3. Evidence of pancreatitis again seen which has been previously noted. [employer] Phone: Radiology Study observation (narrative) [employer] Phone: CTA CHEST W CONTRASTOrdered By: Kevin Gotti on 12-01-2021 [employer] Phone: Glucose, Whole Bloodon 12-01 Glucose [Mass/Vol] 132 mg/dL High 65 - 99 mg/dL [facility] [place] Interpretation and review of laboratory results Abnormal [facility] Glucose [Mass/Vol] 95 mg/dL 65 - 99 mg/dL [facility] Glucose [Mass/Vol] 132 mg/dL High 65 - 99 mg/dL [facility] [place] Interpretation and review of laboratory results Abnormal [facility] Glucose [Mass/Vol] 234 mg/dL High 65 - 99 mg/dL [facility] [place] Interpretation and review of laboratory results Abnormal [facility] Glucose [Mass/Vol] 339 mg/dL High 65 - 99 mg/dL [facility] [place] Interpretation and review of laboratory results Abnormal [facility] Lipaseon 12-01-2021 Lipase [Catalytic activity/Vol] 208 U/L Critically high 13-60 [facility] Comment on above: Performed By: #### C OVRB #### [facility] [address] [place] [address] Customer Assistance Associate: Carole Holden MD Lipase [Catalytic activity/Vol] 208 U/L Critically high 13 - 60 U/L [facility] Magnesiumon 12-01-2021 Magnesium [Mass/Vol] 2.1 mg/dL Normal 1.6-2.6 [facility] Comment on above: Performed By: #### B H, MG, BMP, ANUJ #### [facility] [address] [place] [address] Customer Assistance Associate: Dale Padilla MD Magnesium [Mass/Vol] 2.1 mg/dL 1.6 - 2 .6 mg/dL [facility] Magnesium [Mass/Vol] 2.1 mg/dL Normal 1.6-2.6 [facility] Comment on above: Performed By: #### B MP, MG, ANUJ ####[facility] [id number] [place], [place] [id number] Lab Director: Carole Holden MD Magnesium [Mass/Vol] 2.1 mg/dL 1.6 - 2 .6 mg/dL [facility] No Panel Informationon 12-01 Interpretation and review of laboratory results Abnormal [facility] Interpretation and review of laboratory results Abnormal [facility] Interpretation and review of laboratory results Abnormal [facility] Interpretation and review of laboratory results Abnormal [facility] POC Glucose Fingerstickon Glucose [Mass/Vol] 202 mg/dL High 75 - 110 mg/dL [facility] Interpretation and review of laboratory results Abnormal [facility] Glucose [Mass/Vol] 180 mg/dL High 75 - 110 mg/dL [facility] Interpretation and review of laboratory results Abnormal [facility] Glucose [Mass/Vol] 177 mg/dL High 75 - 110 mg/dL [facility] Interpretation and review of laboratory results Abnormal [facility] Glucose [Mass/Vol] 191 mg/dL High 75 - 110 mg/dL [facility] Glucose [Mass/Vol] 199 mg/dL High 75 - 110 mg/dL [facility] Glucose [Mass/Vol] 238 mg/dL High 75 - 110 mg/dL [facility] Interpretation and review of laboratory results Abnormal [facility] Phosphoruson 12-01-2021 Phosphate [Mass/Vol] 0.8 mg/dL Critically low 2.5 - 4.5 mg/dL [facility] Phosphate [Mass/Vol] 0.7 mg/dL Low 2.5 - 4 .5 mg/dL [facility] Phosphorus, Inorg.on 022 Phosphorus, Inorg. 0.8 mg/dL Critically low 2.5-4.5 [facility] Comment on above: Performed By: #### B H, MG, BMP, ANUJ #### [facility] [address] [place], [place] [id number] Customer Assistance Associate: Dale Padilla MD Phosphorus, Inorg. 0.7 mg/dL Low 2.5-4.5 [facility] Comment on above: Performed By: #### B MP, MG, ANUJ ####[facility] [id number] [place] [address] Lab Director: Carole Holden MD [id number] 12-01-2021 SARS-CoV-2 (COVID-19) RNA DORON+probe Ql (Unsp spec) Not detected Normal NOTDET [facility] Comment on above: Result Comment: Rapid NAAT: The specimen is NEGATIVE for SARS-CoV-2, the novel coronavirus associated with COVID-19. The ID NOW COVID-19 assay is designed to detect the virus that causes COVID-19 in patients with signs and symptoms of infection who are suspected of COVID-19. An individual without symptoms of COVID-19 and who is not shedding SARS-CoV-2 virus would expect to have a negative (not detected) result in this assay. Negative results should be treated as presumptive and, if inconsistent with clinical signs and symptoms or necessary for patient management, should be tested with an alternative molecular assay. Negative results do not preclude SARS-CoV-2 infection and should not be used as the sole basis for patient management decisions. Fact sheet for Healthcare Providers: https://www.fda.gov/media/837899/download Fact sheet for Patients: https://www.fda.gov/media/976896/download Methodology: Isothermal Nucleic Acid Amplification Performed By: #### C OVRB #### [facility] [address] [place] [address] Customer Assistance Associate: Carole Holden MD Venous Blood Gas, POCon 11-03 Andrés Test NOT REPORTED [employer] FIO2 NOT REPORTED [facility] [employer] HCO3 (Bld) [Moles/Vol] 5.9 mmol/L Low 22.0 - 29.0 mmol/L [facility] [employer] Interpretation and review of laboratory results Abnormal [employer] Mode NOT REPORTED [facility] [employer] Negative Base Excess, Rey 20 High [facility] [employer] O2 Device/Flow/% NOT REPORTED [facility] Oxygen saturation in Blood 77 % 60.0 - 85.0 % [employer] pCO2, Rey 15.5 Low [facility] pH, Rey 7.187 Critically low [facility] pO2, Rey 49.3 [facility] POC pCO2 Temp NOT REPORTED mm Hg [facility] POC pH Temp NOT REPORTED [facility] h POC pO2 Temp NOT REPORTED mm Hg [facility] Positive Base Excess, Rey NOT REPORTED [facility] Pt Temp NOT REPORTED [facility] Sample Site NOT REPORTED [facility] Total CO2, Venous NOT REPORTED 23.0 - 30. 0 mmol/L [facility] XR CHEST PORTABLEon 12-01-19 XR CHEST PORTABLE EXAM: XR CHEST PORTABLE HISTORY: Reason for exam:->SOB and dizziness. COMPARISON: Comparison made to chest x-ray dated 08/30/2021. TECHNIQUE: Single AP portable chest x-ray. FINDINGS: There is no focal consolidation, pleural effusion, or pneumothorax. There is a subtle nodular density at the right lower lobe. The cardiomediastinal silhouette is within normal limits. IMPRESSION: 1. No focal consolidation, pleural effusion, or pneumothorax. 2. Subtle nodular density at the right lower lobe. This may represent nipple shadow versus confluence of vascular and osseous shadows versus a pulmonary parenchymal nodule. Recommend follow-up contrast enhanced chest CT for complete evaluation. Interpreted by: Madhav Andrews MD Signed by: Madhav Andrews MD 12/01/21 Final result Normal [facility] 1. No focal consolidation, pleural effusion, or pneumothorax. 2. Subtle nodular density at the right lower lobe. This may represent nipple shadow versus confluence of vascular and osseous shadows versus a pulmonary parenchymal nodule. Recommend follow-up contrast enhanced chest CT for complete evaluation. [facility] RIS CONSOLIDATED EXAM: XR CHEST PORTABLE HISTORY: Reason for exam:->SOB and dizziness. COMPARISON: Comparison made to chest x-ray dated 08/30/2021. TECHNIQUE: Single AP portable chest x-ray. FINDINGS: There is no focal consolidation, pleural effusion, or pneumothorax. There is a subtle nodular density at the right lower lobe. The cardiomediastinal silhouette is within normal limits. [facility] CON[facility] Madhav Andrews MD - 12/01/2021 EXAM: XR CHEST PORTABLE HISTORY: Reason for exam:->SOB and dizziness. COMPARISON: Comparison made to chest x-ray dated 08/30/2021. TECHNIQUE: Single AP portable chest x-ray. FINDINGS: There is no focal consolidation, pleural effusion, or pneumothorax. There is a subtle nodular density at the right lower lobe. The cardiomediastinal silhouette is within normal limits. IMPRESSION: 1. No focal consolidation, pleural effusion, or pneumothorax. 2. Subtle nodular density at the right lower lobe. This may represent nipple shadow versus confluence of vascular and osseous shadows versus a pulmonary parenchymal nodule. Recommend follow-up contrast enhanced chest CT for complete evaluation. [employer] Work Phone: Radiology Study observation (narrative) [employer] Phone: XR CHEST PORTABLEOrdered By: Madhav Andrews on 12-01-2021 [employer] Phone: Arterial Blood Gas, POCon Andrés Test Positive [facility] FIO2 NOT REPORTED [facility] HCO3 (Bld) [Moles/Vol] 3.1 mmol/L Critically low 21.0 - 28.0 mmol/L [facility] Interpretation and review of laboratory results Abnormal Pixia Mode NOT REPORTED [facility] Negative Base Excess, Art 24 High [employer] O2 Device/Flow/% NOT REPORTED [facility] Oxygen saturation in Blood 97 % 94.0 - 98.0 % [facility] POC pCO2 10.4 Low [facility] POC pCO2 Temp NOT REPORTED mm Hg Imperator a lth POC pH 7.086 Critically low Hapzing th POC pH Temp NOT REPORTED Hapzingt h POC PO2 124.6 High [facility] POC pO2 Temp NOT REPORTED mm Hg Hapzing th Positive Base Excess, Art NOT REPORTED [facility] Pt Temp NOT REPORTED [facility] Sample Site Right Radial Artery Wix TCO2 (calc), Art NOT REPORTED 22.0 - 29.0 mmol/L [employer] Basic Metabolic Panelon 11-03 Anion gap [Moles/Vol] 29 mmol/L High 9 - 17 mmol/L [employer] Calcium [Mass/Vol] 7.9 mg/dL Low 8.6 - 10. 4 mg/dL [employer] Chloride [Moles/Vol] 97 mmol/L Low 98 - 10 7 mmol/L [facility] CO2 [Moles/Vol] 6 mmol/L Critically low 20 - 31 mmol/L [facility] [employer] Creatinine [Mass/Vol] 1.27 mg/dL High 0.70 - 1.20 mg/dL [facility] [employer] GFR >60 >60 mL/min [facility] [employer] GFR Non- 60 mL/min Low >60 [facility] [employer] GFR/1.73 sq M.predicted MDRD (S/P/Bld) [Vol rate/Area] [facility] Comment on above: Average GFR for 50-5 9 years old: 93 mL/min/1.73sq m Chronic Kidney Disease: <60 mL/min/1.73sq m Kidney failure: <15 mL/min/1.73sq m eGFR calculated using average adult body mass. Additional eGFR calculator available at: http://www.Everwise/multiple_crcl_2012.htm GFR/1.73 sq M.predicted MDRD (S/P/Bld) [Vol rate/Area] NOT REPORTED [facility] [employer] Glucose [Mass/Vol] 301 mg/dL High 70 - 99 mg/dL [facility] [employer] Interpretation and review of laboratory results Abnormal [facility] [employer] Potassium [Moles/Vol] 4.6 mmol/L 3.7 - 5.3 mmol/L [facility] [employer] Sodium [Moles/Vol] 132 mmol/L Low 135 - 144 mmol/L [facility] [employer] Urea nitrogen (BldV) [Mass/Vol] 32 mg/dL High 6 - 20 mg/dL [facility] [employer] Urea nitrogen/Creatinine (Bld) [Mass ratio] 25 High [facility] Anion gap [Moles/Vol] Unable to calculate anion gap due to CO2 less than 6. 9 - 17 mmol/L [facility] [employer] Calcium [Mass/Vol] 8.3 mg/dL Low 8.6 - 10. 4 mg/dL [facility] [employer] Chloride [Moles/Vol] 90 mmol/L Low 98 - 10 7 mmol/L [facility] [employer] CO2 [Moles/Vol] mmol/L Critically low 20 - 31 mmol/L [facility] [employer] Creatinine [Mass/Vol] 1.73 mg/dL High 0.70 - 1.20 mg/dL [facility] [employer] GFR 51 mL/min Low >60 [facility] [employer] GFR Non- 42 mL/min Low >60 [facility] [employer] GFR/1.73 sq M.predicted MDRD (S/P/Bld) [Vol rate/Area] [facility] Comment on above: Average GFR for 50-5 9 years old: 93 mL/min/1.73sq m Chronic Kidney Disease: <60 mL/min/1.73sq m Kidney failure: <15 mL/min/1.73sq m eGFR calculated using average adult body mass. Additional eGFR calculator available at: http://www.Everwise/multiple_crcl_2012.htm GFR/1.73 sq M.predicted MDRD (S/P/Bld) [Vol rate/Area] NOT REPORTED [facility] Glucose [Mass/Vol] 481 mg/dL Critically high 70 - 99 mg/d L [facility] Interpretation and review of laboratory results Abnormal [facility] Potassium [Moles/Vol] 4.4 mmol/L 3.7 - 5.3 mmol/L [facility] Sodium [Moles/Vol] 128 mmol/L Low 135 - 144 mmol/L [facility] Urea nitrogen (BldV) [Mass/Vol] 38 mg/dL High 6 - 20 mg/dL [facility] Urea nitrogen/Creatinine (Bld) [Mass ratio] 22 High [facility] Basic Metabolic Profon 11-30 (cont.) Normal [facility] Comment on above: Result Comment: Aver age GFR for 50-59 years old: 93 mL/min/1.73sq m Chronic Kidney Disease: <60 mL/min/1.73sq m Kidney failure: <15 mL/min/1.73sq m eGFR calculated using average adult body mass. Additional eGFR calculator available at: http://www.Everwise/multiple_crcl_2011.htm Performed By: #### C OVRB #### [facility] [address] [place] [address] Customer Assistance Associate: Carole Holden MD Anion gap [Moles/Vol] 29 mmol/L High 07-18 [facility] Comment on above: Performed By: #### C OVRB #### [facility] [address] [place] [address] Customer Assistance Associate: Carole Holden MD BUN/CRE Ratio 25 High 9-20 [facility] Comment on above: Performed By: #### C OVRB #### [facility] [address] [place], [place] [phone] Customer Assistance Associate: Carole Holden MD Calcium [Mass/Vol] 7.9 mg/dL Low 8.6-10.4 [facility] Comment on above: Performed By: #### C OVRB #### [facility] [address] [place] [address] Customer Assistance Associate: Carole Holden MD Chloride [Moles/Vol] 97 mmol/L Low 98-107 [facility] Comment on above: Performed By: #### C OVRB #### [facility] [address] [place], [place] [phone] Customer Assistance Associate: Carole Holden MD CO2 [Moles/Vol] 6 mmol/L Critically low 20-31 [facility] Comment on above: Performed By: #### C OVRB #### [facility] [address] [place], [place] [phone] Customer Assistance Associate: Carole Holden MD Creatinine [Mass/Vol] 1.27 mg/dL High 0.70-1.20 [facility] Comment on above: Performed By: #### C OVRB #### [facility] [address] [place], [place] [phone] Customer Assistance Associate: Carole Holden MD GFR, Amer >60 Normal >60 [facility] Comment on above: Performed By: #### C OVRB #### [facility] [address] [place], [place] [phone] Customer Assistance Associate: Carole Holden MD GFR,non Amer 60 mL/min Low >60 [facility] Comment on above: Performed By: #### C OVRB #### [facility] [address] [place], [place] [phone] Customer Assistance Associate: Carole Holden MD Glucose [Mass/Vol] 301 mg/dL High 70-99 [facility] Comment on above: Performed By: #### C OVRB #### [facility] [address] [place] [address] Customer Assistance Associate: Carole Holden MD Potassium [Moles/Vol] 4.6 mmol/L Normal 3.7-5.3 [facility] Comment on above: Performed By: #### C OVRB #### [facility] [address] [place] [address] Customer Assistance Associate: Carole Holden MD Sodium [Moles/Vol] 132 mmol/L Low 135-144 [facility] Comment on above: Performed By: #### C OVRB #### [facility] [address] [place] [address] Customer Assistance Associate: Carole Holden MD Urea nitrogen [Mass/Vol] 32 mg/dL High 6-20 [facility] Comment on above: Performed By: #### C OVRB #### [facility] [address] [place] [address] Customer Assistance Associate: Carole Holden MD Staging: NOT REPORTED Normal [facility] Comment on above: Performed By: #### C OVRB #### [facility] [address] [place] [address] Customer Assistance Associate: Carole Holden MD Performed By: #### B MP, MG, ANUJ ####[facility] [id number] [place], [place] [phone] Lab Director: Carole Holden MD (cont.) Normal [facility] Comment on above: Result Comment: Aver age GFR for 50-59 years old: 93 mL/min/1.73sq m Chronic Kidney Disease: <60 mL/min/1.73sq m Kidney failure: <15 mL/min/1.73sq m eGFR calculated using average adult body mass. Additional eGFR calculator available at: http://www.Celoxica.com/multiple_crcl_2012.htm Performed By: #### B SAMI MG, ANUJ ####[facility] [id number] [facility], [place] [phone] Director: Carole Holden MD Anion Gap Unable to calculate anion gap due to CO2 less than 6. Normal 9-17 [facility] Comment on above: Performed By: #### B SAMI MG, ANUJ ####[facility] [id number] [facility], [place] [phone] Director: Carole Holden MD BUN/CRE Ratio 22 High 9-20 [facility] Comment on above: Performed By: #### B SAMI MG, ANUJ ####[facility] [id number] [facility], [place] [phone] Director: Carole Holden MD Calcium [Mass/Vol] 8.3 mg/dL Low 8.6-10.4 [facility] Comment on above: Performed By: #### B SAMI MG, ANUJ ####[facility] [id number] [facility], [place] [phone] Director: Carole Holden MD Chloride [Moles/Vol] 90 mmol/L Low 98-107 [facility] Comment on above: Performed By: #### B SAMI MG, ANUJ ####[facility] [id number] [facility], [place] [phone] Director: Carole Holden MD CO2 [Moles/Vol] mmol/L Critically low 20-31 [facility] Comment on above: Performed By: #### B SAMI MG, ANUJ ####[facility] [id number] [facility] [place] [phone] Director: Carole Holden MD Creatinine [Mass/Vol] 1.73 mg/dL High 0.70-1.20 [facility] Comment on above: Performed By: #### B MP, MG, ANUJ ####[facility] [id number] [place] [address] lab Director: Carole Holden MD GFR, Amer 51 mL/min Low >60 [facility] Comment on above: Performed By: #### B MP, MG, ANUJ ####[facility] [id number] [place] [address] lab Director: Carole Holden MD GFR,non Amer 42 mL/min Low >60 [facility] Comment on above: Performed By: #### B MP, MG, ANUJ ####[facility] [id number] [place] [address] lab Director: Carole Holden MD Glucose [Mass/Vol] 481 mg/dL Critically high 70-99 [facility] Comment on above: Performed By: #### B MP, MG, ANUJ ####[facility] [id number] [place] [address] lab Director: Carole Holden MD Potassium [Moles/Vol] 4.4 mmol/L Normal 3.7-5.3 [facility] Comment on above: Performed By: #### B MP, MG, ANUJ ####[facility] [id number] [place] [address] lab Director: Carole Holden MD Sodium [Moles/Vol] 128 mmol/L Low 135-144 [facility] Comment on above: Performed By: #### B MP, MG, ANUJ ####[facility] [id number] [place] [address] lab Director: Carole Holden MD Urea nitrogen [Mass/Vol] 38 mg/dL High 6-20 [facility] Comment on above: Performed By: #### B MP, MG, ANUJ ####[facility] [address] [place] [address] lab Director: Carole Holden MD CBC Auto Differentialon 11-03 Absolute Eos # 0.00 [facility] th Absolute Immature Granulocyte NOT REPORTED [facility] Absolute Lymph # 0.70 Low [facility] He alth Absolute Glacier # 0.80 [facility] He[facility]th Basophils (Bld) [#/Vol] 0.00 10*3/uL [facility] Basophils/100 WBC (Bld) 0 % 0 - 2 % [facility] [employer] Differential Type YES [facility]alth Eosinophils/100 WBC (Bld) 0 % 0 - 5 % [facility] Hematocrit (Bld) [Volume fraction] 44.1 % 41 - 53 % [facility] Hemoglobin.gastroint estinal spec 1 Ql (Stl) 14.0 g/dL 13.5 - 17.5 g/dL [facility] Immature Granulocytes NOT REPORTED 0 % [facility] Interpretation and review of laboratory results Abnormal [facility] Lymphocytes/100 WBC (Bld) 7 % Low 13 - 44 % [facility] [employer] MCH (RBC) [Entitic mass] 31.4 pg 26 - 34 pg [facility] MCHC (RBC) [Mass/Vol] 31.8 g/dL 31 - 37 g/dL [facility] MCV (RBC) [Entitic vol] 98.8 fL 80 - 100 fL [facility] Monocytes/100 WBC (Bld) 7 % 5 - 9 % [facility] NRBC Automated NOT REPORTED per 100 WBC [facility]alt Platelet distribution width (Bld) [Ratio] 17.8 % High 12.1 - 15.2 % [facility] Platelet Estimate NOT REPORTED [facility] [employer] Platelet mean volume (Bld) [Entitic vol] NOT REPORTED 6.0 - 12.0 fL [facility] [employer] Platelets (Bld) [#/Vol] 291 10*3/uL [facility] [employer] RBC (Bld) [#/Vol] 4.47 10*6/uL Low 4.5 - 5.9 m/uL [facility] [employer] RBC (Bld) [#/Vol] NOT REPORTED [facility] [employer] Segmented neutrophils/100 WBC (Bld) 86 % High 39 - 75 % [facility] [employer] Segs Absolute 9.80 High [facility] h WBC (Bld) [#/Vol] 11.4 10*3/uL High [facility] WBC (Bld) [#/Vol] NOT REPORTED [facility] CBC with Diffon 11-30-2021 Abs. Basophil 0.00 k/uL Normal 0.0-0.2 [facility] Comment on above: Performed By: #### C DP, ALCB, LIP, CP #### [facility] [address] [place] [address] Customer Assistance Associate: Carole Holden MD Abs.Neutrophil (Seg) 9.80 k/uL High 2.1-6.5 [facility] Comment on above: Performed By: #### C DP, ALCB, LIP, CP #### [facility] [address] [place] [address] Customer Assistance Associate: Carole Holden MD Auto Diff Performed YES Normal [facility] Comment on above: Performed By: #### C DP, ALCB, LIP, CP #### [facility] [address] [place] [phone] Customer Assistance Associate: Carole Holden MD Basophils/100 WBC (Bld) 0 % Normal 0-2 [facility] Comment on above: Performed By: #### C DP, ALCB, LIP, CP #### [facility] [address] [place] [phone] Customer Assistance Associate: Carole Holden MD Eosinophils (Bld) [#/Vol] 0.00 10*3/uL Normal 0.0-0.4 [facility] Comment on above: Performed By: #### C DP, ALCB, LIP, CP #### [facility] [address] [place] [phone] Customer Assistance Associate: Carole Holden MD Eosinophils/100 WBC (Bld) 0 % Normal 0-5 [facility] Comment on above: Performed By: #### C DP, ALCB, LIP, CP #### [facility] [address] [place] [phone] Customer Assistance Associate: Carole Holden MD Erythrocyte distribution width (RBC) [Ratio] 17.8 % High 12.1-15.2 [facility] Comment on above: Performed By: #### C DP, ALCB, LIP, CP #### [facility] [address] [place] [phone] Customer Assistance Associate: Carole Holden MD Hematocrit (Bld) [Volume fraction] 44.1 % Normal 41-53 [facility] Comment on above: Performed By: #### C DP, ALCB, LIP, CP #### [facility] [address] [place] [address] Customer Assistance Associate: Carole Holden MD Hemoglobin (Bld) [Mass/Vol] 14.0 g/dL Normal 13.5-17.5 [facility] Comment on above: Performed By: #### C DP, ALCB, LIP, CP #### [facility] [address] [place] [phone] Customer Assistance Associate: Carole Holden MD Lymphocytes (Bld) [#/Vol] 0.70 10*3/uL Low 1.0-4.8 [facility] Comment on above: Performed By: #### C DP, ALCB, LIP, CP #### [facility] [address] [place] [address] Customer Assistance Associate: Carole Holden MD Lymphocytes/100 WBC (Bld) 7 % Low 13-44 [facility] Comment on above: Performed By: #### C DP, ALCB, LIP, CP #### [facility] [address] [place] [address] Customer Assistance Associate: Carole Holden MD MCH (RBC) [Entitic mass] 31.4 pg Normal 26-34 [facility] Comment on above: Performed By: #### C DP, ALCB, LIP, CP #### [facility] [address] [place] [phone] Customer Assistance Associate: Carole Holden MD MCHC (RBC) [Mass/Vol] 31.8 g/dL Normal 31-37 [facility] Comment on above: Performed By: #### C DP, ALCB, LIP, CP #### [facility] [address] [place] [phone] Customer Assistance Associate: Carole Holden MD MCV (RBC) [Entitic vol] 98.8 fL Normal 80-100 [facility] Comment on above: Performed By: #### C DP, ALCB, LIP, CP #### [facility] [address] [place] [address] Customer Assistance Associate: Carole Holden MD Monocytes (Bld) [#/Vol] 0.80 10*3/uL Normal 0.0-1.0 [facility] Comment on above: Performed By: #### C DP, ALCB, LIP, CP #### [facility] [address] [place] [address] [phone] Customer Assistance Associate: Carole Holden MD Monocytes/100 WBC (Bld) 7 % Normal 5-9 [facility] Comment on above: Performed By: #### C DP, ALCB, LIP, CP #### [facility] [address] [place] [address] Customer Assistance Associate: Carole Holden MD Neutrophil (Seg) 86 % High 39-75 [facility] Comment on above: Performed By: #### C DP, ALCB, LIP, CP #### [facility] [address] [place] [address] [phone] Customer Assistance Associate: Carole Holden MD Platelets (Bld) [#/Vol] 291 10*3/uL Normal 140-450 [facility] Comment on above: Performed By: #### C DP, ALCB, LIP, CP #### [facility] [address] [place] [address] Customer Assistance Associate: Carole Holden MD RBC (Bld) [#/Vol] 4.47 10*6/uL Low 4.5-5.9 [facility] Comment on above: Performed By: #### C DP, ALCB, LIP, CP #### [facility] [address] [place] [address] Customer Assistance Associate: Carole Holden MD WBC (Bld) [#/Vol] 11.4 10*3/uL High 3.5-11.0 [facility] Comment on above: Performed By: #### C DP, ALCB, LIP, CP #### [facility] [address] [place] [address] Customer Assistance Associate: Carole Holden MD Abs.Imm.Granulocyte NOT REPORTED Normal 0.00-0.30 [facility] Comment on above: Performed By: #### C DP, ALCB, LIP, CP #### [facility] [address] [place] [address] Customer Assistance Associate: Carole Holden MD Immature Granulocyte NOT REPORTED Normal 0 [facility] Comment on above: Performed By: #### C DP, ALCB, LIP, CP #### [facility] [address] [place] [address] Customer Assistance Associate: Carole Holden MD MPV NOT REPORTED Normal 6.0-12.0 [facility] Comment on above: Performed By: #### C DP, ALCB, LIP, CP #### [facility] [address] [place] [address] Customer Assistance Associate: Carole Holden MD NRBC Automated NOT REPORTED Normal [facility] Comment on above: Performed By: #### C DP, ALCB, LIP, CP #### [facility] [address] [place] [address] Customer Assistance Associate: Carole Holden MD Platelet Comment NOT REPORTED Normal [facility] Comment on above: Performed By: #### C DP, ALCB, LIP, CP #### [facility] [address] [place] [address] Customer Assistance Associate: Carole Holden MD RBC morphology finding Nom (Bld) NOT REPORTED Normal [facility] Comment on above: Performed By: #### C DP, ALCB, LIP, CP #### [facility] [address] [place] [address] Customer Assistance Associate: Carole Holden MD WBC Morphology NOT REPORTED Normal [facility] Comment on above: Performed By: #### C DP, ALCB, LIP, CP #### [facility] [address] [place] [address] Customer Assistance Associate: Carole Holden MD COVID-19, Rapidon 11-30-2021 SARS-CoV-2 (COVID-19) RNA DORON+probe Ql (Unsp spec) Not detected Not Detected [facility] Comment on above: Rapid NAAT: The specimen is NEGATIVE for SARS-CoV-2, the novel coronavirus associated with COVID-19. The ID NOW COVID-19 assay is designed to detect the virus that causes COVID-19 in patients with signs and symptoms of infection who are suspected of COVID-19. An individual without symptoms of COVID-19 and who is not shedding SARS-CoV-2 virus would expect to have a negative (not detected) result in this assay. Negative results should be treated as presumptive and, if inconsistent with clinical signs and symptoms or necessary for patient management, should be tested with an alternative molecular assay. Negative results do not preclude SARS-CoV-2 infection and should not be used as the sole basis for patient management decisions. Fact sheet for Healthcare Providers: https://www.fda.gov/media/879237/download Fact sheet for Patients: https://www.fda.gov/media/366399/download Methodology: Isothermal Nucleic Acid Amplification Specimen Description .NASOPHARYNGEAL SWAB [facility] CT ABDOMEN PELVIS WO CONTRAS Ton 11-30-2021 CT ABDOMEN PELVIS WO CONTRAST EXAMINATION: CT ABDOMEN PELVIS WO CONTRAST, 11/30/2021 2:32 PM EST HISTORY: Additional Contrast?->None. COMPARISON: 11/19/2021, [facility]. TECHNIQUE: CT scan of the abdomen and pelvis was performed without IV contrast. CT dose reduction technique was used, including Automated Exposure Control. FINDINGS: The visualized lung gonzalez are clear. CT ABDOMEN: The liver shows fatty infiltration. The gallbladder is collapsed. The pancreas again shows some peripancreatic inflammatory changes. In the tail of the pancreas adjacent to the stomach is a 1.5 cm cystic lesion which may represent a pseudocyst. This was not apparent previously. The spleen is homogeneous. The adrenal glands are not enlarged. The kidneys are normal in size. There is no hydronephrosis. The aortoiliac system is calcified. Para-aortic lymphadenopathy is not identified. The appendix is medial to the cecum and is normal. CT PELVIS: The distal colon is collapsed. The urinary bladder is distended without defect. The prostate gland is normal in size. There is no free pelvic fluid. Degenerative changes are seen to the lumbar spine. IMPRESSION: 1. There is again evidence of pancreatitis. On today's study there is a 15 mm cystic lesion in the tail of the pancreas adjacent to the stomach which may represent a pseudocyst. 2. No hydronephrosis. 3. No free pelvic fluid is identified. Interpreted by: Madhav Velasquez DO Signed by: Madhav Velasquez DO 11/30/21 Final result Normal [facility] CT ABDOMEN PELVIS WO CONTRAS T Additional Contrast? Noneon 11-30-2021 1. There is again evidence of pancreatitis. On today's study there is a 15 mm cystic lesion in the tail of the pancreas adjacent to the stomach which may represent a pseudocyst. 2. No hydronephrosis. 3. No free pelvic fluid is identified. [facility] RIS CONSOLIDATED EXAMINATION: CT ABDOMEN PELVIS WO CONTRAST, 11/30/2021 2:32 PM EST HISTORY: Additional Contrast?->None. COMPARISON: 11/19/2021, [facility]. TECHNIQUE: CT scan of the abdomen and pelvis was performed without IV contrast. CT dose reduction technique was used, including Automated Exposure Control. FINDINGS: The visualized lung gonzalez are clear. CT ABDOMEN: The liver shows fatty infiltration. The gallbladder is collapsed. The pancreas again shows some peripancreatic inflammatory changes. In the tail of the pancreas adjacent to the stomach is a 1.5 cm cystic lesion which may represent a pseudocyst. This was not apparent previously. The spleen is homogeneous. The adrenal glands are not enlarged. The kidneys are normal in size. There is no hydronephrosis. The aortoiliac system is calcified. Para-aortic lymphadenopathy is not identified. The appendix is medial to the cecum and is normal. CT PELVIS: The distal colon is collapsed. The urinary bladder is distended without defect. The prostate gland is normal in size. There is no free pelvic fluid. Degenerative changes are seen to the lumbar spine. [facility] Madhav Velasquez, DO - 11/30/2021 EXAMINATION: CT ABDOMEN PELVIS WO CONTRAST, 11/30/2021 2:32 PM EST HISTORY: Additional Contrast?->None. COMPARISON: 11/19/2021, [facility]. TECHNIQUE: CT scan of the abdomen and pelvis was performed without IV contrast. CT dose reduction technique was used, including Automated Exposure Control. FINDINGS: The visualized lung gonzalez are clear. CT ABDOMEN: The liver shows fatty infiltration. The gallbladder is collapsed. The pancreas again shows some peripancreatic inflammatory changes. In the tail of the pancreas adjacent to the stomach is a 1.5 cm cystic lesion which may represent a pseudocyst. This was not apparent previously. The spleen is homogeneous. The adrenal glands are not enlarged. The kidneys are normal in size. There is no hydronephrosis. The aortoiliac system is calcified. Para-aortic lymphadenopathy is not identified. The appendix is medial to the cecum and is normal. CT PELVIS: The distal colon is collapsed. The urinary bladder is distended without defect. The prostate gland is normal in size. There is no free pelvic fluid. Degenerative changes are seen to the lumbar spine. IMPRESSION: 1. There is again evidence of pancreatitis. On today's study there is a 15 mm cystic lesion in the tail of the pancreas adjacent to the stomach which may represent a pseudocyst. 2. No hydronephrosis. 3. No free pelvic fluid is identified. [employer] Phone: Radiology Study observation (narrative) [employer] Phone: CT ABDOMEN PELVIS WO CONTRAS T Additional Contrast? NoneOrdered By: Madhav Velasquez on 11-30-2021 [facility] Work Phone: Comp Metabolic Profon 2021 (cont.) Normal [facility] Comment on above: Result Comment: Aver age GFR for 50-59 years old: 93 mL/min/1.73sq m Chronic Kidney Disease: <60 mL/min/1.73sq m Kidney failure: <15 mL/min/1.73sq m eGFR calculated using average adult body mass. Additional eGFR calculator available at: http://www.Everwise/multiple_crcl_2011.htm Performed By: #### C DP, ALCB, LIP, CP #### [facility] [address] [place] [address] Customer Assistance Associate: Carole Holden MD Albumin [Mass/Vol] 4.0 g/dL Normal 3.5-5.2 [facility] Comment on above: Performed By: #### C DP, ALCB, LIP, CP #### [facility] [address] [place] [address] Customer Assistance Associate: Carole Holden MD Alkaline Phos 268 U/L High 40-129 [facility] Comment on above: Performed By: #### C DP, ALCB, LIP, CP #### [facility] [address] [place] [address] Customer Assistance Associate: Carole Holden MD ALT [Catalytic activity/Vol] 100 U/L High 5-41 [facility] Comment on above: Performed By: #### C DP, ALCB, LIP, CP #### [facility] [address] [place] [address] Customer Assistance Associate: Carole Holden MD Anion Gap Unable to calculate anion gap due to CO2 less than 6. Normal 9-17 [facility] Comment on above: Performed By: #### C DP, ALCB, LIP, CP #### [facility] [address], [place] [phone] Customer Assistance Associate: Carole Holden MD AST [Catalytic activity/Vol] 116 U/L High <40 [facility] Comment on above: Performed By: #### C DP, ALCB, LIP, CP #### [facility] [address], [place] [phone] Customer Assistance Associate: Carole Holden MD Bilirubin [Mass/Vol] 2.77 mg/dL High 0.30-1.20 [facility] Comment on above: Performed By: #### C DP, ALCB, LIP, CP #### [facility] [address], [place] [phone] Customer Assistance Associate: Carole Holden MD BUN/CRE Ratio 21 High 9-20 [facility] Comment on above: Performed By: #### C DP, ALCB, LIP, CP #### [facility] [address], [place] [phone] Customer Assistance Associate: Carole Holden MD Calcium [Mass/Vol] 8.7 mg/dL Normal 8.6-10.4 [facility] Comment on above: Performed By: #### C DP, ALCB, LIP, CP #### [facility] [address], [place] [phone] Customer Assistance Associate: Carole Holden MD Chloride [Moles/Vol] 80 mmol/L Critically low 98-107 [facility] Comment on above: Performed By: #### C DP, ALCB, LIP, CP #### [facility] [address] [place], [place] [phone] Customer Assistance Associate: Carole Holden MD CO2 [Moles/Vol] mmol/L Critically low 20-31 [facility] Comment on above: Performed By: #### C DP, ALCB, LIP, CP #### [facility] [address], [place] [phone] Customer Assistance Associate: Carole Holden MD Creatinine [Mass/Vol] 2.02 mg/dL High 0.70-1.20 [facility] Comment on above: Performed By: #### C DP, ALCB, LIP, CP #### [facility] [address] [place] [address] Customer Assistance Associate: Carole Holden MD GFR, Amer 42 mL/min Low >60 [facility] Comment on above: Performed By: #### C DP, ALCB, LIP, CP #### [facility] [address] [place] [address] Customer Assistance Associate: Carole Holden MD GFR,non Amer 35 mL/min Low >60 [facility] Comment on above: Performed By: #### C DP, ALCB, LIP, CP #### [facility] [address] [place] [address] Customer Assistance Associate: Carole Holden MD Glucose [Mass/Vol] 702 mg/dL Critically high 70-99 [facility] Comment on above: Performed By: #### C DP, ALCB, LIP, CP #### [facility] [address] [place] [address] Customer Assistance Associate: Carole Holden MD Potassium [Moles/Vol] 5.6 mmol/L High 3.7-5.3 [facility] Comment on above: Performed By: #### C DP, ALCB, LIP, CP #### [facility] [address] [place] [address] Customer Assistance Associate: Carole Holden MD Protein [Mass/Vol] 7.3 g/dL Normal 6.4-8.3 [facility] Comment on above: Performed By: #### C DP, ALCB, LIP, CP #### [facility] [address] [place] [address] Customer Assistance Associate: Carole Holden MD Sodium [Moles/Vol] 121 mmol/L Low 135-144 [facility] Comment on above: Performed By: #### C DP, ALCB, LIP, CP #### [facility] [address] [place] [address] Customer Assistance Associate: Carole Holden MD Urea nitrogen [Mass/Vol] 42 mg/dL High 6-20 [facility] Comment on above: Performed By: #### C DP, ALCB, LIP, CP #### [facility] [address] [place], [place] [phone] Customer Assistance Associate: Carole Holden MD Albumin/Glob Ratio NOT REPORTED Normal 1.0-2.5 [facility] Comment on above: Performed By: #### C DP, ALCB, LIP, CP #### [facility] [address] [place] [address] Customer Assistance Associate: Carole Holden MD Staging: NOT REPORTED Normal [facility] Comment on above: Performed By: #### C DP, ALCB, LIP, CP #### [facility] [address] [place] [address] Customer Assistance Associate: Carole Holden MD Comprehensive Metabolic Pane [facility] 11-30-2021 Albumin [Mass/Vol] 4 g/dL 3.5 - 5.2 g/dL [facility] Albumin/Globulin Ratio NOT REPORTED [facility] ALP (Bld) [Catalytic activity/Vol] 268 U/L High 40 - 129 U/L [facility] ALT [Catalytic activity/Vol] 100 U/L High 5 - 41 U/L [facility] Anion gap [Moles/Vol] Unable to calculate anion gap due to CO2 less than 6. 9 - 17 mmol/L [facility] AST [Catalytic activity/Vol] 116 U/L High <40 [facility] Bilirubin [Mass/Vol] 2.77 mg/dL High 0.30 - 1.20 mg/dL [facility] Calcium [Mass/Vol] 8.7 mg/dL 8.6 - 10. 4 mg/dL [facility] Chloride [Moles/Vol] 80 mmol/L Critically low 98 - 107 mmol/L [facility] CO2 [Moles/Vol] mmol/L Critically low 20 - 31 mmol/L [facility] Creatinine [Mass/Vol] 2.02 mg/dL High 0.70 - 1.20 mg/dL [facility] Free PSA/Total PSA [Mass fraction] 7.3 g/dL 6.4 - 8.3 g/dL [facility] GFR 42 mL/min Low >60 [facility] GFR Non- 35 mL/min Low >60 [facility] GFR/1.73 sq M.predicted MDRD (S/P/Bld) [Vol rate/Area] [facility] Comment on above: Average GFR for 50-5 9 years old: 93 mL/min/1.73sq m Chronic Kidney Disease: <60 mL/min/1.73sq m Kidney failure: <15 mL/min/1.73sq m eGFR calculated using average adult body mass. Additional eGFR calculator available at: http://www.Everwise/multiple_crcl_2012.htm GFR/1.73 sq M.predicted MDRD (S/P/Bld) [Vol rate/Area] NOT REPORTED [facility] Glucose [Mass/Vol] 702 mg/dL Critically high 70 - 99 mg/d L [facility] Interpretation and review of laboratory results Abnormal [facility] Potassium [Moles/Vol] 5.6 mmol/L High 3.7 - 5.3 mmol/L [facility] Sodium [Moles/Vol] 121 mmol/L Low 135 - 144 mmol/L [facility] Urea nitrogen (BldV) [Mass/Vol] 42 mg/dL High 6 - 20 mg/dL [facility] Urea nitrogen/Creatinine (Bld) [Mass ratio] 21 High [facility] Drug Scr, Abuse, Uron 2021 Amphetamine(s),Ur Negative Normal NEG [facility] Comment on above: Result Comment: (Positive cutoff 500 ng/mL) Performed By: #### RAJ Morales UMICAO #### [facility] [address] [place] [address] Customer Assistance Associate: Carole Holden MD Barbiturate(s),Ur Negative Normal NEG [facility] Comment on above: Result Comment: (Positive cutoff 200 ng/mL) Performed By: #### U A, RAJ, UMICAO #### [facility] [address] [place] [address] Customer Assistance Associate: Carole Holden MD Benzodiazepine(s) Negative Normal NEG [facility] Comment on above: Result Comment: (Positive cutoff 150 ng/mL) Performed By: #### U A, RAJ, UMICAO #### [facility] [address] [place] [address] Customer Assistance Associate: Carole Holden MD Cannabinoid(s),Ur Negative Normal NEG [facility] Comment on above: Result Comment: (Positive cutoff 50 ng/mL) Performed By: #### U A, RAJ, UMICAO #### [facility] [address] [place] [address] Customer Assistance Associate: Carole Holden MD Cocaine Metabolite Negative Normal [facility] Comment on above: Result Comment: (Positive cutoff 150 ng/mL) Performed By: #### U A RAJ UMICAO #### [facility] [address] [place], [place] [phone] Customer Assistance Associate: Carole Holden MD Methadone Ql (U) Negative Normal NEG [facility] Comment on above: Result Comment: (Positive cutoff 200 ng/mL) Performed By: #### U A RAJ, UMICAO #### [facility] [address] [place] [address] Customer Assistance Associate: Carole Holden MD Methamphetamine, Ur Negative Normal [facility] Comment on above: Result Comment: (Positive cutoff 500 ng/mL) Performed By: #### U A, RAJ UMICAO #### [facility] [address], [place] [phone] Customer Assistance Associate: Carole Holden MD Opiate(s), Ur Negative Normal NEG [facility] Comment on above: Result Comment: (Positive cutoff 100 ng/mL) Performed By: #### U A, RAJ, UMICAO #### [facility] [address] [place], [place] [phone] Customer Assistance Associate: Carole Holden MD Oxycodone, Urine Negative Normal NEG [facility] Comment on above: Result Comment: (Positive cutoff 100 ng/mL) Performed By: #### U A, RAJ, UMICAO #### [facility] [address] [place], [place] [phone] Customer Assistance Associate: Carole Holden MD Phencyclidine, Ur Negative Normal NEG [facility] Comment on above: Result Comment: (Positive cutoff 25 ng/mL) Performed By: #### U A, RAJ, UMICAO #### [facility] [address] [place] [address] Customer Assistance Associate: Carole Holden MD Propoxyphene,Urine Negative Normal NEG [facility] Comment on above: Result Comment: (Positive cutoff 300 ng/mL) Performed By: #### U A, RAJ, UMICAO #### [facility] [address], [place] [phone] Customer Assistance Associate: Carole Holden MD Tricyclic antidepressants Screen Ql (U) Negative Normal NEG [facility] Comment on above: Result Comment: (Positive cutoff 300 ng/mL) Drug screen results are to be used for medical purposes only. All positive results are unconfirmed. Testing for employment or legal uses should be sent to a reference laboratory for confirmation. Performed By: #### U A, RAJ, UMICAO #### [facility] [address], [place] [phone] Customer Assistance Associate: Carole Holden MD Buprenorphrine, Ur NOT REPORTED Normal NEG [facility] Comment on above: Performed By: #### U A, RAJ, UMICAO #### [facility] [address] [place] [address] Customer Assistance Associate: Carole Holden MD Interpretive Info NOT REPORTED Normal [facility] Comment on above: Performed By: #### RAJ Morales UMICAO #### [facility] [address] [place] [address] Customer Assistance Associate: Carole Holden MD MDMA, Urine NOT REPORTED Normal NEG [facility] Comment on above: Performed By: #### RAJ Morales UMICAO #### [facility] [address] [place] [address] Customer Assistance Associate: Carole Holden MD Drug screen multi urineon Amphetamine Screen, Ur Negative NEGATIVE [facility] Comment on above: (Positive cutoff 500 ng/mL) Barbiturate Screen, Ur Negative NEGATIVE [facility] Comment on above: (Positive cutoff 200 ng/mL) Benzodiazepine Screen, Urine Negative NEGATIVE [facility] Comment on above: (Positive cutoff 150 ng/mL) Buprenorphine Urine NOT REPORTED NEGATIVE [facility] Cannabinoid Scrn, Ur Negative NEGATIVE [facility] Comment on above: (Positive cutoff 50 ng/mL) Cocaine Metabolite, Urine Negative NEGATIVE [facility] Comment on above: (Positive cutoff 150 ng/mL) MDMA, Urine NOT REPORTED NEGATIVE [facility] Methadone Screen, Urine Negative NEGATIVE [facility] Comment on above: (Positive cutoff 200 ng/mL) Methamphetamine, Urine Negative NEGATIVE [facility] Comment on above: (Positive cutoff 500 ng/mL) Opiates, Urine Negative NEGATIVE [facility] Comment on above: (Positive cutoff 100 ng/mL) Oxycodone Screen, Ur Negative NEGATIVE [facility] Comment on above: (Positive cutoff 100 ng/mL) Phencyclidine, Urine Negative NEGATIVE [facility] Comment on above: (Positive cutoff 25 ng/mL) Propoxyphene, Urine Negative NEGATIVE [facility] Comment on above: (Positive cutoff 300 ng/mL) Test Information NOT REPORTED [facility] Tricyclic Antidepressants, Urine Negative NEGATIVE [facility] Comment on above: (Positive cutoff 300 ng/mL) Drug screen results are to be used for medical purposes only. All positive results are unconfirmed. Testing for employment or legal uses should be sent to a reference laboratory for confirmation. [facility] EKG 12 LeadOrdered By: Billy Solomon on 11-30-2021 Atrial Rate 97 BPM [employer] Work Phone: P [place] 35 degrees [employer] Work Phone: P-R Interval 144 ms [employer] Work Phone: Q-T Interval 384 ms [employer] Work Phone: QRS Duration 92 ms [employer] Work Phone: QTc Calculation (Bazett) 487 ms [employer] Work Phone: R [place] 17 degrees [employer] Work Phone: T [place] 3 degrees [employer] Work Phone: Ventricular Rate 97 BPM [employer] [facility] Work Phone: [employer] Work Phone: EKG 12 Leadon 11-30-2021 Normal sinus rhythm Possible Left atrial enlargement Prolonged QT Abnormal ECG [facility] RADIOLOGY Billy Solomon MD - 11/30/2021 Normal sinus rhythm Possible Left atrial enlargement Prolonged QT Abnormal ECG [employer] Work Phone: EKG Rhythm Stripon 2 [facility] Ethanolon 11-30-2021 [facility] Ethanol Alcoholon 11-30-2021 Ethanol [Mass/Vol] mg/dL Normal <10 [facility] Comment on above: Performed By: #### C DP, ALCB, LIP, CP #### [facility] [address] [place] [address] Customer Assistance Associate: Carole Holden MD Ethanol percent <0.010 Normal [facility] Comment on above: Performed By: #### C DP, ALCB, LIP, CP #### [facility] [address] [place] [address] Customer Assistance Associate: Carole Holden MD Glucose, Whole Bloodon 11-30 Glucose [Mass/Vol] 294 mg/dL High 65 - 99 mg/dL [facility] Interpretation and review of laboratory results Abnormal [facility] Glucose [Mass/Vol] 311 mg/dL High 65 - 99 mg/dL [facility] Interpretation and review of laboratory results Abnormal [facility] Glucose [Mass/Vol] 306 mg/dL High 65 - 99 mg/dL [facility] Interpretation and review of laboratory results Abnormal [facility] Glucose [Mass/Vol] 333 mg/dL High 65 - 99 mg/dL [facility] Interpretation and review of laboratory results Abnormal [facility] Glucose [Mass/Vol] 371 mg/dL High 65 - 99 mg/dL [facility] Interpretation and review of laboratory results Abnormal [facility] Glucose [Mass/Vol] 454 mg/dL High 65 - 99 mg/dL [facility] Interpretation and review of laboratory results Abnormal [facility] Glucose [Mass/Vol] mg/dL Critically high 65 - 99 mg/d L [facility] Glucose [Mass/Vol] 489 mg/dL High 65 - 99 mg/dL [facility] Lipaseon 11-30-2021 Lipase [Catalytic activity/Vol] 498 U/L Critically high 13-60 [facility] Comment on above: Performed By: #### C DP, ALCB, LIP, CP #### [facility] [address] [place] [address] Customer Assistance Associate: Carole Holden MD Interpretation and review of laboratory results Abnormal [facility] Lipase [Catalytic activity/Vol] 498 U/L Critically high 13 - 60 U/L [facility] Magnesiumon 11-30-2021 Magnesium [Mass/Vol] 2.3 mg/dL Normal 1.6-2.6 [facility] Comment on above: Performed By: #### B MP, MG, ANUJ ####[facility] [id number] [place] [id number] Lab Director: Carole Holden MD Magnesium [Mass/Vol] 2.3 mg/dL 1.6 - 2 .6 mg/dL [facility] Microscopic Urinalysison - [facility] Amorphous, UA NOT REPORTED None [facility] Bacteria, UA NOT REPORTED None [facility] Casts UA NOT REPORTED /LPF [facility] Crystals, UA NOT REPORTED None /HPF [facility] Epithelial Cells UA NOT REPORTED /HPF [facility] Interpretation and review of laboratory results Abnormal [facility] [employer] Mucus, UA RARE Abnormal None [facility] [employer] Other Observations UA NOT REPORTED NOT REQ. [facility] [employer] RBC, UA 0 TO 2 [facility] Renal Epithelial, UA NOT REPORTED 0 /HPF [facility] Trichomonas, UA NOT REPORTED None [facility] WBC, UA NOT REPORTED 0 /HPF [facility] Yeast, UA NOT REPORTED None [facility] [employer] No Panel Informationon 11-30 [facility] [employer] Interpretation and review of laboratory results Abnormal [facility] [employer] POCT Glucoseon 11-30-2021 Glucose [Mass/Vol] 333 mg/dL [facility] Interpretation and review of laboratory results Normal [employer] Work Phone: QC OK? yes [employer] Work Phone: [employer] Work Phone: Glucose [Mass/Vol] 489 mg/dL [facility]: Interpretation and review of laboratory results Normal [employer] Work Phone: QC OK? yes [employer] Work Phone: [employer] Work Phone: POCT glucoseon 11-30-2021 Glucose [Mass/Vol] 371 mg/dL [facility]: Interpretation and review of laboratory results Normal [employer] Work Phone: QC OK? ok [employer] Work Phone: [employer] Work Phone: POCT glucoseOrdered By: Alyssa Mcduffie on 11-30-2021 Glucose [Mass/Vol] 454 mg/dL [facility] [employer] Interpretation and review of laboratory results Normal [employer] QC OK? ok [facility] [employer] [facility] [employer] Phosphoruson 11-30-2021 Interpretation and review of laboratory results Abnormal [employer] Phosphate [Mass/Vol] 4.6 mg/dL High 2.5 - 4 .5 mg/dL [facility] Phosphorus, Inorg.on 022 Phosphorus, Inorg. 4.6 mg/dL High 2.5-4.5 [facility] Comment on above: Performed By: #### B MP, MG, ANUJ ####[facility] [id number] [place] [address] Lab Director: Carole Holden MD [id number] 11-30-2021 SARS-CoV-2 (COVID-19) RNA DORON+probe Ql (Unsp spec) Not detected Normal NOTDET [facility] Comment on above: Result Comment: Rapid NAAT: The specimen is NEGATIVE for SARS-CoV-2, the novel coronavirus associated with COVID-19. The ID NOW COVID-19 assay is designed to detect the virus that causes COVID-19 in patients with signs and symptoms of infection who are suspected of COVID-19. An individual without symptoms of COVID-19 and who is not shedding SARS-CoV-2 virus would expect to have a negative (not detected) result in this assay. Negative results should be treated as presumptive and, if inconsistent with clinical signs and symptoms or necessary for patient management, should be tested with an alternative molecular assay. Negative results do not preclude SARS-CoV-2 infection and should not be used as the sole basis for patient management decisions. Fact sheet for Healthcare Providers: https://www.fda.gov/media/821887/download Fact sheet for Patients: https://www.fda.gov/media/387250/download Methodology: Isothermal Nucleic Acid Amplification Performed By: #### C OVRB #### [facility] [address] [place] [address] Customer Assistance Associate: Carole Holden MD Urinalysison 11-30-2021 Bil[facility], [facility] Yellow Yellow [facility] Glucose, Ur 1000 mg/dL Abnormal NEGATIVE [facility] Interpretation and review of laboratory results Abnormal [facility] Ketones Ql (U) LARGE Abnormal NEGATIVE [facility] Leukocyte esterase Test strip Ql (U) Negative NEGATIVE [facility] Nitrite, Urine Negative NEGATIVE [facility] pH, UA 5.0 [facility] Protein, UA 1+ Abnormal NEGATIVE [facility] Specific [place], UA 1.015 [facility] Turbidity UA Clear Clear [facility] Urinalysis Comments [facility] Urine Hgb 2+ Abnormal NEGATIVE [facility] Urobilinogen, Urine Normal Normal [facility] Urinalysis, Routineon 2021 Bilirubin, SemiQt,Ur Negative Normal NEG [facility] Comment on above: Performed By: #### U A, RAJ, UMICAO #### [facility] [address] [place] [address] Customer Assistance Associate: Carole Holden MD Blood, Urine 2+ Abnormal NEG [facility] Comment on above: Performed By: #### U A, RAJ, UMICAO #### [facility] [address] [place], [place] [phone] Customer Assistance Associate: Carole Holden MD Clarity (U) Clear Normal CLEAR [facility] Comment on above: Performed By: #### U A, RAJ, UMICAO #### [facility] [address] [place], [place] [phone] Customer Assistance Associate: Carole Holden MD Color (U) Yellow Normal YEL [facility] Comment on above: Performed By: #### U A, RAJ, UMICAO #### [facility] [address] [place], [place] [phone] Customer Assistance Associate: Carole Holden MD Comment Normal [facility] Comment on above: Performed By: #### U A, RAJ, UMICAO #### [facility] [address] [place], [place] [phone] Customer Assistance Associate: Carole Holden MD Glucose Ql (U) 1000 mg/dL Abnormal [facility] Comment on above: Performed By: #### U A, RAJ, UMICAO #### [facility] [address] [place] [address] Customer Assistance Associate: Carole Holden MD Ketones Ql (U) LARGE Abnormal NEG [facility] Comment on above: Performed By: #### U A RAJ, UMICAO #### [facility] [address] [place], [place] [phone] Customer Assistance Associate: Carole Holden MD Leukocyte esterase Test strip Ql (U) Negative Normal NEG [facility] Comment on above: Performed By: #### U A RAJ, UMICAO #### [facility] [address] [place] [phone] Customer Assistance Associate: Carole Holden MD Nitrite,Ur Negative Normal NEG [facility] Comment on above: Performed By: #### U A RAJ, UMICAO #### [facility] [address] [place] [address] Customer Assistance Associate: Caorle Holden MD PH,Ur 5.0 Normal 5.0-8.0 [facility] Comment on above: Performed By: #### U A RAJ, UMICAO #### [facility] [address] [place] [phone] Customer Assistance Associate: Carole Holden MD Protein Ql (U) 1+ Abnormal NEG [facility] Comment on above: Performed By: #### U A RAJ, UMICAO #### [facility] [address] [place] [address] Customer Assistance Associate: Carole Holden MD Spec. Talmage,Ur 1.015 Normal 1.005-1.030 [facility] Comment on above: Performed By: #### U A RAJ, UMICAO #### [facility] [address] [place], [place] [id number] Customer Assistance Associate: Carole Holden MD Urobilinogen,Ur Normal Normal NORM [facility] Comment on above: Performed By: #### U A, RAJ, UMICAO #### [facility] [address] [place], [place] [id number] Customer Assistance Associate: Carole Holden MD Urinalysis,Microon 2 ----- Normal [facility] Comment on above: Performed By: #### U A, RAJ, UMICAO #### [facility] [address] [place], [place] [phone] Customer Assistance Associate: Carole Holden MD Mucus Strands RARE Abnormal [facility] Comment on above: Performed By: #### U A, RAJ, UMICAO #### [facility] [address] [place] [address] Customer Assistance Associate: Carole Holden MD Urine RBC's 0 TO 2 Normal 0-2 [facility] Comment on above: Performed By: #### U A, RAJ, UMICAO #### [facility] [address] [place], [place] [phone] Customer Assistance Associate: Carole Holden MD Amorphous sediment LM Ql (Urine sed) NOT REPORTED Normal [facility] Comment on above: Performed By: #### U A, RAJ, UMICAO #### [facility] [address] [place] [address] Customer Assistance Associate: Carole Holden MD Bacteria NOT REPORTED Normal [facility] Comment on above: Performed By: #### U A, RAJ, UMICAO #### [facility] [address] [place], [place] [phone] Customer Assistance Associate: Carole Holden MD Casts NOT REPORTED Normal [facility] Comment on above: Performed By: #### U A, RAJ, UMICAO #### [facility] [address] [place], [place] [phone] Customer Assistance Associate: Carole Holden MD Crystals LM Nom (Urine sed) NOT REPORTED Normal [facility] Comment on above: Performed By: #### U A, RAJ, UMICAO #### [facility] [address] [place] [address] Customer Assistance Associate: Carole Holden MD Epithelial cells LM Ql (Urine sed) NOT REPORTED Normal [facility] Comment on above: Performed By: #### U A, RAJ, UMICAO #### [facility] [address] [place] [address] Customer Assistance Associate: Carole Holden MD Epithelial, Renal NOT REPORTED Normal 0 [facility] Comment on above: Performed By: #### U A RAJ, UMICAO #### [facility] [address] [place] [address] Customer Assistance Associate: Carole Holden MD Other Observations NOT REPORTED Normal [facility] Comment on above: Performed By: #### U A RAJ, UMICAO #### [facility] [address] [place], [place] [phone] Customer Assistance Associate: Carole Holden MD Trichomonas NOT REPORTED Normal NONE [facility] Comment on above: Performed By: #### U A RAJ, UMICAO #### [facility] [address] [place] [address] Customer Assistance Associate: Carole Holden MD Urine WBC's NOT REPORTED Normal 0 [facility] Comment on above: Performed By: #### U A, RAJ, UMICAO #### [facility] [address] [place], [place] [phone] Customer Assistance Associate: Carole Holden MD Yeast NOT REPORTED Normal NONE [facility] Comment on above: Performed By: #### U A, RAJ, UMICAO #### [facility] [address] [place] [address] Customer Assistance Associate: Carole Holden MD ABO/Rh Retypeon 05-02-2021 ABO/RH Recheck Result Positive Normal [facility] Comment on above: Result Comment: PERF ORMED BY: [place] [address] PATHOLOGIST QUALITY ASSURANCE LAB TECHNICIAN YESSICA ERICKSON M.D. Basic Metabolic Panelon Calcium [Mass/Vol] 7.8 mg/dL Low 8.2-10.2 [facility] Comment on above: Performed By: #### P TT, CBC, MG, CMP #### [facility] [address] [place] [address] Chloride [Moles/Vol] 108 mmol/L Normal 95-114 [facility] Comment on above: Performed By: #### P TT, CBC, MG, CMP #### [facility] [address] [place] [address] CO2 [Moles/Vol] 14.7 mmol/L Low 22.0-30.0 [facility] Comment on above: Performed By: #### P TT, CBC, MG, CMP #### [facility] [address] [place] [address] Creatinine [Mass/Vol] 0.90 mg/dL Normal 0.64-1.27 [facility] Comment on above: Performed By: #### P TT, CBC, MG, CMP #### [facility] [address] [place] [address] [place] Creatinine Clr Calc Pharmacy 88.61 [facility] Comment on above: Performed By: #### P TT, CBC, MG, CMP #### [facility] [address] [place] [address] Estimated GFR ( Gin > 60 [facility] Comment on above: Result Comment: GFR estimated reference range: According to KDOQI guidelines, <60 ml/min/1.73m2 is sufficient to diagnose a patient with chronic kidney disease. Performed By: #### P TT, CBC, MG, CMP #### [facility] [address] [place] [address] [place] Estimated GFR (Non- Am > 60 [facility] Comment on above: Performed By: #### P TT, CBC, MG, CMP #### [facility] [address] Glucose [Mass/Vol] 255 mg/dL High 70-100 [facility] Comment on above: Result Comment: Provencal Glucose Reference Range is dependent on time and content of last meal. Glucose of more than 200 mg/dL in a nonstressed, ambulatory subject supports the diagnosis of Diabetes Mellitus. ADA recommended reference range Performed By: #### P TT, CBC, MG, CMP #### [facility] [address] Potassium [Moles/Vol] 3.5 mmol/L Normal 3.5-5.1 [facility] Comment on above: Performed By: #### P TT, CBC, MG, CMP #### [address] Sodium [Moles/Vol] 137 mmol/L Normal 136-146 [facility] Comment on above: Performed By: #### P TT, CBC, MG, CMP #### [place] [address] [place] Urea nitrogen [Mass/Vol] 11 mg/dL Normal 9-23 [facility] Comment on above: Performed By: #### P TT, CBC, MG, CMP #### [address] Complete Blood Count Auto Di ffon 05-02-2021 Basophils (Bld) [#/Vol] 0.0 10*3/uL Normal 0.0-0.2 [facility] Comment on above: Result Comment: PERF ORMED BY: [place] [address] PATHOLOGIST QUALITY ASSURANCE LAB TECHNICIAN YESSICA ERICKSON M.D. Performed By: #### P TT, CBC, MG, CMP #### [place] [address] [place] Basophils/100 WBC (Bld) 0.6 % Normal . [facility] Comment on above: Performed By: #### P TT, CBC, MG, CMP #### [address] [place] [address] [place] Eosinophils (Bld) [#/Vol] 0.1 10*3/uL Normal 0.0-0.45 [facility] Comment on above: Performed By: #### P TT, CBC, MG, CMP #### [address] Eosinophils/100 WBC (Bld) 1.0 % Normal . [facility] Comment on above: Performed By: #### P TT, CBC, MG, CMP #### [address] Erythrocyte distribution width (RBC) [Ratio] 16.0 % High 12.0-14.8 [facility] Comment on above: Performed By: #### P TT, CBC, MG, CMP #### [address] Hematocrit (Bld) [Volume fraction] 24.7 % Low 38.8-50.0 [facility] Comment on above: Performed By: #### P TT, CBC, MG, CMP #### [address] Hemoglobin (Bld) [Mass/Vol] 7.9 g/dL Low 13.0-17.0 [facility] Comment on above: Performed By: #### P TT, CBC, MG, CMP #### [address] Lymphocytes (Bld) [#/Vol] 1.9 10*3/uL Normal 1.00-4.8 [facility] Comment on above: Performed By: #### P TT, CBC, MG, CMP #### [place] [address] [place] Lymphocytes/100 WBC (Bld) 29.5 % Normal . [facility] Comment on above: Performed By: #### P TT, CBC, MG, CMP #### [address] MCH (RBC) [Entitic mass] 27.8 pg Normal 27.5-35.2 [facility] Comment on above: Performed By: #### P TT, CBC, MG, CMP #### [address] MCV (RBC) [Entitic vol] 87.3 fL Normal 83.5-101 [facility] Comment on above: Performed By: #### P TT, CBC, MG, CMP #### [address] Mean Corpuscular HGB Conc 31.9 g/dL Low 32.5-35.6 [facility] Comment on above: Performed By: #### P TT, CBC, MG, CMP #### [address] Monocytes (Bld) [#/Vol] 0.7 10*3/uL Normal 0.0-0.8 [facility] Comment on above: Performed By: #### P TT, CBC, MG, CMP #### [address] Monocytes/100 WBC (Bld) 11.5 % Normal . [facility] Comment on above: Performed By: #### P TT, CBC, MG, CMP #### [address] Neutrophils (Bld) [#/Vol] 3.7 10*3/uL Normal 1.8-7.7 [facility] Comment on above: Performed By: #### P TT, CBC, MG, CMP #### [address] Neutrophils/100 WBC (Bld) 57.4 % Normal . [facility] Comment on above: Performed By: #### P TT, CBC, MG, CMP #### [address] Nucleated RBC/100 WBC (Bld) [Ratio] 0.0 % Normal 0-0.5 [facility] Comment on above: Performed By: #### P TT, CBC, MG, CMP #### [address] Platelet mean volume (Bld) [Entitic vol] 8.5 fL Normal 6.6-10.1 [facility] Comment on above: Performed By: #### P TT, CBC, MG, CMP #### [address] Platelets (Bld) [#/Vol] 132 10*3/uL Low 150-450 [facility] Comment on above: Performed By: #### P TT, CBC, MG, CMP #### [address] RBC (Bld) [#/Vol] 2.83 10*6/uL Low 3.90-5.60 [facility] Comment on above: Performed By: #### P TT, CBC, MG, CMP #### [address] WBC (Bld) [#/Vol] 6.4 10*3/uL Normal 4.5-11.0 [facility] Comment on above: Performed By: #### P TT, CBC, MG, CMP #### [address] Ferritinon 05-02-2021 Ferritin [Mass/Vol] 14.8 ng/mL Low 23.9-336.2 [facility] Comment on above: Performed By: #### P TT, CBC, MG, CMP #### [address] Glucose Poct Glucometerson 0 05-02-2021 Glucose [Mass/Vol] 262 mg/dL Normal [facility] Comment on above: Result Comment: Provencal Glucose Reference Range is dependent on time and content of last meal. Glucose of more than 200 mg/dL in a nonstressed, ambulatory subject supports the diagnosis of Diabetes Mellitus. PERFORMED BY: [place] [address] PATHOLOGIST QUALITY ASSURANCE LAB TECHNICIAN YESSICA ERICKSON M.D. Performed By: #### P TT, CBC, MG, CMP #### [address] Commemt1 Glu2: Cleaned Meter Normal [facility] Comment on above: Result Comment: PERF ORMED BY: [place] [address] PATHOLOGIST QUALITY ASSURANCE LAB TECHNICIAN YESSICA ERICKSON M.D. Performed By: #### P TT, CBC, MG, CMP #### [address] Glucose [Mass/Vol] 282 mg/dL Normal [facility] Comment on above: Result Comment: [facility] Glucose Reference Range is dependent on time and content of last meal. Glucose of more than 200 mg/dL in a nonstressed, ambulatory subject supports the diagnosis of Diabetes Mellitus. Performed By: #### P TT, CBC, MG, CMP #### [address] Ironon 05-02-2021 Iron [Mass/Vol] 23 ug/dL Low 40-160 [facility] Comment on above: Performed By: #### P TT, CBC, MG, CMP #### [address] Reticulocyte Counton 021 Reticulocyte Number 0.118 10*6/uL High 0.024-0.084 [facility] Comment on above: Result Comment: PERF ORMED BY: [place] [address] PATHOLOGIST QUALITY ASSURANCE LAB TECHNICIAN YESSICA ERICKSON M.D. Performed By: #### P TT, CBC, MG, CMP #### [address] Reticulocyte Percent 3.7 % High 0.5-1.5 [facility] Comment on above: Performed By: #### P TT, CBC, MG, CMP #### [address] Total Iron Binding Capacityo n 05-02-2021 Total Iron Binding Capacity 358 ug/dL Normal 255-450 [facility] Comment on above: Performed By: #### P TT, CBC, MG, CMP #### [facility] [address] [place] [address] Transferrin [Mass/Vol] 256 mg/dL Normal 180-380 [facility] Comment on above: Performed By: #### P TT, CBC, MG, CMP #### [address] Vit. B12/Folate Profileon Cobalamin (Vitamin B12) [Mass/Vol] 463 pg/mL Normal 180-914 [facility] Comment on above: Performed By: #### P TT, CBC, MG, CMP #### [address] Folate 18.2 ng/mL Normal >5.9 [facility] Comment on above: Result Comment: Lindsay te reference range: >5.9 ng/ml The WHO technical consultation on folate and vitamin b12 deficiencies has determined that folate concentrations less than 4 ng/ml are considered deficient. PERFORMED BY: [place] [address] PATHOLOGIST QUALITY ASSURANCE LAB TECHNICIAN YESSICA ERICKSON M.D. Performed By: #### P TT, CBC, MG, CMP #### [address] A1C with Estimated Average G luon 05-01-2021 Glucose [Mass/Vol] 272 mg/dL Normal [facility] Comment on above: Result Comment: PERF ORMED BY: [place] [address] PATHOLOGIST QUALITY ASSURANCE LAB TECHNICIAN YESSICA ERICKSON M.D. Performed By: #### P TT, CBC, MG, CMP #### [facility] [address] [place] [address] HbA1c (Bld) [Mass fraction] 11.1 % High 4.3-5.6 [facility] Comment on above: Result Comment: Incr eased risk for diabetes: 5.7 - 6.4 diabetes: >6.4 glycemic control for adults with diabetes: <7.0 Performed By: #### P TT, CBC, MG, CMP #### [address] Complete Blood Count Auto Di ffon 05-01-2021 Basophils (Bld) [#/Vol] 0.0 10*3/uL Normal 0.0-0.2 [facility] Comment on above: Result Comment: PERF ORMED BY: [place] [address] PATHOLOGIST QUALITY ASSURANCE LAB TECHNICIAN YESSICA ERICKSON M.D. Performed By: #### P TT, CBC, MG, CMP #### [address] Basophils/100 WBC (Bld) 0.5 % Normal . [facility] Comment on above: Performed By: #### P TT, CBC, MG, CMP #### [address] Eosinophils (Bld) [#/Vol] 0.0 10*3/uL Normal 0.0-0.45 [facility] Comment on above: Performed By: #### P TT, CBC, MG, CMP #### [address] Eosinophils/100 WBC (Bld) 0.3 % Normal . [facility] Comment on above: Performed By: #### P TT, CBC, MG, CMP #### [address] Erythrocyte distribution width (RBC) [Ratio] 16.5 % High 12.0-14.8 [facility] Comment on above: Performed By: #### P TT, CBC, MG, CMP #### [address] Hematocrit (Bld) [Volume fraction] 22.4 % Low 38.8-50.0 [facility] Comment on above: Performed By: #### P TT, CBC, MG, CMP #### [address] Hemoglobin (Bld) [Mass/Vol] 7.2 g/dL Low 13.0-17.0 [facility] Comment on above: Performed By: #### P TT, CBC, MG, CMP #### [address] Lymphocytes (Bld) [#/Vol] 1.9 10*3/uL Normal 1.00-4.8 [facility] Comment on above: Performed By: #### P TT, CBC, MG, CMP #### [address] Lymphocytes/100 WBC (Bld) 27.1 % Normal . [facility] Comment on above: Performed By: #### P TT, CBC, MG, CMP #### [address] MCH (RBC) [Entitic mass] 27.9 pg Normal 27.5-35.2 [facility] Comment on above: Performed By: #### P TT, CBC, MG, CMP #### [address] MCV (RBC) [Entitic vol] 86.5 fL Normal 83.5-101 [facility] Comment on above: Performed By: #### P TT, CBC, MG, CMP #### [address] Mean Corpuscular HGB Conc 32.2 g/dL Low 32.5-35.6 [facility] Comment on above: Performed By: #### P TT, CBC, MG, CMP #### [address] Monocytes (Bld) [#/Vol] 0.7 10*3/uL Normal 0.0-0.8 [facility] Comment on above: Performed By: #### P TT, CBC, MG, CMP #### [address] Monocytes/100 WBC (Bld) 10.4 % Normal . [facility] Comment on above: Performed By: #### P TT, CBC, MG, CMP #### [address] Neutrophils (Bld) [#/Vol] 4.2 10*3/uL Normal 1.8-7.7 [facility] Comment on above: Performed By: #### P TT, CBC, MG, CMP #### [address] Neutrophils/100 WBC (Bld) 61.7 % Normal . [facility] Comment on above: Performed By: #### P TT, CBC, MG, CMP #### [facility] [address] [place] [address] Nucleated RBC/100 WBC (Bld) [Ratio] 0.0 % Normal 0-0.5 [facility] Comment on above: Performed By: #### P TT, CBC, MG, CMP #### [address] Platelet mean volume (Bld) [Entitic vol] 8.2 fL Normal 6.6-10.1 [facility] Comment on above: Performed By: #### P TT, CBC, MG, CMP #### [address] Platelets (Bld) [#/Vol] 169 10*3/uL Normal 150-450 [facility] Comment on above: Performed By: #### P TT, CBC, MG, CMP #### [address] RBC (Bld) [#/Vol] 2.58 10*6/uL Low 3.90-5.60 [facility] Comment on above: Performed By: #### P TT, CBC, MG, CMP #### [address] WBC (Bld) [#/Vol] 6.9 10*3/uL Normal 4.5-11.0 [facility] Comment on above: Performed By: #### P TT, CBC, MG, CMP #### [address] Comprehensive Metabolic Pane rick 05-01-2021 Albumin [Mass/Vol] 3.4 g/dL Normal 3.2-5.5 [facility] Comment on above: Performed By: #### P TT, CBC, MG, CMP #### [facility] [address] [place] [address] [place] Albumin/Globulin [Mass ratio] 1.3 {ratio} Normal [facility] Comment on above: Performed By: #### P TT, CBC, MG, CMP #### [facility] [address] [place] [address] [place] ALP [Catalytic activity/Vol] 50 U/L Normal 32-92 [facility] Comment on above: Performed By: #### P TT, CBC, MG, CMP #### [facility] [address] ALT [Catalytic activity/Vol] 25 U/L Normal 10-60 [facility] Comment on above: Performed By: #### P TT, CBC, MG, CMP #### [facility] [address] [place] [address] [place] AST [Catalytic activity/Vol] 15 U/L Normal 10-42 [facility] Comment on above: Performed By: #### P TT, CBC, MG, CMP #### [facility] [address] [place] [address] [place] Bilirubin [Mass/Vol] 1.2 mg/dL Normal 0.3-1.2 [facility] Comment on above: Performed By: #### P TT, CBC, MG, CMP #### [facility] [address] [place] [address] [place] Calcium [Mass/Vol] 8.8 mg/dL Normal 8.2-10.2 [facility] Comment on above: Performed By: #### P TT, CBC, MG, CMP #### [facility] [address] [place] [id number] [place] Chloride [Moles/Vol] 107 mmol/L Normal 95-114 [facility] Comment on above: Performed By: #### P TT, CBC, MG, CMP #### [facility] [address] [place] [id number] [place] CO2 [Moles/Vol] 17.6 mmol/L Low 22.0-30.0 [facility] Comment on above: Performed By: #### P TT, CBC, MG, CMP #### [facility] [address] Creatinine [Mass/Vol] 1.05 mg/dL Normal 0.64-1.27 [facility] Comment on above: Performed By: #### P TT, CBC, MG, CMP #### [address] Creatinine Clr Calc Pharmacy 82.29 [facility] Comment on above: Performed By: #### P TT, CBC, MG, CMP #### [address] Estimated GFR ( Gin > 60 [facility] Comment on above: Result Comment: GFR estimated reference range: According to KDOQI guidelines, <60 ml/min/1.73m2 is sufficient to diagnose a patient with chronic kidney disease. Performed By: #### P TT, CBC, MG, CMP #### [address] Estimated GFR (Non- Am > 60 [facility] Comment on above: Performed By: #### P TT, CBC, MG, CMP #### [address] Globulin (S) [Mass/Vol] 2.7 g/dL [facility] Comment on above: Performed By: #### P TT, CBC, MG, CMP #### [facility] [address] [place] [address] Glucose [Mass/Vol] 372 mg/dL High 70-100 [facility] Comment on above: Result Comment: Provencal om Glucose Reference Range is dependent on time and content of last meal. Glucose of more than 200 mg/dL in a nonstressed, ambulatory subject supports the diagnosis of Diabetes Mellitus. ADA recommended reference range Performed By: #### P TT, CBC, MG, CMP #### [address] Potassium [Moles/Vol] 4.1 mmol/L Normal 3.5-5.1 [facility] Comment on above: Performed By: #### P TT, CBC, MG, CMP #### [facility] [address] [place] [address] [place] Protein [Mass/Vol] 6.1 g/dL Normal 6.1-7.9 [facility] Comment on above: Performed By: #### P TT, CBC, MG, CMP #### [facility] [address] [place] [address] [place] Sodium [Moles/Vol] 133 mmol/L Low 136-146 [facility] Comment on above: Performed By: #### P TT, CBC, MG, CMP #### [facility] [address] [place] [address] [place] Urea nitrogen [Mass/Vol] 20 mg/dL Normal 07-24 [facility] Comment on above: Performed By: #### P TT, CBC, MG, CMP #### [facility] [address] Glucose Poct Glucometerson 0 05-01-2021 Glucose [Mass/Vol] 278 mg/dL Normal [facility] Comment on above: Result Comment: Provencal om Glucose Reference Range is dependent on time and content of last meal. Glucose of more than 200 mg/dL in a nonstressed, ambulatory subject supports the diagnosis of Diabetes Mellitus. PERFORMED BY: [place] [address] PATHOLOGIST QUALITY ASSURANCE LAB TECHNICIAN YESSICA ERICKSON M.D. Performed By: #### G LULS #### Point of Care testing , Commemt1 Glu2: Cleaned Meter Normal [facility] Comment on above: Result Comment: PERF ORMED BY: [place] [address] PATHOLOGIST QUALITY ASSURANCE LAB TECHNICIAN YESSICA ERICKSON M.D. Performed By: #### G LULS #### Point of Care testing , Glucose [Mass/Vol] 297 mg/dL Normal [facility] Comment on above: Result Comment: Provencal om Glucose Reference Range is dependent on time and content of last meal. Glucose of more than 200 mg/dL in a nonstressed, ambulatory subject supports the diagnosis of Diabetes Mellitus. Performed By: #### G LULS #### Point of Care testing , Glucose [Mass/Vol] 329 mg/dL Normal [facility] Comment on above: Result Comment: [facility] Glucose Reference Range is dependent on time and content of last meal. Glucose of more than 200 mg/dL in a nonstressed, ambulatory subject supports the diagnosis of Diabetes Mellitus. PERFORMED BY: [facility] [address] [place] [phone] PATHOLOGIST QUALITY ASSURANCE LAB TECHNICIAN YESSICA ERICKSON M.D. Performed By: #### G LULS #### Point of Care testing , Hemoglobin and Hematocriton 05-01-2021 Hematocrit (Bld) [Volume fraction] 21.4 % Low 38.8-50.0 [facility] Comment on above: Result Comment: PERF ORMED BY: [place] [address] PATHOLOGIST QUALITY ASSURANCE LAB TECHNICIAN YESSICA ERICKSON M.D. Performed By: #### H H #### [facility] [address] [place] [address] Hemoglobin (Bld) [Mass/Vol] 6.8 g/dL Low 13.0-17.0 [facility] Comment on above: Performed By: #### H H #### [facility] [address] [place] [address] [place] LeukoReduced RBCon LeukoReduced RBC TRANSFUSED 05/01/21 2236 Normal [facility] Magnesiumon 05-01-2021 Magnesium [Mass/Vol] 1.8 mg/dL Normal 1.6-2.6 [facility] Comment on above: Result Comment: PERF ORMED BY: [place] [address] PATHOLOGIST QUALITY ASSURANCE LAB TECHNICIAN YESSICA ERICKSON M.D. Performed By: #### P TT, CBC, MG, CMP #### [facility] [address] [place] [address] [place] Partial Thromboplastin Timeo n 05-01-2021 aPTT Coag (Bld) [Time] 24.7 s Low 25.1-36.5 [facility] Comment on above: Result Comment: PERF ORMED BY: [facility] [address] [facility] [place] [address] PATHOLOGIST QUALITY ASSURANCE LAB TECHNICIAN YESSICA ERICKSON M.D. Performed By: #### P TT, CBC, MG, CMP #### [facility] [address] [place] [address] [place] Type and [employer] 05-01-2021 ABO and Rh group Nom (Bld) Blood group O Rh(D) positive Normal [facility] Comment on above: Result Comment: PERF ORMED BY: [address] [address] PATHOLOGIST QUALITY ASSURANCE LAB TECHNICIAN YESSICA ERICKSON M.D. Vital Signs Date Time Vital Sign Value Performing Clinician Facility 03-03-2024 14:24-0400 Body height 167.64 cm [facility] 03-03-2024 14:24-0400 Body mass index (BMI) [Ratio] 30.2 kg/m2 [facility] 03-03-2024 14:24-0400 Body weight 84.93 kg [facility] 03-03-2024 14:24-0400 Diastolic blood pressure 90 mm[Hg] [facility] 03-03-2024 14:24-0400 Heart rate 67 /min [facility] 03-03-2024 14:24-0400 Respiratory rate 12 /min [facility] 03-03-2024 14:24-0400 Systolic blood pressure 147 mm[Hg] [facility] 05-19-2023 15:30-0400 Body height 167.64 cm Elvin Ball Other [employer] [facility] [employer] Other 05-19-2023 15:30-0400 Body mass index (BMI) [Ratio] 29.73 kg/m2 Elvin Ball Other [employer] [facility] [employer] Other 05-19-2023 15:30-0400 Body weight 83.55 kg Elvin Ball Other [employer] [facility] [employer] Other 05-19-2023 15:30-0400 Diastolic blood pressure 95 mm[Hg] Elvin Ball Other [employer] Other 05-19-2023 15:30-0400 Respiratory rate 12 /min Elvin Ball Other [employer] Other 05-19-2023 15:30-0400 Systolic blood pressure 146 mm[Hg] Elvin Ball Other [employer] Other 04-06-2023 14:45-0400 Body height 167.64 cm Elvin Ball Other [employer] Other 04-06-2023 14:45-0400 Body mass index (BMI) [Ratio] 28.44 kg/m2 Elvin Ball Other [employer] Other 04-06-2023 14:45-0400 Body weight 79.92 kg Elvin Ball Other [employer] Other 04-06-2023 14:45-0400 Diastolic blood pressure 81 mm[Hg] Elvin Ball Other [employer] Other 04-06-2023 14:45-0400 Respiratory rate 12 /min Elvin Ball Other [employer] Other 04-06-2023 14:45-0400 Systolic blood pressure 121 mm[Hg] Elvin Ball Other [employer] Other 11-13-2022 15:30-0500 Body height 167.64 cm Elvin Ball Other [employer] Other 11-13-2022 15:30-0500 Body mass index (BMI) [Ratio] 28.86 kg/m2 Elvin Ball Other [employer] Other 11-13-2022 15:30-0500 Body weight 81.1 kg Elvin Ball Other [employer] Other 11-13-2022 15:30-0500 Diastolic blood pressure 90 mm[Hg] Elvin Ball Other [employer] Other 11-13-2022 15:30-0500 Respiratory rate 12 /min Elvin Ball Other [employer] Other 11-13-2022 15:30-0500 Systolic blood pressure 122 mm[Hg] Elvin Ball Other [facility] Other 12-22-2021 09:55-0500 Body height 167.6 cm [employer] Work Phone: [employer] 12-22-2021 09:55-0500 Body mass index (BMI) [Ratio] 24.34 kg/m2 [employer] Work Phone: [facility] 12-22-2021 09:55-0500 Body weight 68.4 kg [employer] Work Phone: [employer] 12-22-2021 09:55-0500 Diastolic blood pressure 77 mm[Hg] [employer] Work Phone: [employer] 12-22-2021 09:55-0500 Systolic blood pressure 125 mm[Hg] [employer] Work Phone: [facility] 12-03-2021 15:09-0500 Body temperature 97.81 [degF] Keaton Leonardo DO Work Phone: [employer] 12-03-2021 15:09-0500 Heart rate 76 /min Keaton Leonardo DO Work Phone: [employer] 12-03-2021 15:09-0500 Respiratory rate 15 /min Keaton Leonardo DO Work Phone: [employer] 12-03-2021 14:00-0500 Body mass index (BMI) [Ratio] 24.4 kg/m2 Keaton Leonardo DO Work Phone: [employer] 12-03-2021 14:00-0500 Body weight 66.5 kg Keaton Leonardo DO Work Phone: [employer] 12-03-2021 08:22-0500 Diastolic blood pressure 85 mm[Hg] Keaton Leonardo DO Work Phone: [employer] 12-03-2021 08:22-0500 Systolic blood pressure 137 mm[Hg] Keaton Leonardo DO Work Phone: [employer] 12-03-2021 04:00-0500 SaO2% (BldA) [Mass fraction] 97 % Keaton Leonardo DO Work Phone: [employer] 12-02-2021 14:47-0500 Body height 165.1 cm Keaton Mastersu DO Work Phone: [employer] 12-01-2021 12:49-0500 Heart rate 102 /min Fernando Vanessa MD Work Phone: [facility] 12-01-2021 12:49-0500 Respiratory rate 13 /min Fernando Vanessa MD Work Phone: [facility] 12-01-2021 12:49-0500 SaO2% (BldA) [Mass fraction] 100 % Fernando Vanessa MD Work Phone: [facility] 12-01-2021 10:00-0500 Diastolic blood pressure 106 mm[Hg] Fernando Vanessa MD Work Phone: [facility] 12-01-2021 10:00-0500 Systolic blood pressure 152 mm[Hg] Fernando Vanessa MD Work Phone: [facility] 11-30-2021 13:41-0500 Body height 172.7 cm Fernando Vanessa MD Work Phone: [facility] 11-30-2021 13:23-0500 Body mass index (BMI) [Ratio] 22.18 kg/m2 Fernando Vanessa MD Work Phone: [facility] 11-30-2021 13:23-0500 Body weight 66.18 kg Fernando Vanessa MD Work Phone: [facility] 11-30-2021 13:19-0500 Body temperature 96.6 [degF] Fernando Vanessa MD Work Phone: [facility] [employer] Encounters Encounter Date Encounter Type Care Provider Facility Start: 03-03-2024 End: 03-03-2024 ambulatory [facility] Work Phone: Start: 03-03-2024 End: 03-03-2024 Encounter for general adult medical examination without abnormal findings [facility] Start: 03-03-2024 End: 03-03-2024 Patient encounter procedure [facility] Physician [facility] Work Phone: Start: 02-22-2024 Non-patient / Non-visit [facility] [place] [employer] Work Phone: Start: 07-21-2023 End: 07-21-2023 ambulatory Elvin Ball Other [facility] Other Start: 07-21-2023 Telephone encounter Elvin Dang [facility] Start: 05-19-2023 End: 05-19-2023 ambulatory Elvin Ball Other [facility] Other Start: 05-19-2023 Office outpatient vi sit 25 minutes Elvin Ball [facility] Start: 04-07-2023 End: 04-07-2023 ambulatory Elvin Ball Other [facility] Other Start: 04-07-2023 Telephone encounter Elvin Ball [facility] Start: 04-06-2023 End: 04-06-2023 ambulatory Elvin Ball Other [facility] Other Start: 04-06-2023 Office outpatient vi sit 25 minutes Elvin Ball [facility] Start: 04-01-2023 End: 04-01-2023 ambulatory Elvin Dang Other [facility] Other Start: 04-01-2023 Telephone encounter [facility] Start: 03-28-2023 End: 03-31-2023 Evaluation and management of inpatient DR EDGAR DAHL . Facility:[facility] Start: 03-11-2023 End: 03-11-2023 ambulatory Elvin Dang Other [facility] Other Start: 03-11-2023 Telephone encounter [facility] Start: 12-09-2022 End: 12-09-2022 ambulatory Elvin Dang Other [facility] Other Start: 12-09-2022 Telephone encounter [facility] Start: 12-08-2022 End: 12-09-[address] ELVIN DANG Facility:[facility] Start: 11-13-2022 End: 11-13-2022 ambulatory Elvin Dang Other [facility] Other Start: 11-13-2022 Office outpatient vi sit 25 minutes Elvin Dang [facility] Start: 11-09-2022 Annual wellness visit Elvin Dang Other [facility] Other Start: 08-14-2022 Adult health examination Ke Dang Other [facility] Other Start: 07-28-2022 End: 07-29-[address] ELVIN DANG Facility:[facility] Start: 07-10-2022 End: 07-12-2022 Evaluation and management of inpatient DR CANDACE MURILLO . Facility:[facility] Start: 04-23-2022 Encounter for genera l adult medical examination without abnormal findings DR ELVIN DANG [facility] Start: 04-21-2022 End: 04-22-[address] ELVIN DANG Facility:[facility] Start: 04-21-2022 End: 04-22-2022 Encounter for general adult medical examination without abnormal findings DR ELVIN DANG Facility:[facility] Start: 12-30-2021 End: 12-30-2021 Subsequent hospital visit by physician [facility] Work Phone: [facility] Start: 12-29-2021 End: 12-29-2021 Subsequent hospital visit by physician ERIN Ruth RD Work Phone: [facility] Diet [facility] Nutrition Start: 12-24-2021 End: 12-24-2021 ambulatory YASSINE SALLY [facility] Start: 12-22-2021 End: 12-23-2021 ambulatory ELVIN DANG [facility] Start: 12-22-2021 End: 12-22-2021 Subsequent hospital visit by physician [facility] Work Phone: [facility] Start: 12-16-2021 End: 12-17-2021 [facility] Start: 12-01-2021 End: 12-03-2021 [facility]: 12-01-2021 End: 12-03-2021 Evaluation and management of inpatient Keaton Leonardo Work Phone: [id number] Comment on above: Hypophosphatemia (Pr imary Dx); Hypokalemia; Transaminitis; Pancreatic mass; Cystic mass of pancreas; Type 2 diabetes mellitus with hyperglycemia, without long-term current use of insulin (HCC) Start: 11-30-2021 End: 12-01-2021 Emergency department patient visit [facility] Start: 11-30-2021 End: 12-01-2021 Emergency department patient visit Fernando Vanessa MD Work Phone: [facility] Comment on above: Diabetic ketoacidosi s without coma associated with diabetes mellitus due to underlying condition (HCC) (Primary Dx); Acute pancreatitis, unspecified complication status, unspecified pancreatitis type Procedures Date Procedure Procedure Detail Performing Clinician Start: 04-21-[address] FABIAN MURILLO . Comment on above: Performed By: #### A CETON #### [facility] [address] [address] [address] Rayray Stewart Start: 12-03-2021 Glucose blood reagen t strip Ilia Vital MD Work Phone: Start: 12-03-2021 BASIC METABOLIC PANE L W/ REFLEX TO MG FOR LOW K Dustin Bass PA-C Work Phone: Start: 12-03-2021 Glucose blood reagen t strip Ilia Vital MD Work Phone: Start: 12-03-2021 Mri abdomen w/o & w/contrast material Dustin Bass PA-C Work Phone: Start: 12-03-2021 End: 12-03-2021 Basic metabolic panel calcium total Keaton Leonardo DO Work Phone: Start: 12-03-2021 Hepatic function panel Keaton Leonardo DO Work Phone: Start: 12-03-2021 End: 12-03-2021 Basic metabolic panel calcium total Keaton Leonardo DO Work Phone: Start: 12-02-2021 End: 12-03-2021 Basic metabolic panel calcium total Keaton Leonardo DO Work Phone: Start: 12-02-2021 Basic metabolic pane l calcium total Keaton Leonardo DO Work Phone: Start: 12-02-2021 End: 12-02-2021 Basic metabolic panel calcium total Keaton Leonardo DO Work Phone: Start: 12-02-2021 Lipid panel Keaton Leonardo DO Work Phone: Start: 12-02-2021 End: 12-02-2021 Basic metabolic panel calcium total Keaton Leonardo DO Work Phone: Start: 12-02-2021 Hepatic function panel Dustin Bass PA-C Work Phone: Start: 12-02-2021 End: 12-02-2021 Basic metabolic panel calcium total Keaton Leonardo DO Work Phone: Start: 12-02-2021 Glucose blood reagen t strip Ilia Vital MD Work Phone: Start: 12-02-2021 End: 12-02-2021 Basic metabolic panel calcium total Keaton Leonardo DO Work Phone: Start: 12-02-2021 IMMATURE PLATELET FRACTION Keaton Leonardo DO Work Phone: Start: 12-02-2021 End: 12-02-2021 Glucose blood reagent strip Ilia Vital MD Work Phone: Start: 12-02-2021 Glucose blood reagen t strip Ilia Vital MD Work Phone: Start: 12-02-2021 End: 12-02-2021 Basic metabolic panel calcium total Keaton Mastersu DO Work Phone: Start: 12-01-2021 End: 12-01-2021 Glucose blood reagent strip Keaton Mastersu DO Work Phone: Start: 12-01-2021 Glucose blood reagen t strip Keaton Mastersu DO Work Phone: Start: 12-01-2021 End: 12-01-2021 Glucose blood reagent strip Keaton Mastersu DO Work Phone: Start: 12-01-2021 End: 12-01-2021 Basic metabolic panel calcium total Marzena R Godoy ASSISTANT 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 - 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 Work Phone: Start: 12-01-2021 Gluc bld gluc mntr d ev cleared fda spec home use Fernando Vanessa MD Work Phone: Start: 12-01-2021 COVID-19, RAPID Divya jolley MD Work Phone: Start: 12-01-2021 Gluc bld gluc mntr d ev cleared fda spec home use Fernando Vanessa MD Work Phone: Start: 12-01-2021 End: 12-01-2021 Basic metabolic panel calcium total Divya Ozuna MD Work Phone: Start: 12-01-2021 Ct angiography chest w/contrast/noncontrast Divya Ozuna MD Work Phone: Start: 12-01-2021 Gluc bld gluc mntr d ev cleared fda spec home use Fernando Vanessa MD Work Phone: Start: 12-01-2021 Ecg routine ecg w/le ast 12 lds w/i&r Divya Ozuna MD Work Phone: Start: 12-01-2021 Radiologic exam ches t single view Fernando Vanessa MD Work Phone: Start: 12-01-2021 VENOUS BLOOD GAS, PO INT OF CARE Fernando Vanessa MD Work Phone: Start: 12-01-2021 Basic metabolic pane l calcium total Fernando Vanessa MD Work Phone: Start: 12-01-2021 Gluc bld gluc mntr d ev cleared fda spec home use Fernando Vanessa MD Work Phone: Start: 11-30-2021 Drug screen class list a Fernando Vanessa MD Work Phone: Start: 11-30-2021 Urinalysis microscop ic only Fernando Vanessa MD Work Phone: Start: 11-30-2021 Urnls dip stick/tabl et rgnt auto w/o microscopy Fernando Vanessa MD Work Phone: Start: 11-30-2021 End: 11-30-2021 Basic metabolic panel calcium total Fernando Vanessa MD Work Phone: Start: 11-30-2021 ARTERIAL BLOOD GAS, POC Fernando Vanessa MD Work Phone: Start: 11-30-2021 Ct abdomen & pelvis w/o contrast material Fernando Vanessa MD Work Phone: Start: 11-30-2021 End: 11-30-2021 Ecg routine ecg w/least 12 lds i&r only Fernando Vanessa MD Work Phone: Start: 11-30-2021 COVID-19, RAPID Fernando Vanessa MD Work Phone: Start: 11-30-2021 Assay of ethanol José Vanessa MD Work Phone: Start: 05-01-2021 Antibody screen Comment on above: Result Comment: PERF ORMED BY: [facility] [address] [place] [address] PATHOLOGIST QUALITY ASSURANCE LAB TECHNICIAN YESSICA ERICKSON M.D. Start: 09-22-2018 Laboratory test resu lt abnormal Elvin Dang Other Start: 03-05-2015 General examination of patient Elvin Dang Other Plan of Treatment Date Care Activity Detail Author Start: 12-02-2022 Lipid panel Lipid screen [facility] Start: 03-11-2022 End: 03-11-2022 Patient encounter procedure 03/11/2022 Office Visit Gastroenterology Dale Conrad MD [address] [id number] [facility] Gastroenterology Start: 03-01-2022 Hemoglobin A1c measurement A1C test (Diabetic or Prediabetic) [facility] Start: 12-30-2021 End: 12-30-2021 Patient encounter procedure 12/30/2021 Appointment [facility] Start: 12-29-2021 End: 12-29-2021 Patient encounter procedure 12/29/2021 Appointment IP Unit Aung Singleton, KYLE, LD [facility] Diet [facility] Nutrition Start: 12-24-2021 End: 12-24-2021 Admission to same day surgery center 12/24/2021 Surgery Endoscopy Yassine Reed MD [address] [place], [place] [id number] ENDOSCOPIC ULTRASOUND [facility] Endoscopy Comment on above: ENDOSCOPIC ULTRASOUND Start: 12-24-2021 End: 12-24-2021 Gi endoscopic us s&i ENDOSCOPIC ULTRASOUND CYSTIC MASS OF PANCREAS 12/24/2021 9:00 AM EST [facility] Start: 12-24-2021 Subsequent hospital visit by physician 12/24/2021 Hospital Encounter Endoscopy Yassine Reed MD [address] [place] [address] [facility] Start: 12-10-2021 End: 12-03-2022 Comprehensive metabolic 2000 panel - Serum or Plasma Comprehensive Metabolic Panel Lab Routine Hypophosphatemia Hypokalemia Transaminitis Expected: 12/10/2021, Expires: 12/03/2022 [facility] Work Phone: Comment on above: Expected: 12/10/2021, Expires: 3 Start: 12-01-2021 End: 12-01-2022 XR CHEST 1 VIEW XR CHEST 1 VIEW Imaging Routine Diabetic ketoacidosis without coma associated with diabetes mellitus due to underlying condition (HCC) Acute pancreatitis, unspecified complication status, unspecified pancreatitis type Expected: 12/01/2021, Expires: 12/01/2022 [facility] Work Phone: Comment on above: Expected: 12/01/2021, Expires: 3 Start: 08-03-2021 COVID-19 Vaccine (3 - Booster for Pfizer series) COVID-19 Vaccine (3 - Booster for Pfizer series) [facility] Start: 07-02-2021 Influenza vaccination Flu vaccine (#1) [facility] Start: 2020 Shingles Vaccine (1 of 2) Shingles Vaccine (1 of 2) [facility] Start: 2015 [facility]: 1989 DTaP/Tdap/Td vaccine (1 - Tdap) DTaP/Tdap/Td vaccine (1 - Tdap) [facility] Start: 1989 Hepatitis B vaccine (1 of 3 - Risk 3-dose series) Hepatitis B vaccine (1 of 3 - Risk 3-dose series) [facility] Start: 1988 Diabetic retinal exam [facility]: 1988 Urine screening for protein Diabetic microalbuminuria test [facility] Start: 1985 HIV screening [facility] screen [facility] Start: 1982 Depression Screen Depression Screen [facility] Start: 1980 Diabetic foot examination Diabetic foot exam [facility] Start: 1980 Hemoglobin A1c measurement A1C test (Diabetic or Prediabetic) [facility] Start: 1980 Lipid panel Lipid screen [facility] Start: 1976 Pneumococcal 0-64 years Vaccine (1 of 2 - PPSV23) Pneumococcal 0-64 years Vaccine (1 of 2 - PPSV23) [facility] Start: 1970 Hepatitis C screening Hepatitis C screen [facility] End: 12-08-2021 Basic metabolic 2000 panel - Serum or Plasma Basic Metabolic Panel Lab Timed Every 4 Hours (Lab) for 7 Days starting 12/01/2021 until 12/08/2021, 1 completed [employer] Phone: Comment on above: Every 4 Hours (Lab) for 7 Days starting 12/01/2021 until 12/08/2021, 1 completed End: 12-01-2021 Blood gas, venous Blood gas, venous Lab Routine One Time for 1 Occurrences starting 12/01/2021 until 12/01/2021 [employer] Phone: Comment on above: One Time for 1 Occurrences starting 11/03 until 12/01/2021 Comprehensive metabolic 2000 panel - Serum or Plasma [facility] EKG 12 Lead EKG 12 Lead ECG STAT 12/01/2021 9:35 AM EST [employer] Phone: Glucose [Mass/volume ] in Serum or Plasma [employer] Phone: Comment on above: 4X Daily (AC & HS) until discontinued st arting 12/02/2021 As Needed until disc ontinued starting 12/02/2021 End: 12-08-2021 Magnesium [Mass/volume] in Serum or Plasma Magnesium Lab Timed Every 4 Hours (Lab) for 7 Days starting 12/01/2021 until 12/08/2021, 1 completed [employer] Phone: Comment on above: Every 4 Hours (Lab) for 7 Days starting 12/01/2021 until 12/08/2021, 1 completed Microalbumin [Mass/volume] in Urine [facility] End: 12-02-2021 MITOCHONDRIAL ANTIBODIES, M2, IGG [employer] Phone: Comment on above: One Time for 1 Occurrences starting 11/2021 until 12/02/2021 Oxygen therapy [Minimum Data Set] Initiate Oxygen Therapy Protocol Respiratory Care Routine Daily until discontinued starting 12/01/2021 [employer] Phone: Comment on above: Daily until discontinued starting 2021 End: 12-08-2021 Phosphate [Mass/volume] in Serum or Plasma Phosphorus Lab Timed Every 4 Hours (Lab) for 7 Days starting 12/01/2021 until 12/08/2021, 1 completed [employer] Phone: Comment on above: Every 4 Hours (Lab) for 7 Days starting 12/01/2021 until 12/08/2021, 1 completed End: 01-11-2022 POCT Glucose - every hour POCT Glucose - every hour Point of Care Testing Timed Every Hour (Lab) for 41 Days starting 12/01/2021 until 01/11/2022 [employer] Phone: Comment on above: Every Hour (Lab) for 41 Days starting until 01/11/2022 [facility] Payers Date Payer Category Payer Unknown [id number] [id number] [id number] 1970 Unknown [id number] 2.16.8 [id number] 1970 Unknown [id number] 2.16.8 [id number] 1970 Unknown [id number] 2.16.8 [id number] 1970 Unknown [id number] 2.16.8 [id number] 1970 Unknown [id number] 2.16.84 [id number] 1970 Unknown [id number] 2.16.84 [id number] 1970 Unknown [id number] 2.16.84 [id number] 1970 Unknown [id number] 2.16.84 [id number] 1970 Unknown [id number] 2.16.84 [id number] 1959 Private Health Insurance [id number] [facility] [id number] Self-pay Self Pay [id number] Social History Date Type Detail Facility Start: 11-30-2021 End: 08-16-2023 Tobacco smoking status [facility] Never smoked tobacco [facility] Work Phone: Start: 11-30-2021 Tobacco use and exposure Smokeless tobacco non-user [employer] Phone: Start: 1970 Sex Assigned At Not on file [facility] [employer] Work Phone: Exposure to SARS-CoV-2 (event) Not sure [facility] Work Phone: Sex Assigned At Sex Assigned At [facility] Other Start: 1970 Sex Assigned At Male F [facility] Medical Equipment Procedure Code Equipment Code Equipment Origin al Text Equipment Identifier Dates Dispense suffici ent amount for indicated testing frequency plus additional to accommodate PRN testing needs. Dispense all needed supplies to include: monitor, strips, lancing device, lancets, control solutions, alcohol swabs. [id number] Start: 12-03-2021 1 each by Does n ot apply route daily [id number] Start: 12-03-2021 1 each by Does n ot apply route 4 times daily [id number] Start: 12-03-2021 Clinical Notes 12-01-2021 to 07-21-2023 Note Date & Type Note Facility 07-21-2023 Evaluation note Encounter Date Diagnosis Assessment Notes Jul, Type 2 diabetes mellitus with diabetic polyneuropathy (ICD-10 - E11.42) [facility] Other 07-19-2023 Evaluation note* Encounter Date Diagnosis Assessment Notes Treatment Notes Treatment Clinical Notes May, Primary hypertension (ICD-10 - I10) This patient is instructed to consume a healthy, low-fat, low-salt diet. They are also encouraged to continue exercise to achieve/maintain a normal BMI. May, Type 2 diabetes juani itus with hyperglycemia (ICD-10 - E11.65) This patient is following a comprehensive diabetic treatment plan. They are checking their feet daily for calluses and nonhealing ulcers. They are being seen for yearly dilated eye examinations. Goals: SBP less than 130, LDL less than 100, FBS less than 140, AC and A1C less than 7%. They are checking their BS daily, will which are reviewed at the office visit. Continue regular routine monitoring of A1C,] Microalbumin, Dilated eye exam and Foot exam May, Type 2 diabetes juani itus with diabetic polyneuropathy (ICD-10 - E11.42) Inspect feet daily for cuts and calluses.Recommend diabetic shoes and inserts to prevent callus formation.Fall precautions. May, Pure hypercholestero lemia (ICD-10 - E78.00) Instructed on diet and exercise with continued statin therapy.Discussed the beneficial effects of lowering cholesterol in reducing the risk for cerebrovascular and cardiovascular disease. May, Gastroesophageal ref lux disease with esophagitis without hemorrhage (ICD-10 - K21.00) Diet instructions: Smaller portions, avoid eating and laying flat, avoid eating or drinking prior to bedtime. Weight loss. 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 No further scans necessary May, Overweight (ICD-10 - E66.3) This patient has been instructed on a low-fat, high-fiber diet. They are instructed to reduce calories, portion sizes and snacks. It is recommended that they exercise for 30 minutes, 3-5 times weekly. May, Alcohol dependence w ith alcohol-induced anxiety disorder (ICD-10 - F10.280) Informed that best to limit alcohol to 2 drinks/night. However, best choice would be no alcohol due to adverse effect on BP and DM. [facility] Other 06-06-2023 Evaluation note* Encounter Date Diagnosis Assessment Notes Treatment Notes Treatment Clinical Notes Apr, Type 2 diabetes juani itus with hyperglycemia (ICD-10 - E11.65) This patient is following a comprehensive diabetic treatment plan. They are checking their feet daily for calluses and nonhealing ulcers. They are being seen for yearly dilated eye examinations. Goals: SBP less than 130, LDL less than 100, FBS less than 140, AC and A1C less than 7%. They are checking their BS daily, will which are reviewed at the office visit. Continue regular routine monitoring of A1C,] Microalbumin, Dilated eye exam and Foot exam Apr, Type 2 diabetes juani itus with diabetic polyneuropathy (ICD-10 - E11.42) Inspect feet daily for cuts and calluses.Recommend diabetic shoes and inserts to prevent callus formation.Fall precautions. Apr, Primary hypertension (ICD-10 - I10) This patient is instructed to consume a healthy, low-fat, low-salt diet. They are also encouraged to continue exercise to achieve/maintain a normal BMI. Apr, Pure hypercholestero lemia (ICD-10 - E78.00) Instructed on diet and exercise with continued statin therapy.Discussed the beneficial effects of lowering cholesterol in reducing the risk for cerebrovascular and cardiovascular disease. Apr, Gastroesophageal ref lux disease with esophagitis without hemorrhage (ICD-10 - K21.00) Diet instructions: Smaller portions, avoid eating and laying flat, avoid eating or drinking prior to bedtime. Weight loss. Apr, Pulmonary nodule, ri ght (ICD-10 - R91.1) CT: 1.2cm pleural based nodule - 11/2021, CT: resolution of nodule - 01/2022Apr, Overweight (ICD-10 - E66.3) This patient has been instructed on a low-fat, high-fiber diet. They are instructed to reduce calories, portion sizes and snacks. It is recommended that they exercise for 30 minutes, 3-5 times weekly. Apr, alf current us e of insulin (ICD-10 - Z79.4) Tr[facility] Other 05-11-2023 Evaluation note* Encounter Date Diagnosis Assessment Notes Treatment Notes Treatment Clinical Notes March, Type 2 diabetes mellitus with diabetic polyneuropathy (ICD-10 - E11.42) Trul[facility] Other 01-13-2023 Evaluation note* Encounter Date Diagnosis Assessment Notes Treatment Notes Treatment Clinical Notes Nov, Type 2 diabetes juani itus with hyperglycemia (ICD-10 - E11.65) This patient is following a comprehensive diabetic treatment plan. They are checking their feet daily for calluses and nonhealing ulcers. They are being seen for yearly dilated eye examinations. Goals: SBP less than 130, LDL less than 100, FBS less than 140, AC and A1C less than 7%. They are checking their BS daily, will which are reviewed at the office visit. A1C: Nov, Type 2 diabetes juani itus with diabetic polyneuropathy (ICD-10 - E11.42) Inspect feet daily for cuts and calluses. Fall precautions. Improve BS control Nov, Essential hypertensi on (ICD-10 - I10) This patient is instructed to consume a healthy, low-fat, low-salt diet. They are also encouraged to continue exercise to achieve/maintain a normal BMI. Nov, Pure hypercholestero lemia (ICD-10 - E78.00) Diet and exercise with continued statin therapy. Nov, Gastroesophageal ref lux disease with esophagitis without hemorrhage (ICD-10 - K21.00) Diet instructions: Smaller portions, avoid eating and laying flat, avoid eating or drinking prior to bedtime. Weight loss. 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 I was unable to leave a message to reschedule. I am happy to see Madhav for Diabetes Education. Thank you, Allison Tang RN [facility] [phone] documented in this Cel[employer] Phone: [phone] 642-188302-28-2022 History of Present illness Narrative* Aung Singleton RD, LD - 12/29/2021 10:00 AM EST This is a notice of failure to show for a medical nutrition therapy appointment. Madhav Arita had an appointment with the dietitian this date, but did not show, cancel or reschedule before the appointment time. If an appointment is still desired, please contact centralized scheduling . Thank you for the referral. documented in this Cel[employer] Phone: [phone]) 894-750702-02-2022 History of Present illness Narrative* Kiera Baldwin - 12/03/2021 3:08 PM EST CLINICAL PHARMACY NOTE: MEDS TO BEDS Total # of Prescriptions Filled: 6 The following medications were delivered to the patient: Pen needles 31 ga x 6mm levemir flextouch 100 units/ ml One touch verio strios One touch delica Plus lancets Alcohol prep pads One touch vreio flex device. Additional Documentation:Medications and supplies delivered to the patient in room 424 @ 1:24 pm * Dora Arroyo RN - 12/03/2021 1:56 PM EST Inpatient Diabetes Education Madhav was seen for evaluation and education on Type 2 uncontrolled. Lab Results Component Value Date LABA1C 11.8 (H) 12/02/2021 See diabetes education note from yesterday. Built off of previous teaching. Also called PCP office - Dr. Dang - asked them to place outpatient referrals to diabetes education near patient's home in [place]. Following Survival Skills education topics were covered: __X_ Blood Glucose Self-Monitoring ( BGSM) - Provided him a Truemetrix sample meter free of charge - patient was able to check his own BG with minimal verbal assistance. 10 test strips with this kit - instructed him to keep this as a spare. __X_ Blood sugar targets Pre meal 80 - 130 and 2 hours post meal < 180 __X_ Hyperglycemia ( BG over 250) signs and symptoms and treatment __X_ Sick Day Care __X_ Hypoglycemia( BG < than 70) signs and symptoms and treatment Rule of 15 __X_ Keep BG log and take log and meter to follow up HCP appointments DORA ARROYO RN * Dustin Bass PA-C - 12/03/2021 12:28 PM EST Images from the original note were not included. [facility] Office: [phone] Fer Fregoso DO, Cecilio Car DO, Sonu Hodge DO, Edgar Abarca DO, Saima Degroot MD, Alison Fontana MD, Laura Conrad MD, Ilia Vital MD, Loretta Michael MD, Hamlet Brady MD, Cyn Hull MD, Hector Worley DO, Keaton Leonardo DO, Valeri Serrano MD, Ran Cano DO, MD Stephany, Breanne Cullen MD, Graham Oliver MD, Alice Jones MD, Bharat Blanca MD, Meggan Dunaway, [employer] OFFICER, Sonali Meza CNP, Mary Ann Rosas, STAFF [employer] OFFICER, Magui Duque, [facility], Harman Sampson, STAFF [employer] OFFICER, Brittney Montes, STAFF [employer] OFFICER, Paula Chapa, STAFF [employer] OFFICER, Poly Luna, STAFF [employer] OFFICER, Davy Newman, STAFF [employer] W[employer] OFFICER, TIMMY PizarroC, Meghann Puga, DNP, Geena Olsen, RACHEL, Tegan aJcques, STAFF [employer] OFFICER, Marzena Godoy, STAFF [employer] OFFICER, Loreto Bishop, STAFF [employer] OFFICER, Sabi Sanchez, STAFF [employer] OFFICER, Radha Ball, STAFF [employer] OFFICER, Brittany iMtchell, STAFF [employer] OFFICER [facility] IN-PATIENT SERVICE [facility] Progress Note 12/03/2021 12:28 PM Name: Madhav Arita Acct: [id number] Room: [facility] Day: 2 Admit Date: 12/01/2021 5:41 PM PCP: Elvin Dang DO Code Status: Full Code Subjective: C/C: Dizziness, nausea, vomiting Interval History Status: improved. Pt seen and evaluated this morning. He is feeling much better. He is tolerating oral intake. He is denying abdominal pain, nausea, or vomiting. Brief History: Madhav Arita is a 51 y.o. male past medical history significant for type 2 diabetes mellitus,hypertension, pancreatitis. Patient presented initially to [place] emergency department complainingof nausea, vomiting, dizziness. Patient reports that his symptoms started approximately last Wednesday. Several day history of nausea, vomiting which subsequently developed into dizziness. Patient states that he felt like he was drunk every time he stood up. Interestingly, he is denying any abdominal pain. His worsening symptoms prompted him to go to the emergency department. He was found to be in diabetic ketoacidosis at the outside hospital. He was placed on insulin infusion. Additionally, his lipase was noted to be elevated. He was diagnosed with pancreatitis. Patient reports that he has had an episode of pancreatitis inthe past with unclear etiology. Patient denies any alcohol consumption. Notably, patient reports that he has been out of his glimepiride for several days. He states that he was previously on Ozempic,but he could no longer afford it. CT of the abdomen suggesting pancreatitis with a 15 mm cystic lesion in the tail the pancreas thought to represent pancreatic pseudocyst. Patient admitted to the medicine service for DKA and pancreatitis. Review of Systems: Constitutional: negative for chills, fevers, sweats Respiratory: negative for cough, dyspnea on exertion, shortness of breath, wheezing Cardiovascular: negative for chest pain, chest pressure/discomfort, lower extremity edema, palpitations Gastrointestinal: negative for abdominal pain, constipation, diarrhea, nausea, vomiting Neurological: negative for dizziness, headache Medications: Allergies: Allergies Allergen Reactions Ibuprofen Nausea And Vomiting and Other (See Comments) Gastrointestinal Bleeding Nitroglycerin Nausea And Vomiting Current Meds: Scheduled Meds: potassium chloride 40 mEq Oral BID insulin glargine 20 Units SubCUTAneous Nightly insulin lispro 0-12 Units SubCUTAneous Q4H amLODIPine 5 mg Oral Daily atenolol 100 mg Oral Daily pantoprazole 40 mg Oral QAM AC enoxaparin 40 mg SubCUTAneous Daily Continuous Infusions: dextrose 0.9% NaCl with KCl 20 mEq 150 mL/hr at 12/03/21 0926 dextrose 5 % and 0.45 % NaCl 150 mL/hr at 12/01/212005 PRN Meds: glucose, dextrose, glucagon (rDNA), dextrose, acetaminophen, sodium chloride flush, potassium chloride, dextrose 5 % and 0.45 % NaCl, dextrose, polyethylene glycol Data: Past Medical History: has a past medical history of Diabetes mellitus (HCC), Hypertension, and Pancreatitis. Social History: reports that he has never smoked. He has never used smokeless tobacco. He reports that he does not use drugs. Family History: No family history on file. Vitals: BP 137/85 Pulse 74 Temp 97.8 F (36.6 C) (Oral) Resp 21 Ht 5' 5 (1.651 m) Wt 146 lb 9.7 oz (66.5 kg) SpO2 97% BMI 24.40 kg/m Temp (24hrs), Av.3 F (36.8 C), Min:97.8 F (36.6 C), Max:98.8 F (37.1 C) Recent Labs 12/02/21 2331 12/03/21 0400 12/03/21 0702 12/03/21 1146 POCGLU 203* 263* 193* 247* I/O (24Hr): Intake/Output Summary (Last 24 hours) at 12/03/2021 1228 Last data filed at 12/03/2021 1120 Gross per 24 hour Intake 7047.56 ml Output 4175 ml Net 2872.56 ml Labs: Hematology: Recent Labs 11/30/21 1318 12/01/21 0718 12/02/21 0415 WBC 11.4* 8.9 5.3 RBC 4.47* 4.24* 3.45* HGB 14.0 13.2* 10.6* HCT 44.1 40.3* 31.9* MCV 98.8 95.1 92.5 MCH 31.4 31.1 30.7 MCHC 31.8 32.8 33.2 RDW 17.8* 17.5* 16.3* PLT 291 182 See Reflexed IPF Result MPV NOT REPORTED NOT REPORTED NOT REPORTED Chemistry: Recent Labs 12/03/21 0024 12/03/21 0428 12/03/21 0750 NA 140 141 141 K 3.1* 3.4* 3.5* CL 107 107 107 CO2 21 20 22 GLUCOSE 230* 264* 210* BUN 6 5* 5* CREATININE 0.46* 0.44* 0.38* MG 1.7 1.8 1.8 ANIONGAP 12 14 12 LABGLOM >60 >60 >60 GFRAA >60 >60 >60 CALCIUM 7.8* 7.5* 7.9* PHOS 1.4* 2.1* 1.9* Recent Labs 11/30/21 1318 11/30/21 1445 12/01/21 0718 12/01/21 1131 12/02/21 0415 12/02/21 0508 12/02/21 0802 12/02/21 0814 12/02/21 1149 12/02/21 1232 12/02/21 1742 12/02/21 1746 12/02/21 2331 12/03/21 0400 12/03/21 0702 12/03/21 0750 12/03/21 1146 PROT 7.3 -- -- -- -- -- -- -- -- 5.7* -- -- -- -- -- 5.3* -- LABALBU 4.0 -- -- -- -- -- -- -- -- 3.2* -- -- -- -- -- 3.0* -- LABA1C -- -- -- -- 11.8* -- -- -- -- -- -- -- -- -- -- -- -- AST 116* -- -- -- -- -- -- -- -- 78* -- -- -- -- -- 74* -- ALT 100* -- -- -- -- -- -- -- -- 62* -- -- -- -- -- 64* -- ALKPHOS 268* -- -- -- -- -- -- -- -- 191* -- -- -- -- -- 215* -- LABGGT -- -- -- -- -- -- -- -- -- -- 3,198* -- -- -- -- -- -- BILITOT 2.77* -- -- -- -- -- -- -- -- 1.38* -- -- -- -- -- 1.00 -- BILIDIR -- -- -- -- -- -- -- -- -- 0.85* -- -- -- -- -- 0.53* -- LIPASE 498* -- 208* -- -- -- 100* -- -- -- -- -- -- -- -- -- -- CHOL -- -- -- -- -- -- -- -- -- -- 331* -- -- -- -- -- -- HDL -- -- -- -- -- -- -- -- -- -- 58 -- -- -- -- -- -- LDLCHOLESTEROL -- -- -- -- -- -- -- -- -- -- 211* -- -- -- -- -- -- CHOLHDLRATIO -- -- -- -- -- -- -- -- -- -- 5.7* -- -- -- -- -- -- TRIG -- -- -- -- -- -- -- -- -- -- 309* -- -- -- -- -- -- VLDL -- -- -- -- -- -- -- -- -- -- NOT REPORTED* -- -- -- -- -- -- POCGLU -- < > -- < > -- < > -- < > 147* -- -- 211* 203* 263* 193* -- 247* < > = values in this interval not displayed. ABG: Lab Results Component Value Date POCPH 7.086 11/30/2021 POCPCO2 10.4 11/30/2021 POCPO2 124.6 11/30/2021 POCHCO3 3.1 11/30/2021 NBEA 24 11/30/2021 PBEA NOT REPORTED 11/30/2021 DMP5HIH NOT REPORTED 11/30/2021 UTVS2CXY 97 11/30/2021 FIO2 NOT REPORTED 12/01/2021 No results found for: SPECIAL No results found for: CULTURE Radiology: CT ABDOMEN PELVIS WO CONTRAST Additional Contrast? None Result Date: 11/30/2021 1. There is again evidence of pancreatitis. On today's study there is a 15 mm cystic lesion in the tail of the pancreas adjacent to the stomach which may represent a pseudocyst. 2. No hydronephrosis.3. No free pelvic fluid is identified. XR CHEST PORTABLE Result Date: 12/01/2021 1. No focal consolidation, pleural effusion, or pneumothorax. 2. Subtle nodular density at the right lower lobe. This may represent nipple shadow versus confluence of vascular and osseous shadows versus a pulmonary parenchymal nodule. Recommend follow-up contrast enhanced chest CT for complete evaluation. MRI ABDOMEN W WO CONTRAST MRCP Result Date: 12/03/2021 Complex multi-septated cystic mass in the tail of the pancreas measuring 5.9 x 3.6 x 4 cm. 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 Surgical consultation as well as ERCP with brushings should be considered. No pancreatic or biliary ductal abnormality. Unremarkable appearance of the gallbladder. The findings were sent to the Radiology Results Communication Center at 11:11 pm, on 12/02/2021,to be communicated to a licensed caregiver. CTA CHEST W CONTRAST Result Date: 12/01/2021 1. Negative for pulmonary embolus. 2. New 1.2 cm pleural-based nodule periphery of the right lower lobe for which 3 month follow-up CT, PET/CT, or tissue sampling is recommended. This is new from 01/23/2021 CT of [place]. 3. Evidence of pancreatitis again seen which has been previously noted. Physical Examination: General appearance: alert, cooperative and no distress Mental Status: oriented to person, place and time and normal affect Lungs: clear to auscultation bilaterally, normal effort Heart: regular rate and rhythm, no murmur Abdomen: soft, nontender, nondistended, normal bowel sounds, no masses, hepatomegaly, splenomegaly Extremities: no edema, redness, tenderness in the calves Skin: no gross lesions, rashes, induration Assessment: Hospital Problems Last Modified POA Transaminitis 12/03/2021 Yes Hypokalemia 12/03/2021 Yes Hypophosphatemia 12/03/2021 Yes Severe malnutrition (HCC) 12/03/2021 Yes Pancreatic mass 12/03/2021 Yes Cystic mass of pancreas 12/03/2021 Yes Plan: Diabetic ketoacidosis in the setting of type 2 diabetes mellitus -DKA resolved. Start Lantus 20 units qhs, Janumet. -Outpatient diabetic education referral placed Acute pancreatitis with pancreatic pseudocyst -Pancreatitis resolved. MRCP reviewed and suggesting complex, multi-septated cystic mass in the pancreatic tail that is rather large. GI was consulted and recommending outpatient EUS. Referral placed. -CA-19-9 elevated. Pt to follow-up with GI as OP for EUS Mixed hyperlipidemia - high intensity statin indicated when hepatic function improves at discretion of PCP. Repeat CMP in one week. Hypertension -Resume home regimen Pleural based nodule noted on right lower lobe (1.2 cm). Will need 3 months follow-up with CT, PET/CT, or tissue sampling. Dustin Bass PA-C 12/03/2021 12:28 PM * Deion Porter, PT - 12/03/2021 12:25 PM EST Physical Therapy Facility/Department: [address] [place] Initial Assessment NAME: Madhav Arita : 1970 Date of Service: 12/03/2021 Copied from chart: Madhav Arita is a 51 y.o. male who presentsto ED from home. By EMS. With complaint of dizziness and weakness. Onset today. Patient states that he was admitted for pancreatitis and discharge from the hospital about a week ago. For the past couple days patient has been feeling well has been having nausea and vomiting. Patientstarted feeling weak and dizzy last Wednesday, 4 days ago Patient denies abdominal pain. Patient states that his last alcohol intake was more than 2 weeks ago. Discharge Recommendations: Patient would benefit from continued therapy after discharge PT Equipment Recommendations Equipment Needed: No Assessment Body structures, Functions, Activity limitations: Decreased functional mobility ;Decreased posture;Decreased endurance;Decreased strength;Decreased balance Assessment: Pt with mobility deficits requiring CGA to ambulate 75 feet with a pugh rail. Pt limited this date secondary to impaired standing balance and decreased endurance. Pt would benefit from additional therapy upon discharge to assist in return to prior level of functional independence. Pt would benefit from 24 hour assistance with mobility upon discharge. Prognosis: Good Decision Making: Low Complexity PT Education: Transfer Training;Goals;PT Role;Functional Mobility Training;General Safety;Plan of Care;Gait Training REQUIRES PT FOLLOW UP: Yes Activity Tolerance Activity Tolerance: Patient limited by endurance;Patient limited by fatigue Patient Diagnosis(es): The primary encounter diagnosis was Hypophosphatemia. Diagnoses of Hypokalemia, Transaminitis, Pancreatic mass, Cystic mass of pancreas, and Type 2 diabetes mellitus with hyperglycemia, without long-term current use of insulin (HCC) were also pertinent to this visit. has a past medical history of Diabetes mellitus (HCC), Hypertension, and Pancreatitis. has a past surgical history that includes hernia repair. Restrictions Restrictions/Precautions Restrictions/Precautions: Fall Risk Required Braces or Orthoses?: No Position Activity Restriction Other position/activity restrictions: up with assistance Vision/Hearing Vision: Impaired Vision Exceptions: Wears glasses at all times (glasses present) Hearing: Within functional limits Subjective General Patient assessed for rehabilitation services?: Yes Response To Previous Treatment: Not applicable Family / Caregiver Present: No Follows Commands: Within Functional Limits Subjective Subjective: Pt supine in bed and with a slightly flat affect but agreeable to therapy, RN agreeableto therapy. Pt pleasant and cooperative throughout today's session. Pain Screening Patient Currently in Pain: Denies Vital Signs Patient Currently in Pain: Denies Social/Functional History Social/Functional History Lives With: Alone Type of Home: House Home Layout: One level Home Access: Stairs to enter with rails Entrance Stairs - Number of Steps: 3 steps to enter Entrance Stairs - Rails: Both Bathroom Shower/Tub: Tub/Shower unit,Curtain Bathroom Toilet: Standard Bathroom Equipment: Grab bars in shower,Hand-held shower Home Equipment: (none per pt) Receives Help From: Family,Friend(s) (reprots having many supportive friends, sister is close and supportive as well) ADL Assistance: Independent Homemaking Assistance: Independent Homemaking Responsibilities: Yes Meal Prep Responsibility: Primary Laundry Responsibility: Primary Cleaning Responsibility: Primary Bill Paying/Finance Responsibility: Primary Shopping Responsibility: Primary Ambulation Assistance: Independent Transfer Assistance: Independent Active Veterans Services Specialist: Yes Mode of Transportation: Truck (pt reprots sometimes having difficulty getting in due to short stature. 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 [employer] Leisure & Hobbies: mowing the yard, going for walks Cognition Cognition Overall Cognitive Status: Exceptions Following Commands: Follows multistep commands with increased time Memory: Appears intact Safety Judgement: Decreased awareness of need for safety Insights: Decreased awareness of deficits Initiation: Requires cues for some Sequencing: Requires cues for some Objective Observation/Palpation Posture: Good AROM RLE (degrees) RLE AROM: WFL AROM LLE (degrees) LLE AROM : WFL AROM RUE (degrees) RUE AROM : WFL AROM LUE (degrees) LUE AROM : WFL Strength RLE Strength RLE: WFL Comment: Grossly 4/5 Strength LLE Strength LLE: WFL Comment: Grossly 4/5 Strength RUE Strength RUE: WFL Comment: Grossly 4/5 Strength LUE Strength LUE: WFL Comment: Grossly 4/5 Sensation Overall Sensation Status: WFL (pt denies any numbness/tingling) Bed mobility Supine to Sit: Stand by assistance Sit to Supine: Stand by assistance Scooting: Stand by assistance Comment: Bed mobility performed with the HOB elevated ~20 degrees with use of handrails. Transfers Sit to Stand: Contact guard assistance Stand to sit: Contact guard assistance Ambulation Ambulation?: Yes More Ambulation?: Yes Ambulation 1 Surface: level tile Device: Pugh rail Assistance: Contact guard assistance Quality of Gait: decreased gait speed, mildly unsteady, no LOB. Gait Deviations: Slow Chary Distance: 75 feet Ambulation 2 Surface - 2: level tile Device 2: No device Assistance 2: Contact guard assistance Quality of Gait 2: mildly unsteady, decreased gait speed, no LOB. Gait Deviations: Slow Chary;Decreased step length;Decreased step height Distance: 35 feet. Stairs/Curb Stairs?: No Balance Posture: Fair Sitting - Static: Good Sitting - Dynamic: Good;- Standing - Static: Fair;+ Standing - Dynamic: Fair Comments: standing balance assessed while using no device Plan Plan Times per week: 5x Times per day: Daily Current Treatment Recommendations: Strengthening,Transfer Training,Endurance Training,ROM,Balance Training,Gait Training,Functional Mobility Training,Stair training,Safety Education & Training,Home Exercise Program,Equipment Evaluation, Education, & procurement,Patient/Caregiver Education & Training Safety Devices Type of devices: Left in bed,Call light within reach,Gait belt,Nurse notified Restraints Initially in place: No AM-PAC Score AM-[facility] Inpatient Mobility Raw Score : 19 (12/03/21 122) AM-PAC Inpatient T-Scale Score : 45.44 (12/03/21 122) Mobility Inpatient CMS 0-100% Score: 41.77 (12/03/21 122) Mobility Inpatient [facility] G-Code Modifier : CK (12/03/211223) Goals Short term goals Time Frame for Short term goals: 14 visits Short term goal 1: Pt will ambulate 300 feet with no device independently to increase functional independence. Short term goal 2: Pt will tolerate a 35 minute therapy session to promote increased endurance. Short term goal 3: Pt will demonstrate good- standing balance to decrease fall risk. Short term goal 4: Pt will negotiate 3 stairs with bilateral handrails and SBA to allow the pt to enter prior living arrangements. Short term goal 5: Pt will perform sit<>stand transfer independently to increase functional independence. Therapy Time Individual Concurrent Group Co-treatment Time In 831 Time Out 0847 Minutes 15 Timed Code Treatment Minutes: 8 Minutes Deion Porter PT * Phuc Carson APRN - JOE - 12/03/2021 9:39 AM EST [facility] Progress Note Madhav Arita is a 51 y.o. male patient. Hospitalization Day:2 Chief consult reason: Recurrent pancreatitis? with pseudocyst of pancreas Subjective: Patient seen and examined. No acute events overnight. Patient denies any nausea vomiting or abdominal pain. Tolerating regular diet. VITALS: BP 137/85 Pulse 74 Temp 98.3 F (36.8 C) (Temporal) Resp 21 Ht 5' 5 (1.651 m) Wt 146 lb 9.7 oz (66.5 kg) SpO2 97% BMI 24.40 kg/m TEMPERATURE: Current - Temp: 98.3 F (36.8 C); Max - Temp Av.3 F (36.8 C) Min: 97.5 F (36.4 C) Max: 98.8 F (37.1 C) Physical Assessment: General appearance: alert, cooperative and no distress Mental Status: oriented to person, place and time and normal affect Lungs: clear to auscultation bilaterally, normal effort Heart: regular rate and rhythm, no murmur Abdomen: soft, nontender, nondistended, normal bowel sounds, no masses, hepatomegaly, splenomegaly Extremities: no edema, redness, tenderness in the calves Skin: no gross lesions, rashes, induration Data Review: Labs and Imaging: CBC: Recent Labs 11/30/21 1318 12/01/21 0718 12/02/21 0415 WBC 11.4* 8.9 5.3 HGB 14.0 13.2* 10.6* MCV 98.8 95.1 92.5 RDW 17.8* 17.5* 16.3* PLT 291 182 See Reflexed IPF Result ANEMIA STUDIES: No results for input(s): LABIRON, TIBC, FERRITIN, [id number], FOLATE, OCCULTBLD in the last 72 hours. BMP: Recent Labs 12/03/21 0024 12/03/21 0428 12/03/21 0750 NA 140 141 141 K 3.1* 3.4* 3.5* CL 107 107 107 CO2 21 20 22 BUN 6 5* 5* CREATININE 0.46* 0.44* 0.38* GLUCOSE 230* 264* 210* CALCIUM 7.8* 7.5* 7.9* LFTS: Recent Labs 11/30/21 1318 12/02/21 1232 12/03/21 0750 ALKPHOS 268* 191* 215* ALT 100* 62* 64* AST 116* 78* 74* BILITOT 2.77* 1.38* 1.00 BILIDIR -- 0.85* 0.53* LABALBU 4.0 3.2* 3.0* Amylase/Lipase and Ammonia: Recent Labs 11/30/21 1318 12/01/21 0718 12/02/21 0802 LIPASE 498* 208* 100* Acute Hepatitis Panel: Lab Results Component Value Date HEPBSAG NONREACTIVE 12/02/2021 HEPCAB NONREACTIVE 12/02/2021 HEPBIGM NONREACTIVE 12/02/2021 HEPAIGM NONREACTIVE 12/02/2021 HCV Genotype: No results found for: HEPATITISCGENOTYPE HCV Quantitative: No results found for: HCVQNT LIVER WORK UP: AFP No results found for: AFP Alpha 1 antitrypsin No results found for: A1A FREDA No results found for: FREDA AMA No results found for: MITOAB ASMA No results found for: SMOOTHMUSCAB PT/INR No results for input(s): PROTIME, INR in the last 72 hours. Cancer Markers: CEA: No results for input(s): CEA in the last 72 hours. Ca 125: No results for input(s): CA125 in the last 72 hours. Ca 19-9: Invalid input(s): CA19-9 AFP: No results for input(s): AFP in the last 72 hours. Lactic acid:Invalid input(s): LACTIC ACID Radiology Review: No results found. Active Problems: Diabetic acidosis without coma (HCC) Acute pancreatitis Transaminitis Hyperbilirubinemia Hypokalemia Hypophosphatemia Severe malnutrition (HCC) Pancreatic mass Cystic mass of pancreas Resolved Problems: * No resolved hospital problems. * GI Impression: 1. Acute pancreatitis with pseudocyst and tail of pancreas 2. DKA 3. Alcohol misuse disorder Plan and Recommendations: 1. Diet as tolerated continue-rec low fat x 4 weeks 2. Protonix 40 mg p.o. once daily 3. Rec alcohol cessation. Pt may benefit from SW consult to discuss alcohol rehab as pt has continued to consume alcohol and has multiple episodes of recurrent pancreatitis requiring hospitalization 4. Pt will need to follow-up in the GI clinic with Dr. Dale Conrad in 2 weeks and then be scheduled for OP EUS with Dr. Reed in 4 weeks 5. No further recommendations from GI at this time-we will sign off This plan was formulated in collaboration with Dr. Maylin MD Thank you for allowing me to participate in the care of your patient. Please feel free to contact me with any questions or concerns. Phuc Carson APRN - [facility] This note was created with the assistance of a speech-recognition program. Although the intention is to generate a document that actually reflects the content of the visit, no guarantees can be provided that every mistake has been identified and corrected by editing. Associated attestation - Austin Carlisle MD - 12/03/2021 1:53 PM EST Attending Physican Attestation Patient seen and examined with Ms. Phuc Carson CNP. I have reviewed the above note and confirmedthe sánchez elements of the medical history and physical exam. I have discussed the findings, established the care plan and recommendations with Ms. Carson and primary team. Austin Carlisle MD [facility]astroenter[facility] [place], [place] * Zehra Carson - 12/02/2021 3:47 PM EST Images from the original note were not included. Physical Therapy Physical Therapy Cancel Note DATE: 12/02/2021 NAME: Madhav Arita : 1970 Patient not seen this date for Physical Therapy due to: Testing: Pt. currently out of room for MRI. Will continue to pursue for PT evaluation today as timeallows, otherwise will check back 12/03/2021. * Tram Stephens, MS, RD, LD - 12/02/2021 2:59 PM EST Comprehensive Nutrition Assessment Type and Reason for Visit: Positive Nutrition Screen,Consult (DKA, wt loss) Nutrition Recommendations/Plan: - Continue CLD - When able, recommend advance diet to [facility] (60g/meal) - Monitor for diet advancement/tolerance/intake - Initiated [facility] diet education, handouts provided from [facility]. Will review at f/u. - Severe malnutrition noted. Nutrition Assessment: 51 yo M admitted w/ acute pancreatitis and DKA. Per pt, poor appetite and wt loss over the past ~6-8 weeks, UBW = 183 lb. If accurate, 20% wt loss x 2 months (significant). Provided [facility] handouts and initiated education. Pt seemed overwhelmed and frustrated, would benefit fromadditional review/education at follow-up. Severe malnutrition noted. Malnutrition Assessment: Malnutrition Status: Severe malnutrition Context: Acute Illness Findings of the 6 clinical characteristics of malnutrition: Energy Intake: 7 - 50% or less of estimated energy requirements for 5 or more days Weight Loss: 7 - Greater than 7.5% over 3 months Body Fat Loss: Unable to assess Muscle Mass Loss: Unable to assess Fluid Accumulation: No significant fluid accumulation Endless Belt Finisher Strength: Not Performed Estimated Daily Nutrient Needs: Energy (kcal): 1700 to 2000 kcal/day (25-30 kcal/kg); Weight Used for Energy Requirements: Admission Protein (g): 85 to 100 g/day (1.3-1.5 g/kg); Weight Used for Protein Requirements: Admission Fluid (ml/day): 1 mL/kcal or per MD; Method Used for Fluid Requirements: Nutrition Related Findings: Labs/meds reviewed. LBM 12/02. No edema noted. Wounds: None Current Nutrition Therapies: ADULT DIET; Clear Liquid Anthropometric Measures: Height: 5' 5 (165.1 cm) Current Body Weight: 146 lb 9.7 oz (66.5 kg) (12/02, bedscale) Admission Body Weight: 146 lb 9.7 oz (66.5 kg) (12/02, bedscale) Usual Body Weight: 183 lb (83 kg) (Per pt, x 8 weeks ago.) Gaston Body Weight: 136 lbs; % [place]aston Body Weight 107.8 % BMI: 24.4 BMI Categories: Normal Weight (BMI 18.5-24.9) Nutrition Diagnosis: Severe malnutrition related to (current medical condition, poor appetite) as evidenced by weight loss 7.5% in 3 months,poor intake prior to admission Nutrition Interventions: Food and/or Nutrient Delivery: Continue NPO Nutrition Education/Counseling: Education initiated,Education needed (Provided [facility] for Diabetes and CHO label handouts from [facility]. Initiated [facility] diet education. Would benefit from review at f/u.) Coordination of Nutrition Care: Continue to monitor while inpatient Goals: Obtain >75% of nutrition needs via PO intake. Nutrition Monitoring and Evaluation: Behavioral-Environmental Outcomes: None Identified Food/Nutrient Intake Outcomes: Diet Advancement/Tolerance Physical Signs/Symptoms Outcomes: Biochemical Data,GI Status,Hemodynamic Status,Weight,Nutrition Focused Physical Findings Discharge Planning: Too soon to determine Contact: [id number] * Dora Arroyo RN - 12/02/2021 2:15 PM EST Inpatient Diabetes Education Madhav was seen for evaluation and education on Type 2 uncontrolled. Lab Results Component Value Date LABA1C 11.8 (H) 12/02/2021 Discussed with patient, their current diabetes self-care routines prior to this admission. medication compliance: noncompliant much of the time, diabetic diet compliance: compliant most of the time, home glucose monitoring: is not performed Patient was resting quietly in bed. 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 Reports that he has had diabetes for some time but was not using his oral medication or checking his blood glucose. Has never had diabetes education and gaps in knowledge are obvious. Heis not aware of of his family history as he was adopted. He lives alone and expresses concern for his house, especially with the winter weather forecast. [place] expresses concern about his ability for self care management moving forward. I will leave the patient on our diabetes education roster and attempt to visit with him again tomorrow - he is open to further education. Following Survival Skills education topics were covered as appropriate to patient plan of for care: __X_ Type 2 Diabetes diagnosis as chronic and progressive __X_ Healthy eating - CHO food groups and need for CHO controlled diet. Elimination of sugary beverages, avoid skipping meal Pt is able to give examples of carbohydrate foods. Drinks mostly water. Does like cranberry juice but agrees to look for a diet version in the future. ___ Role of physical activity - bouts of walking, swimming or low impact aerobics as recommended bycare providers- aim for 30 minutes per day __X_ Blood Glucose Self-Monitoring ( BGSM) Had a meter in the past but he has not been using recently and is need of a prescription for one along with supplies. __X_ Blood sugar targets Pre meal 80 - 130 and 2 hours post meal < 180 __X_ Hyperglycemia ( BG over 250) signs and symptoms and treatment ___ Sick Day Care ___ Hypoglycemia( BG < than 70) signs and symptoms and treatment Rule of 15 ___ Keep BG log and take log and meter to follow up HCP appointments ___ Medications - Insulin Lantus - Basal ( long acting) / Humalog- Bolus (pre meal) regime - insulin action times. ___ Importance of dosing pre meal rapid insulin from BG result at time of start of meal & administering within 15 minutes of eating meals ___ Importance of taking long acting insulin at same time each day and not to skip doses ___ Demonstration of self-administering insulin via vial and syringe ___ Demonstration of self-administering insulin via Pen and pen needle tips ___ Reinforce safe needle / sharps disposal __X_ Insulin injection site rotation __X_ Medications - Orals - was prescribed a single oral agent prior to admission but he was not taking it (per chart review, it looks like it was pioglitazone or actos daily) Following Support materials were provided for patient to take home: __X_ Educational Booklets as available Diabetes and you __X_ Be safe with [place] teaching sheet / [facility] Disposal of Household Generated Sharps __X_ Type 2 Diabetes and Adding Insulin fold out with survival skills _X__ [facility] Diabetes Education brochure/ contact card Patient verbalizes understanding of survival skills education. RECOMMENDATIONS FOR OUTPATIENT PLAN: Diabetes Self-Monitoring Supplies: _X__ Preferred / formulary blood glucose meter for BGSM at home use __X_ Strips and lancets for bid-qid frequency of home BGSM Diabetes Medications: I mentioned to patient that there is a possibility that he would be sent homeon insulin. discussed syringe/vial and demonstrated use of a pen. Patient states that he has some experience because he used Ozempic in the past but the medication was cost prohibitive. ___ Insulin Pen or Vial Basal / long acting - dose per MD ___ Insulin Pen or Vial Bolus pre meal set dose or correction scale - dose per MD ___ Insulin Delivery method - Pens - order Insulin Pen Needle 31G X 4 mm MISC ___ Insulin Delivery method - Syringe - order Insulin syringe Needle U 100 31G X 15/64 0.5ml Diabetes Education / HCP follow -up : _x_ Would recommend follow -up education at outpatient diabetes education at [facility]. An ordered is needed for this service and can be placed via EHR. Discharge Navigator ---Med Reconciliation -- New orders for discharge tab -- search diabetic ed - REF[facility] - [facility]- review and sign The Diabetes Education program in [place] might be a better fit for the patient. [facility] Fax number is [phone]. __X_ Follow -up with HCP / PCP within one week. DORA ARROYO RN * Garo Lozano OT - 12/02/2021 10:54 AM EST Occupational Therapy Occupational Therapy Initial Assessment Date: 12/02/2021 Patient Name: Madhav Arita : 1970 Date of Service: 12/02/2021 Discharge Recommendations:No therapy recommended at discharge. Copied from Internal Medicine: Madhav Arita is a 51 y.o. male past medical history significant for type 2 diabetes mellitus,hypertension, pancreatitis. Patient presented initially to [place] emergency department complainingof nausea, vomiting, dizziness. Patient reports that his symptoms started approximately last Wednesday. Several day history of nausea, vomiting which subsequently developed into dizziness. Patient states that he felt like he was drunk every time he stood up. Interestingly, he is denying any abdominal pain. His worsening symptoms prompted him to go to the emergency department. He was found to be in diabetic ketoacidosis at the outside hospital. He was placed on insulin infusion. Additionally, his lipase was noted to be elevated. He was diagnosed with pancreatitis. Patient reports that he has had an episode of pancreatitis inthe past with unclear etiology. Patient denies any alcohol consumption. Notably, patient reports that he has been out of his glimepiride for several days. He states that he was previously on Ozempic,but he could no longer afford it. CT of the abdomen suggesting pancreatitis with a 15 mm cystic lesion in the tail the pancreas thought to represent pancreatic pseudocyst. Patient admitted to the medicine service for DKA and pancreatitis OT Equipment Recommendations Equipment Needed: Yes Mobility Devices: ADL Assistive Devices ADL Assistive Devices: Shower Chair without back Assessment Pt lying supine in bed upon entrance to room. Pt completed bed mobility with min assistance. Pt satat eob 25 minutes with good unsupported sitting balance with forward flexed posture and use of BUE's intermittently for support. Sit to stand with contact guard assistance. Pt completed dynamic mob in room with contact guard assistance. Please refer to below assist levels for adl completion. Pt ed on OT POC, safety awareness tech, proper hand placement for transfers, and energy conservation tech with proper breathing tech with good return. Pt retired supine in bed with call light and phone in reach. All needs met upon exit, RN informed. Performance deficits / Impairments: Decreased functional mobility ;Decreased safe awareness;Decreased ADL status;Decreased high-level IADLs;Decreased endurance Treatment Diagnosis: Diabetic Ketoacidosis without Coma Prognosis: Good Decision Making: Medium Complexity OT Education: OT Role;Plan of Care REQUIRES OT FOLLOW UP: Yes Activity Tolerance Activity Tolerance: Patient limited by fatigue Safety Devices Safety Devices in place: Yes Type of devices: Call light within reach;Left in bed;Nurse notified Restraints Initially in place: No Patient Diagnosis(es): There were no encounter diagnoses. has a past medical history of Diabetes mellitus (HCC), Hypertension, and Pancreatitis. has a past surgical history that includes hernia repair. Treatment Diagnosis: Diabetic Ketoacidosis without Coma Restrictions Restrictions/Precautions Restrictions/Precautions: Fall Risk Required Braces or Orthoses?: No Position Activity Restriction Other position/activity restrictions: up with assistance Subjective General Patient assessed for rehabilitation services?: Yes Family / Caregiver Present: No Patient Currently in Pain: Yes Pain Assessment Pain Assessment: 0-10 Pain Level: 3 Pain Type: (headache) Pain Location: Head Non-Pharmaceutical Pain Intervention(s): Repositioned;Therapeutic presence;Ambulation/Increased Activity;Distraction Vital Signs Upon standing, pts heart rate increased to 149 to use urinal Heart Rate Source: Monitor BP: (!) 155/94 BP Location: Left upper arm Patient Currently in Pain: Yes Oxygen Therapy SpO2: 98 % Pulse Oximeter Device Mode: Continuous Pulse Oximeter Device Location: Finger O2 Device: None (Room air) Social/Functional History Social/Functional History Lives With: Alone Type of Home: House Home Layout: One level Home Access: Stairs to enter with rails Entrance Stairs - Number of Steps: 3 steps to enter Entrance Stairs - Rails: Both Bathroom Shower/Tub: Tub/Shower unit,Curtain Bathroom Toilet: Standard Bathroom Equipment: Grab bars in shower,Hand-held shower Home Equipment: (none per pt) Receives Help From: Family,Friend(s) (reprots having many supportive friends, sister is close and supportive as well) ADL Assistance: Independent Homemaking Assistance: Independent Homemaking Responsibilities: Yes Meal Prep Responsibility: Primary Laundry Responsibility: Primary Cleaning Responsibility: Primary Bill Paying/Finance Responsibility: Primary Shopping Responsibility: Primary Ambulation Assistance: Independent Transfer Assistance: Independent Active Veterans Services Specialist: Yes Mode of Transportation: Truck (pt reports sometimes having difficulty getting in due to short stature. 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 [employer] Leisure & Hobbies: mowing the yard, going for walks Objective Vision: Impaired Vision Exceptions: Wears glasses at all times (glasses present) Hearing: Within functional limits Orientation Overall Orientation Status: Impaired Orientation Level: Oriented to place;Oriented to person;Oriented to time (pt stated November, thoughjust started a new month) Balance Sitting Balance: Stand by assistance Standing Balance: Contact guard assistance Standing Balance Time: ~5 min Activity: static and dynamic Comment: pts heart rate increased to 149 upon standing to urinate in urinal Functional Mobility Functional - Mobility Device: No device (hand held assist) Assist Level: Contact guard assistance Functional Mobility Comments: pt able to take 4 right lateral side steps to HOB ADL Feeding: Independent;Setup (pt on clear liquid diet, able to bring cup to mouth Amelia) Grooming: Independent;Setup UE Bathing: Minimal assistance;Setup (assist for back) LE Bathing: Contact guard assistance;Setup;Increased time to complete (reaching B feet for safety seated EOB) UE Dressing: Minimal assistance;Setup (pt able to thread BUE's through arm holes of gown. Assist totie gown in back) LE Dressing: Contact guard assistance;Setup (doffing /donning B hosp socks for safety) Toileting: Independent (with urinal use) Tone RUE RUE Tone: Normotonic Tone LUE LUE Tone: Normotonic Coordination Movements Are Fluid And Coordinated: Yes Bed mobility Rolling to Right: Contact guard assistance Supine to Sit: Minimal assistance Sit to Supine: Contact guard assistance Transfers Stand Step Transfers: Contact guard assistance (pt able to take 4 right lateral side steps to HOB) Sit to stand: Contact guard assistance Stand to sit: Stand by assistance Cognition Overall Cognitive Status: Exceptions Following Commands: Follows multistep commands with increased time Memory: Appears intact Safety Judgement: Decreased awareness of need for safety Insights: Decreased awareness of deficits Initiation: Requires cues for some Sequencing: Requires cues for some Cognition Comment: Pt sleeping upon entrance, time required to awaken with auditory stimuli. pt initially lethargic, extended time required to increase alertness. once alertness increased, pt followed all commands without difficulty Sensation Overall Sensation Status: WFL (denies numbness/tingling B hands) LUE PROM (degrees) LUE PROM: WFL LUE AROM (degrees) LUE AROM : WFL Left Hand PROM (degrees) Left Hand PROM: WFL Left Hand AROM (degrees) Left Hand AROM: WFL RUE PROM (degrees) RUE PROM: WFL RUE AROM (degrees) RUE AROM : WFL Right Hand PROM (degrees) Right Hand PROM: WFL Right Hand AROM (degrees) Right Hand AROM: WFL LUE Strength Gross LUE Strength: WFL L Hand General: 4/5 LUE Strength Comment: 4/5 overall muscle strength RUE Strength Gross RUE Strength: WFL R Hand General: 4/5 RUE Strength Comment: 4/5 overall muscle strength Plan Plan Times per week: 2-3 x week AM-PAC Score AM-PAC Inpatient Daily Activity Raw Score: 20 (12/02/211212) AM-PAC Inpatient ADL T-Scale Score : 42.03 (12/02/211212) ADL Inpatient CMS 0-100% Score: 38.32 (12/02/211212) ADL Inpatient CMS G-Code Modifier : CJ (02/01/22 1213) Goals Short term goals Time Frame for Short term goals: Pt will, by discharge: Short term goal 1: Dem I with adl perfromance Short term goal 2: Dem I with bed mobility Short term goal 3: Dem I wih functional transfers with good safety awareness tech for adl completion Short term goal 4: Dem I with dynamic mobility for household distances Short term goal 5: Dem a 20 min dynamic task with sba to increase activity tolerance Therapy Time Individual Concurrent Group Co-treatment Time In 1054 Time Out 1137 Minutes 43 Timed Code Treatment Minutes: 38 Minutes GARO LOZANO OTR/L * Poly Reina RN - 12/01/2021 5:43 PM EST Patient arrived on stretcher A/O x4, SR, RA, denies pain SOB absent. Patient has no complaints at this time. First STAR Unger MD paged that patient has arrived, awaiting orders. documented in this [facility] [employer] Phone: 1(309) 928-452002-02-2022 Hospital course Narrative* Dustin Bass PA-C - 12/03/2021 12:48 PM EST Images from the original note were not included. [facility] Office: [phone] Fer Fregoso DO, Cecilio Car DO, Sonu Hodge DO, Edgar Abarca DO, Saima Degroot MD, Alison Fontana MD, Laura Conrad MD, Ilia Vital MD, Loretta Michael MD, Hamlet Brady MD, Cyn Hull MD, Hector Worley DO, Keaton Leonardo DO, Valeri Serrano MD, Rna Cano DO, MD Stephany, Breanne Cullen MD, Graham Oliver MD, Alice Jones MD, Bharat Blanca MD, Meggan Dunaway CNP, Sonali Meza CNP, Mary Ann Rosas, STAFF MINE WARFARE OFFICER, Magui Duque, CONFIGURATION ANALYST, Harman Sampson, STAFF MINE WARFARE OFFICER, Brittney Montes, STAFF MINE WARFARE OFFICER, Paula Chapa, STAFF MINE WARFARE OFFICER, Poly Luna, STAFF MINE WARFARE OFFICER, Davy Newman, STAFF MINE WARFARE OFFICER, Dustin Bass PA-C, Meghann Puga, RACHEL, Geena Olsen, RACHEL, Tegan Jacques, STAFF MINE WARFARE OFFICER, Marzena Godoy, STAFF MINE WARFARE OFFICER, Loreto Bishop, STAFF MINE WARFARE OFFICER, Sabi Sanchez, STAFF MINE WARFARE OFFICER, Radha Ball, STAFF MINE WARFARE OFFICER, Brittany Mitchell, STAFF MINE WARFARE OFFICER [facility] IN-PATIENT SERVICE [facility] Discharge Summary Patient ID: Madhav Arita : 1970 ACCOUNT: [id number] Patient's PCP: Elvin Dang DO Admit Date: 12/01/2021 Discharge Date: 12/03/2021 Length of Stay: 2 Code Status: Full Code Admitting Physician: Ilia Vital MD Discharge Physician: Dustin Bass PA-C Active Discharge Diagnoses: Hospital Problem Lists: Active Problems: Transaminitis Hypokalemia Hypophosphatemia Severe malnutrition (HCC) Pancreatic mass Cystic mass of pancreas Resolved Problems: Diabetic acidosis without coma (HCC) Acute pancreatitis Hyperbilirubinemia Admission Condition: serious Discharged Condition: good Hospital Stay: Hospital Course: Madhav Arita is a 51 y.o. male past medical history significant for type 2 diabetes mellitus,hypertension, pancreatitis. Patient presented initially to [place] emergency department complainingof nausea, vomiting, dizziness. Patient reports that his symptoms started approximately last Wednesday. Several day history of nausea, vomiting which subsequently developed into dizziness. Patient states that he felt like he was drunk every time he stood up. Interestingly, he is denying any abdominal pain. His worsening symptoms prompted him to go to the emergency department. He was found to be in diabetic ketoacidosis at the outside hospital. He was placed on insulin infusion. Additionally, his lipase was noted to be elevated. He was diagnosed with pancreatitis. Patient reports that he has had an episode of pancreatitis inthe past with unclear etiology. Patient denies any alcohol consumption. Notably, patient reports that he has been out of his glimepiride for several days. He states that he was previously on Ozempic,but he could no longer afford it. CT of the abdomen suggesting pancreatitis with a 15 mm cystic lesion in the tail the pancreas thought to represent pancreatic pseudocyst. Patient admitted to the medicine service for DKA and pancreatitis. Significant therapeutic interventions: Diabetic ketoacidosis in the setting of type 2 diabetes mellitus -DKA resolved. Start Lantus 20 units qhs, Janumet. -Outpatient diabetic education referral placed Acute pancreatitis with pancreatic pseudocyst -Pancreatitis resolved. MRCP reviewed and suggesting complex, multi-septated cystic mass in the pancreatic tail that is rather large. GI was consulted and recommending outpatient EUS. Referral placed. -CA-19-9 elevated. Pt to follow-up with GI as OP for EUS Mixed hyperlipidemia - high intensity statin indicated when hepatic function improves at discretion of PCP. Repeat CMP in one week. Hypertension -Resume home regimen Pleural based nodule noted on right lower lobe (1.2 cm). Will need 3 months follow-up with CT, PET/CT, or tissue sampling. Significant Diagnostic Studies: Labs / Micro: CBC: Lab Results Component Value Date WBC 5.3 12/02/2021 RBC 3.45 12/02/2021 HGB 10.6 12/02/2021 HCT 31.9 12/02/2021 MCV 92.5 12/02/2021 MCH 30.7 12/02/2021 MCHC 33.2 12/02/2021 RDW 16.3 12/02/2021 PLT See Reflexed IPF Result 12/02/2021 BMP: Lab Results Component Value Date GLUCOSE 210 12/03/2021 NA 141 12/03/2021 K 3.5 12/03/2021 CL 107 12/03/2021 CO2 22 12/03/2021 ANIONGAP 12 12/03/2021 BUN 5 12/03/2021 CREATININE 0.38 12/03/2021 BUNCRER NOT REPORTED 12/03/2021 CALCIUM 7.9 12/03/2021 LABGLOM >60 12/03/2021 GFRAA >60 12/03/2021 GFR 12/03/2021 GFR NOT REPORTED 12/03/2021 HFP: Lab Results Component Value Date PROT 5.3 12/03/2021 CMP: Lab Results Component Value Date GLUCOSE 210 12/03/2021 NA 141 12/03/2021 K 3.5 12/03/2021 CL 107 12/03/2021 CO2 22 12/03/2021 BUN 5 12/03/2021 CREATININE 0.38 12/03/2021 ANIONGAP 12 12/03/2021 ALKPHOS 215 12/03/2021 ALT 64 12/03/2021 AST 74 12/03/2021 BILITOT 1.00 12/03/2021 LABALBU 3.0 12/03/2021 ALBUMIN 1.3 12/03/2021 LABGLOM >60 12/03/2021 GFRAA >60 12/03/2021 GFR 12/03/2021 GFR NOT REPORTED 12/03/2021 PROT 5.3 12/03/2021 CALCIUM 7.9 12/03/2021 PT/INR: No results found for: PTINR, PROTIME, INR PTT: No results found for: APTT FLP: Lab Results Component Value Date CHOL 331 12/02/2021 TRIG 309 12/02/2021 HDL 58 12/02/2021 U/A: Lab Results Component Value Date COLORU Yellow 11/30/2021 TURBIDITY Clear 11/30/2021 SPECGRAV 1.015 11/30/2021 HGBUR 2+ 11/30/2021 PHUR 5.0 11/30/2021 PROTEINU 1+ 11/30/2021 GLUCOSEU 1000 mg/dL 11/30/2021 KETUA LARGE 11/30/2021 BILIRUBINUR NEGATIVE 11/30/2021 UROBILINOGEN Normal 11/30/2021 NITRU NEGATIVE 11/30/2021 LEUKOCYTESUR NEGATIVE 11/30/2021 Radiology: CT ABDOMEN PELVIS WO CONTRAST Additional Contrast? None Result Date: 11/30/2021 1. There is again evidence of pancreatitis. On today's study there is a 15 mm cystic lesion in the tail of the pancreas adjacent to the stomach which may represent a pseudocyst. 2. No hydronephrosis.3. No free pelvic fluid is identified. XR CHEST PORTABLE Result Date: 12/01/2021 1. No focal consolidation, pleural effusion, or pneumothorax. 2. Subtle nodular density at the right lower lobe. This may represent nipple shadow versus confluence of vascular and osseous shadows versus a pulmonary parenchymal nodule. Recommend follow-up contrast enhanced chest CT for complete evaluation. MRI ABDOMEN W WO CONTRAST MRCP Result Date: 12/03/2021 Complex multi-septated cystic mass in the tail of the pancreas measuring 5.9 x 3.6 x 4 cm. 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 Surgical consultation as well as ERCP with brushings should be considered. No pancreatic or biliary ductal abnormality. Unremarkable appearance of the gallbladder. The findings were sent to the Radiology Results Communication [facility] at 11:11 pm, on 12/02/2021,to be communicated to a licensed caregiver. CTA CHEST W CONTRAST Result Date: 12/01/2021 1. Negative for pulmonary embolus. 2. New 1.2 cm pleural-based nodule periphery of the right lower lobe for which 3 month follow-up CT, PET/CT, or tissue sampling is recommended. This is new from 01/23/2021 CT of [place]. 3. Evidence of pancreatitis again seen which has been previously noted. Consultations: Consults: Final Specialist Recommendations/Findings: IP CONSULT TO DOORMAKER IP CONSULT TO DIETITIAN IP CONSULT TO IV TEAM IP CONSULT TO GI The patient was seen and examined on day of discharge and this discharge summary is in conjunction with any daily progress note from day of discharge. Discharge plan: Disposition: Home Physician Follow Up: [facility] [address] [facility] [address] [facility] [phone] We are happy to see Madhav for additional diabetes education as an outpatient. A referral is needed. [facility] has a education program as well. This would be a closer option for the patient. [facility]'sfax number for incoming referrals is [phone] Dale Conrad MD [address] [id number] Schedule an appointment as soon as possible for a visit in 2 weeks Please call the office to make a follow up appt with GI specialist Dr. Dale Conrad to be treate further for your pancreatits as you may needf more testing and additional procedures. Yassine Reed MD [address] [facility] [address] Schedule an appointment as soon as possible for a visit in 4 weeks Outpatient EUS Requiring Further Evaluation/Follow Up POST HOSPITALIZATION/Incidental Findings: - needs EUS as OP to further assess pancreatic mass/cyst - will need repeat CT or CT/PET in 3 months to further assess pleural based lung nodule Diet: diabetic diet Activity: As tolerated Discharge Medications: Medication List START taking these medications blood glucose monitor kit and supplies Dispense sufficient amount for indicated testing frequency plus additional to accommodate PRN testing needs. Dispense all needed supplies to include: monitor, strips, lancing device, lancets, controlsolutions, alcohol swabs. Janumet XR 100-1000 MG Tb24 Generic drug: SITagliptin-metFORMIN HCl ER Take 1 tablet by mouth daily [employer] [place] 31G X 6 MM Misc Generic drug: Insulin Pen Needle 1 each by Does not apply route daily Lancets Misc 1 each by Does not apply route 4 times daily Levemir FlexTouch 100 UNIT/ML injection pen Generic drug: insulin detemir Inject 20 Units into the skin nightly CONTINUE taking these medications amLODIPine 5 MG tablet Commonly known as: NORVASC atenolol 100 MG tablet Commonly known as: TENORMIN omeprazole 20 MG delayed release capsule Commonly known as: PRILOSEC Where to Get Your Medications These medications were sent to [address] - [phone] - F [phone] [place] [phone] blood glucose monitor kit and supplies Janumet XR 100-1000 MG Tb24 [employer] [place] 31G X 6 MM Misc Lancets Misc Levemir FlexTouch 100 UNIT/ML injection pen Discharge Procedure Orders Comprehensive Metabolic Panel Standing Status: Future Standing Exp. Date: 12/03/22 Order Comments: Please forward results to Elvin Dang DO [facility] Dale Conrad MD, Gastroenterology, [facility] Referral Priority: Routine Referral Type: Eval and Treat Referral Reason: Specialty Services Required Referred to Provider: DALE CONRAD Requested Specialty: Gastroenterology Number of Visits Requested: 1 [facility] Diabetes [facility] Referral Priority: Routine Referral Type: Eval and Treat Referral Reason: Specialty Services Required Number of Visits Requested: 1 Time Spent on discharge is 35 mins in patient examination, evaluation, counseling as well as medication reconciliation, prescriptions for required medications, discharge plan and follow up. Electronically signed by Dustin Bass PA-C 12/03/2021 12:[address] Elvin Dang DO for the opportunity to be involved in this patient's care. Associated attestation - Ilia Vital MD - 12/03/2021 1:42 PM EST Attending Supervising Physician's Attestation Statement I personally saw the patient and performed physical examination on the patient and discussed the management with the physician account assistant. I reviewed and agree with the findings and plan as documentedin his note. Patient is feeling better today Diet tolerated, per GI low carb diet X 4 weeks Transaminitis likely related to alcoholic hepatitis MRI film reviewed, Complex multi-septated cystic mass in the tail of the pancreas measuring 5.9 x 3.6 x 4 cm. 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 Surgical consultation as well as ERCP with brushings should be considered. Patient to F/U with GI in 2 weeks and EUS in 4 weeks Encouraged alcohol abstinence Cleared for discharge All orders are in documented in this [facility] Phone: 1(396) 136-177502-02-2022 Hospital Discharge instructions* Discharge Instr - SUZY* Venancio Pillai RN - 12/03/2021 8:43 AM EST Continuity of Care Form Patient Name: Madhav Arita : 1970 Admit date: 12/01/2021 Discharge date: Code Status Order: Full Code Advance Directives: Admitting Physician: Ilia Vital MD PCP: Elvin Dang DO Discharging Nurse: Discharging Hospital Unit/Room#: 0424/0424-01 Discharging Unit Phone Number: Emergency Contact: Extended Emergency Contact Information Primary Emergency Contact: Ramy Arita Relation: Child Brush Or Broom Cutter needed? No Secondary Emergency Contact: Ben Antony Relation: Other Brush Or Broom Cutter needed? No Past Surgical History: Past Surgical History: Procedure Laterality Date HERNIA REPAIR Immunization History: Immunization History Administered Date(s) Administered COVID-19, Pfizer Purple top, DILUTE for use, 12+ yrs, 30mcg/0.3mL dose 02/10/2021, 03/03/2021 Active Problems: Patient Active Problem List Diagnosis Code Diabetic acidosis without coma (HCC) E11.10 Weakness R53.1 Acute pancreatitis K85.90 Transaminitis R74.01 Hyperbilirubinemia E80.6 Hypokalemia E87.6 Hypophosphatemia E83.39 Severe malnutrition (HCC) E43 Pancreatic mass K86.89 Cystic mass of pancreas K86.2 Isolation/Infection: Isolation No Isolation Patient Infection Status Infection Onset Added Last Indicated Last Indicated By Review Planned Expiration Resolved Resolved By None active Resolved COVID-19 (Rule Out) 11/30/21 11/30/21 11/30/21 COVID-19, Rapid (Ordered) 11/30/21 Rule-Out Test Resulted Nurse Assessment: Last Vital Signs: BP 137/85 Pulse 83 Temp 98.3 F (36.8 C) (Temporal) Resp 16 Ht 5' 5 (1.651 m) Wt 146 lb 9.7 oz (66.5 kg) SpO2 97% BMI 24.40 kg/m Last documented pain score (0-10 scale): Pain Level: 0 Last Weight: Wt Readings from Last 1 Encounters: 12/03/21 146 lb 9.7 oz (66.5 kg) Mental Status: {IP PT MENTAL STATUS:} IV Access: { SUZY IV ACCESS:633992611} Nursing Mobility/ADLs: Walking {CHP DME ADLs:196416931} Transfer {CHP DME ADLs:215354204} Bathing {CHP DME ADLs:249375229} Dressing {CHP DME ADLs:413838041} Toileting {CHP DME ADLs:214467386} Feeding {CHP DME ADLs:199568116} Supervisor [employer] Former {CHP DME ADLs:233416182} Med Delivery { SUZY MED Delivery:674272130} Wound Care Documentation and Therapy: Elimination: Continence: Bowel: {YES / NO:} Bladder: {YES / NO:} Urinary Catheter: {Urinary Catheter:897097361} Colostomy/Ileostomy/Ileal Conduit: {YES / NO:} Date of Last BM: Intake/Output Summary (Last 24 hours) at 12/03/2021 0843 Last data filed at 12/03/2021 0837 Gross per 24 hour Intake 7047.56 ml Output 4075 ml Net 2972.56 ml I/O last 3 completed shifts: In: 27315.4 [P.O.:2272; I.V.:9012.4] Out: 6600 [Urine:6600] Safety Concerns: { SUZY Safety Concerns:228478555} Impairments/Disabilities: { SUZY Impairments/Disabilities:561177615} Nutrition Therapy: Current Nutrition Therapy: { SUZY Diet List:342685067} Routes of Feeding: {[facility] DME Other Feedings:054361308} Liquids: {[facility] liquid thickness:66800} Daily Fluid Restriction: {[facility] DME Yes amt example:832607364} Last Modified Barium Swallow with Video (Video Swallowing Test): {Done Not Done Date:} Treatments at the Time of Hospital Discharge: Respiratory Treatments: Oxygen Therapy: {Therapy; copd oxygen:16996} Ventilator: { CC Vent List:323216983} Rehab Therapies: {THERAPEUTIC INTERVENTION:9637830127} Weight Bearing Status/Restrictions: {[facility] Weight Bearin} Other Medical Equipment (for information only, NOT a DME order): {EQUIPMENT:740615238} Other Treatments: Patient's personal belongings (please select all that are sent with patient): {[facility] DME Belongings:171636452} RN SIGNATURE: {Esignature:691749335} CASE MANAGEMENT/SOCIAL WORK SECTION Inpatient Status Date: Readmission Risk Assessment Score: Readmission Risk Risk of Unplanned Readmission: 13 Discharging to Facility/ Agency Name: Address: Phone: Fax: Dialysis Facility (if applicable) Name: Address: Dialysis Schedule: Phone: Fax: Barrel Repairer/Donor Floor Technician signature: {Esignature:561088137} PHYSICIAN SECTION Prognosis: {Prognosis:5932482744} Condition at Discharge: { Patient Condition:409197936} Rehab Potential (if transferring to Rehab): {Prognosis:7919723258} Recommended Labs or Other Treatments After Discharge: Physician Certification: I certify the above information and transfer of Madhav Arita is necessary for the continuing treatment of the diagnosis listed and that he requires {Admit to Appropriate Level of Care:82498} for {GREATER/LESS:346213419} 30 days. Update Admission H&P: {CHP DME Changes in HandP:783699805} PHYSICIAN SIGNATURE: {Esignature:483555318} * Additional Instructions* Dustin Bass PA-C - 12/03/2021 Check blood glucose 4x daily. Before meals and at bedtime. Record your results in a log to present to your PCP. You will be started on two new medications for diabetes Janumet and Levemir, take as prescribed. Levemir should be taken in the evening before bed. Please follow-up with GI, you will needa procedure to further assess the cyst on your pancreas. * Attachments The following attachments cannot be sent through Care Everywhere. * Diabetes: Home Blood Sugar Test (Greenlandic) documented in this encounterUI [employer]ot Phone: 1(344) 504-484601-31-2022 History of Present illness Narrative* Almita Ortega RN - 12/01/2021 9:51 AM EST Pts HR 130's-150's at this time. Pt states he feels SOB. Dr. Ozuna made aware and placed new orders. * Almita Ortega RN - 12/01/2021 8:10 AM EST Pt awake in bed. Denies any needs at this time. Call light in reach. documented in this encounter[employer] Phone: evalhvjtem note* Diagnosis Diabetic ketoacidosis without coma associated with diabetes mellitus due to underlying condition (HCC)- Primary Acute pancreatitis, unspecified complication status, unspecified pancreatitis type Weakness Other malaise and fatigue documented in this encounter [employer] Phone: evaluation note* Diagnosis Hypophosphatemia- Primary Disorders of phosphorus metabolism Hypokalemia Hypopotassemia Transaminitis Nonspecific elevation of levels of transaminase or lactic acid dehydrogenase (LDH) Pancreatic mass Unspecified disease of pancreas Cystic mass of pancreas Type 2 diabetes mellitus with hyperglycemia, without long-term current use of insulin (HCC) Diabetic ketoacidosis without coma associated with type 2 diabetes mellitus (HCC) Acute pancreatitis Hyperbilirubinemia Disorders of bilirubin excretion Severe malnutrition (HCC) Nutritional marasmus documented in this encounter [employer] Phone: evaluation noteNo InformationNort [employer] (formerly [employer]) Other Evaluation note* Diagnosis Onset Date Resolution Status Elevated cholesterol acute Generalized anxiety disorder acute Hypertension acute Screening PSA (prostate specific antigen) acute Type 2 diabetes mellitus with hyperglycemia acute Wellness examination noneact [facility] Work Phone: History general Narrative - Reported* Type Description Date Medical History Pulmonary nodule, right Medical History Body mass index (BMI) of 25.0 to 29.9 Medical History Portal hypertension Medical History History of alcohol abuse Medical History Chronic blood loss anemia Medical History Thrombocytopenia Medical History Gastroesophageal ref lux disease with esophagitis without hemorrhage Medical History Essential hypertension Medical History Type 2 diabetes juani itus with diabetic polyneuropathy, unspecified whether alf insulin use Medical History alf current use of insulin Medical History Hypomagnesemia Medical History Hypophosphatemia Medical History Acute pancreatitis Medical History Pure hypercholesterolemia Medical History Wellness examination Medical History Acute idiopathic gout of left fo ot Medical History Generalized anxiety disorder Medical History History of pancreatitis Surgical History COLONOSCOPY 05/2021 Surgical History EGD Hospitalization History SEE SURGICAL HX [place] [employer] [employer] Other Reason for visit Narrative* Auth/Cert Specialty Diagnoses / Procedures Referred By Augusto salomon Referred To Contact Diagnoses Diabetic ketoacidosis without coma associated with other specified diabetes mellitus (HCC) Ilia Conrad MD [address] [place] [address] [facility] [address] [place] [address] Referral ID Status Reason Start Date Expiration Date Visits Re quested Visits Authorized [id number] 1 1 [employer] Phone: Reason for Referral Specialty Diagnoses / Procedures Referred By Augusto salomon Referred To Contact Diabetes Services Diagnoses Type 2 diabetes mellitus with hyperglycemia, without long-term current use of insulin (HCC) Procedures RI MED NUTR THER, 1ST, INDIV, EA 15 MIN RI MED NUTR THER, SUBSQ, INDIV, EA 15 MIN RI DIAB MANAGE TRN PER INDIV Dustin Bass PA-C [address] [facility] [address] [place] [address] [facility] [address] [facility] [address] [place] [address] Referral ID Status Reason Start Date Expiration Date V isits Requested Visits Authorized [id number] Open Specialty Services Required 12/03/2021 12/03/2022 9 9 Scheduling Instructions Diabetes Education Program - [facility] [address] [facility], [facility] [address] [place] [address] Specialty Diagnoses / Procedures Referred By Contdaniela t Referred To Contact Gastroenterology Diagnoses Pancreatic mass Cystic mass of pancreas Dustin Bass PA-C [address] [address] [place] [address] [place] [address] Referral ID Status Reason Start Date Expiration Date V isits Requested Visits Authorized [id number] Open Specialty Services Required 12/03/2021 12/03/2022 1 1 Scheduling Instructions [facility] Gastroenterology - Dale Conrad MD [address] [place] [address] [address] [place] [address] Advance Directives Latest Code Status on File Code Status Date Activated Date Inactivated Comments Full Code 12/01/2021 5:56 PM Full Code 12/01/2021 5:53 PM 12/01/2021 5:56 PM Latest Code Status on File Code Status Date Activated Date Inactivated Comments Full Code 12/01/2021 5:56 PM 12/03/2021 6:24 PM Full Code 12/01/2021 5:53 PM 12/01/2021 5:56 PM Advance Directive Response Recorded Date/ Time Advance Directives No December 1:06pm Summary Purpose Family History Relationship Condition Age at Onset Recorded Date/T reema Not Specified Adopted Unknown sister Asthma Unknown Chief Complaint and Reason for Visit Chief Complaint Amb Documentation Wellness Reason for Visit Elevated cholesterol Generalized anxiety disorder Hypertension Screening PSA (prostate specific antigen) Type 2 diabetes mellitus with hyperglycemia Wellness examination Additional Source Comments Reason for Visit (unrecogniz ed section and content) Reason Comments Dizziness pt reports lighthead edness and not feeling well since wednesday, worsening Emesis Diarrhea Reason Comments Education Class Scheduled Active and Recently Administ ered Medications (unrecognized section and content) Medication Order 11/29/2021 11/30/2021 12/01/2021 0.9 % sodium chloride bolus (COMPLETED) 1,000 mL, IntraVENous, at 1,000 mL/hr, Administer over 1 Hours, ONCE, On 11/30/21 at 1315, For 1 dose, For IV Hydration 1320 (New Bag - Provider: Lucian Lester, RN)1413 (Stopped - Provider: Vciky Larsen, RN) 0.9 % sodium chloride bolus (COMPLETED) 1,000 mL (15.1 mL/kg), IntraVENous, at 1,000 mL/hr, Administer over 1 Hours, ONCE, On 11/30/21 at 1415, For 1 dose, For IV Hydration 1414 (New Bag - Provider: Vicky Larsen, RN)1505 (Stopped - Provider: Laura Carson RN) 0.9 % sodium chloride bolus (COMPLETED) 993 mL (15 mL/kg 66.2 kg), IntraVENous, at 993 mL/hr, Administer over 1 Hours, ONCE, On Wed12/01/21 at 0900, For 1 dose, Administer over 1 hour, then transition to maintenance infusion. 0937 (New Bag - Prov ider: Almita Ortega, RN)1132 (Stopped - Provider: Almita Ortega, RN)1634 (Patient Transferred to Other Facility - Provider: Garo Worley, RN) 0.9 % sodium chloride bolus 1,000 mL (15.1 mL/kg), IntraVENous, at 1,000 mL/hr, Administer over 1 Hours, ONCE, On Wed12/01/21 at 0945, For 1 dose 1637 (Not Given - Provider: Garo Worley, RN - Reason: Other) insulin regular (HUMULIN R;NOVOLIN R) injection 10 Units (COMPLETED) 10 Units, IntraVENous, ONCE, On Wed11/30/21 at 1315, For 1 dose 1321 (Given - Provider: Lucian Lester RN) insulin regular (HUMULIN R;NOVOLIN R) injection 5 Units (COMPLETED) 5 Units, IntraVENous, ONCE, On Wed11/30/21 at 2230, For 1 dose 2229 (Given - Provider: Poly Germain RN) insulin regular (HUMULIN R;NOVOLIN R) injection 7 Units (COMPLETED) 7 Units, IntraVENous, ONCE, On Wed12/01/21 at 0445, For 1 dose 0444 (Given - Provid er: Almita Ortega RN) insulin regular (HUMULIN R;NOVOLIN R) injection 7 Units (COMPLETED) 7 Units, IntraVENous, ONCE, On Wed12/01/21 at 0700, For 1 dose 0652 (Given - Provid er: Almita Ortega RN) ondansetron (ZOFRAN) injection 4 mg (COMPLETED) 4 mg, IntraVENous, ONCE, On Wed12/01/21 at 1600, For 1 dose 1552 (Given - Provid er: Tita Nix RN) sodium bicarbonate 8.4 % injection 50 mEq (COMPLETED) 50 mEq, IntraVENous, ONCE, On Wed12/01/21 at 0945, For 1 dose 0941 (Given - Provid er: Almita Ortega RN) Continuous Medication Order 11/29/2021 11/30/2021 12/01/2021 0.9 % sodium chloride infusion IntraVENous, at 250 mL/hr, CONTINUOUS, Starting on Wed11/30/21 at 1500 1507 (New Bag - Provider: Laura Carson RN)1652 (Stopped - Provider: Vicky Larsen RN) 1636 (Patient Transferred to Other Facility - Provider: Garo Worley, MATTEO) 0.9 % sodium chloride infusion IntraVENous, at 250 mL/hr, CONTINUOUS, Starting on Wed12/01/21 at 1015, When blood glucose equals 250 mg/dL or below, DISCONTINUE saline IV fluid using Per Protocol order mode and start using the dextrose containing IV fluid order previously placed as CONTINUOUS PRN. DO NOT restart saline infusion if subsequent blood glucose returns above 250 mg/dL. 1133 (New Bag - Provider: Almita Ortega RN)1634 (Patient Transferred to Other Facility - Provider: Garo Hill, RN) 0.9% NaCl with KCl 20 mEq infusion IntraVENous, at 150 mL/hr, CONTINUOUS, Starting on Wed11/30/21 at 1630 1654 (New Bag - Provider: Vicky Larsen, RN)1712 (Rate/Dose Change - Provider: Laura Carson, RN)2158 (Stopped - Provider: Frank Lock, RN)2159 (New Bag - Provider: Frank Lock, RN) 0406 (New Bag - Provider: Poly Germain RN)0935 (Stopped - Provider: Almita Ortega RN) insulin regular (HUMULIN R;NOVOLIN R) 100 Units in sodium chloride 0.9 % 100 mL infusion (CANCELED) 7 Units/hr (7 mL/hr), IntraVENous, CONTINUOUS, Starting on Wed11/30/21 at 1500 1509 (New Bag - Provider: Laura Carson RN)1712 (Stopped - Provider: Vicky Larsen RN) insulin regular (HUMULIN R;NOVOLIN R) 100 Units in sodium chloride 0.9 % 100 mL infusion 0.1 Units/kg/hr 66.2 kg (6.62 mL/hr, rounded to 6.6 mL/hr), IntraVENous, CONTINUOUS, Starting on Wed12/01/21 at 0900, Initial DKA Insulin Infusion Protocol: - If any blood glucose (BG) increases, then increase infusion by 50% of current rate - If BG decrease is less than 50 mg/dL per hour, increase infusion by 50% of current rate - If BG decrease is between 50-75 mg/dL per hour, then make no change to infusion rate - If BG decrease is between 76-100 mg/dL per hour, decrease infusion by 50% of current rate - If BG decrease is greater than 100 mg/dL per hour, decrease infusion by 50%, repeat BG, and call provider - When BG < 250 mg/dL, switch to DKA Multiplier Insulin Infusion Protocol (DO NOT switch back to above protocol if the BG subsequently goes above 250 mg/dL again). - REMINDER TO CHANGE IV FLUIDS - When BG 250 mg/dL or below, DISCONTINUE saline IV fluid using Per Protocol order mode and start using the dextrose containing IV fluid order previously placed as CONTINUOUS PRN. DO NOT restart saline infusion if subsequent BG returns above 250 mg/dL. DKA Multiplier Insulin Infusion Protocol: Low BG target: 150 mg/dL and High BG target: 200 mg/dL Begin infusion rate by the following formula: (BG - 60) x 0.03 = insulin units per hour but DO NOT increase the insulin rate any greater than three times the current rate. Adjust the multiplier in the above formula as follows: - If BG is greater than 200 mg/dL, increase multiplier by 0.01 - If BG is less than 150 md/dL, decrease multiplier by 0.01 - If BG is between 150 - 200 mg/dL, make no change in multiplier - Recalculate insulin dose with every BG drawn, even if the multiplier does not change - Hold insulin infusion if BG less than 80 mg/dL, if BG less than 70 mg/dL follow hypoglycemia treatment orders, continue to check BG as ordered, and restart insulin infusion if and when BG increases back into goal range while decreasing last multiplier by 0.01 Notify provider if: * BG is less than 80 * If BG less than 200 mg/dL AND when both of the following criteria are met on two consecutive BMPs: Anion gap normalized (less than or equal to 12), serum bicarb (HCO3) greater than 15, call provider for conversion from insulin infusion to subcutaneous insulin and discontinue insulin infusion 2 hours after the first subcutaneous injection of insulin. * If multiplier less than 0.01 results in insulin rate of 0 units/hr for clarification on insulin infusion rate and/or IV fluid adjustments. Maintain current insulin infusion rate prior to notifying physician unless BG less than 80 mg/dL. 0931 (Restarted - Provider: Almita Ortega RN)1131 (Rate/Dose Change - Provider: Almita Ortega RN)1249 (Rate/Dose Change - Provider: Almita Ortega RN)1402 (Rate/Dose Change - Provider: Almita Ortega RN)1535 (Rate/Dose Change - Provider: Garo Worley RN)1633 (Patient Transferred to Other Facility - Provider: Garo Worley RN) insulin regular (HUMULIN R;NOVOLIN R) 100 Units in sodium chloride 0.9 % 100 mL infusion 0.05 Units/kg/hr 66.2 kg (3.31 mL/hr, rounded to 3.3 mL/hr), IntraVENous, CONTINUOUS, Starting on Wed12/01/21 at 1545 1623 (Not Given - Provider: Garo Worley RN - Reason: Other) PRN Medication Order 11/29/2021 11/30/2021 12/01/2021 dextrose 5 % and 0.45 % sodium chloride infusion IntraVENous, at 150 mL/hr, CONTINUOUS PRN, blood glucose less than 250 mg/dL, Starting on Wed12/01/21 at 0854, When blood glucose equals 250 mg/dL or below, DISCONTINUE saline IV Fluid using Per Protocol order mode and start using this dextrose containing IV fluid order. DO NOT restart saline infusion if subsequent blood glucose returns above 250 mg/dL. 1417 (New Bag - Prov ider: Almita Ortega RN)1633 (Patient Transferred to Other Facility - Provider: Garo Worley RN) dextrose 50 % IV solution 12.5 g, IntraVENous, PRN, Low blood sugar, Starting on Wed12/01/21 at 0853, For blood glucose level less than 70 mg/dL. Check blood glucose every 15 minutes and repeat above if blood glucose is less than 70 mg/dL. iopamidol (ISOVUE-370) 76 % injection 100 mL (COMPLETED) 100 mL, IntraVENous, IMG ONCE PRN, Other, Starting on Wed12/01/21 at 0950, For 1 dose 1232 (Given - Provid er: Marisela Fischer) magnesium sulfate 1000 mg in dextrose 5% 100 mL IVPB 1,000 mg, IntraVENous, at 100 mL/hr, Administer over 1 Hours, PRN, Other, Magnesium IV Replacement, Starting on Wed12/01/21 at 0853, Mg Level Mg Replacement Action 1.4 to 1.6 1 gram IVPB x 2 doses (2 grams total) 1.0 to 1.3 1 gram IVPB x 4 doses (4 grams total) Below 1.0 CALL PHYSICIAN and 1 gram IVPB x 4 doses (4 grams total) Infuse at 1 gram/hr. Repeat Mg level next AM. Not for use in patients with CrCl less than 30 mL/min. potassium chloride 10 mEq/100 mL IVPB (Peripheral Line) 10 mEq, IntraVENous, at 100 mL/hr, PRN, Potassium IV Replacement, Starting on Wed12/01/21 at 0853, Above 5.2 No dose 4.3 to 5.2 10 mEq IVPB x 2 doses (20 mEq total) 3.4 to 4.2 10 mEq IVPB x 3 doses (30 mEq total) Below 3.4 10 mEq IVPB x 4 doses (40 mEq total) Infuse at 10 mEq/hr. Can be administered either through peripheral IV or central IV. sodium phosphate 10 mmol in dextrose 5 % 250 mL IVPB(Linked Group 1) 10 mmol, IntraVENous, at 62.5 mL/hr, Administer over 240 Minutes, PRN, Phosphorus IV Replacement, Starting on Wed12/01/21 at 0853, Phos level Phosphorus Replacement Action 2.3 to 2.7 mg/dL 10 mmol IVPB over 4 hours 1.5 to 2.2 mg/dL 15 mmol IVPB over 4 hours Below 1.5 mg/dL 20 mmol IVPB over 6 hours sodium phosphate 15 mmol in dextrose 5 % 250 mL IVPB(Linked Group 1) 15 mmol, IntraVENous, at 62.5 mL/hr, Administer over 240 Minutes, PRN, Phosphorus IV Replacement, Starting on Wed12/01/21 at 0853, Phos level Phosphorus Replacement Action 2.3 to 2.7 mg/dL 10 mmol IVPB over 4 hours 1.5 to 2.2 mg/dL 15 mmol IVPB over 4 hours Below 1.5 mg/dL 20 mmol IVPB over 6 hours sodium phosphate 20 mmol in dextrose 5 % 500 mL IVPB(Linked Group 1) 20 mmol, IntraVENous, at 83.3 mL/hr, Administer over 360 Minutes, PRN, Phosphorus IV Replacement, Starting on Wed12/01/21 at 0853, Phos level Phosphorus Replacement Action 2.3 to 2.7 mg/dL 10 mmol IVPB over 4 hours 1.5 to 2.2 mg/dL 15 mmol IVPB over 4 hours Below 1.5 mg/dL 20 mmol IVPB over 6 hours Linked Groups Order Group 1: sodium phosphate 10 mmol in dextrose 5 % 250 mL IVPBJump to med 10 mmol, IntraVENous, at 62.5 mL/hr, Administer over 240 Minutes, PRN, Phosphorus IV Replacement, Starting on Wed12/01/21 at 0853
Phos level Phosphorus Replacement Action 2.3 to 2.7 mg/dL 10 mmol IVPB over 4 hours 1.5 to 2.2 mg/dL 15 mmol IVPB over 4 hours Below 1.5 mg/dL 20 mmol IVPB over 6 hours
Or sodium phosphate 15 mmol in dextrose 5 % 250 mL IVPBJump to med 15 mmol, IntraVENous, at 62.5 mL/hr, Administer over 240 Minutes, PRN, Phosphorus IV Replacement, Starting on Wed12/01/21 at 0853
Phos level Phosphorus Replacement Action 2.3 to 2.7 mg/dL 10 mmol IVPB over 4 hours 1.5 to 2.2 mg/dL 15 mmol IVPB over 4 hours Below 1.5 mg/dL 20 mmol IVPB over 6 hours
Or sodium phosphate 20 mmol in dextrose 5 % 500 mL IVPBJump to med 20 mmol, IntraVENous, at 83.3 mL/hr, Administer over 360 Minutes, PRN, Phosphorus IV Replacement, Starting on Wed12/01/21 at 0853
Phos level Phosphorus Replacement Action 2.3 to 2.7 mg/dL 10 mmol IVPB over 4 hours 1.5 to 2.2 mg/dL 15 mmol IVPB over 4 hours Below 1.5 mg/dL 20 mmol IVPB over 6 hours
Scheduled Medication Order 12/01/2021 12/02/2021 12/03/2021 0.9 % sodium chloride bolus (COMPLETED) 993 mL (15 mL/kg 66.2 kg), IntraVENous, at 993 mL/hr, Administer over 1 Hours, ONCE, On Wed12/01/21 at 1815, For 1 dose, Administer over 1 hour, then transition to maintenance infusion. 182 (New Bag - Provider: Poly Reina RN)192 (Stopped - Provider: Hanane Delaney RN) amLODIPine (NORVASC) tablet 5 mg 5 mg, Oral, DAILY, First dose on Wed12/02/21 at 1200 1245 (Given - Provider: Venancio Pillai RN) 0822 (Given - Provider: Venancio Pillai RN) atenolol (TENORMIN) tablet 100 mg 100 mg, Oral, DAILY, First dose on Wed12/02/21 at 1200 1245 (Given - Provider: Venancio Pillai RN) 0823 (Given - Provider: Venancio Pillai RN) enoxaparin (LOVENOX) injection 40 mg 40 mg, SubCUTAneous, DAILY, First dose on Wed12/01/21 at 1900 2005 (Given - Provider: Mary Ireland RN) 0922 (Given - Provider: Venancio Pillai, MATTEO) 0823 (Given - Provider: Venancio Pillai, MATTEO) insulin glargine (LANTUS) injection vial 20 Units 20 Units, SubCUTAneous, NIGHTLY, First dose on Wed12/02/21 at 0900 0929 (Given - Provider: Venancio Pillai, MATTEO) 2100 (Due) insulin lispro (HUMALOG) injection vial 0-12 Units 0-12 Units, SubCUTAneous, EVERY 4 HOURS, First dose (after last modification) on Wed12/02/21 at 1200, Medium Dose Corrective Algorithm Glucose: Dose: If <139 No Insulin 140-199 2 Units 200-249 4 Units 250-299 6 Units 300-349 8 Units 350-400 10 Units Above 400 12 Units 1203 (Given - Provider: Venancio Pillai RN)1746 (Given - Provider: Venancio Pillai RN - Comment: [id number])2019 (Given - Provider: Mary Ireland RN)2334 (Given - Provider: Mary Ireland RN) 0413 (Given - Provider: Mary Ireland RN)0828 (Given - Provider: Venancio Pillai, MATTEO)1153 (Given - Provider: Venancio Pillai, MATTEO)1533 (Given - Provider: Venancio Pillai, MATTEO)2000 (Due) magnesium sulfate 2000 mg in 50 mL IVPB premix (COMPLETED) 2,000 mg, IntraVENous, at 25 mL/hr, Administer over 2 Hours, ONCE, On Wed12/02/21 at 1030, For 1 dose, Recommended infusion rate not to exceed 1,000 mg (milligrams) per hour. 1049 (New Bag - Provider: Venancio Pillai, MATTEO)1218 (Stopped - Provider: Venancio Pillai, MATTEO) pantoprazole (PROTONIX) tablet 40 mg 40 mg, Oral, DAILY BEFORE BREAKFAST, First dose on Wed12/03/21 at 0700, Do not crush or break. Substituted for Omeprazole (PRILOSEC). 0629 (Given - Provider: Mary Ireland RN) potassium chloride (KLOR-CON M) extended release tablet 40 mEq (COMPLETED) 40 mEq, Oral, ONCE, On Wed12/02/21 at 0115, For 1 dose, Do not crush, chew, or suck on tablet. Tablet may also be broken in half and each half swallowed separately. 0146 (Given - Provider: Mary Ireland, MATTEO) potassium chloride (KLOR-CON M) extended release tablet 40 mEq 40 mEq, Oral, 2 TIMES DAILY, First dose on Wed12/03/21 at 0900, For 3 days, Do not crush, chew, or suck on tablet. Tablet may also be broken in half and each half swallowed separately. 0823 (Given - Provider: Venancio Pillai, MATTEO)2100 (Due) sodium phosphate 10 mmol in dextrose 5 % 250 mL IVPB (COMPLETED) 10 mmol, IntraVENous, at 62.5 mL/hr, Administer over 240 Minutes, ONCE, On Wed12/03/21 at 0600, For 1 dose 0628 (New Bag - Provider: Mary Ireland, MATTEO)1027 (Stopped - Provider: Venancio Pillai, MATTEO) Continuous Medication Order 12/01/2021 12/02/2021 12/03/2021 0.9% NaCl with KCl 20 mEq infusion IntraVENous, at 150 mL/hr, CONTINUOUS, Starting on Wed12/02/21 at 0900 0904 (New Bag - Provider: Venancio Pillai, MATTEO)1454 (New Bag - Provider: Venancio Pillai, MATTEO) 0926 (New Bag - Provider: Venancio Pillai, MATTEO) insulin regular (HUMULIN R;NOVOLIN R) 100 Units in sodium chloride 0.9 % 100 mL infusion (CANCELED) 0.1 Units/kg/hr 66.2 kg (6.62 mL/hr, rounded to 6.6 mL/hr), IntraVENous, CONTINUOUS, Starting on Wed12/01/21 at 1815, Initial DKA Insulin Infusion Protocol: - If any blood glucose (BG) increases, then increase infusion by 50% of current rate - If BG decrease is less than 50 mg/dL per hour, increase infusion by 50% of current rate - If BG decrease is between 50-75 mg/dL per hour, then make no change to infusion rate - If BG decrease is between 76-100 mg/dL per hour, decrease infusion by 50% of current rate - If BG decrease is greater than 100 mg/dL per hour, decrease infusion by 50%, repeat BG, and call provider - When BG < 250 mg/dL, switch to DKA Multiplier Insulin Infusion Protocol (DO NOT switch back to above protocol if the BG subsequently goes above 250 mg/dL again). - REMINDER TO CHANGE IV FLUIDS - When BG 250 mg/dL or below, DISCONTINUE saline IV fluid using Per Protocol order mode and start using the dextrose containing IV fluid order previously placed as CONTINUOUS PRN. DO NOT restart saline infusion if subsequent BG returns above 250 mg/dL. DKA Multiplier Insulin Infusion Protocol: Low BG target: 150 mg/dL and High BG target: 200 mg/dL Begin infusion rate by the following formula: (BG - 60) x 0.03 = insulin units per hour but DO NOT increase the insulin rate any greater than three times the current rate. Adjust the multiplier in the above formula as follows: - If BG is greater than 200 mg/dL, increase multiplier by 0.01 - If BG is less than 150 md/dL, decrease multiplier by 0.01 - If BG is between 150 - 200 mg/dL, make no change in multiplier - Recalculate insulin dose with every BG drawn, even if the multiplier does not change - Hold insulin infusion if BG less than 80 mg/dL, if BG less than 70 mg/dL follow hypoglycemia treatment orders, continue to check BG as ordered, and restart insulin infusion if and when BG increases back into goal range while decreasing last multiplier by 0.01 Notify provider if: * BG is less than 80 * If BG less than 200 mg/dL AND when both of the following criteria are met on two consecutive BMPs: Anion gap normalized (less than or equal to 12), serum bicarb (HCO3) greater than 15, call provider for conversion from insulin infusion to subcutaneous insulin and discontinue insulin infusion 2 hours after the first subcutaneous injection of insulin. * If multiplier less than 0.01 results in insulin rate of 0 units/hr for clarification on insulin infusion rate and/or IV fluid adjustments. Maintain current insulin infusion rate prior to notifying physician unless BG less than 80 mg/dL. 1841 (New Bag - Provider: Poly Reina RN)2001 (Rate/Dose Change - Provider: Hanane Delaney RN)2113 (Rate/Dose Change - Provider: Hanane Delaney RN)2221 (Rate/Dose Change - Provider: Hanane Delaney RN)2313 (Rate/Dose Change - Provider: Hanane Delaney RN) 0006 (Rate/Dose Change - Provider: Hanane Delaney RN)0118 (Rate/Dose Change - Provider: Hanane Delaney RN)0220 (Rate/Dose Change - Provider: Hanane Delaney RN)0314 (Rate/Dose Change - Provider: Hanane Delaney RN)0416 (Rate/Dose Change - Provider: Hanane Delaney RN)0509 (Rate/Dose Change - Provider: Hanane Delaney RN)0605 (Rate/Dose Change - Provider: Mary Ireland RN)0707 (Rate/Dose Change - Provider: Hanane Delaney RN)0824 (Rate/Dose Verify - Provider: Venancio Pillai RN)0828 (Rate/Dose Change - Provider: Venancio Pillai RN)0855 (Stopped - Provider: Venancio Pillai RN) PRN Medication Order 12/01/2021 12/02/2021 12/03/2021 acetaminophen (TYLENOL) tablet 650 mg 650 mg, Oral, EVERY 4 HOURS PRN, Pain Mild (1-3), Starting on Wed12/02/21 at 1126, Maximum dose of acetaminophen is 4000 mg from all sources in 24 hours. 1153 (Given - Provider: Venancio Pillai RN) dextrose 5 % and 0.45 % sodium chloride infusion IntraVENous, at 150 mL/hr, CONTINUOUS PRN, blood glucose less than 250 mg/dL, Starting on Wed12/01/21 at 1755, When blood glucose equals 250 mg/dL or below, DISCONTINUE saline IV Fluid using Per Protocol order mode and start using this dextrose containing IV fluid order. DO NOT restart saline infusion if subsequent blood glucose returns above 250 mg/dL. 2005 (New Bag - Provider: Mary Ireland RN) dextrose 5 % solution 100 mL/hr, IntraVENous, PRN, Low blood sugar, Starting on Wed12/02/21 at 0832, Start infusion following administration of dextrose 50% or glucagon. dextrose 50 % IV solution 12.5 g, IntraVENous, PRN, Low blood sugar, Hypoglycemia, Starting on Wed12/01/21 at 1755, For Blood Glucose level less than 70 Check Blood sugar every 15 minutes and repeat above if blood sugar is less than 80mg/dL dextrose 50 % IV solution 12.5 g, IntraVENous, PRN, Low blood sugar, Blood glucose less than 70 mg/dL and patient NOT ALERT or NPO., Starting on Wed12/02/21 at 0832, If patient does not respond within 5 minutes, repeat dose x1. Start D5W at 100 mL/hour until ordering provider can be reached. Repeat blood glucose in 15 minutes. If blood glucose is less than 70 mg/dL, repeat treatment and recheck blood glucose in 15 minutes x2. If using Glucostabilizer, dose as instructed per system. gadoteridol (PROHANCE) injection 13 mL (COMPLETED) 13 mL, IntraVENous, IMG ONCE PRN, Other, Starting on Wed12/02/21 at 1631, For 1 dose 1632 (Given - Provider: Laine Cain) glucagon (rDNA) injection 1 mg 1 mg, IntraMUSCular, PRN, Low blood sugar, Blood glucose less than 70 mg/dL and patient NOT ALERT or NPO and does not have IV access., Starting on Wed12/02/21 at 0832, After administration, attempt intravenous access and start D5W at 100 mL/hr. Repeat blood glucose in 15 minutes x2 and notify provider. glucose (GLUTOSE) 40 % oral gel 15 g 15 g, Oral, PRN, Low blood sugar, Starting on Wed12/02/21 at 0832, If blood glucose less than 50 mg/dL and patient ALERT and TOLERATING PO, give 2 tubes glucose gel. If blood glucose less than 70 mg/dL and patient ALERT and TOLERATING PO, give 1 tube glucose gel. Repeat blood glucose in 15 minutes. If blood glucose is less than 70 mg/dL, repeat treatment and recheck blood glucose in 15 minutes x2 and notify provider. polyethylene glycol (GLYCOLAX) packet 17 g 17 g, Oral, DAILY PRN, Constipation, Starting on Wed12/01/21 at 1755, First line therapy for constipation potassium chloride 10 mEq/100 mL IVPB (Peripheral Line) (CANCELED) 10 mEq, IntraVENous, at 100 mL/hr, PRN, Potassium IV Replacement, Starting on Wed12/01/21 at 1755, Above 5.2 No dose 4.3 to 5.2 10 mEq IVPB x 2 doses (20 mEq total) 3.4 to 4.2 10 mEq IVPB x 3 doses (30 mEq total) Below 3.4 10 mEq IVPB x 4 doses (40 mEq total) Infuse at 10 mEq/hr. Can be administered either through peripheral IV or central IV. 2104 (New Bag - Provider: Mary Ireland RN)222 (New Bag - Provider: Mary Ireland RN - Comment: bag 12/05)2319 (New Bag - Provider: Mary Ireland RN - Comment: bag 01/02) 0119 (New Bag - Provider: Mary Ireland RN - Comment: bag 02/02)0312 (New Bag - Provider: Mary Ireland RN)0417 (New Bag - Provider: Mary Ireland RN)0603 (New Bag - Provider: Mary Ireland RN)0707 (New Bag - Provider: Hanane Delaney RN - Comment: bag 11/04)0800 (New Bag - Provider: Venancio Pillai RN)0900 (Stopped - Provider: Venancio Pillai RN)1823 (New Bag - Provider: Venancio Pillai, RN)202 (New Bag - Provider: Mary Ireland RN - Comment: bag 12/05)2134 (New Bag - Provider: Mary Ireland RN - Comment: bag 01/02) potassium chloride 10 mEq/100 mL IVPB (Peripheral Line) 10 mEq, IntraVENous, at 100 mL/hr, PRN, Per Potassium IV Replacement Protocol, Starting on Wed12/02/21 at 2225, K Lab Replacement Action 3.1-3.5 10 Meq IVPB x 4 doses (40 Meq Total) 2.7-3.0 10 Meq IVPB x 6 doses (60 Meq Total) <2.7 CALL PHYSICIAN and 10 Meq IVPB x 6 doses (60 Meq Total) Infuse at 10meq/hr Repeat Potassium lab 1 hour after final administration. Protocol not for use in Patients with CrCl<30ml/min 2321 (New Bag - Provider: Mary Ireland RN - Comment: bag 02/02) 0201 (New Bag - Provider: Mary Ireland RN - Comment: bag 11/04)0213 (Canceled Entry - Provider: Mary Ireland RN)0352 (New Bag - Provider: Mary Ireland RN - Comment: bag 12/05)0503 (New Bag - Provider: Mary Ireland RN - Comment: bag 01/02)0629 (New Bag - Provider: Mary Ireland RN - Comment: bag 02/02) sodium chloride flush 0.9 % injection 13 mL 13 mL, IntraVENous, PRN, Line Care, Starting on Wed12/02/21 at 1631, For Line Patency: Peripheral IV = 5 mL; Midline or Central Line = 10 mL/lumen. If following IV push medication, administer flush at same rate as the IV push. Flush volume is determined by type of infusion therapy being given. For non-viscous solutions use: Peripheral IV = 5 mL Midline or Central Line = 10 mL/lumen For viscous solutions (i.e. blood components, parenteral nutrition, contrast media, or after obtaining blood sample) use: Peripheral IV = 10 mL Midline or Central Line = 20 mL/lumen 0823 (Given - Provider: Venancio Pillai, MATTEO) sodium phosphate 20 mmol in dextrose 5 % 500 mL IVPB (CANCELED) 20 mmol, IntraVENous, at 83.3 mL/hr, Administer over 360 Minutes, PRN, Phosphorus IV Replacement, Starting on Wed12/01/21 at 1755, Phos level Phosphorus Replacement Action 2.3 to 2.7 mg/dL 10 mmol IVPB over 4 hours 1.5 to 2.2 mg/dL 15 mmol IVPB over 4 hours Below 1.5 mg/dL 20 mmol IVPB over 6 hours 2104 (New Bag - Provider: Mary Ireland RN) 0517 (Stopped - Provider: Hanane Delaney, MATTEO)0603 (New Bag - Provider: Mary Ireland, MATTEO)1218 (Stopped - Provider: Venancio Pillai RN)2020 (New Bag - Provider: Mary Ireland, MATTEO) 022 (Stopped - Provider: Hanane Delaney, MATTEO) Care Teams (unrecognized sec tion and content) [employer]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 Start Date End Date Elvin Dang DO [address] [place] [address] PCP - General Internal Medicine 11/30/21 [employer]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 Start Date End Date Elvin Dang, DO [address] [place] [address] PCP - General Internal Medicine 11/30/21 [employer]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 Start Date End Date Elvin Dang, DO [address] [place] [address] PCP - General Internal Medicine 11/30/21 [employer]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 Start Date End Date Elvin Dang, DO [address] [place] [address] PCP - General Internal Medicine 11/30/21 Team Status: Active Member Role Status Dates Elvin Dang DO Primary Care Provider Active Team Status: Active Member Role Status Dates Elvin Dang DO Primary Care Provider Active Start: February 22, 2024 SHAAN Strange Attending Provider Active Start : February 22, 2024 Team Status: Inactive Member Role Status Dates Elvin Dang DO Primary Care Provide r, Attending Provider Active Start: March 03, 2024 End: March 03, 2024 Ordered Prescriptions (unrec ognized section and content) Prescription Sig Dispensed Refills Start Date End Da te SITagliptin-metFORMIN HCl ER (JANUMET XR) 100-1000 MG TB24 Take 1 tablet by mouth daily 30 tablet 5 12/03/2021 blood glucose monitor kit and supplies Dispense sufficient amount for indicated testing frequency plus additional to accommodate PRN testing needs. Dispense all needed supplies to include: monitor, strips, lancing device, lancets, control solutions, alcohol swabs. 1 kit 0 12/03/2021 Lancets MISC 1 each by Does not apply route 4 times daily 600 each 1 12/03/2021 Insulin Pen Needle ([employer] PEN NEEDLES) 31G X 6 MM MISC 1 each by Does not apply route daily 100 each 3 12/03/2021 insulin detemir (LEVEMIR FLEXTOUCH) 100 UNIT/ML injection pen Inject 20 Units into the skin nightly 5 pen 1 12/03/2021 01/02/2022 metFORMIN (GLUCOPHAGE-XR) 500 MG extended release tablet Take 1 tablet by mouth daily (with breakfast) 30 tablet 0 12/03/2021 12/03/2021 (unrecognized sect ion and content) No Status Records FoundNo Status Records FoundNo Status Records FoundNo Status Records Found INFORMATION SOURCE (unrecogn ized section and content) DATE CREATED AUTHOR 12/17/2021 [facility] DATE CREATED AUTHOR AUTHOR'S ORGANIZ ATION 12/24/2021 [facility] DATE CREATED AUTHOR AUTHOR'S ORGANIZ ATION 12/29/2021 [facility] DATE CREATED AUTHOR AUTHOR'S ORGANIZ ATION 04/13/2023 [facility] Goals (unrecognized section and content) Goals may be documented in a n alternate section FOR RECORDS PERTAINING TO PATIENTS WHO ARE OR HAVE BEEN ENROLLED IN A CHEMICAL DEPENDENCY/SUBSTANCEABUSE PROGRAM, SOME INFORMATION MAY BE OMITTED. This clinical summary was aggregated from multiple sources. Caution should be exercised in using it in the provision of clinical care. This summary normalizes information from multiple sources, and as a consequence, information in this document may materially change the coding, format and clinical context of patient data. In addition, data may be omitted in some cases. CLINICAL DECISIONS SHOULD BE BASED ON THE PRIMARY CLINICAL RECORDS. [employer] provides no warranty or guarantee of the accuracy or completeness of information in this document.
[2024-07-01 10:05] LABS: Alanine Aminotransferase 19 U/L (16-63); Albumin Level 3.8 g/dL (3.4-5.0); Alkaline Phosphatase 146 U/L (46-116); Anion Gap 15.7; Aspartate Amino Transferase <5 U/L (15-37); BUN Creatinine Ratio 18.3; Bilirubin Total 0.6 mg/dL (0.2-1.0); Calcium 9.3 mg/dL (8.5-10.1); Carbon Dioxide 26.1 mmol/L (21.0-32.0); Chloride 97 mmol/L (98-107); Estimated GFR (African America >60 (>=60); Estimated GFR (Non-African Ame >60 (>=60); Globulin 3.7 g/dL; Glucose 338 mg/dL (74-106); Potassium 4.8 mmol/L (3.5-5.1); Sodium 134 mmol/L (136-145); Total Protein 7.5 g/dL (6.4-8.2)
[2024-07-01 10:18] LABS: Prostate Specific Antigen Scrn 0.76 ng/mL (<=4.00)
== END 2024-07-01 08:49 | disposition home or self-care (01) ==
LOC: LAB 08:50
PROVIDERS: PCP Internal Medicine; Visit Provider Internal Medicine
DX: Z00.00 Encounter for general adult medical examination without abnormal findings (principal)
CPT/HCPCS: 36415; 80053; G0103

== ENCOUNTER 2024-11-03 15:08 | Outpatient (OUT) | payer OTHER, SELFPAY ==
[2024-11-03 15:40] LABS: Estimated Average Glucose 255 mg/dL; Glycohemoglobin A1C 10.5 % (4.5-6.2)
== END 2024-11-03 15:09 | disposition home or self-care (01) ==
LOC: LAB 15:09
PROVIDERS: PCP Internal Medicine; Visit Provider Internal Medicine
DX: E11.65 Type 2 diabetes mellitus with hyperglycemia (principal); Z79.4 Long term (current) use of insulin
CPT/HCPCS: 36415; 83036

== ENCOUNTER 2025-03-06 14:07 | Outpatient (OUT) | payer OTHER, SELFPAY ==
[2025-03-06 14:34] LABS: Creatinine Urine Random 112.46 mg/dL (20.00-300.00); Microalbum Creatinine Ratio Ur 22.2 mg/g (0.0-29.9); Microalbumin Urine Random 2.5 mg/dL (<=30.0)
[2025-03-06 14:48] LABS: Basophils Absolute Auto 0.1 10^3/uL (0.0-0.1); Basophils Percent Auto 0.6 % (0.2-2.0); Eosinophils Absolute Auto 0.1 10^3/uL (0.0-0.7); Eosinophils Percent Auto 1.7 % (0.9-7.0); Hematocrit 47.9 % (42.0-54.0); Hemoglobin 16.3 g/dL (14.0-18.0); Immature Granulocytes Abs Auto 0.01 10^3/uL (0.00-0.03); Immature Granulocytes Pct Auto 0.1 % (0.0-0.5); Lymphocytes Percent Auto 36.4 % (20.5-60.0); Mean Corpuscular Hemoglobin 30.7 pg (25.9-34.0); Mean Corpuscular Volume 90.2 fL (80.0-94.0); Mean Platelet Volume 11.1 fL (9.5-13.5); Monocytes Absolute Auto 1.1 10^3/uL (0.3-0.8); Monocytes Percent Auto 12.7 % (1.7-12.0); Neutrophils Percent Auto 48.5 % (43.0-75.0); Platelet Count 154 10^3/uL (150-450); Red Blood Count 5.31 10^6/uL (4.70-6.10); Red Cell Distribution Width 12.3 % (11.0-15.0); White Blood Count 8.3 10^3/uL (4.0-11.0)
[2025-03-06 14:50] LABS: Estimated Average Glucose 229 mg/dL; Glycohemoglobin A1C 9.6 % (4.5-6.2)
[2025-03-06 15:13] LABS: Alanine Aminotransferase 35 U/L (16-63); Albumin Globulin Ratio 0.9; Albumin Level 3.4 g/dL (3.4-5.0); Alkaline Phosphatase 101 U/L (46-116); Anion Gap 12.7; Aspartate Amino Transferase 20 U/L (15-37); BUN Creatinine Ratio 12.5; Bilirubin Total 0.5 mg/dL (0.2-1.0); Calcium 9.2 mg/dL (8.5-10.1); Carbon Dioxide 28.5 mmol/L (21.0-32.0); Chloride 101 mmol/L (98-107); Estimated GFR (African America >60 (>=60 mL/min/1.73m^2); Estimated GFR (Non-African Ame >60 (>=60 mL/min/1.73m^2); Globulin 3.6 g/dL; Glucose 243 mg/dL (74-106); Potassium 4.2 mmol/L (3.5-5.1); Sodium 138 mmol/L (136-145)
[2025-03-06 15:32] LABS: Prostate Specific Antigen Scrn 0.68 ng/mL (<=4.00)
== END 2025-03-06 14:08 | disposition home or self-care (01) ==
LOC: LAB 14:08
PROVIDERS: PCP Internal Medicine; Visit Provider Internal Medicine
DX: Z00.00 Encounter for general adult medical examination without abnormal findings (principal); E11.65 Type 2 diabetes mellitus with hyperglycemia; Z79.4 Long term (current) use of insulin; I10 Essential (primary) hypertension; Z12.5 Encounter for screening for malignant neoplasm of prostate; E78.00 Pure hypercholesterolemia, unspecified
CPT/HCPCS: 36415; 80053; 82043; 82570; 83036; 85025; G0103